=== PATIENT | female | born 1990 | race Caucasian/White ===

== ENCOUNTER 2018-04-21 20:44 | Emergency (ER) | payer MEDICAID, SELFPAY ==
[2018-04-21 20:48] VITALS: BP 130/64; PULSE 100; RESP 18; TEMP 36.4; O2SAT 100
--- NOTE | 2018-04-21 21:01 | W.ED.GENAD ---
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 Clinical Impression: , threatened Primary Care Provider: Rula Perez ED Provider: Frankie Vickers Meds and New Rx's Prescriptions: Continued PNV cmb#95-ferrous fumarate-FA [] 28 mg iron- 800 mcg tablet 1 tab PO DAILY MDD 1 Qty: 90 RF: 5 Flovent HFA 12 GM HFA aerosol inhaler 110 mcg Inhalation BID RF: 0 HFA spacer 1 unit Qty: 1 RF: 0 amitriptyline 150 MG tablet 150 mg PO HS Qty: 30 RF: 5 methylphenidate HCl [Concerta] 54 MG tablet extended release 24hr 54 mg PO DAILY Qty: 30 RF: 0 gabapentin 800 MG tablet 1,600 mg PO TID Qty: 180 RF: 0 ibuprofen 600 MG tablet 600 mg PO Q6H PRN Qty: 60 RF: 1 methadone 10 mg/mL concentrate 85 mg PO DAILY Qty: 3 RF: 0 Discharge Instructions Instructions: Threatened Miscarriage (ED) Additional Instructions: Pelvic rest for the weekend. Follow-up with OB this week. Return to emergency department if increasing pelvic pain, heavy bleeding, other problems. Referrals: Tari Drake MD [ [facility] STAFF PHYSICIAN] - Medical Decision Making Patient presents with vaginal bleeding in her eighth week of . She has not having significant pain. IV established started CBC, beta quant, type and screen can be obtained. Per records she is a negative and she will therefore need RhoGam. Bedside ultrasound performed by me. Unable to print images. heart rate noted at approximately 180. Pelvic exam performed with female nurse present. Cervical os is closed with minimal to no bleeding at this time. Case discussed with OB, Dr. Drake. Will give full dose RhoGam. Will have patient follow-up with BUSINESS TRANSFORMATION CONSULTANT next week. Return if increasing pain or bleeding. Medical Records Medical records reviewed: Yes I reviewed the patient's medical records. Lab Data Lab results reviewed: Yes I reviewed the patient's lab results. HPI General Mode of arrival: ambulatory. Date/Time Provider Initiated Documentation: 04/21/18 20:47. Limitations to Documentation: no limitations. HPI Narrative: Patient presents to ED with vaginal bleeding. She is 8 weeks 5 days . She had an ultrasound done on the which confirmed IUP. She has had multiple miscarriages in the past. She had spotting today and spoke to OB on-call. Was told to come to the ED if she had any heavy bleeding. Tonight after waking up from a nap she reports being covered in blood. She has some pelvic pressure but no pain. She has no back pain. She thinks she is still bleeding. She has presenting for evaluation as instructed previously. Related Data Home Medications Medication Instructions Recorded Confirmed Flovent HFA 110 mcg INHALATION BID inhaler 11/01/14 04/21/18 amitriptyline 150 mg PO HS #30 tab 04/25/17 04/21/18 methylphenidate HCl [Concerta] 54 mg PO DAILY #30 tab 05/22/17 04/21/18 gabapentin 1,600 mg PO TID #180 tab 06/23/17 04/21/18 ibuprofen 600 mg PO Q6H PRN #60 tab-cap 07/16/17 04/21/18 methadone 10 mg/mL oral concentrate 85 mg PO DAILY #3 ml 04/10/18 04/21/18 vit no.95-ferrous 1 tab PO DAILY #90 tab MDD 1 04/10/18 04/21/18 fumarate 28 mg-folic acid 800 mcg tablet Previous Rx's Medication Instructions Recorded amitriptyline 150 mg PO HS #30 tab 04/25/17 gabapentin 1,600 mg PO TID #180 tab 06/23/17 ibuprofen 600 mg PO Q6H PRN #60 tab-cap 07/16/17 vit no.95-ferrous 1 tab PO DAILY #90 tab MDD 1 04/10/18 fumarate 28 mg-folic acid 800 mcg tablet Allergies Allergy/AdvReac Type Severity Reaction Status Date / Time Penicillins Allergy Severe Anaphylaxsi Unverified 04/21/18 20:52 s venom-honey bee Allergy Severe Anaphylaxsi Unverified 04/21/18 20:52 [bee venom (honey bee)] s naproxen [From Naprosyn] Allergy Intermediate Hives Unverified 04/21/18 20:52 latex Allergy Unknown HIVES, RED Unverified 04/21/18 20:52 BUMPS General Stated Complaint: BUSINESS TRANSFORMATION CONSULTANT TON: 3 Review of Systems Constitutional Denies chills, Denies fever(s), Denies headache(s) and Denies weakness Eyes Denies change in vision and Denies eye pain ENT Denies otalgia, Denies facial pain, Denies headache(s), Denies nasal congestion, Denies nasal discharge, Denies neck pain, Denies sinus pain and Denies sore throat Cardiovascular Denies chest pain, Denies diaphoresis, Denies syncope, Denies rapid heart rate, Denies edema, Denies dyspnea and Denies dyspnea on exertion Respiratory Denies cough, Denies dyspnea and Denies dyspnea on exertion Gastrointestinal Denies abdominal pain, Denies diarrhea, Denies nausea and Denies vomiting Genitourinary Reports abnormal vaginal bleeding, Denies dysuria, Reports pelvic pain and Denies flank pain Musculoskeletal Denies back pain, Denies neck pain and Denies numbness Integumentary/Breasts Denies rash Neurologic Denies syncope, Denies headache(s), Denies numbness and Denies weakness [facility] Medical History Genital warts complicating (Resolved) Hypoglycemia (Resolved) Asthma Cigarette smoker one half pack a day or less Dental caries Hepatitis C antibody positive in blood Marijuana smoker Methadone maintenance treatment affecting Personal history of allergy to penicillin Visual changes Surgical History Amputation (Resolved) Dilation and curettage (07/23/17) Family History Mother History of spontaneous Mental disorder Grandfather Diabetes Grandmother Diabetes Grandmother Diabetes Father Alcohol abuse Sister No problems noted. Brother Alcohol abuse Mental disorder Brother No problems noted. Other Myocardial infarction Social History adopted: No foster care: No household members: family and other details: Earnest Rodriguez and Son Cara number of children: 3 current occupational status: employed Smoking/Tobacco Use Status: Former Tobacco Use alcohol intake: never substance use type: marijuana seatbelt use: always History History 9 Para 3 Hx # Term Pregnancies 3 Multiple births Hx # Pregnancies Ectopic pregnancies AB induced Hx Number of Living Children AB spontaneous 5 Exam Const General: cooperative, comfortable and no acute distress Orientation: alert and oriented x3 HENMT Head: normocephalic and atraumatic Mouth: moist mucous membranes Neck Neck: normal visual inspection and supple Resp Effort & Inspection: normal respiratory effort GI Inspection: non-distended Palpation: soft, not firm, no guarding and nontender External Female Exam: external appearance normal Speculum Exam - Vagina: normal appearance of the vagina and vaginal bleeding (minimal) Speculum Exam - Cervix: normal appearance of the cervix and closed cervix OB/External & Speculum: vaginal bleeding (minimal) Skin General skin exam: no rashes or lesions noted Neuro General: alert, oriented x3, no focal motor deficits and CN's II-XI intact bilaterally Course Vital Signs Temperature 97.5 F L 04/21/18 20:48 Pulse 100 H 04/21/18 20:48 Respiratory Rate 18 04/21/18 20:48 Blood Pressure 130/64 04/21/18 20:48 Pulse Oximetry 100 04/21/18 20:48 Temperature 97.5 F L 04/21/18 20:48 Pulse 100 H 04/21/18 20:48 Respiratory Rate 18 04/21/18 20:48 Respiratory Effort Non-Labored 04/21/18 20:48 Blood Pressure 130/64 04/21/18 20:48 Pulse Oximetry 100 04/21/18 20:48 Oxygen Delivery Method Room Air 04/21/18 20:48 Oxygen Flow Rate 0 04/21/18 20:48 Pain Level 0 04/21/18 20:54
--- NOTE | 2018-04-21 21:04 | ED.GENADUL_ITS ---
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 Clinical Impression: , threatened Primary Care Provider: Rula Perez ED Provider: Frankie Vickers Meds and New Rx's Prescriptions: Continued PNV cmb#95-ferrous fumarate-FA [] 28 mg iron- 800 mcg tablet 1 tab PO DAILY MDD 1 Qty: 90 RF: 5 Flovent HFA 12 GM HFA aerosol inhaler 110 mcg Inhalation BID RF: 0 HFA spacer 1 unit Qty: 1 RF: 0 amitriptyline 150 MG tablet 150 mg PO HS Qty: 30 RF: 5 methylphenidate HCl [Concerta] 54 MG tablet extended release 24hr 54 mg PO DAILY Qty: 30 RF: 0 gabapentin 800 MG tablet 1,600 mg PO TID Qty: 180 RF: 0 ibuprofen 600 MG tablet 600 mg PO Q6H PRN Qty: 60 RF: 1 methadone 10 mg/mL concentrate 85 mg PO DAILY Qty: 3 RF: 0 Discharge Instructions Instructions: Threatened Miscarriage (ED) Additional Instructions: Pelvic rest for the weekend. Follow-up with OB this week. Return to emergency department if increasing pelvic pain, heavy bleeding, other problems. Referrals: Tari Drake MD [ [facility] STAFF PHYSICIAN] - Medical Decision Making Patient presents with vaginal bleeding in her eighth week of . She has not having significant pain. IV established started CBC, beta quant, type and screen can be obtained. Per records she is a negative and she will therefore need RhoGam. Bedside ultrasound performed by me. Unable to print images. heart rate noted at approximately 180. Pelvic exam performed with female nurse present. Cervical os is closed with minimal to no bleeding at this time. Case discussed with OB, Dr. Drake. Will give full dose RhoGam. Will have patient follow-up with SHOP MECHANIC HELPER next week. Return if increasing pain or bleeding. Medical Records Medical records reviewed: Yes I reviewed the patient's medical records. Lab Data Lab results reviewed: Yes I reviewed the patient's lab results. HPI General Mode of arrival: ambulatory . Date/Time Provider Initiated Documentation: 04/21/18 20:47 . Limitations to Documentation: no limitations . HPI Narrative: Patient presents to ED with vaginal bleeding. She is 8 weeks 5 days . She had an ultrasound done on the which confirmed IUP. She has had multiple miscarriages in the past. She had spotting today and spoke to OB on-call. Was told to come to the ED if she had any heavy bleeding. Tonight after waking up from a nap she reports being covered in blood. She has some pelvic pressure but no pain. She has no back pain. She thinks she is still bleeding. She has presenting for evaluation as instructed previously. Related Data Home Medications Medication Instructions Recorded Confirmed Flovent HFA 110 mcg INHALATION BID inhaler 11/01/14 04/21/18 amitriptyline 150 mg PO HS #30 tab 04/25/17 04/21/18 methylphenidate HCl [Concerta] 54 mg PO DAILY #30 tab 05/22/17 04/21/18 gabapentin 1,600 mg PO TID #180 tab 06/23/17 04/21/18 ibuprofen 600 mg PO Q6H PRN #60 tab-cap 07/16/17 04/21/18 methadone 10 mg/mL oral concentrate 85 mg PO DAILY #3 ml 04/10/18 04/21/18 vit no.95-ferrous 1 tab PO DAILY #90 tab MDD 1 04/10/18 04/21/18 fumarate 28 mg-folic acid 800 mcg tablet Previous Rx's Medication Instructions Recorded amitriptyline 150 mg PO HS #30 tab 04/25/17 gabapentin 1,600 mg PO TID #180 tab 06/23/17 ibuprofen 600 mg PO Q6H PRN #60 tab-cap 07/16/17 vit no.95-ferrous 1 tab PO DAILY #90 tab MDD 1 04/10/18 fumarate 28 mg-folic acid 800 mcg tablet Allergies Allergy/AdvReac Type Severity Reaction Status Date / Time Penicillins Allergy Severe Anaphylaxsi Unverified 04/21/18 20:52 s venom-honey bee Allergy Severe Anaphylaxsi Unverified 04/21/18 20:52 [bee venom (honey bee)] s naproxen [From Naprosyn] Allergy Intermediate Hives Unverified 04/21/18 20:52 latex Allergy Unknown HIVES, RED Unverified 04/21/18 20:52 BUMPS General 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 TON: 3 Review of Systems Constitutional Denies chills, Denies fever(s), Denies headache(s) and Denies weakness Eyes Denies change in vision and Denies eye pain ENT Denies otalgia, Denies facial pain, Denies headache(s), Denies nasal congestion, Denies nasal discharge, Denies neck pain, Denies sinus pain and Denies sore throat Cardiovascular Denies chest pain, Denies diaphoresis, Denies syncope, Denies rapid heart rate, Denies edema, Denies dyspnea and Denies dyspnea on exertion Respiratory Denies cough, Denies dyspnea and Denies dyspnea on exertion Gastrointestinal Denies abdominal pain, Denies diarrhea, Denies nausea and Denies vomiting Genitourinary Reports abnormal vaginal bleeding, Denies dysuria, Reports pelvic pain and Denies flank pain Musculoskeletal Denies back pain, Denies neck pain and Denies numbness Integumentary/Breasts Denies rash Neurologic Denies syncope, Denies headache(s), Denies numbness and Denies weakness [facility] Medical History Genital warts complicating (Resolved) Hypoglycemia (Resolved) Asthma Cigarette smoker one half pack a day or less Dental caries Hepatitis C antibody positive in blood Marijuana smoker Methadone maintenance treatment affecting Personal history of allergy to penicillin Visual changes Surgical History Amputation (Resolved) Dilation and curettage (07/23/17) Family History Mother History of spontaneous Mental disorder Grandfather Diabetes Grandmother Diabetes Grandmother Diabetes Father Alcohol abuse Sister No problems noted. Brother Alcohol abuse Mental disorder Brother No problems noted. Other Myocardial infarction Social History adopted: No foster care: No household members: family and other details: Earnest Rodriguez and Son Cara number of children: 3 current occupational status: employed Smoking/Tobacco Use Status: Former Tobacco Use alcohol intake: never substance use type: marijuana seatbelt use: always History History 9 Para 3 Hx # Term Pregnancies 3 Multiple births Hx # Pregnancies Ectopic pregnancies AB induced Hx Number of Living Children AB spontaneous 5 Exam Const General: cooperative, comfortable and no acute distress Orientation: alert and oriented x3 HENMT Head: normocephalic and atraumatic Mouth: moist mucous membranes Neck Neck: normal visual inspection and supple Resp Effort & Inspection: normal respiratory effort GI Inspection: non-distended Palpation: soft, not firm, no guarding and nontender External Female Exam: external appearance normal Speculum Exam - Vagina: normal appearance of the vagina and vaginal bleeding (minimal) Speculum Exam - Cervix: normal appearance of the cervix and closed cervix OB/External & Speculum: vaginal bleeding (minimal) Skin General skin exam: no rashes or lesions noted Neuro General: alert, oriented x3, no focal motor deficits and CN's II-XI intact bilaterally Course Vital Signs Temperature 97.5 F L 04/21/18 20:48 Pulse 100 H 04/21/18 20:48 Respiratory Rate 18 04/21/18 20:48 Blood Pressure 130/64 04/21/18 20:48 Pulse Oximetry 100 04/21/18 20:48 Temperature 97.5 F L 04/21/18 20:48 Pulse 100 H 04/21/18 20:48 Respiratory Rate 18 04/21/18 20:48 Respiratory Effort Non-Labored 04/21/18 20:48 Blood Pressure 130/64 04/21/18 20:48 Pulse Oximetry 100 04/21/18 20:48 Oxygen Delivery Method Room Air 04/21/18 20:48 Oxygen Flow Rate 0 04/21/18 20:48 Pain Level 0 04/21/18 20:54
[2018-04-21 21:38] LABS: Abs Immature Grans 0.01 k/cumm (0.0-0.09); Absolute Basophil Count 0.01 k/cumm (0.0-0.2); Absolute Eosinophil Count 0.21 k/cumm (0.0-0.7); Absolute Monocyte Count 0.45 k/cumm (0.11-0.7); Absolute Neutrophil Count 4.66 k/cumm (1.2-6.7); Basophils % 0.1; Eosinophils % 2.9; HCT 39.2 % (36.0-46.0); HGB 13.3 g/dL (12.0-15.5); Immature Grans % 0.1; Lymphocytes % 25.2; Mean Corp. HGB Concentration 33.9 g/dL (32.0-36.0); Mean Corpuscular Hemoglobin 28.4 pg (27.0-33.0); Mean Corpuscular Volume 83.8 fL (80-95); Mean Platelet Volume 9.3 fL (8.0-11.0); Monocytes % 6.3; Neutrophils % 65.4; Platelet Count 324 x1000/uL (130-400); RBC 4.68 m/cumm (4.00-5.20); RBC Distribution Width 13.5 % (11.7-14.6); White Blood Cell Count 7.14 k/cumm (4.4-10.8)
[2018-04-21 22:50] VITALS: BP 130/64; PULSE 100; RESP 18; TEMP 36.4; O2SAT 100
== END 2018-04-21 22:51 | disposition home or self-care (01) ==
PROVIDERS: Emergency Provider Emergency Medicine; PCP Nurse Practitioner
DX: O20.0 Threatened abortion (principal); Z3A.08 8 weeks gestation of pregnancy
CPT/HCPCS: 36415; 86850; 86900; 86901; 90384; 96372; 99284; 84702; 85025; J2790

== ENCOUNTER 2018-05-11 15:58 | Outpatient (REF) | payer MEDICAID, SELFPAY ==
--- NOTE | 2018-05-11 15:20 | PAPFT_PTH ---
PATIENT: Jennifer Cheng LOC: [facility] U#:[id number] AGE/SX: 28/F ROOM: RE05/11/[address]: Fanta Escalera CNM : 1990 BED: DIS: 05/11/2018 SPEC #: [id number] RECD: 05/11/18 18:12 STATUS: AGUILAR DAO #: [id number] JACKIE: 05/11/18 15:[address]: Fanta Escalera DEPT: [facility] Cytology RECD BY: Cass Jones ENTERED: 05/11/18 18:12 SP TYPE: PAPFT OTHR DR: Rula Perez Tissues: 1 - CX/ENDOCX FOR PAP SMEARS Procedures: PAP THIN PREP/UVM Screening HPV DNA PROBE Comments: [id number]
[2018-05-11 16:41] LABS: *AMPHETAMINES SCREEN URINE Negative (Negative); *BARBITURATES SCREEN URINE Negative (Negative); *BENZODIAZEPINES SCREEN URINE Negative (Negative); Cannabinoids THC POSITIVE (Negative); Cocaine Screen,Urine Negative (Negative); METHADONE URINE SCREEN POSITIVE (Negative); OPIATES URINE SCREEN Negative (Negative)
[2018-05-11 16:42] LABS: Tricyclic Antidepressants POSITIVE (Negative)
[2018-05-13 12:46] LABS: Chlamydia Result Negative; GC Result Negative; Specimen Description CERVIX
[2018-05-15 14:54] LABS: Buprenorphine Negative
== END 2018-05-11 16:18 ==
LOC: LBN 15:58
PROVIDERS: PCP Nurse Practitioner; Visit Provider Advanced Practice Midwife
DX: Z34.91 Encounter for supervision of normal pregnancy, unspecified, first trimester (principal); Z12.4 Encounter for screening for malignant neoplasm of cervix; Z11.51 Encounter for screening for human papillomavirus (HPV); Z11.3 Encounter for screening for infections with a predominantly sexual mode of transmission
CPT/HCPCS: 80307; 87491; 87591; 88142; 87086; 87624

== ENCOUNTER 2018-05-27 01:05 | Outpatient (RCR) | payer MEDICAID, SELFPAY ==
[2018-05-27 10:35] LABS: Abs Immature Grans 0.01 k/cumm (0.0-0.09); Absolute Basophil Count 0.02 k/cumm (0.0-0.2); Absolute Eosinophil Count 0.13 k/cumm (0.0-0.7); Absolute Lymphocyte Count 1.26 k/cumm (1.2-3.4); Absolute Monocyte Count 0.29 k/cumm (0.11-0.7); Absolute Neutrophil Count 3.62 k/cumm (1.2-6.7); Basophils % 0.4; Eosinophils % 2.4; HCT 37.1 % (36.0-46.0); HGB 12.7 g/dL (12.0-15.5); Immature Grans % 0.2; Lymphocytes % 23.6; Mean Corp. HGB Concentration 34.2 g/dL (32.0-36.0); Mean Corpuscular Hemoglobin 28.7 pg (27.0-33.0); Mean Corpuscular Volume 83.9 fL (80-95); Mean Platelet Volume 9.9 fL (8.0-11.0); Monocytes % 5.4; Platelet Count 233 x1000/uL (130-400); RBC 4.42 m/cumm (4.00-5.20); RBC Distribution Width 13.7 % (11.7-14.6); White Blood Cell Count 5.33 k/cumm (4.4-10.8)
[2018-05-27 11:03] LABS: TSH (W/Ref FT4) 1.45 uIU/mL (0.358-3.74)
[2018-05-28 09:23] LABS: Hepatitis B Surface Ag Negative (NEGAT)
[2018-05-28 11:22] LABS: HIV-1/2 Ag & Ab Screen Negative (NEGAT)
[2018-05-28 11:51] LABS: Varicella IgG Antibody Positive
[2018-05-28 11:58] LABS: Rubella IgG Ab (UVM) Positive
[2018-05-28 12:08] LABS: Syphilis Serology (RPR) Negative (Negative)
[2018-05-28 15:24] LABS: HCV RNA Detection Quantitative Undetected IU/mL (UNDECT)
[2018-06-02 17:30] LABS: Result Summary NEGATIVE; Specimen WB Whole Blood
== END 2018-06-04 23:59 | disposition home or self-care (01) ==
LOC: INF 01:05
PROVIDERS: PCP Nurse Practitioner; Visit Provider Advanced Practice Midwife
DX: Z34.83 Encounter for supervision of other normal pregnancy, third trimester (principal)
CPT/HCPCS: 36415; 80055; 86787; 86803; 86850; 86900; 86901; 87340; 87389; 81220; 84443; 86592; 86762; 86870; 87522

== ENCOUNTER 2018-06-25 00:42 | Outpatient (CLI) | payer MEDICAID, SELFPAY ==
--- NOTE | 2018-06-25 09:28 | DI.US_ITS ---
SYMPTOMS/DIAGNOSIS: SURVEY, Z34.90 OB ULTRASOUND: Please see the accompanying OB ultrasound worksheet for complete details of this examination. Many abnormalities cannot be diagnosed. A normal exam does not exclude a congenital anomaly. Radiology No. [id number] LMP: Exam Date: 06/25/18 [facility] wks days on EDC ([facility]) 11/26/18 Confirmed: HISTORY: survey PREDICTED GESTATIONAL AGE NUMBER 18+0 weeks with a range of 17+0 weeks to 19+0 weeks. 1 Determined by 1STUS X LMP___HISTORY Info. pertaining to fetus # PLACENTA PRESENTATION Grade I Cephalic___ Anterior___Posterior___ Breech____ Right Left Transverse(head right___ Fundal X Low-lying___Previa___ Transverse(head left___ Varying X BIOMETRY AMNIOTIC FLUID BPD: 39 mm 18+0 weeks Normal HC: 148 mm 17+6weeks AC: 128 mm 18+3 weeks FL: 26 mm 17+6 weeks AMNIOTIC FLUID INDEX >26 WK CRL: mm weeks Cisterna Magna: 3 mm CI: 86 RUQ: LUQ Cerebellum: 1.8 cm EFW: 223 grams Percentile 50% RLQ: LLQ Total: cms Composite AGE= 18+0 wks EDC by US 11/26/18 BIOPHYSICAL PROFILE ANATOMY IDENTIFIED SCORE 0/2 Heart: 4-Chamber X Rate: 150 BPM LVOT: X RVOT: X Amniotic Fluid(>2cms)____ Stomach: X Kidneys: X Respirations (>30 secs) Bladder: X Post. Fossa: X Body Flex/Extension 3 vessel cord: X Ventricles: X cord insertion: X Lips: X Extremity Flex/Extension spinal morphology: X Nose: X Total Score= Palate: X NS=not seen
== END 2018-06-25 01:02 ==
PROVIDERS: PCP Nurse Practitioner; Visit Provider Advanced Practice Midwife
DX: Z34.92 Encounter for supervision of normal pregnancy, unspecified, second trimester (principal)
CPT/HCPCS: 76805

== ENCOUNTER 2018-06-25 02:23 | Outpatient (RCR) | payer MEDICAID, SELFPAY ==
[2018-06-26 15:45] LABS: AFP 41.4 ng/mL; Calculated age at EDD 29 years; GA used in risk estimate Scan estimate; INHIBIN 353 pg/mL; IVF Pregnancy No; Initial or repeat testing Initial testing; Insulin dependent diabetes No; Maternal Weight 161 lbs; Number of Fetuses 1; Physician Phone Number 802-748-7300; Prev Down(T21)/Trisomy Pregnan No; Prev Pregnancy w/NTD No; RECOMMENDED FOLLOW UP None.; Results Summary Normal risk; hCG, TOTAL 38.8 IU/mL; hCG, TOTAL MoM 2.27 MoM; uE3 MoM 0.76 MoM
== END 2018-07-05 23:59 | disposition home or self-care (01) ==
LOC: INF 02:23
PROVIDERS: PCP Nurse Practitioner; Visit Provider Obstetrics & Gynecology Gynecology
DX: Z34.90 Encounter for supervision of normal pregnancy, unspecified, unspecified trimester (principal)
CPT/HCPCS: 36415; 81511

== ENCOUNTER 2018-09-03 02:02 | Outpatient (RCR) | payer MEDICAID, SELFPAY | END 2018-09-04 23:59 | disposition home or self-care (01) | LOC: INF 02:02 | PROVIDERS: PCP Nurse Practitioner; Visit Provider Obstetrics & Gynecology | DX: Z34.90 Encounter for supervision of normal pregnancy, unspecified, unspecified trimester (principal) | CPT/HCPCS: 82950; 85027; 86900; 86901 ==

== ENCOUNTER 2018-09-10 01:24 | Outpatient (RCR) | payer MEDICAID, SELFPAY ==
[2018-09-10 10:51] LABS: HCT 33.7 % (36.0-46.0); HGB 11.3 g/dL (12.0-15.5); Mean Corp. HGB Concentration 33.5 g/dL (32.0-36.0); Mean Corpuscular Hemoglobin 28.9 pg (27.0-33.0); Mean Corpuscular Volume 86.2 fL (80-95); Mean Platelet Volume 9.6 fL (8.0-11.0); Platelet Count 261 x1000/uL (130-400); RBC 3.91 m/cumm (4.00-5.20); RBC Distribution Width 13.9 % (11.7-14.6); White Blood Cell Count 7.77 k/cumm (4.4-10.8)
[2018-09-10 10:59] LABS: Glucose,1 Hr (Glucola) 139 mg/dL (80-140)
== END 2018-10-04 23:59 | disposition home or self-care (01) ==
LOC: INF 01:24
PROVIDERS: Obstetrics & Gynecology Gynecology; Psychiatry & Neurology Psychiatry; PCP Nurse Practitioner; Visit Provider Internal Medicine
DX: Z34.90 Encounter for supervision of normal pregnancy, unspecified, unspecified trimester (principal)
CPT/HCPCS: 36415; 82950; 85027; 86850; 86900; 86901; 90384

== ENCOUNTER 2018-09-11 01:51 | Outpatient (CLI) | payer MEDICAID, SELFPAY ==
--- NOTE | 2018-09-11 09:24 | DI.US_ITS ---
SYMPTOM/DIAGNOSIS: FUNDAL HEIGHT MEASURING , 3 W BEHIND, O36.5104 LIMITED OBSTETRICAL ULTRASOUND: There is a single living intrauterine gestation. Estimated sonographic age is 27 weeks 6 days, The fetus is in the breech position. heart rate is 136 BPM anatomic evaluation was not performed at this time. Estimated weight is 1193 grams which is the 12th percentile. The placenta is posterior without evidence of previa. Amniotic fluid index is 14.2. Visual amniotic fluid appears within normal limits. IMPRESSION: Single living intrauterine gestation, estimated sonographic age is 27 weeks 6 days. Predicted Gestational Age: Indication/History: 29 +1 Wks Range: 28 +1 to 30 +1 Prior US done on: Determined by: First US LMP History EDC by prior US: 11/26/2018 For multiple gestations: Baby PLACENTA: Grade: II Location: Posterior XX PRESENTATION: RT LT LOW LYING PREVIA Cephalic Trans (Head RT LT ) Varied Breech XX BIOMETRY: Anatomy Identified: BPD: 65 mm 26 +3 wks 4 chamber Heart Heart Rate 136 BPM HC: 258 mm 28 wks LVOT Post Fossa AC: 241 mm 28 +3 wks RVOT Ventricles FL: 54 mm 28 +3 wks Stomach Nose Bladder Lips Cisterna Magna: mm CI: 77 Kidneys Palate Cerebellum: mm 3 vessel cord Spine EFW: 1193 grms 12 % Cord Insertion XX NS= not seen Composite Age (US) 27 +8 wks Many abnormalities cannot be diagnosed. A normal exam does not exclude congenital abnormality. EDC by US 12/05/18 Amniotic Fluid Index: Normal COMMENTS: RUQ: 2.4 LUQ: 3.72 RLQ: 3.41 LLQ: 4.92 Total: 17.2 cm Biophysical Profile: Score 0/2 SUSIE (>2cm) Respirations (>30 sec) Body flexion/extension Extremity flexion/extension TOTAL SCORE
== END 2018-09-11 02:11 ==
PROVIDERS: PCP Nurse Practitioner; Visit Provider Obstetrics & Gynecology Gynecology
DX: O36.5920 Maternal care for other known or suspected poor fetal growth, second trimester, not applicable or unspecified (principal)
CPT/HCPCS: 76816

== ENCOUNTER 2018-09-21 10:05 | Outpatient (CLI) | payer MEDICAID, SELFPAY ==
--- NOTE | 2018-09-21 07:00 | DIABASSESS_ITS ---
DESCRIPTION/ASSESSMENT: Brooklynn Cheng presents for medical nutrition therapy to rule out gestational diabetes unable to completed 3 hour GTT after elevated glucose screen. She is willing to test her blood sugars per protocol to prevent complications. Brooklynn admits to drinking koolaid with 1/2 usual sugar; eating at [employer] because it is her place of work eating partaits and triple cheeseburgers and juice. She has given up [place]. She has an overall weight gain 2 pounds with a 15 pound weight loss initially, now at 32 weeks. Brooklynn has 2 children all with birthweight less than 7 pounds. She is physically inactive other than chasing her children and work. INTERVENTION: Explained risk to baby and self with blood sugars above target range. Reviewed diabetes food guide. She is mostly focused on monitoring her blood sugars and she is able to return demonstration with random blood sugar 112 after a few sips of coffee with sugar. Reviewed diabetes guide focused on carbohydrate sources and portions and she is able to voice changes she would make to improve her blood sugars. Reviewed blood sugar testing guidelines and she voices understanding. ACTION PLAN: She will pear picker glucometer and strips and initiate testing today. She will eliminate all beverages with sugar; limit sweets during the day She will call on Friday or before with results and questions. Individual MNT __2__ units billed TIME IN: 0700 OUT: 07 No DM group education series being offered at this time.
== END 2018-09-21 10:25 ==
PROVIDERS: PCP Nurse Practitioner; Visit Provider Dietitian, Registered
DX: O24.419 Gestational diabetes mellitus in pregnancy, unspecified control (principal); Z71.3 Dietary counseling and surveillance
CPT/HCPCS: 97802

== ENCOUNTER 2018-10-12 00:48 | Outpatient (CLI) | payer MEDICAID, SELFPAY ==
--- NOTE | 2018-10-12 10:21 | DI.US_ITS ---
SYMPTOM/DIAGNOSIS: SGA, 026.849, UTERINE SIZE/DATE DISCREPANCY OB ULTRASOUND: 10/12 OB ultrasound was performed utilizing 3rd trimester protocol. Placenta is posterior and fundal and there is no evidence of placenta previa. There is visually a normal quantity of amniotic fluid and the SUSIE is 12. The fetus is in breech presentation. biometry is consistent with gestational age of 31 weeks and EDC of 12/14/18 The estimated weight is 1748 grams which is at the 3rd percentile for predicted gestational age. Predicted Gestational Age: Indication/History: 33 +4 Wks Range: 32 +4 to 34 +4 Prior US done on: Determined by: First US LMP History EDC by prior US: 11/26/18 For multiple gestations: Baby PLACENTA: Grade II Location: Posterior PRESENTATION: RT LT LOW LYING PREVIA Cephalic Trans (Head RT LT ) Varied Breech XX BIOMETRY: Anatomy Identified: BPD: 74 mm 29 +5 wks 4 chamber Heart Heart Rate 153 BPM HC: 285 mm 31 +2 wks LVOT Post Fossa AC: 276 mm 31 +5 wks RVOT Ventricles FL: 60 mm 31 +2 wks Stomach Nose Bladder Lips Cisterna Magna: mm 83 CI: Kidneys Palate Cerebellum: mm 3 vessel cord Spine EFW: 1748 grms 3 % Cord Insertion NS= not seen Composite Age (US) 31 wks Many abnormalities cannot be diagnosed. A normal exam does not exclude congenital abnormality. EDC by US 12/14/18 Amniotic Fluid Index: Normal COMMENTS: RUQ: 2.12 LUQ: 4.13 RLQ: 2.33 LLQ: 3.48 Total: 12.1 cm Biophysical Profile: Score 0/2 SUSIE (>2cm) Respirations (>30 sec) Body flexion/extension Extremity flexion/extension TOTAL SCORE
== END 2018-10-12 01:08 ==
PROVIDERS: PCP Nurse Practitioner; Visit Provider Obstetrics & Gynecology
DX: O26.843 Uterine size-date discrepancy, third trimester (principal); Z34.93 Encounter for supervision of normal pregnancy, unspecified, third trimester
CPT/HCPCS: 76816

== ENCOUNTER 2018-10-16 08:14 | Outpatient (CLI) | payer MEDICAID, SELFPAY ==
[2018-10-16] MEDS: Betamet Acet/Betamet Na Ph Inj. 30 MG/5 ML 12 MG IM (09:50)
== END 2018-10-16 08:34 ==
PROVIDERS: PCP Nurse Practitioner; Visit Provider Advanced Practice Midwife
DX: O36.5930 Maternal care for other known or suspected poor fetal growth, third trimester, not applicable or unspecified (principal); Z3A.34 34 weeks gestation of pregnancy
CPT/HCPCS: 96372; 59025; J0702

== ENCOUNTER 2018-10-19 01:49 | Outpatient (CLI) | payer MEDICAID, SELFPAY ==
--- NOTE | 2018-10-19 08:20 | DI.US_ITS ---
SYMPTOMS/DIAGNOSIS: IUGR OB ULTRASOUND: There is a single intrauterine gestation. The fetus is in the breech position. heart rate is 155 bpm. anatomic evaluation was not performed at this time. Amniotic fluid index is 12.4 cm. Visually amniotic fluid is within normal limits. The placenta is posterior without evidence of previa. The biophysical profile score is 8 out of 8. IMPRESSION: Single intrauterine gestation. Biophysical profile score is 8 out of 8. Predicted Gestational Age: Indication/History: 34+4 Wks Range: to Prior US done on: Determined by: First US LMP History EDC by prior US: 11/26/18 For multiple gestations: Baby PLACENTA: Grade: II Location: Anterior Posterior X PRESENTATION: RT LT LOW LYING PREVIA Cephalic Trans (Head RT LT ) Varied Breech X BIOMETRY: Anatomy Identified: BPD: mm wks 4 chamber Heart Heart Rate 155 BPM HC: mm wks LVOT Post Fossa AC: mm wks RVOT Ventricles FL: mm wks Stomach Nose Bladder Lips Cisterna Magna: mm CI: Kidneys Palate Cerebellum: mm 3 vessel cord Spine EFW: grms % Cord Insertion NS= not seen Composite Age (US) wks Many abnormalities cannot be diagnosed. A normal exam does not exclude congenital abnormality. EDC by US Amniotic Fluid Index: Normal COMMENTS: RUQ: 4.16 LUQ: 1.77 RLQ: 2.07 LLQ: 4.41 Total: 12.4 cm Biophysical Profile: Score 0/2 SUSIE (>2cm) 2/2 Respirations (>30 sec) 2/2 Body flexion/extension 2/2 Extremity flexion/extension 2/2 TOTAL SCORE 8/8
== END 2018-10-19 02:09 ==
PROVIDERS: PCP Nurse Practitioner; Visit Provider Obstetrics & Gynecology
DX: Z36.89 Encounter for other specified antenatal screening; Z3A.34 34 weeks gestation of pregnancy; O26.843 Uterine size-date discrepancy, third trimester
CPT/HCPCS: 76815; 96372; 59025; 76819; J0702

== ENCOUNTER 2018-10-19 09:31 | Outpatient (CLI) | payer MEDICAID, SELFPAY ==
[2018-10-19] MEDS: Betamet Acet/Betamet Na Ph Inj. 30 MG/5 ML 12 MG IM (09:50)
== END 2018-10-19 09:51 ==
PROVIDERS: PCP Nurse Practitioner; Visit Provider Obstetrics & Gynecology
DX: O26.843 Uterine size-date discrepancy, third trimester (principal); Z3A.34 34 weeks gestation of pregnancy
CPT/HCPCS: 96372; 59025; J0702

== ENCOUNTER 2018-10-22 09:36 | Outpatient (CLI) | payer MEDICAID, SELFPAY | END 2018-10-22 09:56 | PROVIDERS: PCP Nurse Practitioner; Visit Provider Obstetrics & Gynecology | DX: O26.843 Uterine size-date discrepancy, third trimester (principal); O99.323 Drug use complicating pregnancy, third trimester; F19.10 Other psychoactive substance abuse, uncomplicated; Z3A.35 35 weeks gestation of pregnancy | CPT/HCPCS: 59025 ==

== ENCOUNTER 2018-10-26 00:54 | Outpatient (CLI) | payer MEDICAID, SELFPAY ==
--- NOTE | 2018-10-26 08:32 | DI.US_ITS ---
SYMPTOM/DIAGNOSIS: IUGR, [id number]. POOR GROWTH BIOPHYSICAL PROFILE: There is a single intrauterine gestation. The fetus is in the breech position. heart rate is 163 BPM. anatomic evaluation and dating was not performed at this examination. The placenta is anterior. The amniotic fluid index is 8.5 cm, visually the amniotic fluid appears within normal limits. The biophysical profile score is 8 out of 8. IMPRESSION: Single intrauterine gestation. Biophysical profile score of 8 out of 8. Predicted Gestational Age: Indication/History: IUGR 35 +4 Wks Range: to Prior US done on: Determined by: First US LMP XX History EDC by prior US: 11/26/18 For multiple gestations: Baby PLACENTA: Grade: I - II Location: XX Anterior Posterior PRESENTATION: RT LT LOW LYING PREVIA Cephalic Trans (Head RT LT ) Varied Breech XX BIOMETRY: Anatomy Identified: BPD: mm wks 4 chamber Heart Heart Rate 163 BPM HC: mm wks LVOT Post Fossa AC: mm wks RVOT Ventricles FL: mm wks Stomach Nose Bladder Lips Cisterna Magna: mm CI: Kidneys Palate Cerebellum: mm 3 vessel cord Spine EFW: grms % Cord Insertion NS= not seen Composite Age (US) wks Many abnormalities cannot be diagnosed. A normal exam does not exclude congenital abnormality. EDC by US Amniotic Fluid Index: Normal COMMENTS: RUQ: 0 LUQ: 2.5 RLQ: 2.4 LLQ: 3.5 Total: 8.5 cm Biophysical Profile: Score 0/2 SUSIE (>2cm) __2/2 Respirations (>30 sec) __2/2 Body flexion/extension __2/2 Extremity flexion/extension ___2/2 TOTAL SCORE __8/8
== END 2018-10-26 01:14 ==
PROVIDERS: PCP Nurse Practitioner; Visit Provider Obstetrics & Gynecology
DX: O36.5993 Maternal care for other known or suspected poor fetal growth, unspecified trimester, fetus 3 (principal); Z36.85 Encounter for antenatal screening for Streptococcus B; O99.320 Drug use complicating pregnancy, unspecified trimester; F11.20 Opioid dependence, uncomplicated
CPT/HCPCS: 76815; 80307; 76819

== ENCOUNTER 2018-10-26 14:56 | Outpatient (REF) | payer MEDICAID, SELFPAY ==
[2018-10-26 17:40] LABS: *AMPHETAMINES SCREEN URINE Negative (Negative); *BARBITURATES SCREEN URINE Negative (Negative); *BENZODIAZEPINES SCREEN URINE Negative (Negative); Cannabinoids THC POSITIVE (Negative); Cocaine Screen,Urine Negative (Negative); METHADONE URINE SCREEN POSITIVE (Negative); OPIATES URINE SCREEN Negative (Negative)
[2018-10-26 17:41] LABS: Tricyclic Antidepressants POSITIVE (Negative)
== END 2018-10-26 15:16 ==
LOC: LBN 14:56
PROVIDERS: PCP Nurse Practitioner; Visit Provider Obstetrics & Gynecology Gynecology
DX: F11.20 Opioid dependence, uncomplicated (principal); O99.323 Drug use complicating pregnancy, third trimester
CPT/HCPCS: 80307

== ENCOUNTER 2018-10-29 07:45 | Outpatient (CLI) | payer MEDICAID, SELFPAY ==
--- NOTE | 2018-10-29 11:28 | DI.US_ITS ---
SYMPTOMS/DIAGNOSIS: NONREACTIVE NONSTRESS TEST, INTRAUTERINE GROWTH RESTRICTION OB ULTRASOUND: Predicted Gestational Age: Indication/History: 36 Wks Range: 35 to 37 Prior US done on: Determined by: First US LMP History EDC by prior US: For multiple gestations: Baby PLACENTA: Grade: II Location: Anterior X Posterior PRESENTATION: RT LT LOW LYING PREVIA Cephalic Trans (Head RT LT ) Varied Breech X BIOMETRY: Anatomy Identified: BPD: mm wks 4 chamber Heart Heart Rate 141 BPM HC: mm wks LVOT Post Fossa AC: mm wks RVOT Ventricles FL: mm wks Stomach Nose Bladder Lips Cisterna Magna: mm CI: Kidneys Palate Cerebellum: mm 3 vessel cord Spine EFW: grms % Cord Insertion NS= not seen Composite Age (US) wks Many abnormalities cannot be diagnosed. A normal exam does not exclude congenital abnormality. EDC by US Amniotic Fluid Index: Normal RUQ: 1.1 LUQ: 2.1 RLQ: 4.2 LLQ: 1.4 Total: 8.8 cm Biophysical Profile: Score 0/2 SUSIE (>2cm) ___2 Respirations (>30 sec) ___2 Body flexion/extension ___2 Extremity flexion/extension ___2 TOTAL SCORE __8 COMMENTS: A biophysical profile was performed. The placenta is fundal and posterior. The fetus is in breech position. cardiac activity is demonstrated at 141 beats per minute. The amniotic fluid index appears normal at 8.8. Biophysical profile is normal with a score of 8. IMPRESSION: Normal biophysical profile.
== END 2018-10-29 08:05 ==
PROVIDERS: PCP Nurse Practitioner; Visit Provider Obstetrics & Gynecology
DX: O36.5930 Maternal care for other known or suspected poor fetal growth, third trimester, not applicable or unspecified (principal); O32.1XX0 Maternal care for breech presentation, not applicable or unspecified
CPT/HCPCS: 76815; 59025; 76819

== ENCOUNTER 2018-11-02 00:33 | Outpatient (CLI) | payer MEDICAID, SELFPAY ==
--- NOTE | 2018-11-02 08:32 | DI.US_ITS ---
SYMPTOM/DIAGNOSIS: IUGR, ORDERED BPP, MODIFIED LIMITED DUE TO PATIENT'S WATER BREAKING OBSTETRICAL ULTRASOUND: A breech rowley is noted with a cardiac rate of 160 BPM. The patient went in to labor during the examination and the study was discontinued. Predicted Gestational Age: Indication/History: 36 +4 Wks Range: 35 +4 to 37 +4 Prior US done on: Determined by: First US LMP History EDC by prior US: For multiple gestations: Baby PLACENTA: Grade: Location: Anterior Posterior PRESENTATION: RT LT LOW LYING PREVIA Cephalic Trans (Head RT LT ) Varied Breech XX BIOMETRY: Anatomy Identified: BPD: mm wks 4 chamber Heart Heart Rate 160 BPM HC: mm wks LVOT Post Fossa AC: mm wks RVOT Ventricles FL: mm wks Stomach Nose Bladder Lips Cisterna Magna: mm CI: Kidneys Palate Cerebellum: mm 3 vessel cord Spine EFW: grms % Cord Insertion NS= not seen Composite Age (US) wks Many abnormalities cannot be diagnosed. A normal exam does not exclude congenital abnormality. EDC by US Amniotic Fluid Index: [place] Normal Polyhydramnios COMMENTS: RUQ: LUQ: RLQ: LLQ: Total: cm Biophysical Profile: Score 0/2 SUSIE (>2cm) Respirations (>30 sec) Body flexion/extension Extremity flexion/extension TOTAL SCORE
== END 2018-11-02 00:53 ==
PROVIDERS: PCP Nurse Practitioner; Visit Provider Obstetrics & Gynecology
DX: O36.5931 Maternal care for other known or suspected poor fetal growth, third trimester, fetus 1 (principal); O32.1XX1 Maternal care for breech presentation, fetus 1
CPT/HCPCS: 76815

== ENCOUNTER 2018-11-02 09:35 | Inpatient (IN) | payer MEDICAID, SELFPAY ==
[2018-11-02] MEDS: Bupivacaine 0.25% Pres-Free 10 ML VIAL (10:20)
[2018-11-02] MEDS: fentaNYL 100 MCG/2 ML VIAL (10:20)
[2018-11-02] MEDS: FentaNYL/ROPIvacaine 2 mcg/ml and 0.1% 200 ML CADD Cassette EP (10:20)
[2018-11-02 10:24] LABS: HCT 37.1 % (36.0-46.0); HGB 12.6 g/dL (12.0-15.5); Mean Corpuscular Hemoglobin 29.2 pg (27.0-33.0); Mean Corpuscular Volume 86.1 fL (80-95); Platelet Count 257 x1000/uL (130-400); RBC 4.31 m/cumm (4.00-5.20); RBC Distribution Width 14.3 % (11.7-14.6); White Blood Cell Count 11.98 k/cumm (4.4-10.8)
[2018-11-02] MEDS: Normal Saline Flush 10 ML SYR (10:27)
[2018-11-02] MEDS: Lactated Ringers 1,000 ML 125 ML IV (10:29)
[2018-11-02] MEDS: VANCOMYCIN 1,000 MG in Normal Saline 250 ML 166.6666 MG IVPB (10:58)
[2018-11-02 11:13] LABS: CREATININE 0.54 mg/dL (0.55-1.02)
[2018-11-02] MEDS: Lactated Ringers 1,000 ML 500 ML IV (11:54)
--- NOTE | 2018-11-02 12:40 | PLAC_PTH ---
PATIENT: Jennifer Cheng LOC: OBS U#:[id number] AGE/SX: 28/F ROOM: OBS.304 RE11/02/[address]: Hernán Almaraz MD : 1990 BED: A DIS: 11/02/2018 SPEC #: [id number] RECD: 11/03/18 12:49 STATUS: AGUILAR REQ #: [id number] JACKIE: 11/02/18 12:[address]: Hernán Almaraz DEPT: Surgical Specimen RECD BY: Cass Jones ENTERED: 11/03/18 12:55 SP TYPE: PLAC OTHR DR: Rula Perez Tissues: 1 - PLACENTA (3RD TRIMESTER) Procedures: GROSS AND MICRO LEVEL 5 Comments: [id number]
[2018-11-02] MEDS: Lidocaine 1% Multi-Dose 20 ML VIAL ×2 (14:34)
--- NOTE | 2018-11-02 17:48 | W.PM.HP.N ---
Assessment and Plan (1) labor in third trimester: Current visit: Yes Status: Acute (2) IUGR (intrauterine growth restriction): Current visit: Yes Status: Acute (3) History of substance abuse: Current visit: Yes Status: Acute (4) Breech presentation: Current visit: Yes Status: Acute Patient is noted to labor and delivery for spontaneous rupture of membranes and early labor at 36.5 weeks gestation. We discussed risks related to breech presentation and delivery. The patient is adamant that she desires to proceed with breech delivery as she has successfully done this in the past. The patient understands risks related to prematurity and growth restriction. All questions were answered. History of Present Illness Chief Complaint: SROM at 36 weeks. Narrative: 28-year-old -0-5-3 at 36.5 weeks gestation presents today with spontaneous rupture membranes. She was undergoing biophysical profile and ultrasound and spontaneously ruptured at that point. She is to have a fetus in breech presentation and has had a successful breech vaginal delivery in the past. The patient does have a significant history of polysubstance abuse and has been managed on methadone but reports no illicit substance abuse this . [facility] Social History Smoking/Tobacco Use Status: Current every day Alcohol Intake: never Drug use: Current Sobriety Substance use type: marijuana Adopted: No Foster care: No Household members: family and other Details: Earnest Rodriguez and Son Cara Number of Children: 3 Sexually active: Yes Seatbelt use: always Do you feel safe in your relationship?: Yes History History 9 Para 3 Hx # Term Pregnancies 3 Multiple births 0 Hx # Pregnancies 0 Ectopic pregnancies 0 AB induced 1 Hx Number of Living Children 3 AB spontaneous 4 Past Pregnancies Del. Date GA/Weeks # Outcome Route Wgt Sex Labor Lgth Anesthesia Location Prov Complic 08/16/07 40 No Successful vaginal 7 lb 3 oz Female YUDITH Khan MD 02/08/14 37 No Successful vaginal 5 lb Female YUDITH Khan MD 11/09/16 37 No Successful vaginal 7 lb 3 oz Male YUDITH Khan MD 07/09/17 6 Unsuccessful Delivery Date: 08/16/07 On 05/11/18 @ 15:09 Adriana Escalera Pt's mother is guardian Delivery Date: 02/08/14 On 05/11/18 @ 15:08 Adriana Escalera Breech. Adopted out Delivery Date: 11/09/16 On 05/11/18 @ 15:07 Adriana Escalera Cara Gibbons. Patient has custody Delivery Date: 07/09/17 On 04/11/18 @ 18:09 Tari Drake SAB at 6 weeks. Blighted ovum. Patient had D&C Meds Home Medications Medication Instructions Recorded Confirmed Type Hfa Spacer 1 unit #1 script 05/07/16 10/19/18 Clinic amitriptyline 150 mg tablet 150 mg PO QHS #30 tab 06/29/18 10/26/18 Rx gabapentin 400 mg capsule 1,600 mg PO BID #300 cap MDD 2400mg 06/29/18 10/26/18 Rx sertraline 50 mg tablet 50 mg PO DAILY #60 tab 06/29/18 10/26/18 Rx fluticasone propionate 110 110 mcg INHALATION BID #12 gm 08/20/18 10/26/18 Rx mcg/actuation HFA aerosol inhaler vit no.95-ferrous 1 tab PO DAILY #90 tab MDD 1 08/20/18 10/26/18 Rx fumarate 28 mg-folic acid 800 mcg tablet blood sugar diagnostic #100 each 09/21/18 10/26/18 Rx blood-glucose meter #1 each 09/21/18 10/26/18 Rx lancets 30 gauge #100 each 09/21/18 10/19/18 Rx methylphenidate HCl 54 mg 54 mg PO QAM #60 tab MDD 1 10/12/18 10/26/18 Rx tablet,extended release 24 hr betamethasone acetate and sodium 12 mg IM ONCE #2 ml 10/16/18 10/19/18 Rx phos 6 mg/mL suspension for injection cephalexin 500 mg capsule 500 mg PO TID #30 cap 10/16/18 10/26/18 Rx methadone 10 mg/mL oral concentrate 120 mg PO DAILY #3 ml 10/26/18 10/26/18 History Allergies Allergy/AdvReac Type Severity Reaction Status Date / Time Penicillins Allergy Severe Anaphylaxsi Unverified 11/02/18 10:36 s venom-honey bee Allergy Severe Anaphylaxsi Unverified 11/02/18 10:36 [bee venom (honey bee)] s naproxen [From Naprosyn] Allergy Intermediate Hives Unverified 11/02/18 10:36 latex Allergy Unknown HIVES, RED Unverified 11/02/18 10:36 BUMPS Exam Other: Cx 80/-2. Avel breech presentation. Results Labs : 11/02/18 10:11 11/02/18 10:11 Laboratory Results - last 24 hr 11/02/18 11/02/18 11/02/18 10:11 10:11 10:11 WBC 11.98 H RBC 4.31 Hgb 12.6 Hct 37.1 MCV 86.1 MCH 29.2 MCHC 34.0 RDW 14.3 Plt Count 257 MPV 10.0 Creatinine 0.54 L Estimated GFR/1.73 m2 >= 60.00 Patient ABO/Rh A Negative Antibody Screen Positive Antibody Identification Anti-D
--- NOTE | 2018-11-02 17:55 | W.PM.PROGNOT ---
Date of Service Date of service: 11/02/18 Time of Service: 17:56 Subjective Interval history since last seen: Late entry note Patient did progress quickly from 4 cm to 9 cm dilatation. During that period of time the patient had recurrent deep variable deceleration in the heart tracing down to 60s. Recovery was typically rapid. But significant periods of minimal variability and tachycardia were noted. We did make the decision at 9 cm to proceed with delivery although it was felt that she may still deliver spontaneously but due to the nonreassuring heart tracing decision was made to proceed to the operating room. Verbal consent was obtained for section. The professor of environmental studies rubber cutting machine tender was notified and called to the bedside. On reassessment in the operating room the patient was noted to be complete the dilated and vaginal delivery was accomplished. Delivered a LBF infant with 1,7,8 over intact perineum in osmany breech presentation. Placental delivered intact with 3VC. Placenta was submitted for culture and pathology. Cord gases were not able to be collected.
--- NOTE | 2018-11-02 18:22 | W.PM.DSUDISC ---
Discharge Plan Disposition Patient Disposition: HOME Condition: Good Discharge Details Reason For Visit: RO LABOR Admit Date/Time: 11/02/18 09:35 Admit Provider: Hernán Almaraz Attending Provider: Hernán Almaraz Primary Care Provider: Rula Perez Hospital Course Hospital Course: Patient presented in labor with SROM at 36 weeks. She was known to have a fetus in breech presentation and the decision was made for a planned breech delivery. She did develop a non reassuring tracing during labor but did successfully deliver vaginally. The was growth restricted and this was known and followed during her care. A decision was made to transfer the due to size and apnea was transferred to NICU at [facility]. Due to this the decision to discharge the patient was made as well. Home Meds and New Rx's Prescriptions: Continued methylphenidate HCl [Concerta] 54 mg tablet extended release 24hr 54 mg PO QAM MDD 1 Qty: 60 RF: 0 Flovent HFA 110 mcg/actuation HFA aerosol inhaler 110 mcg Inhalation BID Qty: 12 RF: 1 PNV cmb#95-ferrous fumarate-FA [] 28 mg iron- 800 mcg tablet 1 tab PO DAILY MDD 1 Qty: 90 RF: 5 HFA spacer 1 unit Qty: 1 RF: 0 amitriptyline 150 mg tablet 150 mg PO QHS Qty: 30 RF: 5 sertraline 50 mg tablet 50 mg PO DAILY Qty: 60 RF: 5 gabapentin 400 mg capsule 1,600 mg PO BID MDD 2400mg Qty: 300 RF: 5 (DME) Blood Glucose Test strip See Dose Instructions .ROUTE .MEDSUPPLY Qty: 100 RF: 5 (DME) lancets [OneTouch Delica Lancets] 30 gauge misc See Dose Instructions .ROUTE .MEDSUPPLY Qty: 100 RF: 5 (DME) blood-glucose meter [OneTouch Verio System] misc See Dose Instructions .ROUTE .MEDSUPPLY Qty: 1 RF: 0 betamethasone acet,sod phos [Celestone Soluspan] 6 mg/mL suspension 12 mg IM ONCE Qty: 2 RF: 0 cephalexin [Keflex] 500 mg capsule 500 mg PO TID Qty: 30 RF: 0 methadone 10 mg/mL concentrate 120 mg PO DAILY Qty: 3 RF: 0 Discharge Instructions Activity:: Activity as Tolerated Equipment/Supplies:: No Equipment Needed Diet:: As Tolerated Discharge Orders Discharge Orders: Discharge Order (Routine); Ordered 11/02/18 Ordered By: Hernán Almaraz DS: Diagnosis Discharge Diagnosis (1) labor in third trimester: Status: Acute (2) IUGR (intrauterine growth restriction): Status: Acute (3) History of substance abuse: Status: Acute (4) Breech presentation: Status: Acute
[2018-11-02] MEDS: Acetaminophen 325 MG TAB 650 MG PO (19:21)
== END 2018-11-02 19:30 | disposition home or self-care (01) | DRG 806 ==
PROVIDERS: Admitting Provider Obstetrics & Gynecology; PCP Nurse Practitioner; Visit Provider Obstetrics & Gynecology
PROC: 10E0XZZ Delivery of Products of Conception, External Approach (ICD-10-PCS; CPT 59409; 2018-11-02 12:45)
DX: O60.14X0 Preterm labor third trimester with preterm delivery third trimester, not applicable or unspecified (principal); O99.324 Drug use complicating childbirth; Z37.0 Single live birth; F11.20 Opioid dependence, uncomplicated; Z3A.36 36 weeks gestation of pregnancy; O32.1XX0 Maternal care for breech presentation, not applicable or unspecified; O77.0 Labor and delivery complicated by meconium in amniotic fluid; O99.334 Smoking (tobacco) complicating childbirth; F17.210 Nicotine dependence, cigarettes, uncomplicated; O62.3 Precipitate labor; O76 Abnormality in fetal heart rate and rhythm complicating labor and delivery; O99.344 Other mental disorders complicating childbirth; F32.9 Major depressive disorder, single episode, unspecified; Z88.0 Allergy status to penicillin
CPT/HCPCS: 85027; 86850; 86900; 86901; 87077; 99223; 99233; 82565; 86870; 87070; 87075; 87205; 88307; J3010; J3490

== ENCOUNTER 2018-12-18 16:26 | Outpatient (REF) | payer MEDICAID, SELFPAY ==
--- NOTE | 2018-12-18 11:20 | PAPFT_PTH ---
PATIENT: Jennifer Cheng LOC: [facility] U#:[id number] AGE/SX: 28/F ROOM: RE12/18/[address]: Hernán Almaraz MD : 1990 BED: DIS: 12/18/2018 SPEC #: [id number] RECD: 12/18/18 17:35 STATUS: AGUILAR REGabino #: [id number] JACKIE: 12/18/18 11:[address]: Hernán Almaraz DEPT: [facility] Cytology RECD BY: Cass Jones ENTERED: 12/18/18 17:35 SP TYPE: PAPFT OTHR DR: Rula Perez Tissues: 1 - CX/ENDOCX FOR PAP SMEARS Procedures: PAP THIN PREP/UVM Screening HPV DNA PROBE Comments: [id number]
== END 2018-12-18 16:46 ==
LOC: LBN 16:26
PROVIDERS: PCP Nurse Practitioner; Visit Provider Obstetrics & Gynecology
DX: Z12.4 Encounter for screening for malignant neoplasm of cervix (principal); Z11.51 Encounter for screening for human papillomavirus (HPV)
CPT/HCPCS: 88142; 87624

== ENCOUNTER 2019-01-21 12:50 | Outpatient (REF) | payer MEDICAID, SELFPAY ==
--- NOTE | 2019-01-21 11:45 | ENDO_PTH ---
PATIENT: Jennifer Cheng LOC: [facility] U#:[id number] AGE/SX: 28/F ROOM: RE01/21/[address]: Hernán Almaraz MD : 1990 BED: DIS: 01/21/2019 SPEC #: [id number] RECD: 01/21/19 12:58 STATUS: AGUILAR REQ #: [id number] JACKIE: 01/21/19 11:[address]: Hernán Almaraz DEPT: Surgical Specimen RECD BY: Cass Jones ENTERED: 01/21/19 12:58 SP TYPE: Endo OTHR DR: Rula Perez Tissues: 1 - ENDOCERVICAL BX/CURRETTE Procedures: GROSS AND MICRO LEVEL 4 P16 IPEX Comments: [id number]
== END 2019-01-21 13:10 ==
LOC: LBN 12:50
PROVIDERS: PCP Nurse Practitioner; Visit Provider Obstetrics & Gynecology
DX: N87.9 Dysplasia of cervix uteri, unspecified (principal); R87.612 Low grade squamous intraepithelial lesion on cytologic smear of cervix (LGSIL)
CPT/HCPCS: 88305; 88342

== ENCOUNTER 2019-06-16 09:33 | Outpatient (REF) | payer MEDICAID, SELFPAY ==
[2019-06-26 10:37] LABS: MDMA (Ecstasy) Negative ng/mL (Cutoff: 25); Methamphetamine Negative ng/mL (Cutoff: 25); Phentermine Negative ng/mL (Cutoff: 25); Pseudoephedrine/Ephedrine Negative ng/mL (Cutoff: 25)
== END 2019-06-16 09:53 ==
LOC: NCHCN 09:33
PROVIDERS: PCP Nurse Practitioner; Visit Provider Nurse Practitioner
DX: F15.20 Other stimulant dependence, uncomplicated (principal)
CPT/HCPCS: 80324

== ENCOUNTER 2019-12-28 22:17 | Emergency (ER) | payer MEDICAID, SELFPAY ==
[2019-12-28 22:21] VITALS: BP 151/104; PULSE 122; RESP 16; TEMP 36.8; O2SAT 97
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
[2019-12-28 23:01] VITALS: BP 128/86; PULSE 114; RESP 16; O2SAT 96
[2019-12-28] MEDS: Clindamycin 150 MG CAP 900 MG PO (23:10)
== END 2019-12-28 23:13 | disposition home or self-care (01) ==
PROVIDERS: Emergency Provider Physician Assistant; PCP Nurse Practitioner
DX: L02.211 Cutaneous abscess of abdominal wall (principal); L03.311 Cellulitis of abdominal wall
CPT/HCPCS: 10160; 81025

== ENCOUNTER 2020-06-15 11:53 | Outpatient (REF) | payer MEDICAID, SELFPAY ==
[2020-06-20 17:17] LABS: Amphetamine Negative ng/mL (Cutoff: 25); Amphetamines Interpretation Negative.; MDA (Ecstasy Metabolite) Negative ng/mL (Cutoff: 25); MDMA (Ecstasy) Negative ng/mL (Cutoff: 25); Methamphetamine Negative ng/mL (Cutoff: 25); Phentermine Negative ng/mL (Cutoff: 25); Pseudoephedrine/Ephedrine Negative ng/mL (Cutoff: 25)
== END 2020-06-15 11:54 | disposition home or self-care (01) ==
LOC: NCHCN 11:53
PROVIDERS: PCP Nurse Practitioner; Visit Provider Nurse Practitioner
DX: Z51.81 Encounter for therapeutic drug level monitoring (principal)
CPT/HCPCS: 80324

== ENCOUNTER 2020-07-18 03:58 | Outpatient (CLI) | payer MEDICAID, SELFPAY ==
--- NOTE | 2020-07-18 09:00 | RT.EKG_ITS ---
APPROVED REPORT Exam: Resting ECG Patient Location: O HR:102 bpm ECG Measurements Heart Rate 102 AXIS SC 173 P 66 QRSd 100 QRS 60 QT 390 T 22 QTc 509 Conclusion Sinus tachycardia...rate> 99 Prolonged QT interval...QTc >495mS
== END 2020-07-18 03:59 | disposition home or self-care (01) ==
LOC: RT 03:58
PROVIDERS: PCP Nurse Practitioner; Visit Provider Family Medicine
DX: Z79.899 Other long term (current) drug therapy (principal); R94.31 Abnormal electrocardiogram [ECG] [EKG]
CPT/HCPCS: 93005; 93010

== ENCOUNTER 2020-10-16 21:56 | Outpatient (REF) | payer MEDICAID, SELFPAY ==
[2020-10-21 13:48] LABS: Benzoylecgonine 45577 ng/mL (Cutoff: 50); Cocaine 403 ng/mL (Cutoff: 50); Cocaine Interpretation Positive.
== END 2020-10-16 21:57 | disposition home or self-care (01) ==
LOC: NCHCN 21:56
PROVIDERS: PCP Nurse Practitioner; Visit Provider Nurse Practitioner
DX: Z51.81 Encounter for therapeutic drug level monitoring (principal); F19.10 Other psychoactive substance abuse, uncomplicated
CPT/HCPCS: 80353

== ENCOUNTER 2021-01-25 09:32 | Outpatient (REF) | payer MEDICAID, SELFPAY ==
[2021-02-01 05:58] LABS: Methylphenidate 4999 ng/mL (Cutoff: 10); Ritalinic Acid >100000 ng/mL (Cutoff: 50)
== END 2021-01-25 09:33 | disposition home or self-care (01) ==
LOC: NCHCN 09:32
PROVIDERS: PCP Nurse Practitioner; Visit Provider Nurse Practitioner
DX: Z87.898 Personal history of other specified conditions (principal); F19.11 Other psychoactive substance abuse, in remission; Z51.81 Encounter for therapeutic drug level monitoring
CPT/HCPCS: 80360

== ENCOUNTER 2022-02-14 15:06 | Outpatient (CLI) | payer MEDICAID, SELFPAY ==
[2022-02-14 14:47] LABS: HCG Quant, Pregnancy 1894 mIU/mL (1-3)
== END 2022-02-14 15:07 | disposition home or self-care (01) ==
LOC: LBO 15:08
PROVIDERS: PCP Nurse Practitioner Family; Visit Provider Obstetrics & Gynecology
DX: O36.80X0 Pregnancy with inconclusive fetal viability, not applicable or unspecified (principal)
CPT/HCPCS: 36415; 84702

== ENCOUNTER 2022-02-16 10:40 | Outpatient (CLI) | payer MEDICAID, SELFPAY ==
[2022-02-16 15:33] LABS: HCG Quant, Pregnancy 3599 mIU/mL (1-3)
== END 2022-02-16 15:48 | disposition home or self-care (01) ==
LOC: BCD 10:43 → OBS 13:57
PROVIDERS: PCP Nurse Practitioner Family; Visit Provider Obstetrics & Gynecology
DX: O36.80X0 Pregnancy with inconclusive fetal viability, not applicable or unspecified (principal)
CPT/HCPCS: 36415; 84702

== ENCOUNTER 2022-03-27 16:12 | Outpatient (REF) | payer MEDICAID, SELFPAY ==
[2022-03-27 17:13] LABS: *AMPHETAMINES SCREEN URINE Negative (Negative); *BARBITURATES SCREEN URINE Negative (Negative); *BENZODIAZEPINES SCREEN URINE Negative (Negative); Cannabinoids THC Positive (Negative); Cocaine Screen,Urine Negative (Negative); METHADONE URINE SCREEN Negative (Negative); OPIATES URINE SCREEN Negative (Negative); Tricyclic Antidepressants Negative (Negative)
[2022-04-03 14:44] LABS: Buprenorphine 228.6 ng/mL (Cutoff: 5.0); Norbuprenorphine 347.7 ng/mL (Cutoff: 2.5)
== END 2022-03-27 16:13 | disposition home or self-care (01) ==
LOC: LBN 16:12
PROVIDERS: PCP Nurse Practitioner Family; Visit Provider Advanced Practice Midwife
DX: Z34.91 Encounter for supervision of normal pregnancy, unspecified, first trimester (principal); Z3A.10 10 weeks gestation of pregnancy
CPT/HCPCS: 80307; 80348; 87086

== ENCOUNTER 2022-04-11 02:24 | Outpatient (CLI) | payer MEDICAID, SELFPAY ==
[2022-04-11 10:28] LABS: Abs Immature Grans 0.02 10^3/uL (0.0-0.06); Absolute Basophil Count 0.02 10^3/uL (0.0-0.2); Absolute Eosinophil Count 0.13 10^3/uL (0.0-0.7); Absolute Lymphocyte Count 1.67 10^3/uL (1.2-3.4); Absolute Monocyte Count 0.25 10^3/uL (0.1-0.8); Basophils % 0.3; Eosinophils % 2.2; HCT 36.5 % (36.0-46.0); HGB 12.3 g/dL (11.2-15.7); Immature Grans % 0.3; Lymphocytes % 28.8; MCH 28.7 pg (27.0-33.0); MCHC 33.7 % (32.0-36.0); MCV 85 fL (80-95); MPV 9.8 fL (8.0-11.0); Monocytes % 4.3; Neutrophils % 64.1; Platelet Count 289 10^3/uL (130-400); RBC 4.28 10^6/uL (3.93-5.22); RDW 13.2 % (11.7-14.6); RDW-SD 40.5 fL; WBC 5.79 10^3/uL (4.4-10.8)
[2022-04-11 11:59] LABS: Panorama Kit Sent via Fed Ex
== END 2022-04-11 02:25 | disposition home or self-care (01) ==
LOC: LBO 02:24
PROVIDERS: PCP Nurse Practitioner Family; Visit Provider Advanced Practice Midwife
DX: Z34.91 Encounter for supervision of normal pregnancy, unspecified, first trimester (principal)
CPT/HCPCS: 36415; 86787; 86803; 86900; 86901; 87389; 87522; 85025; 86762; 86780

== ENCOUNTER 2022-04-11 09:43 | Outpatient (REF) | payer MEDICAID, SELFPAY ==
--- NOTE | 2022-04-11 09:04 | PAPFT_PTH ---
PATIENT: Jennifer Cheng LOC: [facility] U#:[id number] AGE/SX: 31/F ROOM: RE04/11/[address]: Aditi Gaviria CNM : 1990 BED: DIS: 04/11/2022 SPEC #: [id number] RECD: 04/11/22 16:46 STATUS: AGUILAR REQ #: [id number] JACKIE: 04/11/22 09:[address]: Aditi Gaviria DEPT: [facility] Cytology RECD BY: Cass Jones ENTERED: 04/11/22 16:47 SP TYPE: PAPFT OTHR DR: DION VO NP Tissues: 1 - CX/ENDOCX FOR PAP SMEARS Procedures: PAP THIN PREP/UVM Screening HPV DNA PROBE Comments: [id number] (CHLAMYDIA/GC)
[2022-04-12 14:54] LABS: Chlamydia Result Negative (Negative); GC Result Negative (Negative)
== END 2022-04-11 09:44 | disposition home or self-care (01) ==
LOC: LBN 09:43
PROVIDERS: PCP Nurse Practitioner Family; Visit Provider Advanced Practice Midwife
DX: Z12.4 Encounter for screening for malignant neoplasm of cervix (principal); Z11.3 Encounter for screening for infections with a predominantly sexual mode of transmission; R87.612 Low grade squamous intraepithelial lesion on cytologic smear of cervix (LGSIL); Z11.51 Encounter for screening for human papillomavirus (HPV)
CPT/HCPCS: 87491; 87591; 88142; 87624

== ENCOUNTER 2022-07-24 12:05 | Outpatient (REF) | payer MEDICAID, SELFPAY ==
[2022-07-24 12:54] LABS: Glucose,1 Hr (Glucola) 120 mg/dL (80-140)
[2022-07-24 13:38] LABS: *AMPHETAMINES SCREEN URINE Positive (Negative); *BARBITURATES SCREEN URINE Negative (Negative); *BENZODIAZEPINES SCREEN URINE Negative (Negative); Cannabinoids THC Positive (Negative); Cocaine Screen,Urine Negative (Negative); METHADONE URINE SCREEN Negative (Negative); OPIATES URINE SCREEN Negative (Negative)
[2022-07-24 13:42] LABS: Tricyclic Antidepressants Positive (Negative)
[2022-07-24 14:00] LABS: HCT 36.2 % (36.0-46.0); HGB 12.2 g/dL (11.2-15.7); MCH 28.5 pg (27.0-33.0); MCHC 33.7 % (32.0-36.0); MCV 85 fL (80-95); MPV 10.1 fL (8.0-11.0); Platelet Count 299 10^3/uL (130-400); RBC 4.28 10^6/uL (3.93-5.22); RDW 12.7 % (11.7-14.6); RDW-SD 38.9 fL
[2022-07-26 09:24] LABS: HIV-1/2 Ag & Ab Screen Negative (Negative)
[2022-07-26 10:13] LABS: Hepatitis B Surface Ag Negative (Negative)
[2022-07-26 10:40] LABS: Hepatitis C Ab w Rflx HCV PCR Reactive (Negative)
[2022-07-26 11:02] LABS: Varicella IgG Antibody Positive (See Note)
[2022-07-26 11:12] LABS: Rubella IgG Ab (UVM) Positive (See Note)
[2022-07-26 13:18] LABS: HCV RNA Qualitative Undetected (Undetected)
[2022-07-28 14:43] LABS: Syphilis IgG w/Reflex Nonreactive (Nonreactive)
[2022-08-01 18:52] LABS: Buprenorphine 120.4 ng/mL (Cutoff: 5.0); Norbuprenorphine 470.4 ng/mL (Cutoff: 2.5)
== END 2022-07-24 12:06 | disposition home or self-care (01) ==
LOC: LBN 12:05
PROVIDERS: Advanced Practice Midwife; PCP Nurse Practitioner Family; Visit Provider Obstetrics & Gynecology
DX: O99.322 Drug use complicating pregnancy, second trimester (principal); Z67.91 Unspecified blood type, Rh negative; F19.11 Other psychoactive substance abuse, in remission
CPT/HCPCS: 80307; 80348; 82950; 85027; 86787; 86803; 86850; 86900; 86901; 87340; 87389; 87522; 90384; 86762; 86780

== ENCOUNTER 2022-08-19 00:41 | Outpatient (CLI) | payer MEDICAID, SELFPAY ==
--- NOTE | 2022-08-19 06:45 | DI.US_ITS ---
Exam(s) US OB SUSIE WEIGHT EXAM: US OB SUSIE WEIGHT CLINICAL HISTORY: growth and SUSIE,h/o delivery,O09.899. TECHNIQUE: Transabdominal obstetrical ultrasound performed. COMPARISON: US POCUS EXAM from 02/27/2022 US POCUS EXAM from 03/27/2022 FINDINGS:: Number of fetuses: One. position: Vertex. Placental location: Posterior. No evidence of previa. BIOMETRIC DATA: BPD: 76mm = 30+ 4 weeks HC: 289mm = 31+ 6 weeks AC: 282mm = 32+2 weeks FL: 52 mm = 27+ 6 weeks EFW: 1637 Gms = 23% Composite Age: 30+ 5 weeks EDC: October 27 Heart Rate: 125BPM Amniotic fluid index: 16.5 cm. Amount of fluid is visually within normal limits. IMPRESSION: size and weight are within the expected range. Normal SUSIE. DATA REPOSITORY:
== END 2022-08-19 01:01 ==
LOC: DI 00:41
PROVIDERS: PCP Nurse Practitioner Family; Visit Provider Obstetrics & Gynecology
DX: O09.893 Supervision of other high risk pregnancies, third trimester (principal)
CPT/HCPCS: 76816

== ENCOUNTER 2022-09-10 14:50 | Outpatient (REF) | payer MEDICAID, SELFPAY ==
[2022-09-10 20:57] LABS: COMMENT (LAB VIEW ONLY) 89.17 mg/dL; PROTEIN 33.1 mg/dL; Prot/Crea Ur Ratio 0.37
== END 2022-09-10 14:51 | disposition home or self-care (01) ==
LOC: LBN 14:50
PROVIDERS: PCP Nurse Practitioner Family; Visit Provider Obstetrics & Gynecology
DX: Z34.93 Encounter for supervision of normal pregnancy, unspecified, third trimester (principal); Z3A.34 34 weeks gestation of pregnancy
CPT/HCPCS: 82565; 84156

== ENCOUNTER 2022-09-20 13:30 | Outpatient (REF) | payer MEDICAID, SELFPAY ==
[2022-09-20 14:40] LABS: *AMPHETAMINES SCREEN URINE Negative (Negative); *BARBITURATES SCREEN URINE Negative (Negative); *BENZODIAZEPINES SCREEN URINE Negative (Negative); Cannabinoids THC Positive (Negative); Cocaine Screen,Urine Negative (Negative); METHADONE URINE SCREEN Negative (Negative); OPIATES URINE SCREEN Negative (Negative)
[2022-09-20 14:43] LABS: Tricyclic Antidepressants Positive (Negative)
[2022-09-26 00:16] LABS: Buprenorphine 84.3 ng/mL (Cutoff: 5.0)
== END 2022-09-20 13:31 | disposition home or self-care (01) ==
LOC: LBN 13:30
PROVIDERS: PCP Nurse Practitioner Family; Visit Provider Obstetrics & Gynecology
DX: Z34.90 Encounter for supervision of normal pregnancy, unspecified, unspecified trimester (principal)
CPT/HCPCS: 80307; 80348; 87081

== ENCOUNTER 2022-09-26 09:33 | Outpatient (CLI) | payer MEDICAID, SELFPAY ==
[2022-09-26 10:01] VITALS: BP 123/79; PULSE 85; TEMP 36.7
[2022-09-26 10:23] VITALS: BP 123/79; PULSE 85
--- NOTE | 2022-09-26 17:52 | W.OBNST ---
Date of service: 09/26/22 Time of Service: 09:30 NST Evaluation Reason for NST Reasons for Nonstress Test: SUBSTANCE ABUSE IN MAT Reason for NST Other: low baseline in office Gestational Age Gestational Age in Weeks and Days: 36 Weeks and 6Days Test and Monitor Explained Test/Monitor Explained: Test Explained, Monitor Explained and Patient Verbalized Understanding Vital Signs Blood Pressure: 123/79 Pulse: 85 Temperature: 98.1 F NST Information Date on Monitor: 09/26/22 Time on Monitor: 10:00 Date off Monitor: 09/26/22 Time off Monitor: 10:39 Total Time on Monitor: 39 NST Interventions: None NST Evaluation Patient States Movement: Present FHR Baseline: 140 Variability: Moderate 6-25 bpm Accelerations: 15x15 Decelerations: None NST Results: Reactive Note Ultrasound Done: N/A. NST Note NST Reviewed and Verified by: jennifer
[2022-09-26 17:53] VITALS: BP 123/79; PULSE 85; TEMP 36.7
== END 2022-09-26 11:00 | disposition home or self-care (01) ==
LOC: BCD 09:37 → OBS 10:00
PROVIDERS: PCP Nurse Practitioner Family; Visit Provider Obstetrics & Gynecology
DX: O99.323 Drug use complicating pregnancy, third trimester (principal); Z3A.36 36 weeks gestation of pregnancy
CPT/HCPCS: 59025

== ENCOUNTER 2022-09-30 01:52 | Inpatient (IN) | payer MEDICAID, SELFPAY ==
[2022-09-30] VITALS (62 sets, daily range): BP systolic 90–136; BP diastolic 46–89; PULSE 73–107; RESP 16; TEMP 36.7–37; O2SAT 84–100; BMI 27.3
[2022-09-30 02:37] LABS: HCT 32.6 % (36.0-46.0); MCH 28.2 pg (27.0-33.0); MCHC 33.7 % (32.0-36.0); MCV 84 fL (80-95); MPV 10.4 fL (8.0-11.0); Platelet Count 223 10^3/uL (130-400); RDW 14.3 % (11.7-14.6); RDW-SD 42.6 fL; WBC 6.31 10^3/uL (4.4-10.8)
--- NOTE | 2022-09-30 03:24 | HPE_ITS ---
Date of service: 09/30/22 Time of Service: 03:24 Assessment and Plan Assessment and plan (1) Uterine contractions: Status: Acute Assessment and plan: Patient in active labor will offer epidural and dissipate need for ultrasound guidance for IV access (2) History of drug abuse: Status: Acute Assessment and plan: We will continue Suboxone 24 mg dose while hospitalized (3) Rh negative state in antepartum period: Status: Acute Assessment and plan: Then program after delivery RhoGAM (4) Suboxone maintenance treatment complicating , antepartum: Status: Acute Assessment and plan: Will notify peds OB-HPI Labor/Delivery History of Present Illness Reason for Visit: Labor Chief Complaint: Uterine Contractions. ALFREDA Calculator Estimated Delivery Date Method Current WG Current Estimate 10/18/22 Ultrasound #1 37w 3d Other Estimates 09/18/22 LMP (Uncertain) 41w 5d Comments: Patient reports onset of painful regular contractions upon awakening this evening. Contractions every 20 minutes when she called the on-call provider. She was instructed to present to the center. History of Present Expected Delivery Route/Plan - MD FOB/ - Tyrese Jones BB Specific Issues/Plan 1. History of drug use, on suboxone, agrees to SMART team 2a. THC+ @ initial UDS, repeat @ 28 wks, POSC ____ 2. Hep C+, difficult blood draw (gets labs done with US at times) -Hep C RNA undetectable 3. Prior breech deliveries x2, one at 36 weeks and precipitous 4. CF neg, cfDNA results low risk x5, male fetus 5. Rh neg, antepartum Rhogam given 07/24/22 6. Postcoital bleeding 06/20/2022. No cervical dilatation no active bleeding on speculum exam. Nl placenta on 05/28/22 [facility] morphology scan. Repeat spotting 07/24/22. Normal exam. Assessment: History Reviewed & Current Narrative: 13 visits. 24 pound weight gain first trimester blood pressure 121/72 third trimester blood pressure 132/82. Rubella immune varicella immune Rh- antibody negative patient received RhoGAM at 28 weeks Informed Consent Informed Consent: Regional Anesthesia and Risk,Benefits,Alternatives Discussed (Vaginal ) Review of Systems All systems reviewed & are unremarkable except as noted in HPI and below PFSH All Active Problems (Updated 09/30/22 @ 06:05 by Tari Drake MD) Uterine contractions (Acute) Marijuana smoker (Acute) Abnormal Pap smear of cervix (Acute) 05/2008: Pap HGSIL with + HR HPV. 06/08/2018 colpo at 14 weeks findings LGSIL. No biopsies. Plan repeat Pap LSIL pap 04/2022-Needs colposcopy Attention deficit hyperactivity disorder (Acute 07/07/13) Bipolar 1 disorder (Acute) History of delivery, currently (Acute) History of drug abuse (Acute) Suboxone maintenance treatment complicating , antepartum (Acute) (Acute) Rh negative state in antepartum period (Acute) Asthma (Chronic) Difficult intravenous access (Chronic) HCV antibody positive (Acute 08/21/15) Hep C RNA nondetectable Medical History (Updated 09/30/22 @ 06:05 by Tari Drake MD) Asthma Chronic lower back pain Cigarette smoker one half pack a day or less 04/10/2017 patient reports that she has stopped tobacco use with positive test Confirm viability with history of miscarriage, ultrasound Depression with anxiety (04/18/16) Edentulism, complete Encounter to determine viability of Hypoglycemia Insomnia Lichenification 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 Camarena. Patient had necrosed fingertips after injecting Wellbutrin. Dilation and curettage (07/23/17) D&C for blighted ovum at 8w EGA. Family History Mother History of spontaneous 1 Mental disorder depression and anxiety Grandfather Diabetes Grandmother Diabetes Grandmother Diabetes Father Alcohol abuse alcohol and addict-opiates Sister No problems noted. Brother Alcohol abuse alcohol abuse and abuse opiates Mental disorder depression and anxiety Brother No problems noted. Other Myocardial infarction Social History (Updated 09/30/22 @ 06:02 by Tari Drake MD) Smoking/Tobacco Use Status: Current every day Tobacco Type: cigarettes Smoking risk assessment performed?: Yes Alcohol Intake: never Drug use: Current Sobriety Substance use type: former substance user and marijuana Adopted: No Foster care: No Household members: family and other Details: Jennifer TyreseDaniel lisa D-Ivy Number of Children: 4 Communication Needs: None current occupation: unemployed Sexually active: Yes Seatbelt use: always Do you feel safe at home: Yes Do you feel safe in your relationship?: Yes History History 9 Para 4 Hx # Term Pregnancies 3 Multiple births 0 Hx # Pregnancies 1 Ectopic pregnancies 0 AB induced 1 Hx Number of Living Children 4 AB spontaneous 4 Past Pregnancies Del. Date GA/Weeks # Preg Succ Route Wgt Sex Labor Lgth Anesth esia Location Prov Complic 08/16/07 40 No vaginal 7 lb 3 oz Female YUDITH Khan MD 02/08/14 37 No vaginal 5 lb Female YUDITH - Varsha D 11/09/16 37 No vaginal 7 lb 3 oz Male YUDITH Khan MD 07/09/17 6 11/02/18 36 No vaginal 4 lb 2 oz Female 2hrs 51min regional Almaraz low apgars Delivery Date: 08/16/07 Last Updated by: Adriana Escalera Pt's mother is guardian Delivery Date: 02/08/14 Last Updated by: Adriana Escalera Breech. Adopted out Delivery Date: 11/09/16 Last Updated by: Adriana Gibbons. Patient has custody Delivery Date: 07/09/17 Last Updated by: Tari Drake M.D. SAB at 6 weeks. Blighted ovum. Patient had D&C Delivery Date: 11/02/18 Last Updated by: Ivette Collier LPN Breech presentation, Precipitous labor. Meds Allergies and Home Medications Allergies Allergy/AdvReac Type Severity Reaction Status Date / Time Penicillins Allergy Severe Anaphylaxsi Verified 09/26/22 08:47 s venom-honey bee Allergy Severe Anaphylaxsi Verified 09/26/22 08:47 [bee venom (honey bee)] s naproxen [From Naprosyn] Allergy Intermediate Hives Verified 09/26/22 08:47 latex Allergy Unknown HIVES, RED Verified 09/26/22 08:47 BUMPS Home Medications Medication Instructions Recorded Confirmed Type Hfa Spacer 1 unit ##1 05/07/16 10/19/18 Clinic amitriptyline 150 mg tablet 75 mg PO QHS 12/28/19 09/30/22 History betamethasone dipropionate 0.05 % 1 applic topical BID 11/26/21 09/30/22 History topical cream vitamin with calcium 1 tab PO DAILY 11/26/21 09/30/22 History no.72-iron 27 mg-folic acid 1 mg tablet buprenorphine 12 mg-naloxone 3 mg 2 film buccal Q24H 04/11/22 09/30/22 History sublingual film fluticasone propionate 110 110 mcg inhalation BID #12 grams 04/11/22 09/30/22 Rx mcg/actuation HFA aerosol inhaler (Flovent HFA) gabapentin 600 mg tablet 1,200 mg PO TID 04/11/22 09/30/22 History methylphenidate HCl 10 mg tablet 20 mg PO DAILY 04/11/22 09/26/22 History aripiprazole 10 mg tablet (Abilify) 20 mg PO DAILY 09/13/22 09/30/22 History Exam Physical Exam Vital signs: Temp Pulse Resp BP 98.2 F 100 H 16 113/62 09/30/22 01:56 09/30/22 01:56 09/30/22 01:56 09/30/22 01:56 Vital Signs Reviewed: Yes Constitutional Constitutional: no acute distress Detailed Labor and Delivery Exam Dilation: 5 Sanders Score: Cervical Points Exam 0 1 2 3 Dilation Closed 1-2cm 3-4 cm 5-6cm Effacement 0-30% 40-50% 60-70% 80% Consistency Firm Medium Soft Station -3 -2 -1,0 +1,+2 Position Posterior Mid Anterior Amniotic Membrane Status: Intact Contraction Frequency(min): q10 Contraction Intensity: Mild/Moderate Fetus A Heart Rate Baseline: 140 Monitor Accelerations: Present Monitor Decelerations: None Variability: Moderate (6-25 BPM) Presentation: Cephalic Categories: Category I Est. Weight: 7 lb 11.459 oz Neck Exam Neck Exam: Normal Chest/Brest/Axilla Exam Chest Exam: Normal Breast Exam Breast Exam: Not Done Respiratory Exam Respiratory Exam: Normal Cardiovascular Exam Cardiovascular Exam: Normal Abdominal Exam Abdominal Exam: Normal Rectal Exam Rectal Exam: Not Done Exam Exam: Normal Extremities Exam Extremities Exam: Abnormal (No lower extremity edema, discoloration of arms and feet) Back/Spine/Pelvis Exam Back Exam: Normal Pelvis Adequate: Yes Skin Exam Skin Exam: Abnormal (Longstanding mottling of extremities) Neurological Exam Neurological Exam: Normal Psychiatric Exam Psychiatric Exam: Normal Results Results Group Beta Strep: Negative Blood Type: A- Rubella Status: Immune Varicella Immunity: Immune Abnormal Lab Findings: Abnormal Labs 09/30/22 02:25 RBC 3.90 L Hgb 11.0 L Hct 32.6 L Risk Assessment Risk for Shoulder Dystocia Historical/Initial OB: NEGATIVE FOR: Pelvic Abnormality, Pre- BMI>30, Previous Shoulder Dystocia or Previous Macrosomia 40 Weeks: NEGATIVE FOR: EFW> 4500 gms, Maternal Weight Gain >40lb or Post Dates Increased Risk?: No Risk for Pre-Eclampsia Daily Dose ASA Indicated: No Yes, if one or more: NEGATIVE FOR: Hx Pre-E/Gest HTN, Chronic HTN, Multiple Gestation, Pre-gestational DM, Renal Disease, Systemic Lupus or APA Syndrome Yes, if 2 or more: NEGATIVE FOR: Nulliparity, Age>= 35 yrs, >10yr btwn pregnancies, BMI>30, ethinicty, Mother/Sister w/ Pre-E or Previous IUGR Risk for Post- Hemorrhage Initial: NEGATIVE FOR: Multiple Gestation, Previous PPH, Known Clotting Deficiency, Grand Multiparity or Anticoagulation At Risk?: Yes Counseled re: Active Management: Yes Date/Initials: 03/27/22: K[facility] Risks Reviewed Risks Reviewed Upon Admission: Yes (Multipara-we will have IV access.)
[2022-09-30] MEDS: Lactated Ringers 1,000 ML 125 ML IV (03:30)
[2022-09-30] MEDS: FentaNYL/ROPIvacaine 2 mcg/ml and 0.1% 200 ML CADD Cassette EP (03:55)
--- NOTE | 2022-09-30 03:55 | W.ANESPRE ---
General Info Date of Service Date Performed: 09/30/22 Height: 5 ft 5 in Weight: 74.389 kg Body Mass Index (BMI): 27.3 Meds Allergies and Home Medications Allergies Allergy/AdvReac Type Severity Reaction Status Date / Time Penicillins Allergy Severe Anaphylaxsi Verified 09/26/22 08:47 s venom-honey bee Allergy Severe Anaphylaxsi Verified 09/26/22 08:47 [bee venom (honey bee)] s naproxen [From Naprosyn] Allergy Intermediate Hives Verified 09/26/22 08:47 latex Allergy Unknown HIVES, RED Verified 09/26/22 08:47 BUMPS Home Medication Medication Instructions Recorded amitriptyline 150 mg tablet 75 mg PO QHS 12/28/19 betamethasone dipropionate 0.05 % 1 applic topical BID 11/26/21 topical cream vitamin with calcium 1 tab PO DAILY 11/26/21 no.72-iron 27 mg-folic acid 1 mg tablet buprenorphine 12 mg-naloxone 3 mg 2 film buccal Q24H 04/11/22 sublingual film fluticasone propionate 110 110 mcg inhalation BID #12 grams 04/11/22 mcg/actuation HFA aerosol inhaler (Flovent HFA) gabapentin 600 mg tablet 1,200 mg PO TID 04/11/22 methylphenidate HCl 10 mg tablet 20 mg PO DAILY 04/11/22 aripiprazole 10 mg tablet (Abilify) 20 mg PO DAILY 09/13/22 Current Visit Medications: Current Medications Generic Name Dose Route Start Last Admin Trade Name Freq PRN Reason Stop Dose Admin Amitriptyline HCl 75 mg 09/30/22 03:41 Amitriptyline 25 Mg Tab PO HS LEESA Aripiprazole 20 mg 09/30/22 08:30 Aripiprazole 5 Mg Tab PO DAILY LEESA Betamethasone Dipropionate 0 gm 09/30/22 08:30 Betamethasone Dip. 0.05% Cr 15 Gm Tube TP BID LEESA Buprenorphine/Naloxone each 09/30/22 04:00 Buprenorphine/Naloxone 12 Mg/3 Mg Film SL Q24H LEESA Fentanyl/Ropivacaine 200 ml 09/30/22 02:45 09/30/22 03:55 Fentanyl/Ropivacaine 2 Mcg/Ml And 0.1% 200 Ml Cadd Cassette EP 200 ml DIRECTED LEESA Administration Gabapentin 1,200 mg 09/30/22 08:30 Gabapentin 600 Mg Tab PO TID LEESA Sodium Chloride 500 mls @ 0 mls/hr 09/30/22 01:51 Saline 500ml Bag IV PRN PRN As Directed Sodium Chloride 500 mls @ 0 mls/hr 09/30/22 03:05 Saline 500ml Bag IV PRN PRN As Directed Ringer's Solution 1,000 mls @ 125 mls/hr 09/30/22 03:15 09/30/22 03:30 IV 125 mls/hr INFUSION LEESA Administration IV Miscellaneous Supplies 1 each 09/30/22 02:00 Iv Access IV DIRECTED LEESA IV Miscellaneous Supplies 1 each 09/30/22 03:15 Iv Access IV DIRECTED LEESA Methylphenidate HCl 20 mg 09/30/22 08:30 Methylphenidate 10 Mg Tab PO DAILY LEESA Non-Formulary Medication 110 mcg 09/30/22 08:30 Fluticasone Propionate [Flovent Hfa] IH BID LEESA Non-Formulary Medication 1 unit 09/30/22 08:30 Hfa Spacer NOT APPL BID LEESA Multivitamins 1 tab 09/30/22 08:30 Multivitamin W/Ca,Fe Tab PO DAILY LEESA Sodium Chloride 0 ml 09/30/22 01:51 Normal Saline Flush 10 Ml Syr IVP PRN PRN Sodium Chloride 0 ml 09/30/22 03:05 Normal Saline Flush 10 Ml Syr IVP PRN PRN PFSH Active Problems Active Problems: Problem Status Onset Code Marijuana smoker Abnormal Pap smear of cervix R87.619 Attention deficit hyperactivity disorder 07/07/13 F90.9 Bipolar 1 disorder F31.9 History of delivery, currently O09.899 History of drug abuse F19.11 Suboxone maintenance treatment complicating , antepartum O99.320, F11.20 Z34.90 Rh negative state in antepartum period O26.899, Z67.91 Asthma J45.909 Difficult intravenous access Z78.9 HCV antibody positive 08/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 Camarena. Patient had necrosed fingertips after injecting Wellbutrin. Dilation and curettage (07/23/17) D&C for blighted ovum at 8w EGA. Tobacco Smoking/Tobacco Use Status: Current every day Tobacco Type: cigarettes Alcohol Alcohol Intake: never Substance Use Substance use: Current Sobriety Substance use type: former substance user and marijuana Prental History History 9 Para 4 Hx # Term Pregnancies 3 Multiple births 0 Hx # Pregnancies 1 Ectopic pregnancies 0 AB induced 1 Hx Number of Living Children 4 AB spontaneous 4 Past Pregnancies Del. Date GA/Weeks # Preg Succ Route Wgt Sex Labor Lgth Anesthesia Location Prov Complic 08/16/07 40 No vaginal 3260.195 g Female YUDITH Khan MD 02/08/14 37 No vaginal 2267.962 g Female YUDITH Khan MD 11/09/16 37 No vaginal 3260.195 g Male YUDITH Khan MD 07/09/17 6 11/02/18 36 No vaginal 1871.069 g Female 2hrs 51min regional [facility] low apgars Delivery Date: 08/16/07 Last Updated by: Adriana Escalera Pt's mother is guardian Delivery Date: 02/08/14 Last Updated by: Adriana Escalera Breech. Adopted out Delivery Date: 11/09/16 Last Updated by: Adriana Gibbons. Patient has custody Delivery Date: 07/09/17 Last Updated by: Tari Drake M.D. [facility] at 6 weeks. Blighted ovum. Patient had D&C Delivery Date: 11/02/18 Last Updated by: Ivette Collier LPN Breech presentation, Precipitous labor. Vital Signs and Lab Results Vital Signs Most Recent Vital Signs in EMR: Most Recent Vital Signs Temp Pulse Resp BP Pulse Ox 36.8 C 81 16 117/68 96 09/30/22 01:56 09/30/22 03:54 09/30/22 01:56 09/30/22 03:54 09/30/22 03:52 Lab Results 09/30/22 02:25 Blood Type / Crossmatch: No Data to Display Complete Blood Count: White Blood Count 6.31 10^3/uL (4.4-10.8) 09/30/22 02:25 Red Blood Count 3.90 10^6/uL (3.93-5.22) L 09/30/22 02:25 Hemoglobin 11.0 g/dL (11.2-15.7) L 09/30/22 02:25 Hematocrit 32.6 % (36.0-46.0) L 09/30/22 02:25 Platelet Count 223 10^3/uL (130-400) 09/30/22 02:25 Complete Metabolic Panel: No Data to Display Liver Function Panel: No Data to Display Coagulation Panel: No Data to Display Cardiac Panel: No Data to Display Arterial Blood Gas: No Data to Display Venous Blood Gas: No Data to Display Pancreas Panel: No Data to Display Thyroid Panel: No Data to Display Infectious Disease: No Data to Display Blood Cultures: No Data to Display Toxicology Panel: Urine Amphetamines Screen Negative (Negative) 09/20/22 11:20 Urine Benzodiazepines Screen Negative (Negative) 09/20/22 11:20 Urine Barbiturates Screen Negative (Negative) 09/20/22 11:20 Urine Cocaine Screen Negative (Negative) 09/20/22 11:20 Urine Methadone Screen Negative (Negative) 09/20/22 11:20 Urine Opiates Screen Negative (Negative) 09/20/22 11:20 Ur Tricyclic Antidepressants Screen Positive (Negative) A 09/20/22 11:20 Ur Tetrahydrocannabinol (THC) Scrn Positive (Negative) A 09/20/22 11:20 Panel: No Data to Display Anesthesia Assessment and Plan Anesthesia History Personal History: No History of Anesthesia Complications Family History: No Family History of Anesthesia Complications Exercise Tolerance Exercise Tolerance: Metabolic Equivalents>4 Pertinent Negatives Pertinent Negatives: No Symptoms of GERD, No Major Cardiovascular Symptoms or Complaints and No Major Pulmonary Symptoms or Complaints Cardiac & Pulmonary Exam Cardiac Exam: Normal S1/S2 Heart Sounds Pulmonary Exam: Clear Bilateral Breath Sounds Implantable Cardiac Device Does patient have a Pacemaker or an ICD?: No Airway Exam Known Difficult Airway: No Mallampati Class: 2 Mouth Opening: Normal (> 3cm) Thyromental Distance: Greater than 3 cm Neck Range of Motion: Full ROM Neck Circumference: Normal Teeth Condition: Removable Dentures/Plates Upper and Removable Dentures/Plates Lower ASA Classification ASA Score: ASA 2 Emergency Case?: No NPO Status NPO Status: NPO Clears >2 hours, Solids >8 hours Status Status: Confirmed Anesthesia Plan Resuscitation Status: Full Code Anesthesia Technique: Labor Epidural Airway Planned: Natural Airway Monitors Used: Standard Monitors
--- NOTE | 2022-09-30 03:59 | ANES.NEUR_ITS ---
Epidural/Spinal Catheter Date Performed: 09/30/22 Procedure Start: 03:45 Procedure Stop: 04:10 Requesting Provider: Tari Drake Procedure Location: Obstetrics Reason Performed: Labor Epidural Standard Monitors Applied: Blood Pressure, SpO2 and See EMR for corresponding vital signs Patient Position: Sitting Sedation Given (Indicate Dose Given): No Sedation given Patient Mental Status: Awake Sterility: Hand Hygiene, Surgical Cap, Surgical Mask, Sterile Gloves and Chlorhexidine Procedure Location: L2-L3 Interspace Epidural Needle: Tuohy 18 Gauge Needle Length: 3.5 Inch Needle Approach: Midline Epidural Procedure: Skin Prepped, Sterile Drape Placed, 1% Lidocaine to skin and subcutaneous tissue with 25G needle, Tuohy Needle placed, [place] to Saline Used, Epidural Catheter Placed, Negative Heme and Negative CSF Flow Catheter Placed?: Catheter Placed Test Dose (Indicate Dose Given): 3ml 1.5% Lidocaine with 1:200K Epinephrine Given and Negative Test Dose Loss of Resistance Depth (cm): 5 Catheter depth at skin (cm): 12 Dressing: Sorbaview Dressing Placed, Mastisol Used and Dressing reinforced with Tape Epidural Provider Bolus (Indicate Dose Given): Total bolus dose given in 3-5 ml divided doses and Total Ropivacaine 0.1% with Fentanyl 2mcg/ml Given from pump. (ml) Dose:: 10 mo Additives (Indicate Dose Given ): None Infusion Medication: Medication Infusion Began Medication Infusion: Ropivacaine 0.1% with Fentanyl 2mcg/ml Maintenance Infusion Rate (ml/hour): 10 PCEA Bolus Dose (ml): 5 Block Level: N/A Paresthesia: None Ultrasound: Not Used Number of Attempts (See previous attempts in note section): 1 Procedure Tolerated: No Complications and Patient tolerated well Procedure Outcome: Successful Procedure Comment:: pt. given load from pump and educated on PCEA. Questions answered and pt. sleep ing. Performed By: Brandan Ernst
--- NOTE | 2022-09-30 04:09 | W.ANESVAS ---
Midline Placement Date Performed: 09/30/22 Procedure Time: 03:21 Requesting Provider: Tari Drake Procedure Location: Obstetrics Sedation Given (Indicate Dose Given): No Sedation given Patient Mental Status: Awake Sterility: Hand Hygiene, Surgical Cap, Sterile Gloves and Chlorhexidine Laterality: Left Insertion Site: Basilic Midline Device: PowerGlide Pro 20G Catheter Length: 8 cm Midline Procedure Procedure: 1% Lidocaine to skin and subcutaneous tissue with 25g needle, Vessel accessed with catheter over needle, Guidewire placed with ease, Catheter placed without resistance and Guidewire removed Dressing: Tegaderm Applied and Statlock Applied Blood Return: Present Flushes: Easily Ultrasound: Sterile probe cover and gel used Ultrasound Image Saved?: Yes Number of Attempts (See previous attempts in note section): 2 Procedure Tolerated: No Complications Procedure Outcome: Successful Procedure Comment:: First attempt at same site with blood return and appearing to be in vessel but would not advance. 2nd successful attempt required some catheter and guidewire manipulation but with good placement and blood return. Performed By: Brandan Ernst
--- NOTE | 2022-09-30 06:08 | W.PM.OBNL1 ---
Date of service: 09/30/22 Time of Service: 06:08 Informed Consent Informed Consent: Regional Anesthesia and Risk,Benefits,Alternatives Discussed (Vaginal ) Pelvic Exam Dilation: 8 Effacement (%): 100 station: 0 Position: OA Cervix Position: mid Consistency: soft Vaginal Exam Presentation: Cephalic Contractions Monitor Mode: External Contraction Frequency(min): q3 Fetus A Monitor: External (US) Heart Rate Baseline: 140 Presentation: Cephalic Variability: Moderate (6-25 BPM) Categories: Category I FHR Rhythm: Regular Characteristics: Normal Accelerations: 15 X 15 Decelerations: None Amniotic Membrane Status: Ruptured Rupture Method: Artifical Amniotic Fluid: Meconium Amount: moderate Date of Membrane Rupture: 09/30/22 Time of Membrane Rupture: 06:10 Assessment and Plan Assessment and plan (1) Thin meconium stained amniotic fluid: Status: Acute Assessment and plan: Continue to observe. Objective Abnormal lab results 09/30/22 Range/Units 02:25 RBC 3.90 L (3.93-5.22) 10^6/uL Hgb 11.0 L (11.2-15.7) g/dL Hct 32.6 L (36.0-46.0) % Temp Pulse Resp BP Pulse Ox 98.4 F 91 H 16 119/71 89 L 09/30/22 04:25 09/30/22 05:49 09/30/22 01:56 09/30/22 05:41 09/30/22 05:49 Laboratory Results WBC 6.31 10^3/uL (4.4-10.8) 09/30/22 02:25 RBC 3.90 10^6/uL (3.93-5.22) L 09/30/22 02:25 Hgb 11.0 g/dL (11.2-15.7) L 09/30/22 02:25 Hct 32.6 % (36.0-46.0) L 09/30/22 02:25 MCV 84 fL (80-95) 09/30/22 02:25 MCH 28.2 pg (27.0-33.0) 09/30/22 02:25 MCHC 33.7 % (32.0-36.0) 09/30/22 02:25 RDW 14.3 % (11.7-14.6) 09/30/22 02:25 Plt Count 223 10^3/uL (130-400) 09/30/22 02:25 MPV 10.4 fL (8.0-11.0) 09/30/22 02:25 Patient ABO/Rh A Negative 09/30/22 02:25 Antibody Screen POSITIVE 09/30/22 02:25 Antibody Identification Anti-D 09/30/22 02:25 Vital Signs Reviewed: Yes Objective Narrative Objective Narrative: Epidural placed by anesthesia with excellent results. Patient comfortable and drowsy. Results Hemoglobin/Hematocrit: Hgb 11.0 g/dL (11.2-15.7) L 09/30/22 02:25 Hct 32.6 % (36.0-46.0) L 09/30/22 02:25 Abnormal Lab Findings: Abnormal Labs 09/30/22 02:25 RBC 3.90 L Hgb 11.0 L Hct 32.6 L
--- NOTE | 2022-09-30 08:24 | W.OBDELIVERY ---
Date of service: 09/30/22 Time of Service: 12:32 OB Labor/ Delivery Information Baby A Delivery Delivery Method: Spontaneaous Presentation: Cephalic Cephalic Position: Vertex Vertex Position: Left Occipital Transverse Breech Position: N/A Cord Description-Baby A: 3 Vessels Cord Description Comment: Central insertion normal configuration Estimated Blood Loss: 100 Delivery Outcome: Liveborn Transferred: Remains with Mother Note: Parents plan to name Emrouse Junior Providers Doctor: Tari Drake Nurse: Lenora Lindquist Nurse: Cleopatra Dejesus Labor/Delivery Information Number of Babies in Womb: 1 Steroids Given: None Reason Steroids Not Administered: N/A Group Beta Strep: Negative Antibiotics Administered: No Rubella Status: Immune Blood Type: A- Varicella Immunity: Immune Born En Route: No Maternal Complications: None Shoulder Dystocia: No Stages of Labor Onset of Labor Date: 09/29/22 Onset of Labor Time: 23:30 Complete Dilatation Date: 09/30/22 Complete Dilatation Time: 06:30 Labor - Stage 1 Duration: 7 hours and 0 minutes ROM Baby A: 09/30/22 ROM Baby A: 06:10 ROM Total Time- Baby A: [id number] Infant Delivery Date-Baby A: 09/30/22 Infant Delivery Time-Baby A: 06:44 Labor Stage 2 Duration: 14 minutes Placenta Delivery Date-Baby A: 09/30/22 Placenta Delivery Time-Baby A: 06:53 Labor-Stage 3 Duration: 9 minutes Total Length of Labor-Baby A: 7 hours and 14 minutes Placenta Cultured: No Placenta Status: Delivered Baby A Gender: Male Gestational Status: Early Term (37-38.6 wks) Gestational Age in Weeks/Days: 37 Weeks and 3 Days Score-1 Minute Interval(Baby A) Heart Rate-1 minute: 100 BPM or Greater Respiratory Effort- 1 minute: Spontaneous/Strong Cry Muscle Tone-1 minute: Minimal Flexion/Extension Reflex Response-1 minute: Prompt Response Color-1 minute: Bluish Hands or Feet Total Score-1 minute: 8 Score-5 Minute Interval(Baby A) Heart Rate- 5 minute: 100 BPM or Greater Respiratory Effort-5 minute: Spontaneous/Strong Cry Muscle Tone-5 minute: Active Movement Reflex Response-5 minute: Prompt Response Color-5 minute: Bluish Hands or Feet Total Score- 5 minute: 9
[2022-09-30] MEDS: Prenatal Multivitamin w/CA,FE TAB 1 TAB PO (08:32)
[2022-09-30] MEDS: Methylphenidate 10 MG TAB 20 MG PO ×2 (08:32→18:51)
[2022-09-30] MEDS: Buprenorphine/Naloxone 12 mg/3 mg FILM 2 EACH SL (08:32)
[2022-09-30] MEDS: Betamethasone Dip. 0.05% CR 15 GM TUBE TP ×2 (08:33→21:47)
[2022-09-30] MEDS: ARIPiprazole 5 MG TAB 20 MG PO (08:33)
[2022-09-30] MEDS: Gabapentin 600 MG TAB 1200 MG PO ×3 (08:34→21:44)
[2022-09-30] MEDS: Mometasone 220 MCG 14 DOSE INHALER 1 PUFF IH (08:35)
[2022-09-30] MEDS: Dibucaine 1% 28 GM TUBE TP (08:41)
[2022-09-30] MEDS: Hamamelis Leaf/Glycerin 100 EACH BOX PR (08:41)
[2022-09-30] MEDS: hydrOXYzine HCL 50 MG TAB PO (10:54)
--- NOTE | 2022-09-30 14:07 | W.ANESPOSTOP ---
Postoperative Evaluation Date, Time and Location Date Performed: 09/30/22 Time Performed: 14:07 Patient Location: Obstetrics Vital Signs Most Recent Imported Vital Signs: Most Recent Vital Signs Temp Pulse Resp BP Pulse Ox 37.0 C 82 16 136/89 97 09/30/22 11:00 09/30/22 11:00 09/30/22 11:00 09/30/22 11:00 09/30/22 11:00 Assessment Mental Status: Awake (Alert & Oriented to Patient Baseline) Airway and Respiratory Function: Patent airway with normal (patient baseline) respiratory exam Cardiovascular Function: Hemodynamically Stable Hydration Status: Adequately Hydrated Nausea & Vomiting: No Nausea or Vomiting Pain: Pain is tolerable per patient Peripheral Nerve Block: Patient did not receive a nerve block
[2022-09-30] MEDS: Docusate Sodium 100 MG CAP PO (15:49)
[2022-09-30] MEDS: Ibuprofen 600 MG TAB PO (17:32)
[2022-09-30] MEDS: Normal Saline Flush 10 ML SYR IVP (17:33)
[2022-09-30] MEDS: Amitriptyline 25 MG TAB 75 MG PO (21:45)
[2022-10-01 07:45] VITALS: BP 139/97; PULSE 81; RESP 16; TEMP 36.5
[2022-10-01] MEDS: Gabapentin 600 MG TAB 1200 MG PO (07:48)
[2022-10-01] MEDS: Methylphenidate 10 MG TAB PO (07:49)
[2022-10-01] MEDS: ARIPiprazole 5 MG TAB 20 MG PO (07:54)
[2022-10-01] MEDS: Prenatal Multivitamin w/CA,FE TAB 1 TAB PO (07:54)
[2022-10-01] MEDS: Buprenorphine/Naloxone 12 mg/3 mg FILM 2 EACH SL (07:54)
[2022-10-01] MEDS: Betamethasone Dip. 0.05% CR 15 GM TUBE TP (07:55)
--- NOTE | 2022-10-01 09:26 | DSE_ITS ---
Date of service: 10/01/22 Time of Service: 09:26 DS: Diagnosis Discharge Diagnosis (1) Thin meconium stained amniotic fluid: Status: Acute (2) Vaginal delivery: Status: Acute Asessment and Plan: Spontaneous vaginal delivery without complications. Patient requested discharge on day 1 so that she could smoke tobacco. She will remain with her for 5 days during [facility]. control has been asked unclear if she will accept permanent sterilization or LARC (3) Tobacco use: Status: Acute Asessment and Plan: Patient declined tobacco cessation counseling. Discharge Plan Disposition Patient Disposition: Home Condition: Fair Discharge Details Reason For Visit: Labor Admit Date/Time: 09/30/22 01:52 Admit Provider: Tari Drake Attending Provider: Tari Drake Primary Care Provider: DION VO Home Meds and New Rx's Prescriptions: No Action buprenorphine-naloxone 12-3 mg film 2 film buccal Q24H Patient Comments: 04/11/22- pt reports taking one 12 mg film in am and one 12 mg film in afternoon/ evening Rx Instructions: place 1 strip/tab under (each) side of tongue gabapentin 600 mg tablet 1,200 mg PO TID fluticasone propionate [Flovent HFA] 110 mcg/actuation HFA aerosol inhaler 110 mcg Inhalation BID Qty: 12 1RF methylphenidate HCl 10 mg tablet 20 mg PO DAILY Hold Instructions: Changed by Provider Patient Comments: 04/11/22- pt reports taking 20 mg in the am and two 10 mg tabs in the afternoon for a total daily dose of 40 mg. aripiprazole [Abilify] 10 mg tablet 20 mg PO DAILY HFA spacer 1 unit Qty: 1 0RF Rx Instructions: Use spacer with inhaler for better pulmonary absorption betamethasone dipropionate 0.05 % cream 1 applic topical BID PNV,calcium 09-[id number] acid 27 mg iron- 1 mg tablet 1 tab PO DAILY amitriptyline 150 mg tablet 75 mg PO QHS Discharge Instructions Additional Instructions: Bring medications from home and take them as you normally would. We will discuss control at the time of your 2-week visit Stand Alone Forms: BC Instructions, BC Post Vaginal Deliver Activity:: Activity as Tolerated Equipment/Supplies:: No Equipment Needed Diet:: As Tolerated Discharge Orders Discharge Orders: Discharge Order (Routine); Ordered 10/01/22 Ordered By: Tari Drake OB:DS Summary Summary Vaginal Delivery Method: Spontaneaous Episiotomy Description: None Laceration Description: None Laceration Extension: N/A Contraception Discussed Contraception Discussed: Yes (Pt interested in Nexplanon), Infant Gender-Baby A: Male ([place]) weight: 6 lb 2.062 oz Disposition of Baby A: Other ([facility] border) Status at Discharge Functional status at discharge: independent ambulation Overall status at discharge: patient is progressing back to baseline Mental Status: mental status grossly normal Speech and Movement: speech and movement normal Mood: congruent mood Affect: normal affect Time Spent with Patient providing and/or coordinating discharge services: Less than 30 minutes Exam Physical Exam Vital signs: Temp Pulse Resp BP Pulse Ox 98.2 F 91 H 16 132/82 98 09/30/22 20:27 09/30/22 20:27 09/30/22 17:20 09/30/22 20:27 09/30/22 17:20 Respiratory Exam Respiratory Exam: Normal Cardiovascular Exam Cardiovascular Exam: Normal Abdominal Exam Abdomen: Diastasis Fundal Exam Fundus: Below Umbilicus Rectal Exam Rectal Exam: Not Done Extremities Exam Extremity Exam: Not Done Back/Spine/Pelvis Exam Back Exam: Normal Skin Exam Skin Exam: Abnormal (As previously noted scarring from previous IV drug use) Neurological Exam Neurological Exam: Normal Psychiatric Exam Psychiatric Exam: Normal (Patient is at baseline) PFSH All Active Problems (Updated 10/01/22 @ 09:27 by Tari Drake MD) Tobacco use (Acute) Vaginal delivery (Acute) Thin meconium stained amniotic fluid (Acute) Uterine contractions (Acute) Marijuana smoker (Acute) Abnormal Pap smear of cervix (Acute) 05/2008: Pap HGSIL with + HR HPV. 06/08/2018 colpo at 14 weeks findings LGSIL. No biopsies. Plan repeat Pap LSIL pap 04/2022-Needs colposcopy Attention deficit hyperactivity disorder (Acute 07/07/13) Bipolar 1 disorder (Acute) History of delivery, currently (Acute) History of drug abuse (Acute) Suboxone maintenance treatment complicating , antepartum (Acute) (Acute) Rh negative state in antepartum period (Acute) Asthma (Chronic) Difficult intravenous access (Chronic) HCV antibody positive (Acute 05/16/16) Hep C RNA nondetectable Medical History (Updated 10/01/22 @ 09:27 by Tari Drake MD) Asthma Chronic lower back pain Cigarette smoker one half pack a day or less 04/10/2017 patient reports that she has stopped tobacco use with positive test Confirm viability with history of miscarriage, ultrasound Depression with anxiety (04/18/16) Edentulism, complete Encounter to determine viability of Hypoglycemia Insomnia Lichenification 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 Camarena. Patient had necrosed fingertips after injecting Wellbutrin. Dilation and curettage (07/23/17) D&C for blighted ovum at 8w EGA. Family History Mother History of spontaneous 1 Mental disorder depression and anxiety Grandfather Diabetes Grandmother Diabetes Grandmother Diabetes Father Alcohol abuse alcohol and addict-opiates Sister No problems noted. Brother Alcohol abuse alcohol abuse and abuse opiates Mental disorder depression and anxiety Brother No problems noted. Other Myocardial infarction Social History (Updated 09/30/22 @ 06:02 by Tari Drake MD) Smoking/Tobacco Use Status: Current every day Tobacco Type: cigarettes Smoking risk assessment performed?: Yes Alcohol Intake: never Drug use: Current Sobriety Substance use type: former substance user and marijuana Adopted: No Foster care: No Household members: family and other Details: Tyrese Rodriguez [employer], D-Ivy Number of Children: 4 Communication Needs: None current occupation: unemployed Sexually active: Yes Seatbelt use: always Do you feel safe at home: Yes Do you feel safe in your relationship?: Yes History History 9 Para 4 Hx # Term Pregnancies 3 Multiple births 0 Hx # Pregnancies 1 Ectopic pregnancies 0 AB induced 1 Hx Number of Living Children 4 AB spontaneous 4 Past Pregnancies Del. Date GA/Weeks # Preg Succ Route Wgt Sex Labor Lgth Anesth esia Location Prov Complic 08/16/07 40 No vaginal 7 lb 3 oz Female YUDITH Khan MD 02/08/14 37 No vaginal 5 lb Female YUDITH Nguyen 11/09/16 37 No vaginal 7 lb 3 oz Male YUDITH Khan MD 07/09/17 6 11/02/18 36 No vaginal 4 lb 2 oz Female 2hrs 51min regional Almaraz low apgars 09/30/22 No vaginal 6 lb 2.062 oz Male a oc Delivery Date: 08/16/07 Last Updated by: Adriana Escalera Pt's mother is guardian Delivery Date: 02/08/14 Last Updated by: Adriana Escalera Breech. Adopted out Delivery Date: 11/09/16 Last Updated by: Adriana Marroquin Edwige. Patient has custody Delivery Date: 07/09/17 Last Updated by: Tari Drake M.D. SAB at 6 weeks. Blighted ovum. Patient had D&C Delivery Date: 11/02/18 Last Updated by: Ivette Collier LPN Breech presentation, Precipitous labor. Delivery Date: 09/30/22 Last Updated by: Tari Drake MD [place] [facility] DS: Data Vitals/I&O Vitals and I&O: Vital Signs Temperature 98.2 F 09/30/22 20:27 Temperature Source Oral 09/30/22 20:27 Pulse 91 H 09/30/22 20:27 Pulse Rhythm Regular 09/30/22 20:27 Respiratory Rate 16 09/30/22 17:20 Respiratory Depth Normal 09/30/22 15:50 Blood Pressure 132/82 09/30/22 20:27 Blood Pressure Mean 98 09/30/22 20:27 Pulse Oximetry 98 09/30/22 17:20 Oxygen Delivery Method Room Air 09/30/22 01:56 Oxygen Flow Rate 0 09/30/22 01:56 Pain Level 2 09/30/22 20:27 Intake & Output 09/30/22 09/30/22 10/01/22 11:59 23:59 11:59 Intake Total 360 / 360 Output Total 500 / 1300 800 / 1300 Balance -140 / -940 -800 / -940 Weight 164 lb Intake: Oral 360 / 360 Output: Urine 500 / 1300 800 / 1300 Other: Urine Color Yellow Bright Red Urine Appearance Hematuria Voiding Methods Toilet
== END 2022-10-01 10:40 | disposition home or self-care (01) | DRG 806 ==
PROVIDERS: Admitting Provider Obstetrics & Gynecology Gynecology; PCP Nurse Practitioner Family; Visit Provider Obstetrics & Gynecology Gynecology
DX: O99.324 Drug use complicating childbirth (principal); F11.20 Opioid dependence, uncomplicated; Z37.0 Single live birth; O36.0930 Maternal care for other rhesus isoimmunization, third trimester, not applicable or unspecified; O98.42 Viral hepatitis complicating childbirth; B19.20 Unspecified viral hepatitis C without hepatic coma; O77.0 Labor and delivery complicated by meconium in amniotic fluid; O99.334 Smoking (tobacco) complicating childbirth; F17.200 Nicotine dependence, unspecified, uncomplicated; Z3A.37 37 weeks gestation of pregnancy
CPT/HCPCS: 36415; 76942; 85027; 86850; 86900; 86901; 86870; J3490

== ENCOUNTER 2022-10-28 13:39 | Outpatient (REF) | payer MEDICAID, SELFPAY ==
[2022-10-29 14:26] LABS: Chlamydia Result Negative (Negative); GC Result Negative (Negative)
== END 2022-10-28 13:40 | disposition home or self-care (01) ==
LOC: LBN 13:39
PROVIDERS: Nurse Practitioner Women's Health; PCP Nurse Practitioner Family; Visit Provider Obstetrics & Gynecology
DX: Z11.3 Encounter for screening for infections with a predominantly sexual mode of transmission (principal)
CPT/HCPCS: 87491; 87591

== ENCOUNTER 2022-11-01 19:31 | Outpatient (REF) | payer MEDICAID, SELFPAY ==
[2022-11-01 16:08] LABS: ALT 18 U/L (14-59); AST 19 U/L (15-37); Albumin 4.1 g/dL (3.4-5.0); Alkaline Phosphatase 53 U/L (46-116); BUN 12 mg/dL (7-18); Bilirubin, Total 0.4 mg/dL (0.2-1.0); CREATININE 0.6 mg/dL (0.55-1.02); Calcium 8.8 mg/dL (8.5-10.1); Chloride 104 mmol/L (98-107); Estimated GFR 121.47 (mL/min/1.73m2); Glucose 91 mg/dL (74-106); Potassium 4.4 mmol/L (3.5-5.1); Sodium 139 mmol/L (136-145); Total Protein 7.1 g/dL (6.4-8.2)
[2022-11-04 15:42] LABS: HBs Antibody, Quant <3.1 mIU/mL (See Note); Hepatitis B Surface Ab Negative (See Note)
[2022-11-04 16:30] LABS: Hep B Core Antibody Negative (Negative)
[2022-11-05 04:13] LABS: Methylphenidate Negative ng/mL (Cutoff: 10); Ritalinic Acid 2937 ng/mL (Cutoff: 50)
== END 2022-11-01 19:32 | disposition home or self-care (01) ==
LOC: NCHCN 19:31
PROVIDERS: PCP Nurse Practitioner Family; Visit Provider Registered Nurse
DX: B19.20 Unspecified viral hepatitis C without hepatic coma (principal); Z51.81 Encounter for therapeutic drug level monitoring; Z79.899 Other long term (current) drug therapy; F90.8 Attention-deficit hyperactivity disorder, other type; Z91.89 Other specified personal risk factors, not elsewhere classified
CPT/HCPCS: 80053; 80360; 86704; 86706

== ENCOUNTER 2024-05-07 10:52 | Observation (INO) | payer MEDICAID, SELFPAY ==
[2024-05-07] VITALS (27 sets, daily range): BP systolic 106–131; BP diastolic 73–91; PULSE 115–139; RESP 16–31; TEMP 36.9–37.8; O2SAT 91–99
--- NOTE | 2024-05-07 11:30 | RT.EKG_ITS ---
APPROVED REPORT Exam: Resting ECG Reason for Exam: tachycardia Patient Location: E HR:129 bpm ECG Measurements Heart Rate 129 AXIS DE 109 P 88 QRSd 99 QRS 89 QT 348 T 57 QTc 511 Conclusion Sinus tachycardia. 129 trigeminy QTC long
--- NOTE | 2024-05-07 11:45 | RT.EKG_ITS ---
APPROVED REPORT Exam: Resting ECG Reason for Exam: tachycardia Patient Location: E HR:116 bpm ECG Measurements Heart Rate 116 AXIS NM 110 P 87 QRSd 94 QRS 89 QT 349 T 75 QTc 484 Conclusion Sinus tachycardia...rate> 99 No STEMI
--- NOTE | 2024-05-07 11:46 | ED.GENADUL_ITS ---
Discharge Plan Disposition Patient Disposition: Admit to [facility] Discharge Details Clinical Impression: Pneumonia, Hypokalemia, Severe sepsis without septic shock Primary Care Provider: DION VO ED Provider: Michelle Bertrand Home Meds and New Rx's Prescriptions: No Action buprenorphine-naloxone 12-3 mg film 2 film buccal Q24H Patient Comments: 04/11/22- pt reports taking one 12 mg film in am and one 12 mg film in afternoon/ evening Rx Instructions: place 1 strip/tab under (each) side of tongue gabapentin 600 mg tablet 1,200 mg PO TID fluticasone propionate [Flovent HFA] 110 mcg/actuation HFA aerosol inhaler 110 mcg Inhalation BID Qty: 12 1RF Nexplanon 68 mg implant 1 implant subdermal ONCE Rx Instructions: as a single dose methylphenidate HCl 10 mg tablet 20 mg PO DAILY Patient Comments: 04/11/22- pt reports taking 20 mg in the am and two 10 mg tabs in the afternoon for a total daily dose of 40 mg. aripiprazole [Abilify] 10 mg tablet 30 mg PO DAILY lamotrigine 100 mg tablet 100 mg PO DAILY betamethasone dipropionate 0.05 % cream 1 applic topical BID amitriptyline 150 mg tablet 75 mg PO QHS HPI General Date/Time Provider Initiated Documentation: 05/07/24 11:04 . HPI Narrative: Jennifer is a 34 year old female who presents to the emergency department today for evaluation of fever with cough and R sided rib pain. She reports she started getting sick 1 week ago with fevers up to 102, headache, occasional dizziness, congestion, right-sided anterior lower rib pain and posterior right rib pain that is aggravated by coughing, vomiting multiple times, and diarrhea (x 1 daily). She also reports some mild left lower quadrant discomfort. She is worried that her feet look more red than they usually do. She has been incontinent of urine due to her vomiting, says urine has been dark in color. She has been trying to stay well-hydrated, but says she has been vomiting frequently and unable to hold down much food. Past medical history is significant for IVDU (reports she is not currently using), Hep C, bipolar 1 disorder, and tobacco use. Denies history of abdominal surgeries or endocarditis. Denies history of heart disease, lung disease, or abdominal diagnoses. Family history significant for son with WPW. Physical exam remarkable for tachycardic patient with heart rate in the 130s and dry mucous membranes. Normal heart sounds, no obvious murmur. Easy work of breathing, coarse scattered lung sounds. 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 Abdomen is soft, nondistended, mild tenderness to palpation left lower quadrant. Normoactive bowel sounds. Distal pulses intact and equal bilaterally to upper and lower extremities. D/dx includes but is not limited to: sepsis (pt meets sepsis criteria), PE, infective endocarditis, viral illness such as influenza or COVID, pneumonia, colitis, partial bowel obstruction, pancreatitis I independently interpreted the following tests: EKG notable for sinus tachycardia with rate 129 and ventricular trigeminy/PVCs. Prolonged QTc of 511 noted. /Repeat EKG after fluid resuscitation showed sinus tachycardia rate 116, PVCs and QTc prolongation resolved. CBC notable for slightly elevated white cell count of 11.64. D-dimer very elevated at 4061. VBG overall reassuring, mild alkalosis noted with pH 7.46. Initial lactate 2.8. Severe hypokalemia noted, potassium 2.7. Lipase reassuring. hCG negative. While in the emergency department, Jennifer received 2 g Mag sulfate for prolonged QTc. DuoNeb given for wheezing/shortness of breath. 30 cc/kg lactated Ringer's given for rehydration according to sepsis protocol. Empiric cefepime and vancomycin initiated, review of previous medical records shows that patient has a history of penicillin allergy but has tolerated cephalosporins in the past. Toradol and Tylenol given for fever/body aches CT remarkable for dense consolidation in left lower lobe and large opacity in the right upper lobe suspicious for pneumonia, accompanied by enlarged lymph nodes. As patient has remained tachypneic and tachycardic despite fluid resuscitation, plan to admit for IV antibiotics and hemodynamic monitoring of pneumonia with sepsis. Dr. Nolasco consulted, will admit patient to [facility] unit. Related Data Home Medications ?Medication ?Instructions ?Recorded ?Confirmed amitriptyline 150 mg tablet 75 mg PO QHS 12/28/19 05/07/24 betamethasone dipropionate 0.05 % 1 applic topical BID 11/26/21 05/07/24 topical cream buprenorphine 12 mg-naloxone 3 mg 2 film buccal Q24H 04/11/22 05/07/24 sublingual film fluticasone propionate 110 110 mcg inhalation BID #12 grams 04/11/22 05/07/24 mcg/actuation HFA aerosol inhaler (Flovent HFA) gabapentin 600 mg tablet 1,200 mg PO TID 04/11/22 05/07/24 methylphenidate HCl 10 mg tablet 20 mg PO DAILY 04/11/22 05/07/24 etonogestrel 68 mg subdermal 1 implant subdermal ONCE 10/28/22 05/07/24 implant (Nexplanon) aripiprazole 10 mg tablet (Abilify) 30 mg PO DAILY 01/21/23 05/07/24 lamotrigine 100 mg tablet 100 mg PO DAILY 01/21/23 05/07/24 Previous Rx's ?Medication ?Instructions ?Recorded fluticasone propionate 110 110 mcg inhalation BID #12 grams 04/11/22 mcg/actuation HFA aerosol inhaler (Flovent HFA) Allergies Allergy/AdvReac Type Severity Reaction Status Date / Time Penicillins Allergy Severe Anaphylaxsi Verified 05/07/24 11:01 s venom-honey bee (bee venom Allergy Severe Anaphylaxsi Verified 05/07/24 11:01 (honey bee)) s naproxen (From Naprosyn) Allergy Intermediate Hives Verified 05/07/24 11:01 latex Allergy Unknown HIVES, RED Verified 05/07/24 11:01 BUMPS General Stated Complaint: Nk/Back Pain TON: 3 Review of Systems Narrative: See HPI Exam Const General: cooperative, comfortable and No well hydrated Nutritional Appearance: average body habitus Orientation: alert and oriented x3 HENKS General nose exam: external nose normal Face and sinus: dry mucous membranes Mouth: oropharynx normal Neck Neck: normal visual inspection, no lymphadenopathy and trachea midline Chest Chest: no crepitus, tenderness (R anterior lower and mid posterior chest wall) and No rash Resp Effort & Inspection: normal respiratory effort, able to speak in complete sentences and cough (occasional) Auscultation: clear to auscultation bilaterally Cardio Rate: tachycardic Rhythm: regular rhythm Pulses: radial pulses present and dorsalis pedis present GI Inspection: normal to inspection, no abdominal wall ecchymosis and non-distended Palpation: soft, not firm, no guarding, not rigid and tender in the LLQ Auscultation: normal bowel sounds Back/Spine/Pelvis Cervical Spine: normal cervical lordosis and cervical ROM normal Thoracic/Lumbar Spine: thoracic and lumbar spine normal to inspection Course Vital Signs Vital signs: Vital Signs Temperature 37.8 C H 05/07/24 10:54 Pulse 138 H 05/07/24 10:54 Respiratory Rate 16 05/07/24 10:54 Blood Pressure 121/91 H 05/07/24 10:54 Pulse Oximetry 91 L 05/07/24 10:54 Temperature 37.8 C H 05/07/24 10:54 Temperature Source Oral 05/07/24 10:54 Pulse 138 H 05/07/24 10:54 Respiratory Rate 16 05/07/24 10:54 Blood Pressure 121/91 H 05/07/24 10:54 Blood Pressure Position Sitting 05/07/24 10:54 Pulse Oximetry 91 L 05/07/24 10:54 Oxygen Delivery Method Room Air 05/07/24 10:54 Oxygen Flow Rate 0 05/07/24 10:54 Pain Level 10 05/07/24 10:54 Comment poor pleth 05/07/24 10:54 Medical Decision Making Imaging Data Radiologic Study: Radiologist's impression: Exam(s) CT CHEST PE ABD PELVIS W EXAM: CT CHEST PE ABD PELVIS W CLINICAL HISTORY: R sided chest pain, viral sx. TECHNIQUE: Imaging Protocol: Axial CT angiography was performed with multi- slice acquisition and multi-planar and/or 3D reconstructions. Computer aided detection (CAD) was utilized. CONTRAST MATERIAL: Intravenous: Omnipaque 350contrast volume:70 mL COMPARISON: No exams were available for comparison FINDINGS: CHEST: Tracheobronchial tree: Patent where visualized. No evidence of bronchiectasis. Pulmonary parenchyma: There is a dense consolidation in the left lower lobe. There is also a large opacity in the posterior aspect of the right upper lobe. The findings are most suspicious for pneumonia. No architectural distortion. Pulmonary Arteries: No evidence of filling defect to suggest pulmonary emboli. Mediastinum and Joan: There are enlarged lymph nodes seen in the mediastinum and right hilum. These are likely reactive. The esophagus is unremarkable. Visualized thyroid gland: Unremarkable. Pleura: No effusion or pneumothorax. Heart: The heart is not dilated. No coronary artery calcifications are seen. No pericardial effusion. Aorta: Thoracic aorta non-dilated. No evidence of dissection. Bones: Within normal limits for the patient's age. Soft tissues: Unremarkable. ABDOMEN: Liver: There is diffuse decreased attenuation of the liver consistent with fatty infiltration. The liver is enlarged. No measurable mass. Portal, Superior Mesenteric, and Splenic Veins: Unremarkable. Gallbladder and Biliary Tract: No radiodense calculus or dilation. Pancreas: Normal density, no abnormal calcifications or inflammatory process. Spleen: Normal. Adrenals: No masses seen. Kidneys: Normal size, contour and axis. No radiodense stones or obstructive uropathy. There is a round hypodensity in the inferior pole of the left kidney likely reflecting a small cyst. No follow-up is recommended. Abdominal Aorta: Abdominal portion non-dilated. Bowel: No obstruction or bowel wall thickening. Appendix is unremarkable. Peritoneal Cavity: No ascites, collection or mesenteric inflammatory response. No free air. Lymph Nodes: Within normal limits. Bones: Within normal limits for the patient's age. There is L4 spondylolysis without evidence of spondylolisthesis. Soft Tissues: Small fat containing umbilical hernia. PELVIS: Bladder: Symmetric distention, no gross wall thickening. Reproductive Organs: Unremarkable as visualized. Lymph Nodes: Within normal limits. Bones: Within normal limits. IMPRESSION: 1. No evidence pulmonary embolism, thoracic aortic dissection or aneurysm. 2. Right upper lobe and right lower lobe consolidation suspicious for pneumonia. 3. Enlarged lymph nodes in the mediastinum and right hilum which are likely reactive. 4. Follow-up CT scan of the chest is recommended to document complete resolution of the infiltrates and to exclude other underlying pathology. 5. No acute abdominal or pelvic process. 6. Diffuse fatty infiltration of the liver and hepatomegaly. Quality:SDOH Health Related Social Needs: No Data to Display PFSH All Active Problems (Updated 05/07/24 @ 15:07 by Michelle Burnham) Hypokalemia (Acute) Pneumonia (Acute) Severe sepsis without septic shock (Acute) Implantable subdermal contraceptive surveillance (Acute) Tobacco use (Acute) History of drug abuse (Acute) On suboxone Bipolar 1 disorder (Acute) Abnormal Pap smear of cervix (Acute) 05/2008: Pap HGSIL with + HR HPV. 06/08/2018 colpo at 14 weeks findings LGSIL. No biopsies. Plan repeat Pap LSIL pap 04/2022-Needs colposcopy HCV antibody positive (Acute 08/21/15) Hep C RNA nondetectable Attention deficit hyperactivity disorder (Acute 07/07/13) Marijuana smoker (Acute) Difficult intravenous access (Chronic) Asthma (Chronic) Medical History (Updated 05/07/24 @ 15:07 by Michelle Burnham) Neuropathy Insomnia Lichenification Chronic lower back pain Migraine Depression with anxiety (04/18/16) Asthma Hypoglycemia Cigarette smoker one half pack a day or less 04/10/2017 patient reports that she has stopped tobacco use with positive test Personal history of allergy to penicillin Edentulism, complete Surgical History Dilation and curettage (07/23/17) D&C for blighted ovum at 8w EGA. 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 Camarena. Patient had necrosed fingertips after injecting Wellbutrin. Family History Mother History of spontaneous 1 Mental disorder depression and anxiety Grandfather Diabetes Grandmother Diabetes Grandmother Diabetes Father Alcohol abuse alcohol and addict-opiates Sister No problems noted. Brother Alcohol abuse alcohol abuse and abuse opiates Mental disorder depression and anxiety Brother No problems noted. Other Myocardial infarction Social History (Updated 02/04/23 @ 20:38 by Tari Drake MD) Smoking/Tobacco Use Status: Current every day Tobacco Type: cigarettes Smoking risk assessment performed?: Yes Alcohol Intake: never Drug use: Current Sobriety Substance use type: former substance user and marijuana Adopted: No Foster care: No Household members: family and other Details: Daniel Rodriguez D-Ivy, S [place] Housing: other Details: Lives with children. CASPER sleeps in his car. Number of Children: 5 Communication Needs: None current occupation: Employed thru [employer]. Sexually active: Yes Other: 2021. 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 Date GA/Weeks # Preg Succ Route Wgt Sex Labor Lgth Anesth esia Location Prov Complic 08/16/07 40 No vaginal 3260.195 g Female NVR H Erin JACOBSON 02/08/14 37 No vaginal 2267.962 g Female NVR H Erin JACOBSON 11/09/16 37 No vaginal 3260.195 g Male YUDITH Khan MD 07/09/17 6 11/02/18 36 No vaginal 1871.069 g Female 2hrs 51min regional Almaraz low apgars 09/30/22 37 No Yes vaginal 2778.253 g Male 7hrs 14min regional MD [place] Delivery Date: 08/16/07 Last Updated by: Adriana Escalera Pt's mother is guardian Delivery Date: 02/08/14 Last Updated by: Adriana Escalera Breech. Adopted out Delivery Date: 11/09/16 Last Updated by: Taisha Mcduffie MD [place]. 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 SAB at 6 weeks. Blighted ovum. Patient had D&C Delivery Date: 11/02/18 Last Updated by: Taisha Mcduffie MD Breech presentation, Precipitous labor. 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
[2024-05-07 12:01] LABS: Abs Immature Grans 0.15 10^3/uL (0.0-0.06); BE (Venous) 5 mmol/L (-2-3); HCO3 (Venous) 29 mmol/L (23-28); HCT 39.6 % (36.0-46.0); HGB 14.2 g/dL (11.2-15.7); MCH 31.5 pg (27.0-33.0); MCHC 35.9 % (32.0-36.0); MCV 88 fL (80-95); MPV 10.8 fL (8.0-11.0); O2 Sat (Venous) 71 %; Platelet Count 244 10^3/uL (130-400); RBC 4.51 10^6/uL (3.93-5.22); RDW 11.9 % (11.7-14.6); RDW-SD 38.5 fL; TCO2 (Venous) 25 mmol/L (24-29); WBC 11.64 10^3/uL (4.4-10.8); pCO2 (Venous) 40 mmHg (41-51); pH (Venous) 7.46 (7.31-7.41); pO2 (Venous) 36 mmHg
[2024-05-07] MEDS: Ketorolac 15 MG/ML VIAL IVP (12:01)
[2024-05-07] MEDS: Ondansetron 4 MG/2 ML VIAL IVP (12:01)
[2024-05-07] MEDS: Lactated Ringers 1,000 ML 1000 ML IV ×2 (12:02→14:13)
[2024-05-07 12:04] LABS: Lactate 2.8 mmol/L (<or=2.0)
[2024-05-07] MEDS: MAGNESIUM SULFATE 2 GM/50 ML BAG IV_INF (12:17)
[2024-05-07 12:19] LABS: ALT 38 U/L (14-59); AST 66 U/L (15-37); Albumin 2.3 g/dL (3.4-5.0); Alkaline Phosphatase 53 U/L (46-116); Anion Gap 9.8 mmol/L (3-11); BUN 12 mg/dL (7-18); Bilirubin, Total 1.21 mg/dL (0.2-1.0); CO2 31.2 mmol/L (21.0-32.0); Calcium 8.8 mg/dL (8.5-10.1); Chloride 90 mmol/L (98-107); Estimated GFR 75.34 (mL/min/1.73m2); Glucose 121 mg/dL (74-106); Lipase 11 U/L (<78); Sodium 131 mmol/L (136-145); Total Protein 7.2 g/dL (6.4-8.2)
--- OUTSIDE RECORDS SUMMARY | 2024-05-07 12:23 | XMS_ITS | Encounter Summary ---
Author Organization [facility] [address] Care Team Providers Care Tab Builder Name Role Phone Yary Prater APRN Primary Care Provider [phone] Encounter Details Date Type Department Care Team (Latest Contact Info) Description 11/27/2022 10:15 AM EDT Home Care Visit [address] [address] Chanel Dawson RN [facility] HOME VISIT Social History Tobacco Use Types Packs/Day Years Used Date Smoking Tobacco: Every Day Alcohol Use Standard Drinks/Week Comments No 0 (1 standard drink = 0.6 oz pur e alcohol) Comments Yes Sex and Gender Information Value Date Recorded Sex Assigned at Not on file Gender Identity Not on file Sexual Orientation Not on file documented as of this encounter Miscellaneous Notes * Home Health - Chanel Dawson RN - 11/27/2022 10:22 AM EDT Client visit at client's home for [facility] Home Visiting [facility]. Covid screening negative documented in this encounter Plan of Treatment Not on file documented as of this encounter Visit Diagnoses Not on filedocumented in this encounter Care Teams Tab Builder Relationship Specialty Start Date End Date Yary Prater APRN [facility] [place] [address] PCP - General Family Medicine 03/28/22 documented as of this encounter
--- OUTSIDE RECORDS SUMMARY | 2024-05-07 12:23 | XMS_ITS | Encounter Summary ---
Author Organization [facility], [facility]–1983 Address [facility] [place] [address] Care Team Providers Care Hospital Administrative Assistant Name Role Phone Yary Prater APRN Primary Care Provider [phone] Reason for Referral * [facility] Maternal Child Health (Routine) - Closed Specialty Diagnoses / Procedures Referred By Contgavin t Referred To Contact Home Health Services Diagnoses Encounter for routine follow-up [address] [place] [address] [facility] [address] [place] [id number] Referral ID Status Reason Start Date Expiration Date V isits Requested Visits Authorized [id number] Closed Consult, Test & Treat 10/24/2022 10/24/[phone] Encounter Details Date Type Department Care Team (Late st Contact Info) Description 10/24/2022 Transcribe Orders eDH Incoming Referrals [phone] [place] [address] Encounter for routine follow-up Social History Tobacco Use Types Packs/Day Years Used Date Smoking Tobacco: Every Day Alcohol Use Standard Drinks/Week Comments No 0 (1 standard drink = 0.6 oz pur e alcohol) Comments Yes Sex and Gender Information Value Date Recorded Sex Assigned at Not on file Gender Identity Not on file Sexual Orientation Not on file documented as of this encounter Plan of Treatment Scheduled Referrals Name Type Priority Associated Diagnoses Orde r Schedule Amb Referral to [facility] Maternal Child Health Outpatient Referral Routine Encounter for routine follow-up Ordered: 10/24/2022 documented as of this encounter Visit Diagnoses Diagnosis Encounter for routine follow-up Routine follow-up documented in this encounter Care Teams Hospital Administrative Assistant Relationship Specialty Start Date End Date Yary Prater, PIPE CHIPPER [place] [place] [address] PCP - General Family Medicine 03/28/22 documented as of this encounter
--- OUTSIDE RECORDS SUMMARY | 2024-05-07 12:23 | XMS_ITS | Encounter Summary ---
Author Organization [facility] Address [facility] [place] [address] Care Team Providers Care Vmware Engineer Name Role Phone Yary Prater APRN Primary Care Provider [phone] Encounter Details Date Type Department Care Team (Latest Contact Info) Description 01/08/2023 1:00 PM EDT Home Care Visit [address] [address] Chanel Dawson RN [facility] DISCHARGE Social History Tobacco Use Types Packs/Day Years [...] Home Health - Chanel Dawson RN - 01/08/2023 12:00 AM EDT Please discharge from [facility] services. [facility] Discharge visit has been completed. documented in this encounter Plan of Treatment Not on file documented as of this encounter Visit Diagnoses Not on filedocumented in this encounter Care Teams Vmware Engineer Relationship Specialty Start Date End Date Yary Prater [place] [address] PCP - General Family Medicine 03/28/22 documented as of this encounter
--- OUTSIDE RECORDS SUMMARY | 2024-05-07 12:23 | XMS_ITS | Encounter Summary ---
Author Organization [facility] [place] [address] Care Team Providers Care Healthcare Corporate Account Director Name Role Phone Yary Prater APRN Primary Care Provider [phone] Encounter Details Date Type Department Care Team (Latest Contact Info) Description 12/04/2022 10:15 AM EDT Home Care Visit [address] [address] Chanel Dawson RN [facility] HOME VISIT Social History Tobacco Use Types [...] Home Health - Chanel Dawson RN - 12/04/2022 10:30 AM EDT Client visit at client's home for [facility] Nurse Home Visiting [facility]. Covid screening negative documented in this encounter Plan of Treatment Not on file documented as of this encounter Visit Diagnoses Not on filedocumented in this encounter Care Teams Healthcare Corporate Account Director Relationship Specialty Start Date End Date Yary Prater APRN [facility] [place] [address] PCP - General Family Medicine 03/28/22 documented as of this encounter
--- OUTSIDE RECORDS SUMMARY | 2024-05-07 12:23 | XMS_ITS | Encounter Summary ---
Author Organization [facility] [place] [address] Care Team Providers Care Neuropsychologist Name Role Phone Yary Prater APRN Primary Care Provider Encounter Details Date Type Department Care Team (Latest Contact Info) Description 11/20/2022 10:15 AM EDT Home Care Visit [address] [address] Chanel Dawson, RN [facility] HOME VISIT Social History Tobacco Use Types [...] as of this encounter Miscellaneous Notes * Hospice - Chanel Dawson RN - 11/20/2022 10:25 AM EDT Client visit at client's home for [facility] Nurse Home Visiting [facility]. Covid screening negative documented in this encounter Plan of Treatment Not on file documented as of this encounter Visit Diagnoses Not on filedocumented in this encounter Care Teams Neuropsychologist Relationship Specialty Start Date End Date Yary [place] [address] PCP - General Family Medicine 03/28/22 documented as of this encounter
--- OUTSIDE RECORDS SUMMARY | 2024-05-07 12:23 | XMS_ITS | Encounter Summary ---
Author Organization [facility] Address [facility] [place] [address] Care Team Providers Care Weight Checker Name Role Phone Moi, Yary Valencia APRN Primary Care Provider [phone] Reason for Visit * [facility] Maternal Child Health (Routine) - Closed Specialty Diagnoses / Procedures Referred By Deyvi rocha Referred To Contact Home Health Services Diagnoses Encounter for routine follow-up [address] [place] [address] [address] Referral ID Status Reason Start Date Expiration Date V isits Requested Visits Authorized [id number] Closed Consult, Test & Treat 10/24/2022 10/24/[phone] Encounter Details Date Type Department Care Team (Latest Contact Info) Description 10/28/2022 10:00 AM EDT Home Care Visit [address] [phone] Chanel Dawson RN NOT HOME NOT FOUND VISIT Social History Tobacco Use Types Packs/Day [...] Home Health - Chanel Dawson RN - 10/28/2022 12:00 AM EDT Client not home for visit. documented in this encounter Plan of Treatment Scheduled Referrals Name Type Priority Associated Diagnoses Orde r Schedule Amb Referral to [facility] Maternal Child Health Outpatient Referral Routine Encounter for routine follow-up Ordered: 10/24/2022 documented as of this encounter Visit Diagnoses Not on filedocumented in this encounter Care Teams Weight Checker Relationship Specialty Start Date End Date Yary Prater, CLEANER [place] [address] PCP - General Family Medicine 03/28/22 documented as of this encounter
--- OUTSIDE RECORDS SUMMARY | 2024-05-07 12:23 | XMS_ITS | Encounter Summary ---
Author Organization [facility] [place] [address] Care Team Providers Care Disabilities Caregiver Name Role Phone Yary Prater APRN Primary Care Provider [phone] Encounter Details Date Type Department Care Team (Late st Contact Info) Description 10/29/2022 Home Care Visit [facility] [address] [address] Chanel Dawson RN TELEPHONE ENCOUNTER Social History Tobacco Use Types Packs/Day Years Used Date Smoking Tobacco: Every Day Alcohol Use Standard Drinks/Week Comments No 0 (1 standard drink = 0.6 oz pur e alcohol) Comments Yes Sex and Gender Information Value Date Recorded Sex Assigned at Not on file Gender Identity Not on file Sexual Orientation Not on file documented as of this encounter Plan of Treatment Not on file documented as of this encounter Visit Diagnoses Not on filedocumented in this encounter Care Teams Disabilities Caregiver Relationship Specialty Start Date End Date Yary [place] [address] PCP - General Family Medicine 03/28/22 documented as of this encounter
--- OUTSIDE RECORDS SUMMARY | 2024-05-07 12:23 | XMS_ITS | Encounter Summary ---
Author Organization [facility] Address [facility] [place] [address] Care Team Providers Care Press Department Manager Name Role Phone Kristopher Bearden MD Primary Care Provider [phone] Encounter Details Date Type Department Care Team (Late st Contact Info) Description 08/30/2014 Notes [place] [address] Frankie Lisa MD [facility] [place] [address] Social History Tobacco Use Types Packs/Day Years Used Date Smoking Tobacco: Every Day Alcohol Use Standard Drinks/Week Comments No 0 (1 standard drink = 0.6 oz pur e alcohol) Sex and Gender Information Value Date Recorded Sex Assigned at Not on file Gender Identity Not on file Sexual Orientation Not on file documented as of this encounter Progress Notes * Frankie Lisa MD - 08/30/2014 11:23 AM EDT Vascular Attending Phone Note Dr. 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 Vascular had seen her on 08/14/14 for a similar problem in her upper extremities, but at that time there was no indication of lower extremity involvement. She has been in Rehab lately, and Dr. Terrell wants to be sure the patient gets the best possible care. I told Dr. Terrell we would scheduled this patient either today or tomorrow. She needs ABIs, toe pressures and ankle-Doppler waveforms in the vascular lab, plus a clinic visit. The patient is currently in Rehab, and the best contact for transportation is [phone]. Depending on her arterial status, vascular may or may not be the best service to treat her foot ulcers. We will determine that when we see her. Frankie Lisa M.D. Section of Vascular Surgery documented in this encounter Plan of Treatment Not on file documented as of this encounter Visit Diagnoses Not on filedocumented in this encounter Care Teams Press Department Manager Relationship Specialty Start Date End Date Kristopher Bearden MD [address] [place] [address] PCP - General 02/27/10 01/16/15 documented as of this encounter
--- OUTSIDE RECORDS SUMMARY | 2024-05-07 12:23 | XMS_ITS | Encounter Summary ---
[facility] [place] [address] Care Team Providers Care Technical Communication Teacher Name Role Phone Kristopher Bearden MD Primary Care Provider [phone] Reason for Visit * Reason Comments Hand Pain Encounter Details Date Type Department Care Team (Late st Contact Info) Description 08/26/2014 10:56 AM EDT - 08/26/2014 5:12 PM EDT [place] [address] Flavia Patel MD Intravenous drug abuse; Ischemia of digits of hand Discharge Disposition: Home Social History Tobacco Use Types Packs/Day Years Used Date Smoking Tobacco: Every Day Alcohol Use Standard Drinks/Week Comments No 0 (1 standard drink = 0.6 oz pur e alcohol) Sex and Gender Information Value Date Recorded Sex Assigned at Not on file Gender Identity Not on file Sexual Orientation Not on file documented as of this encounter Last Filed Vital Signs Vital Sign Reading Time Taken Comments Blood Pressure 141/75 08/26/2014 5:07 PM EDT Pulse 79 08/26/2014 5:07 PM EDT Temperature 37 ??C (98.6 ??F) 08/26/2014 5:07 PM EDT Respiratory Rate 14 08/26/2014 5:07 PM EDT Oxygen Saturation 100% 08/26/2014 5:07 PM EDT Inhaled Oxygen Concentration - - Weight - - Height - - Body Mass Index - - documented in this encounter Discharge Instructions * Discharge Instructions* Floyd De Leon - 08/26/2014 5:09 PM EDT Take Tylenol, Tramadol, and gabapentin as needed for pain. Please return to the emergency department for fevers, breaking out into sweats, pain that is out of control, worsening blue discoloration inyour fingers, or for any new concerning symptoms. Please follow-up with your primary care physician. documented in this encounter Medications at Time of Discharge Medication Sig Dispensed Refills Start Date End Date aspirin 81 mg Tablet, Delayed Release (E.C.) Take 81 mg by mouth daily. acetaminophen (TYLENOL) 325 mg Tablet Take 650 mg by mouth every 4 hours as needed for Pain. gabapentin (NEURONTIN) 300 mg Capsule Take 1 capsule twice a day as needed for pain 60 capsule 0 08/26/2014 Pediatric Bvhtiqrhw-Zrxn-mfq (FLINTSTONES COMPLETE) Chew 07/25/2006 traZODone (DESYREL) 100 mg Tablet Take 100 mg by mouth nightly. 05/27/2022 melatonin 3 mg Tablet Take 6 mg by mouth. 05/27/2022 traMADol (ULTRAM) 50 mg Tablet Take 50 mg by mouth every 6 hours as needed for Pain. 08/31/2014 clindamycin (CLEOCIN) 300 mg Capsule Take 300 mg by mouth 3 times daily. 08/31/2014 sulfamethoxazole-trim ethoprim (BACTRIM DS) 800-160 mg Tablet Take 1 tablet by mouth 2 times daily. 08/31/2014 lactobacillus rhamnosus, GG, (CULTURELLE) 10 billion cell Capsule Take 1 capsule by mouth daily. 05/27/2022 ibuprofen (ADVIL;MOTRIN) 400 mg Tablet Take 400 mg by mouth every 6 hours as needed for Pain. 05/27/2022 traMADol (ULTRAM) 50 mg Tablet Take 1 tablet by mouth every 6 hours as needed for Pain. 30 tablet 0 08/26/2014 05/27/2022 methadone (DOLOPHINE) 10 mg TabletIndications:opi oid dependence Take 100 mg by mouth daily. Indications: Opioid Dependence 05/27/2022 FERROUS FUMARATE (IRON ORAL) 07/25/2006 08/31/2014 documented as of this encounter ED Notes * Pia Green RN - 08/26/2014 5:11 PM EDT Pt and aged or disabled care worker verbalized understanding of d/c instructions and feel comfortable going back to [facility]. * Pia Green RN - 08/26/2014 4:22 PM EDT Pt resting comfortably at this time. Pending plan of care * Floyd De Leon - 08/26/2014 2:42 PM EDT Yolanda Fraser is an 24 y.o. female who presents to the ED with: Chief Complaint Patient presents with ??? Hand Pain I saw this patient 08/26/2014 at 2:42 PM HPI Yolanda Fraser is a 24 y.o. female with PMH sig for intravenous and intra- arterial drug injection who presents to the Emergency Department with hand pain and cyanosis. Patient was seen on August 14 herein the emergency department and was evaluated by vascular surgery for the same issues. Patient had a CTA of her right upper extremity that demonstrated no arterial abnormalities. Patient had a laboratory evaluation which did not show any signs of inflammation or infection. Blood cultures have been negative to date. Given her history of crushing Wellbutrin and Ritalin and injecting it into her arteries and veins, vascular surgery felt that this was likely related to pill fragments stuck in arterioles causing ischemia of the tissues. She was scheduled for an outpatient echo, was not done. Patient was discharged and has been staying at [facility], but the pain and cyanosis continue. Pain is a 10 out of 10 at worst, currently an 8 out of 10. Patient has been taking Tramadol for pain withoutrelief. Patient states that the erythema surrounding her lower extremity ulcers (prior wellbutrin in jection sites) have been improving on the antibiotics, but the pain in her right hand has been unbearable. Denies fevers, chills, diaphoresis. Denies chest pain, shortness of breath, difficulty breathing. Patient was placed on antibiotics by that visit to [facility], for concern for possible infection in her lower extremity ulcers. Review of Systems: Review of Systems Constitutional: Negative for fever, chills and diaphoresis. HENT: Negative for congestion, rhinorrhea and sore throat. Eyes: Negative for pain and visual disturbance. Respiratory: Negative for cough and shortness of breath. Cardiovascular: Negative for chest pain, palpitations and leg swelling. Gastrointestinal: Negative for nausea, vomiting, abdominal pain, diarrhea and constipation. Genitourinary: Negative for dysuria, urgency and frequency. Musculoskeletal: Positive for arthralgias. Negative for back pain, neck pain and neck stiffness. Skin: Positive for color change and wound. Neurological: Negative for dizziness, light-headedness and headaches. Hematological: Does not bruise/bleed easily. Psychiatric/Behavioral: Negative for confusion and agitation. Physical Exam: Patient Vitals for the past 24 hrs: BP Temp Temp src Pulse Resp SpO2 08/26/14 1330 - - - - - 95 % 08/26/14 1102 119/66 mmHg 36.6 ??C (97.9 ??F) Oral 77 18 100 % Physical Exam Constitutional: She is oriented to person, place, and time. She appears well- developed and well-nourished. No distress. HENT: Head: Normocephalic and atraumatic. Mouth/Throat: Oropharynx is clear and moist. Eyes: Conjunctivae are normal. Pupils are equal, round, and reactive to light. Neck: Normal range of motion. No tracheal deviation present. Cardiovascular: Normal rate, regular rhythm, normal heart sounds and intact distal pulses. No murmur heard. Pulmonary/Chest: Effort normal and breath sounds normal. No stridor. No respiratory distress. She has no wheezes. Abdominal: Soft. Bowel sounds are normal. She exhibits no distension. There is no tenderness. Musculoskeletal: She exhibits tenderness. She exhibits no edema. Right hand digits 2 through 4 with distal cyanosis, sensation intact, range of motion intact, cap refill less than 2 seconds, tender to palpation. Neurological: She is alert and oriented to person, place, and time. Skin: Skin is warm and dry. She is not diaphoretic. Multiple scattered ulcerations on the lower extremities without surrounding erythema edema or pus drainage Psychiatric: She has a normal mood and affect. Her behavior is normal. Laboratory Results: CBC without leukocytosis but with elevated platelets. Sedimentation rate and CRP not suggestive of a large inflammatory process, BMP unremarkable, blood culture pending Imaging Results: Trans-thoracic echocardiogram shows no sign of valvular vegetations ED Course: - Patient was evaluated and discussed with Dr. 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 Patient is hemodynamically stable in the emergency department and afebrile. It was the thought of vascular surgery, and my own that the ischemic fingers are likely r elated to particulate matter intra-arterially introduced during drug injection. It is very possiblethat patient will have loss of these digits eventually, but currently digits appear neurovascularlyintact and may metal turner to be viable long-term. There is no sign of a valvular vegetation to suggest bacterial thromboembolic events related to endocarditis as the cause of this patient's symptoms, and inflammatory markers are reassuring in this regard as well. Blood culture has been negative to date, and I repeated 1 today as well. Lower extremity ulcerations do not appear infected, and patient is currently on antibiotics. Patient was counseled to continue these antibiotics, continue tramadol,and begin taking gabapentin as needed for pain. Patient will follow-up with her primary care physician and vascular surgery as needed. Return precautions were verbally discussed with the patient. The patient expressed understanding that they could come back to the ED at any time and agreed to the follow-up plan. Plan: - d/c to [facility] - Follow up with primary care physician - Tramadol and gabapentin for pain - Return precautions Floyd De Leon MD Resident 08/26/14 0136 Associated attestation - Flavia Patel MD - 08/27/2014 8:45 PM EDT Emergency Medicine Attending Note: The patient was seen and evaluated with the resident physician. I interviewed the patient myself toverify salvador portions of the history. I performed the salvador elements of the physical exam myself. I have reviewed all diagnostic studies personally including labs, imaging studies and EKGs. I have discussed the details of the case with the resident and agree with the assessment and plan as described inthe resident note above unless noted otherwise below. documented in this encounter Miscellaneous Notes * ED Triage - Ricardo Galindo, RN - 08/26/2014 11:07 AM EDT Right hand pain and discoloration of distal digits 2,3 and 4 x 1 week. Reduced ROM in same digits, denies any injury, states history of IV drug use in right arm. Pt here with staff member from [facility]. documented in this encounter Plan of Treatment Not on file documented as of this encounter Procedures Procedure Name Priority Date/Time Associated Diagnosis Comments ECHOCARDIOGRAM TRANSTHORACIC Routine 08/26/2014 3:56 PM EDT Intravenous drug abuse HEMOGRAM STAT 08/26/2014 1:00 PM EDT DIFFERENTIAL, AUTOMATED STAT 08/27/19 15 1:00 PM EDT BLUE TUBE HOLD STAT 08/26/2014 1:00 PM EDT CREATININE STAT 08/26/2014 1:00 PM EDT BLOOD CULTURE STAT 08/26/2014 1:00 PM EDT SEDIMENTATION RATE STAT 08/26/2014 1: 00 PM EDT CBC (WITH DIFF) STAT 08/26/2014 1:00 PM EDT CRP, CARDIAC RISK (HS CRP) STAT 08/26/2014 1:00 PM EDT BUN STAT 08/26/2014 1:00 PM EDT GLUCOSE STAT 08/26/2014 1:00 PM EDT ELECTROLYTES PANEL STAT 08/26/2014 1: 00 PM EDT documented in this encounter Results * Echocardiogram Transthoracic(Leb) (08/26/2014 3:56 PM EDT) EF 65 HEARTLAB SYSTEM Anatomical Region Laterality Modality Other 08/26/2014 Narrative 08/26/2014 4:28 PM EDT Procedure: ? Transthoracic Echocardiogram Patient: ? BRIA Maddox ? (Age): 1990(24) Med Rec#: ?[id number] ? Sex: ?F ? Site Loc: ?[facility] ? Ht / Wt: ??165(cm)/64(kg) Pt. Loc: ? ED ? BSA: ?1.71 Study Date: ?08/26/2014 ? Pt. Type: Inpatient Tape: ? Referring: Flavia Patel Court Recording Monitor: Rodri Bhakta Diagnosis:CPT Code(s): ??Echo Full (13280), ??Spectral Doppler (20810), Color Doppler (34527), Indication(s): ??Vegetations, R/O Rhythm: Sinus HR ?BP ?119/66 ?? SUMMARY: 1. Left ventricular chamber size, wall thickness, global and segmental systolic function are within normal limits. Ejection fraction is estimated to be 65%. 2. Right ventricular chamber size, wall thickness, and systolic function are within normal limits. 3. There is no hemodynamically significant valve disease. 4. No valvular vegetations noted. ??Suggest a MARCE if clinically indicated. 5. See remainder of report for additional findings. FINDINGS: Study Quality ?Adequate Left Ventricle ?Left ventricular chamber size, wall thickness, global and segmental systolic function are within normal limits. Ejection fraction is estimated to be 65%. ?There are no left ventricular segmental wall motion abnormalities. ?Doppler assessment is consistent with normal left sided filling pressure. Left Atrium ?The left atrium is normal in size.21 ml/m2 Right Ventricle ?Right ventricular chamber size, wall thickness, and systolic function are within normal limits. Right Atrium ?The right atrium is normal in size. Aortic Valve ?The aortic valve is trileaflet. The leaflets are thin with normal excursion. There is no aortic stenosis or regurgitation present. ?No vegetation is observed on the aortic valve. Mitral Valve ?The mitral valve appears normal in structure and function. ?There is trace mitral regurgitation present. ?No vegetation is observed on the mitral valve. Tricuspid Valve ?The tricuspid valve appears normal in structure and function. ?There is trace tricuspid regurgitation present. ?No vegetation is observed on the tricuspid valve. Pulmonic Valve ?The pulmonic valve appears normal in structure and function. ?No vegetation is observed on the pulmonic valve. Pericardium ?The pericardium appears normal and there is no evidence of a pericardial effusion. Aorta ?The aortic root is normal in size. ?The ascending aorta is normal in size. Pulmonary Artery ?The main pulmonary artery appears normal. Venous ?The inferior vena cava appears normal in size. ?There is a greater than 50% respiratory change in the inferior vena cava dimension. Misc ?There is no hemodynamically significant valve disease. ?See remainder of report for additional findings. ?Two-dimensional echo, spectral Doppler and color Doppler performed. Wall Motion: Segment Name ?Rest ? Base-Anteroseptal ?? Normal ? Base-Anterior ? Normal ? Base-Anterolateral ??Normal ? Base-Posterolateral Normal ? Base-Inferior ? Normal ? Base-Inferoseptal ?? Normal ? Mid-Anteroseptal ?Normal ? Mid-Anterior ?Normal ? Mid-Anterolateral ?? Normal ? Mid-Posterolateral ??Normal ? Mid-Inferior ?Normal ? Mid-Inferoseptal ?Normal ? [place]-Septal ? Normal ? [place]-Anterior ? Normal ? [place]-Lateral ?Normal ? [place]-Inferior ? Normal ? [place]-Tip ?Normal ? Chambers ?Value ?Units (Range) ? LV EF Est ? 65 ? % (55 to 80) ? IVSd 2D ? 0.6 ?cm ? LVIDd 2D ?4.3 ?cm ? PWd 2D ?0.8 ?cm ? LVIDs 2D ?2.4 ?cm ? LVFS 2D ? 44 ? % ? LA area ? 14 ? cm2 (<21) ? RA area ? 13 ? cm2 (<18) ? Ao root ? 2.6 ?cm (2.1 to 3.6) ? Asc Ao ?2.5 ?cm (2 to 3.5) ? Mitral Valve ?Value ?Units (Range) ? E peak ?0.99 ? m/sec ? E/A ratio ? 1.5 ?ratio ? MVDT ?269 ?msec ? E1 ?0.12 ? m/sec ? E/E1 ?8 ?ratio ? This report has been electronically signed by: Rolo Cody M.D. ? 08/26/2014 16:27:52 Images reviewed and interpretation verified [facility]iac [facility]trasound [facility] Procedure Note Rolo Cody MD - 08/26/2014 Procedure: Transthoracic Echocardiogram Patient: BRIA Maddox DOB(Age): 1990(24) Med Rec#: [id number] Sex: F Site Loc: [facility] Ht / Wt: 165(cm)/64(kg) Pt. Loc: ED BSA: 1.71 Study Date: 08/26/2014 Pt. Type: Inpatient Tape: Referring: Flavia Patel Court Recording Monitor: Rodri Bhakta Diagnosis:CPT Code(s): Echo Full (05078), Spectral Doppler (38853), Color Doppler (22616), Indication(s): Vegetations, R/O Rhythm: Sinus HR BP 119/66 SUMMARY: 1. Left ventricular chamber size, wall thickness, global and segmental systolic function are within normal limits. Ejection fraction is estimated to be 65%. 2. Right ventricular chamber size, wall thickness, and systolic function are within normal limits. 3. There is no hemodynamically significant valve disease. 4. No valvular vegetations noted. Suggest a MARCE if clinically indicated. 5. See remainder of report for additional findings. FINDINGS: Study Quality Adequate Left Ventricle Left ventricular chamber size, wall thickness, global and segmental systolic function are within normal limits. Ejection fraction is estimated to be 65%. There are no left ventricular segmental wall motion abnormalities. Doppler assessment is consistent with normal left sided filling pressure. Left Atrium The left atrium is normal in size.21 ml/m2 Right Ventricle Right ventricular chamber size, wall thickness, and systolic function are within normal limits. Right Atrium The right atrium is normal in size. Aortic Valve The aortic valve is trileaflet. The leaflets are thin with normal excursion. There is no aortic stenosis or regurgitation present. No vegetation is observed on the aortic valve. Mitral Valve The mitral valve appears normal in structure and function. There is trace mitral regurgitation present. No vegetation is observed on the mitral valve. Tricuspid Valve The tricuspid valve appears normal in structure and function. There is trace tricuspid regurgitation present. No vegetation is observed on the tricuspid valve. Pulmonic Valve The pulmonic valve appears normal in structure and function. No vegetation is observed on the pulmonic valve. Pericardium The pericardium appears normal and there is no evidence of a pericardial effusion. Aorta The aortic root is normal in size. The ascending aorta is normal in size. Pulmonary Artery The main pulmonary artery appears normal. Venous The inferior vena cava appears normal in size. There is a greater than 50% respiratory change in the inferior vena cava dimension. Misc There is no hemodynamically significant valve disease. See remainder of report for additional findings. Two-dimensional echo, spectral Doppler and color Doppler performed. Wall Motion: Segment Name Rest Base-Anteroseptal Normal Base-Anterior Normal Base-Anterolateral Normal Base-Posterolateral Normal Base-Inferior Normal Base-Inferoseptal Normal Mid-Anteroseptal Normal Mid-Anterior Normal Mid-Anterolateral Normal Mid-Posterolateral Normal Mid-Inferior Normal Mid-Inferoseptal Normal [place]-Septal Normal [place]-Anterior Normal [place]-Lateral Normal [place]-Inferior Normal [place]-Tip Normal Chambers Value Units (Range) LV EF Est 65 % (55 to 80) IVSd 2D 0.6 cm LVIDd 2D 4.3 cm PWd 2D 0.8 cm LVIDs 2D 2.4 cm LVFS 2D 44 % LA area 14 cm2 (<21) RA area 13 cm2 (<18) Ao root 2.6 cm (2.1 to 3.6) Asc Ao 2.5 cm (2 to 3.5) Mitral Valve Value Units (Range) E peak 0.99 m/sec E/A ratio 1.5 ratio MVDT 269 msec E1 0.12 m/sec E/E1 8 ratio This report has been electronically signed by: Rolo Cody M.D. 08/26/2014 16:27:52 Images reviewed and interpretation verified [facility] Flavia Patel MD ECHO ORDERABLES * Blue Tube HOLD (08/26/2014 1:00 PM EDT) [facility] Blue Hold Sample in lab. CERNER DEANENNIUM Blood specimen (specimen) Venous Draw / Unknown 08/26/2014 1:00 PM EDT 08/26/2014 1:16 PM EDT Flavia Patel MD HEMATOLOGY ORDERABLE S MARYSOL YIIUM * Differential, Automated (08/26/2014 1:00 PM EDT) Pathologist [facility] Neutrophil % 51.9 % CERNER MILLENNIUM Neutrophil Absolute 3.13 1.50 - 6.30 x10(3)/mcL CERNER MILLENNIUM Lymph % 36.7 % CERNER MILLENNIUM Lymphocytes Abs 2.2 1.0 - 3.6 x10(3)/mcL CERNER MILLENNIUM Monocyte % 5.6 % CERNER MILLENNIUM Monocyte Abs 0.3 0.2 - 1.0 x10(3)/mcL CERNER MILLENNIUM Eos % 5.3 % CERNER MILLENNIUM Eosinophils Abs 0.3 0.0 - 0.5 x10(3)/mcL CERNER MILLENNIUM Basophil % 0.3 % CERNER MILLENNIUM Baso Absolute 0.0 0.0 - 0.2 x10(3)/mcL CERNER MILLENNIUM Immature Gran % 0.20 % CERN ER MILLENNIUM Comment: Immature granulocytes(IG's)percentage and absolute count will include metamyelocytes, myelocytes, and promyelocytes. Blood smears from CBCs yielding IG's will be scanned manually for concordance. If this scan disagrees with the automated IG or if promyelocytes are noted, a manual differential will be performed. Immature Gran Absolute 0.01 0.00 - 0.05 x10(3)/mcL CERNER MILLENNIUM Blood specimen (specimen) 08/26/2014 1:00 PM EDT 08/26/2014 1:16 PM EDT Narrative Resulting Agency Comment Spec In Lab Flavia Patel MD HEMATOLOGY ORDERABLE S CERNER DEANENNIUM * (ABNORMAL) Hemogram (08/26/2014 1:00 PM EDT) White Blood Cell 6.0 4.0 - 10.0 x10(3)/mc L CERNER MILLENNIUM Red Blood Cell 5.09 3.93 - 5.22 x10(6)/mc L CERNER MILLENNIUM Hemoglobin 12.5 11.2 - 15.7 gm/dL CERNER MILLENNIUM Hematocrit 39.1 34.0 - 45.0 % CERNER MILLENNIUM Mean Cell Volume 76.8(L) 79.0 - 94.0 fL CERNER MILLENNIUM Mean Cell Hemoglobin 24.6(L) 26.6 - 32.2 pg CERNER MILLENNIUM Mean Cell Hemoglobin Concentration 32.0 32.0 - 36.5 gm/dL CERNER MILLENNIUM Platelet 445(H) 145 - 370 x10(3)/mc L CERNER MILLENNIUM RDW Standard Deviation 50.5(H) 35.0 - 46.0 fL CERNER MILLENNIUM RDW coefficient of variation 17.9(H) 10.9 - 14.4 % CERNER MILLENNIUM Mean Platelet Volume 9.1 9.0 - 12.0 fL CERNER MILLENNIUM Blood specimen (specimen) 08/26/2014 1:00 PM EDT 08/26/2014 1:16 PM EDT Narrative Resulting Agency Comment Spec In Lab Flavia Patel MD HEMATOLOGY ORDERABLE S MARYSOL GLORIA * Blood culture (08/26/2014 1:00 PM EDT) Blood Culture ? Patient Name: YOLANDA FRASER ?Ordered By: FLAVIA PATEL ? MR#: [id number] ?LOC: ??ED ? /Sex: ??1990 (24 years), ? Female ? PROCEDURE: Blood Culture ?SOURCE: Blood ? COLLECTED: 08/26/2014 13:00 ? BODY SITE: Right Antecubital ? STARTED: 08/26/2014 13:39 ?FREE TEXT SOURCE: #1 ? FINAL REPORT ? Final Report ? Verified:2014 15:01 ? No growth at 5 days. ? PRELIMINARY REPORT ? Preliminary Report ? Verified:2014 15:01 ? No growth at 4 days. ? MARYSOL GLORIA Blood specimen (specimen) ANTECUBITAL REGION STRUCTURE / Unknown 08/26/2014 1:00 PM EDT 08/26/2014 1:39 PM EDT Comment:#1 Narrative Resulting Agency Comment Spec In Lab Flavia Patel MD MICROBIOLOGY - BLOOD ORDERABLES Performing Organization Address [facility] Co de Phone Number MARYSOL GLORIA * Sedimentation rate (08/26/2014 1:00 PM EDT) Sedimentation Rate Automated 10 0 - 20 mm/hr MARYSOL GLORIA Blood specimen (specimen) 08/26/2014 1:00 PM EDT 08/26/2014 1:16 PM EDT Narrative Resulting Agency Comment Spec In Lab Flavia Patel MD HEMATOLOGY ORDERABLE S Performing Organization Address [facility] de Phone Number MARYSOL GLORIA * High Sensitivity CRP (08/26/2014 1:00 PM EDT) C-Reactive Protein High Sensitivity 3.1 mg/L [facility] Comment: Interpretations: 1) For accurate cardiac risk assessment, the average of 2 values >2 weeks apart should be obtained (ref 1&2). A value >10 mg/L indicates an inflammatory condition, concentrations >10 mg/L should not be used for cardiac risk assessment. ?<1.0 mg/L: low risk ?1.0 - 3.0 mg/L: moderate risk ?>3.0 mg/L: high risk groups for future cardiovascular events 2) The general reference range of apparently healthy individuals using this test is <5.0 mg/L (derived from the test package insert) References: 1. Nilesh STEWART et. al. ??AHA/CDC Scientific Statement: Markers of Inflammation and Cardiovascular Disease. ??Circulation 2003; 107:499-511 2. Ridker PM. ??Clinical applications of C-reactive protein for cardiovascular disease detection and prevention. ??Circulation 2003; 107:363-369 Blood specimen (specimen) 08/26/2014 1:00 PM EDT 08/26/2014 1:16 PM EDT Narrative Resulting Agency Comment Spec In Lab Flavia Patel MD CHEMISTRY ORDERABLES Performing Organization Address [facility] Co de Phone Number MARYSOL GLORIA * BUN (08/26/2014 1:00 PM EDT) Blood Urea Nitrogen 10 8 - 18 mg/dL CERNER MILLENNIUM Blood specimen (specimen) 08/26/2014 1:00 PM EDT 08/26/2014 1:16 PM EDT Narrative Resulting Agency Comment Spec In Lab Flavia Patel MD CHEMISTRY ORDERABLES Performing Organization Address City/[facility]/ZIP Co de Phone Number CERNER MILLENNIUM * (ABNORMAL) Electrolytes panel (08/26/2014 1:00 PM EDT) Sodium 139 135 - 145 mmol/L CERNER MILLENNIUM Potassium 4.4 3.5 - 5.0 mmol/L CERNER MILLENNIUM Comment: Please note: ??Patients with WBC >100,000 may have falsely elevated Potassium levels. ??For accurate Potassium quantification in these patients send serum separator tube (gold top) for subsequent determinations. ??Contact the Clinical Chemistry Laboratory if there are any questions. Chloride 97(L) 98 - 107 mmol/L CERNER MILLENNIUM Carbon Dioxide 27 22 - 31 mmol/L CERNER MILLENNIUM Anion Gap 15 5 - 15 mmol/L CERNER MILLENNIUM Blood specimen (specimen) 08/26/2014 1:00 PM EDT 08/26/2014 1:16 PM EDT Narrative Resulting Agency Comment Spec In Lab Flavia Patel MD CHEMISTRY ORDERABLES Performing Organization Address City/[facility] Co de Phone Number CERNER MILLENNIUM * Glucose, random (08/26/2014 1:00 PM EDT) Glucose 86 65 - 199 mg/dL CERNER MILLENNIUM Comment:Diabetes: >=200 mg/d L plus symptoms Blood specimen (specimen) 08/26/2014 1:00 PM EDT 08/26/2014 1:16 PM EDT Narrative Resulting Agency Comment Spec In Lab Flavia Patel MD CHEMISTRY ORDERABLES [facility] M[facility] * Creatinine (08/26/2014 1:00 PM EDT) Creatinine 0.83 0.70 - 1.20 mg/dL MARYSOL DEANFRANNIE Comment: Please note that the pediatric reference intervals supplied above were not validated at [facility]. Results from pediatric patients should be interpreted in conjunction to the patient's age, height and muscle mass. Est Glomerular Filtration Rate >60 >=60 [facility] Comment: This estimated GFR (eGFR) value was calculated using the MDRD equation which has been validated on patients between the ages of 18 and 70. The MDRD should not be used to assess kidney function in patients < 18 years of age or in patients with extremes of body mass, or in patients with acute kidney failure. This value should be multiplied by 1.2 for patients. For further information please copy and paste the following links into your internet browser. [email or web address] Blood specimen (specimen) 08/26/2014 1:00 PM EDT 08/26/2014 1:16 PM EDT Narrative Resulting Agency Comment Spec In Lab Flavia Patel MD [facility]STRY ORDERABLES [facility] documented in this encounter Visit Diagnoses Diagnosis Intravenous drug abuse Other, mixed, or unspecified nondependent drug abuse, unspecified Ischemia of digits of hand Unspecified circulatory system disorder documented in this encounter Administered Medications Inactive Administered Medications - up to 3 most recent administrations Medication Order MAR Action Action Date Dose Rate Site gabapentin (NEURONTIN) capsule 300 mg 300 mg, Oral, ONCE, 1 dose, On Fri08/26/14 at 1446, Routine Given 08/26/2014 2:50 PM EDT 300 mg ketorolac (TORADOL) injection 30 mg 30 mg, Intravenous, ONCE, 1 dose, On Fri08/26/14 at 1323, STAT Given 08/26/2014 1:28 PM EDT 30 mg documented in this encounter Active and Recently Administered Medications Times are shown in EDT. Scheduled Medication Order 08/24/2014 08/25/2014 08/26/2014 gabapentin (NEURONTIN) capsule 300 mg (COMPLETED) 300 mg, Oral, ONCE, 1 dose, On Fri08/26/14 at 1446, Routine 1450 (Given - Provid er: Pia Green RN) ketorolac (TORADOL) injection 30 mg (COMPLETED) 30 mg, Intravenous, ONCE, 1 dose, On Fri08/26/14 at 1323, STAT 1328 (Given - Provid er: Pia Green RN) documented in this encounter Care Teams Technical Communication Teacher Relationship Specialty Start Date End Date Kristopher Bearden MD [address] [place] [address] PCP - General 02/27/10 01/16/15 documented as of this encounter
--- OUTSIDE RECORDS SUMMARY | 2024-05-07 12:23 | XMS_ITS | Encounter Summary ---
Author Organization [facility] Address [facility] [place] [address] Care Team Providers Care Chief Business Development Officer Name Role Phone Kristopher Bearden MD Primary Care Provider [phone] Encounter Details Date Type Department Care Team (Late st Contact Info) Description 09/02/2014 Telephone Vascular Surgery at [facility] [place] [phone] Sweta Bell RN Social History Tobacco Use Types Packs/Day Years Used Date Smoking Tobacco: Every Day Alcohol Use Standard Drinks/Week Comments No 0 (1 standard drink = 0.6 oz pur e alcohol) Sex and Gender Information Value Date Recorded Sex Assigned at Not on file Gender Identity Not on file Sexual Orientation Not on file documented as of this encounter Miscellaneous Notes * Telephone Encounter - Sweta Bell RN - 09/02/2014 11:39 AM EDT Nurse Taisha called from [facility](pt's residence) to report that she has developed hives on her torso last night And is concerned that she may be allergic to the Medi-honey(is allergic to be venom); is also taking Pletal. Per pt. Is more likley to be allergic to the Pletal and they should stop it and give her Benedryl for The hives and continue to monitor. documented in this encounter Plan of Treatment Not on file documented as of this encounter Visit Diagnoses Not on filedocumented in this encounter Care Teams Chief Business Development Officer Relationship Specialty Start Date End Date Kristopher Bearden MD [address] [place] [address] PCP - General 02/27/10 01/16/15 documented as of this encounter
--- OUTSIDE RECORDS SUMMARY | 2024-05-07 12:23 | XMS_ITS | Encounter Summary ---
Author Organization [facility] [place] [address] Care Team Providers Care Automation Machine Operator Name Role Phone Yary Prater APRN Primary Care Provider [phone] Encounter Details Date Type Department Care Team (Late st Contact Info) Description 10/28/2022 Home Care Visit [facility] [address] [phone] Chanel Dawson RN TELEPHONE ENCOUNTER [...] on filedocumented in this encounter Care Teams Automation Machine Operator Relationship Specialty Start Date End Date Yary [place] [address] PCP - General Family Medicine 03/28/22 documented as of this encounter
--- OUTSIDE RECORDS SUMMARY | 2024-05-07 12:23 | XMS_ITS | Encounter Summary ---
Author Organization [facility] [place] [address] Care Team Providers Care Wide Load Escort Name Role Phone Yary Prater APRN Primary Care Provider [phone] Encounter Details Date Type Department Care Team (Late st Contact Info) Description 10/23/2022 Home Care Visit [facility] [address] [phone] Chanel Dawson RN TELEPHONE ENCOUNTER [...] on filedocumented in this encounter Care Teams Wide Load Escort Relationship Specialty Start Date End Date Yary [place] [address] PCP - General Family Medicine 03/28/22 documented as of this encounter
--- OUTSIDE RECORDS SUMMARY | 2024-05-07 12:23 | XMS_ITS | Encounter Summary ---
Author Organization [facility] [place] [address] Care Team Providers Care French Binding Folder Name Role Phone Kristopher Bearden MD Primary Care Provider [phone] Encounter Details Date Type Department Care Team (Latest Contact Info) Description 08/31/2014 2:00 PM EDT Ancillary Appointment [place] [phone] Marco Urbina, RVT Microembolization Social History Tobacco Use Types Packs/Day Years [...] Procedure Name Priority Date/Time Associated Diagnosis Comments ESTEBAN, LEGS, MULTIPLE LEVELS Routine 08/31/2014 2:55 PM EDT Microembolization documented in this encounter Results * ESTEBAN, legs, multiple levels (08/31/2014 2:55 PM EDT) VB Text Report Department: Vascular Surgery Lab Patient: [id number] (YOLANDA FRASER) CPT Code: 23509 ICD-9: 444.22 Referring Physician: FLAVIA CARY Indication: ??ischemic changes in feet, ? LE perfusion ICD9 Diagnosis Code: 444.22 Diabetes Mellitus: ??No Definitions: ?? ESTEBAN = Ankle / Brachial Systolic Pressure Index, TBI = Toe / Brachial Systolic Pressure Index Findings: Right ?Pressure (mm Hg) ?? ESTEBAN ??Waveform ?TBI ?? Brachial Artery ?127 ? Common Femoral Artery ?Triphasic ? Pop Fossa ?Triphasic ? Dorsalis Pedis (Ankle) Artery ?136 ? 1.07 ??Triphasic ? Posterior Tibial (Ankle) Artery ??140 ? 1.10 ??Triphasic ? Great Toe ?101 ?0.80 ?? Second Toe ? 95 ? 0.75 ?? Third Toe ?88 ? 0.69 ?? Fourth Toe ? 90 ? 0.71 ?? Left ? Pressure (mm Hg) ?? ESTEBAN ??Waveform ?TBI ?? Brachial Artery ?125 ? Common Femoral Artery ?Triphasic ? Pop Fossa ?Triphasic ? Dorsalis Pedis (Ankle) Artery ?157 ? 1.24 ??Triphasic ? Posterior Tibial (Ankle) Artery ??141 ? 1.11 ??Triphasic ? Great Toe ?50 ? 0.39 ?? Second Toe ? 35 ? 0.28 ?? Third Toe ?65 ? 0.51 ?? Fourth Toe ? 95 ? 0.75 ?? Interpretation: RIGHT: No significant lower extremity arterial occlusive disease identifiable at rest at the calf level. Normal ankle/brachial pressure ratios and ankle Doppler waveforms. Mildly abnormal 3rd toe pressure. 5th toe pressure not obtained due to small toe size. LEFT: No significant lower extremity arterial occlusive disease identifiable at rest at the calf level. Normal ankle/brachial pressure ratios and ankle Doppler waveforms. Abnormal (moderate to moderately severe) 1st, 2nd, and 3rd toe pressures. 5th toe pressure not obtained due to small toe size. Comparison: ??No previous study in our vascular lab database for comparison. Electronically Signed by: MAVERICK FAY on 2014-09-01 08:10:56 AM VAS[facility] VB Text Report End of Report [facility] 08/31/2014 2:55 PM EDT Flavia Cary MD VASCULAR ORDERABLES Performing Organization Address City/State/[facility] Co de Phone Number VASCU[facility] documented in this encounter Visit Diagnoses Diagnosis Microembolization Embolism and thrombosis of unspecified artery documented in this encounter Care Teams French Binding Folder Relationship Specialty Start Date End Date Kristopher Bearden MD [address] [place] [address] PCP - General 02/27/10 01/16/15 documented as of this encounter
--- OUTSIDE RECORDS SUMMARY | 2024-05-07 12:23 | XMS_ITS | Encounter Summary ---
[facility] Organization [facility] [place] [address] Care Team Providers Care Accounting Reconciliation Clerk Name Role Phone Kristopher Bearden MD Primary Care Provider [phone] Reason for Visit * Reason Comments Hand Pain ischemic fingers rig ht hand Encounter Details Date Type Department Care Team (Late st Contact Info) Description 08/14/2014 7:57 PM EDT - 08/15/2014 12:44 AM EDT [place] [address] Ady Mosley Jr., MD Yanofsky, Norman N, MD Right hand pain Discharge Disposition: Home Social History Tobacco Use [...] Sign Reading Time Taken Comments Blood Pressure 132/68 08/15/2014 12:34 AM EDT Pulse 68 08/15/2014 12:34 AM EDT Temperature 36.8 ??C (98.2 ??F) 08/15/2014 12:34 AM E DT Respiratory Rate 20 08/15/2014 12:34 AM EDT Oxygen Saturation 99% 08/15/2014 12:34 AM EDT Inhaled Oxygen Concentration - - Weight - - Height - - Body Mass Index - - documented in this encounter Discharge Instructions * Discharge Instructions* Albert Rand - 08/15/2014 12:04 AM EDT Images from the original note were not included. Please return to the Emergency Department if you experience an increase in your pain, high fevers, nausea and vomiting such that you cannot tolerate food or drink or if you develop chest pain, shortness of breath or pass out. You should follow-up with the Vascular Surgery Department as needed and they will call you. Please also contact your primary care physician and plan to see him/her next week in follow-up. You have also been given an order for an outpatient echo to evaluate your heart. You should take ibuprofen and/or Tylenol for your pain. You should also take a baby aspirin (81 mg)daily. [facility] Arm Pain: After Your Visit Your Care Instructions You can hurt your arm by using it too much or by injuring it. Biking, wrestling, and home repair projects are examples of activities that can lead to arm pain. Everyday wear and tear, especially as you get older, can cause arm pain. Your forearms, wrists, hands, and fingers are the parts of your arm that are most likely to become painful. A minor arm injury usually will heal on its own with home treatment to relieve swelling and pain. If you have a more serious injury, you may need tests and treatment. Follow-up care is a salvador part of your treatment and safety. Be sure to make and go to all appointments, and call your doctor if you are having problems. It???s also a good idea to know your test results and keep a list of the medicines you take. How can you care for yourself at home? ?? Take pain medicines exactly as directed. ?? If the doctor gave you a prescription medicine for pain, take it as prescribed. ?? If you are not taking a prescription pain medicine, ask your doctor if you can take an [id number] medicine. ?? Rest and protect your arm. Take a break from any activity that may cause pain. ?? Put ice or a cold pack on your arm for 10 to 20 minutes at a time. Put a thin cloth between the ice and your skin. ?? Prop up the sore arm on a pillow when you ice it or anytime you sit or lie down during the next 3 days. Try to keep it above the level of your heart. This will help reduce swelling. ?? If your doctor recommends a sling to support your arm, wear it as directed. When should you call for help? Call 911 anytime you think you may need emergency care. For example, call if: ?? Your arm or hand is cool or pale or changes color. Call your doctor now or seek immediate medical care if: ?? You cannot use your arm. ?? You have signs of infection, such as: ?? Increased pain, swelling, warmth, or redness. ?? Red streaks running up or down your arm. ?? Pus draining from an area of your arm. ?? A fever. ?? You have tingling, weakness, or numbness in your arm. Watch closely for changes in your health, and be sure to contact your doctor if: ?? You do not get better as expected. Where can you learn more? Visit our health information library at [email or web address] You can also view health information on [employer], your personal patient account. Log in or sign up today. Enter B641 in the search box to learn more about Arm Pain: After Your Visit. ?? [id number] [employer]. Care instructions adapted under license by [facility]. This care instruction is for use with your licensed healthcare professional. If you have questions about a medical condition or this instruction, always ask your healthcare professional. [employer] disclaims any warranty or liability for your use of this information. Content Version: 10.4.596945; Current as of: February 18, 2014 documented in this encounter Medications at Time of Discharge Medication Sig Dispensed Refills Start Date End Date Pediatric Cpzkizjhm-Bzwz-eda (FLINTSTONES COMPLETE) Chew 07/25/2006 methadone (DOLOPHINE) 10 mg TabletIndications:opioi d dependence Take 100 mg by mouth daily. Indications: Opioid Dependence 05/27/2022 FERROUS FUMARATE (IRON ORAL) 07/25/2006 08/31/2014 documented as of this encounter ED Notes * Hiren Owusu RN - 08/15/2014 12:00 AM EDT Given apple juice * Hiren Owusu RN - 08/14/2014 11:36 PM EDT VAT unable to collect 2nd blood culture. * Hiren Owusu RN - 08/14/2014 10:[address] * Hiren Owusu RN - 08/14/2014 10:34 PM EDT Assumed care. VAT attempting to get 2nd blood culture. Urine provided for UPT. * Kimmy Murphy RN - 08/14/2014 10:18 PM EDT IV established, blood drawn and CT notified. * Kimmy Murphy RN - 08/14/2014 10:00 PM EDT IV team to bedside with Dr. Rand. * Kimmy Murphy RN - 08/14/2014 9:[address] Rand to bedside to maybe establish IV. * Kimmy Murphy RN - 08/14/2014 9:36 PM EDT Patient/Family updated on plan of care. Waiting for IV team to establish large gauge IV for CT angio and draw blood. Pt denies any needs. Father at bedside. Call light with in reach. Dr. Rand notified of wait and IV statis. * Albert Rand - 08/14/2014 9:01 PM EDT Images from the original note were not included. Chief Complaint Patient presents with ??? Hand Pain ischemic fingers right hand HPI The patient is a 24-year-old female with a history of IV drug use who presents to the emergency department with right hand pain and concern over ischemic fingers. The patient states that she last used IV drugs 2 weeks ago, using Wellbutrin in the dorsal veins of her bilateral feet. She also has a history of IV Ritalin use and has used Suboxone in the past. She states that she has had discomfort in her right hand for the past approximately 3 days. Initially, her fingertips turned white and then the following day they turn blue. She was seen at [facility] and is sent here for the vascular surgery service. The patient denies fevers/chills, chest pain, shortness of breath, abdominal pain. She arriveswith a 22-gauge peripheral IV in her left upper arm. Please see the rest of the EMR for PMHx, surgeries and medications. Allergies Allergen Reactions ??? Latex Rash ??? Penicillins Hives Review of Systems Constitutional: Negative for fever, chills and activity change. HENT: Negative for congestion. Respiratory: Negative for cough and shortness of breath. Cardiovascular: Negative for chest pain and leg swelling. Gastrointestinal: Negative for vomiting, abdominal pain, diarrhea and constipation. Genitourinary: Negative for dysuria, hematuria and difficulty urinating. Musculoskeletal: Negative for arthralgias. Skin: Positive for wound. Neurological: Negative for syncope and headaches. Hematological: Negative for adenopathy. Filed Vitals: 08/14/14 2100 BP: 128/62 Pulse: 88 Temp: Resp: 18 Physical Exam Constitutional: Appearing older than her stated age lying on the exam bed in no acute distress; nontoxic. HENT: Head: Atraumatic. Eyes: Conjunctivae and EOM are normal. Neck: Normal range of motion. Neck supple. Cardiovascular: Normal rate and regular rhythm. 2+ right radial pulse. Pulmonary/Chest: Effort normal and breath sounds normal. Abdominal: Soft. There is no tenderness. Musculoskeletal: Arms: Multiple track kilpatrick noted in the right antecubital region. Bilateral dorsal aspects of the feet have eschar lesions that are nontender. Neurological: She is alert. Skin: Skin is warm and dry. She is not diaphoretic. Psychiatric: She has a normal mood and affect. Nursing note and vitals reviewed. Labs: Recent Results (from the past 24 hour(s)) HEMOGRAM Result Value Ref Range WBC 5.4 4.0 - 10.0 x10(3)/mcL RBC 4.32 3.93 - 5.22 x10(6)/mcL Hemoglobin 10.5 (*) 11.2 - 15.7 gm/dL Hematocrit 33.0 (*) 34.0 - 45.0 % MCV 76.4 (*) 79.0 - 94.0 fL MCH 24.3 (*) 26.6 - 32.2 pg MCHC 31.8 (*) 32.0 - 36.5 gm/dL Platelets 337 145 - 370 x10(3)/mcL RDWSD 50.3 (*) 35.0 - 46.0 fL RDWCV 18.0 (*) 10.9 - 14.4 % MPV 9.6 9.0 - 12.0 fL DIFFERENTIAL, AUTOMATED Result Value Ref Range Neutrophils % 41.2 Neutr Abs (ANC) 2.22 1.50 - 6.30 x10(3)/mcL Lymphocytes % 41.8 Lymphocytes Abs 2.2 1.0 - 3.6 x10(3)/mcL Monocytes % 8.2 Monocyte Abs 0.4 0.2 - 1.0 x10(3)/mcL Eosinophils % 8.0 Eosinophils Abs 0.4 0.0 - 0.5 x10(3)/mcL Basophils % 0.4 Basophils Abs 0.0 0.0 - 0.2 x10(3)/mcL Immature Gran % 0.40 Yael Gran Abs 0.02 0.00 - 0.05 x10(3)/mcL POCT URINE Result Value Ref Range POC Urine HCG Negative Negative - Negative POC Control Internal Controls Acceptable Diagnostics: CTA RUE: Pending (prelim read negative). Procedures MDM The patient is a 24-year-old female with a history of IV drug use who presents to the emergency department with right hand pain and concern over ischemic fingers. Reassuringly, she is afebrile and hemodynamically stable in the emergency department, not meeting SIRS criteria. The patient's right hand digits are dusky, painful and tender, however, capillary refill is largely within normal limits. Vascular surgery evaluated the patient and recommended a CTA of the upper extremity. This was performed and showed no obvious abnormality or vascular surgical issue. Likely reversible process from injecting Wellbutrin. They recommended an outpatient echo and follow up only as needed in their clinic. No signs of endocarditis by history or work-up, however, TTE will be performed. I also do not suspect necrotizing fasciitis. Plan will be to discharge the patient home with PCP follow-up, vascular surgery follow-up as needed and outpatient echo. Assessment: Right hand pain ED Course: -The patient was interviewed and examined and her case was discussed with Dr. Rice. -Immediately upon her arrival to the emergency department, the patient was evaluated by the vascular surgery service. -Left external jugular vein line established with an 18-gauge. This was found to flush and draw blood successfully and was required for larger bore access for her CT. -CTA right upper extremity obtained with results pending. -Vascular Surgery contacted with recommendations above. -The patient is discharged home in good, stable condition after return precautions were reviewed. Outpatient TTE study ordered placed. She is to follow-up with vascular surgery only as needed. All questions were answered. The patient was placed in a sling and instructed to take Tylenol and/or ibuprofen for discomfort along with a baby aspirin daily. Albert Rand MD Resident 08/15/14 0036 Associated attestation - Fabian Rice MD - 08/15/2014 9:57 AM EDT I have personally seen and examined the patient. I reviewed the patient with Dr. Rand and agree with the salvador findings and plan. On my exam the distal digits on the right hand were dusky. She had a strong radial pulse. There was no significant swelling of the digits. The fingers were soft. I suspect the patient accidentally injected an artery resulting in vascular injury involving the distal digital arteries. Vascular surgery felt there was no surgical appropriate surgical interventionand recommended aspirin. I discussed the patient with the [facility]. They had no specific recommended interventions. documented in this encounter Miscellaneous Notes * Ancillary Services Notes - Yoav Lira RN - 08/14/2014 9:13 PM EDT Called IV team for help with IV insertion. * Consult Note - Faizan Pemberton MD - 08/14/2014 8:28 PM EDT [facility] Department of Vascular Surgery Inpatient Admission Note HPI: Mrs. Fraser is a 24 y.o. female with history of IV drug use presenting with ischemia of her righ digits 2-5. She states her finger turned white and became very painful and cool to touch approcimately 3 days ago. Theu have slowly turned bluish in color since that tinme and her pain has continued. She states that she has not injected into her RUE for over 1 month. Most recently injected into R f oot which now has a 2cm ulcer with surrounding erythema on the dorsal aspect. She also has 2 ulcerson the dorsum of her left foot at previous injection sites. She denies fevers, chills, nausea, vomiting, chest pain, SOB, or any other signs of systemic infection. She denies history of endocarditis.She has intact strength and sensation in the extremity and strong palpable radial pulse. She has doppler signal in the meza arch. Patient non toxic appearing with stable vital signs. PM/SH: Past Medical History Diagnosis Date ??? Rh negative state in antepartum period ??? Asthma ??? Anxiety ??? Depression ??? Opiate dependence on methadone ??? ASCUS (atypical squamous cells of undetermined significance) on Pap smear + HPV No past surgical history on file. ALL: Allergies Allergen Reactions ??? Latex Rash ??? Penicillins Hives MED: No current facility-administered medications on file prior to encounter. Current Outpatient Prescriptions on File Prior to Encounter Medication Sig Dispense Refill ??? methadone (DOLOPHINE) 10 mg Tablet Take 88 mg by mouth daily. Indications: Opioid Dependence ??? Pediatric Jovczwurd-Lcsb-qja (FLINTSTONES COMPLETE) Chew ??? FERROUS FUMARATE (IRON ORAL) Social history: History Social History ??? Marital Status: Spouse Name: N/A Number of Children: N/A ??? Years of Education: N/A Occupational History ??? Not on file. Social History Main Topics ??? Smoking status: Current Every Day Smoker ??? Smokeless tobacco: Not on file ??? Alcohol Use: No ??? Drug Use: Yes Special: Opioids (heroin, pills) Comment: in treatment program; taking methadone ??? Sexual Activity: Partners: Male Other Topics Concern ??? Not on file Social History Narrative Family history: Non contributory ROS: As stated above, otherwise remainder of 10-point system review is negative Physical Exam: Temp: [37.1 ??C (98.8 ??F)] Heart Rate: [86] Resp: [16] BP: (132)/(79) SpO2: [100 %] Gen: NAD Pulm: CTAB CV: RRR, no murmur GI: soft, non tender, non distended MSK:RLE: palpable PT/DP pulses, 2 cm ulcer with eschar on dorsum of foot with mild surrounding erythema. LLE 2 ~1cm ulcers on dorsum of foot/ankle, palpable DP/PT RUE: palpable radial and ulnar pulse, doppler signals in arch, D2-5 slightly cool, dusky, 3sec cap refill, intact strength and sensation. NEURO: A&Ox3, sensation and motor function grossly intact. Labs: No results for input(s): WBC, HGB, HCT, PLATELET, PT, INR, PTT in the last 72 hours. No results for input(s): NA, K, CL, CO2, BUN, CREATININE, GLUCOSE, CALCIUM, MAGNESIUM, PHOS, LACTATE in the last 72 hours. No results for input(s): AST, ALT, ALKPHOS, BILITOT, BILIDIR in the last 168 hours. ABG (Arterial Blood Gas) No results found for this basename: phart, po2art, msl4nnu CTA RUE: FINDINGS: There is a normal caliber left-sided 3 vessel aortic arch. There is normal caliber and opacification of the right subclavian and axillary artery. There is normal caliber and opacification of both the brachial, radial and ulnar arteries to the level of the wrist. Contrast opacification extends distally into the smaller branches of the hand with flow visualized within the deep palmar arch. The superficial palmar arch is not well visualized. Inadequate opacification limits evaluation of the digital arteries. There is normal appearance of the deep muscles of the right extremity. Nonspecific stranding of the subcutaneous fat is noted along the inner aspect of the upper, series 4 image 121. IMPRESSION: Normal opacification of the major arteries of the right upper extremity and forearm. Distal arterial branches of the right hand are not evaluated on current study. If further imaging is desired, consider contrast angiography for further evaluation. Assessment: 24 y.o. female with acute ischemia of RUE D2-5 in the setting of recent IV drug use. Motor sensory intact. CTA unremarkable. Likely distal embolic etiology, and source appears to be intra-arterial drug injection, which she admits to in all of the affected extremities. She is injecting crushed substances, so there is a high likliehood of particulate matter embolizing. She has a good chance of healing if she stops injecting. Recs: Aspirin 81 daily Recommend echo as outpatient for endocarditis workup for completeness, but less likely source than drug injection Rehab to stop drug injection F/u in Vascular clinic prn Kristopher Sheldon MD --- Vascular Surgery Staff I agree with the above note as edited. There is no vascular intervention for her problem, so no need to see in Vascular clinic. She needs to stop injecting drugs, and is going into rehab for this. Faizan Pemberton MD * ED Triage - Jennifer Rodriguez RN - 08/14/2014 8:12 PM EDT Pt states four fingers on her right hand turned white 2 days ago, they turned purple the next day and pt states the pain kept her awake at night. Pt seen at [facility] 2x for same, today sent here. Pt has blue purple fingers to right hand. Here for vascular surgery. Pt has cap refill of 3 sec but increased pain. Pt scheduled to go to rehab on Friday. Here with sponsor. Pt is IV drug user, last use 2 weeks ago. documented in this encounter Plan of Treatment Not on file documented as of this encounter Procedures Procedure Name Priority Date/Time Associated Diagnosis Comments CT UPPER EXTREMITY ANGIOGRAM WITH CONTRAST STAT 08/14/2014 11:27 PM EDT POCT URINE STAT 08/14/2014 10:38 PM EDT HEMOGRAM STAT 08/14/2014 10:20 PM EDT DIFFERENTIAL, AUTOMATED STAT 08/14/2014 10:20 PM EDT CREATININE STAT 08/14/2014 10:20 PM EDT SEDIMENTATION RATE Routine 08/14/2014 10 :20 PM EDT CBC (WITH DIFF) STAT 08/14/2014 10:20 PM EDT CRP, CARDIAC RISK (HS CRP) Routine 08/14/2014 10:20 PM EDT BUN STAT 08/14/2014 10:20 PM EDT HEPATIC FUNCTION PANEL STAT 5 10:20 PM EDT ELECTROLYTES PANEL STAT 08/14/2014 10 :20 PM EDT BLOOD CULTURE STAT 08/14/2014 10:00 PM EDT documented in this encounter Results * CT upper extremity angiogram with contrast (08/14/2014 11:27 PM EDT) Anatomical Region Laterality Modality Shoulder, Arm, Elbow, Forearm, Wrist, Hand Computed Tomography 08/14/2014 11:2 7 PM EDT Impressions 08/15/2014 1:25 AM EDT IMPRESSION: Normal opacification of the major arteries of the right upper extremity and forearm. Distal arterial branches of the right hand are not evaluated on current study. If further imaging is desired, consider contrast angiography for further evaluation. Narrative 08/15/2014 1:25 AM EDT EXAMINATION: CT Upper Extremity Arteriogram With Contrast CLINICAL HISTORY: Right hand pain and duskiness. History of IV drug abuse.; TN TECHNIQUE: CTA of the upper extremity, with IV contrast. 180 cc of Omnipaque 350 was used.Coronal and sagittal MIPS images reviewed. COMPARISON: None FINDINGS: There is a normal caliber left-sided 3 vessel aortic arch. There is normal caliber and opacification of the right subclavian and axillary artery. There is normal caliber and opacification of both the brachial, radial and ulnar arteries to the level of the wrist. Contrast opacification extends distally into the smaller branches of the hand with flow visualized within the deep palmar arch. The superficial palmar arch is not well visualized. Inadequate opacification limits evaluation of the digital arteries. There is normal appearance of the deep muscles of the right extremity. Nonspecific stranding of the subcutaneous fat is noted along the inner aspect of the upper, series 4 image 121. Procedure Note Justine Lopez MD - 08/15/2014 EXAMINATION: CT Upper Extremity Arteriogram With Contrast CLINICAL HISTORY: Right hand pain and duskiness. History of IV drugabuse.; TN TECHNIQUE: CTA of the upper extremity, with IV contrast. 180 cc ofOmnipaque 350 was used.Coronal and sagittal MIPS images reviewed. COMPARISON: None FINDINGS: There is a normal caliber left-sided 3 vessel aortic arch. There isnormal caliber and opacification of the right subclavian and axillary artery.There is normal caliber and opacification of both the brachial, radial and ulnararteries to the level of the wrist. Contrast opacification extends distally intothe smaller branches of the hand with flow visualized within the deep palmararch. The superficial palmar arch is not well visualized. Inadequateopacification limits evaluation of the digital arteries. There is normal appearance of the deep muscles of the right extremity. Nonspecific stranding of the subcutaneous fat is noted along the inneraspect of the upper, series 4 image 121. IMPRESSION IMPRESSION: Normal opacification of the major arteries of the right upper extremityand forearm. Distal arterial branches of the right hand are not evaluated on currentstudy. If further imaging is desired, consider contrast angiography for further evaluation. Fabian Rice MD IM CT ORDERABLES * POCT urine (08/14/2014 10:38 PM EDT) POC Urine HCG Negative Negative - Negative POC Control Internal Controls Acceptable 08/14/2014 10:3 8 PM EDT Fabian Rice MD POINT OF CARE TEST ORDERABLES * (ABNORMAL) Hepatic Function Panel (08/14/2014 10:20 PM EDT) Protein, Total 7.4 6.1 - 8.0 gm/dL CERNER MILLENNIUM Albumin 3.8 3.2 - 5.2 gm/dL CERNER MILLENNIUM Aspartate Aminotransferase 25 0 - 30 unit/L CERNER MILLENNIUM Alanine Aminotransferase 18 0 - 30 unit/L CERNER MILLENNIUM Alkaline Phosphatase 68 40 - 104 unit/L CERNER MILLENNIUM Bilirubin, Total <0.2(A) 0.2 - 1.3 mg/dL CERNER MILLENNIUM Bilirubin, Direct <0.1 0.0 - 0.3 mg/dL CERNER MILLENNIUM Blood specimen (specimen) Venous Draw / Unknown 08/14/2014 10:20 PM EDT 08/14/2014 10:32 PM EDT Narrative Resulting Agency Comment Spec In Lab Fabian Rice MD CHEMISTRY ORDERABLE S CERNER MILLENNIUM * Differential, Automated (08/14/2014 10:20 PM EDT) Neutrophil % 41.2 % CERNER MILLENNIUM Neutrophil Absolute 2.22 1.50 - 6.30 x10(3)/mcL CERNER MILLENNIUM Lymph % 41.8 % CERNER MILLENNIUM Lymphocytes Abs 2.2 1.0 - 3.6 x10(3)/mcL CERNER MILLENNIUM Monocyte % 8.2 % CERNER MILLENNIUM Monocyte Abs 0.4 0.2 - 1.0 x10(3)/mcL CERNER MILLENNIUM Eos % 8.0 % CERNER MILLENNIUM Eosinophils Abs 0.4 0.0 - 0.5 x10(3)/mcL CERNER MILLENNIUM Basophil % 0.4 % CERNER MILLENNIUM Baso Absolute 0.0 0.0 - 0.2 x10(3)/mcL CERNER MILLENNIUM Immature Gran % 0.40 % CERN ER MILLENNIUM Comment: Immature granulocytes(IG's)percentage and absolute count will include metamyelocytes, myelocytes, and promyelocytes. Blood smears from CBCs yielding IG's will be scanned manually for concordance. If this scan disagrees with the automated IG or if promyelocytes are noted, a manual differential will be performed. Immature Gran Absolute 0.02 0.00 - 0.05 x10(3)/mcL CERNER MILLENNIUM Blood specimen (specimen) 08/14/2014 10:20 PM EDT 08/14/2014 10:32 PM EDT Narrative Resulting Agency Comment Spec In Lab Fabian Rice MD HEMATOLOGY ORDERABL ES CERNER MILLENNIUM * (ABNORMAL) Hemogram (08/14/2014 10:20 PM EDT) White Blood Cell 5.4 4.0 - 10.0 x10(3)/mc L CERNER MILLENNIUM Red Blood Cell 4.32 3.93 - 5.22 x10(6)/mc L CERNER MILLENNIUM Hemoglobin 10.5(L) 11.2 - 15.7 gm/dL CERNER MILLENNIUM Hematocrit 33.0(L) 34.0 - 45.0 % CERNER MILLENNIUM Mean Cell Volume 76.4(L) 79.0 - 94.0 fL CERNER MILLENNIUM Mean Cell Hemoglobin 24.3(L) 26.6 - 32.2 pg CERNER MILLENNIUM Mean Cell Hemoglobin Concentration 31.8(L) 32.0 - 36.5 gm/dL CERNER MILLENNIUM Platelet 337 145 - 370 x10(3)/mc L CERNER MILLENNIUM RDW Standard Deviation 50.3(H) 35.0 - 46.0 fL CERNER MILLENNIUM RDW coefficient of variation 18.0(H) 10.9 - 14.4 % CERNER MILLENNIUM Mean Platelet Volume 9.6 9.0 - 12.0 fL CERNER MILLENNIUM Blood specimen (specimen) 08/14/2014 10:20 PM EDT 08/14/2014 10:32 PM EDT Narrative Resulting Agency Comment Spec In Lab Fabian Rice MD HEMATOLOGY ORDERABL ES Performing Organization Address [facility] Phone Number [facility] * High Sensitivity CRP (08/14/2014 10:20 PM EDT) C-Reactive Protein High Sensitivity 11.0 mg/L [facility] Comment: Interpretations: 1) For accurate cardiac risk [...] prevention. ??Circulation 2003; [phone] Blood specimen (specimen) 08/14/2014 10:20 PM EDT 08/14/2014 10:32 PM EDT Narrative Resulting Agency Comment Spec In Lab Fabian Rice MD CHEMISTRY ORDERABLE S Performing Organization Address [facility] de Phone Number [facility] * Sedimentation rate (08/14/2014 10:20 PM EDT) Sedimentation Rate Automated 14 0 - 20 mm/hr [facility] Blood specimen (specimen) 08/14/2014 10:20 PM EDT 08/14/2014 10:32 PM EDT Narrative Resulting Agency Comment Spec In Lab Fabian Rice MD HEMATOLOGY ORDERABL ES Performing Organization Address [facility] de Phone Number [facility] * (ABNORMAL) Creatinine (08/14/2014 10:20 PM EDT) Creatinine 0.62(L) 0.70 - 1.20 mg/dL [facility] Comment: Please note that the pediatric reference intervals supplied above were not validated at [facility]. Results from pediatric patients should be interpreted in conjunction to the patient's age, height and muscle mass. Est Glomerular Filtration Rate >60 >=60 [facility] Comment: This estimated GFR (eGFR) value was [...] the following links into your internet browser. [email or web address] Blood specimen (specimen) 08/14/2014 10:20 PM EDT 08/14/2014 10:32 PM EDT Narrative Resulting Agency Comment Spec In Lab Fabian Rice MD CHEMISTRY ORDERABLE S Performing Organization Address [facility] de Phone Number [facility] * (ABNORMAL) BUN (08/14/2014 10:20 PM EDT) Blood Urea Nitrogen 6(L) 8 - 18 mg/dL [facility] Blood specimen (specimen) 08/14/2014 10:20 PM EDT 08/14/2014 10:32 PM EDT Narrative Resulting Agency Comment Spec In Lab Fabian Rice MD CHEMISTRY ORDERABLE S Performing Organization Address [facility] de Phone Number [facility] * Electrolytes panel (08/14/2014 10:20 PM EDT) Sodium 142 135 - 145 mmol/L [facility] Potassium 4.1 3.5 - 5.0 mmol/L [facility] Comment: Please note: ??Patients with WBC >100,000 may have falsely elevated Potassium levels. ??For accurate Potassium quantification in these patients send serum separator tube (gold top) for subsequent determinations. ??Contact the Clinical Chemistry Laboratory if there are any questions. Chloride 104 98 - 107 mmol/L [facility]ILLENNI[facility] Carbon Dioxide 28 22 - 31 mmol/L [facility] MILLENNI[facility] Anion Gap 10 5 - 15 mmol/L [facility]ILLEN[facility] Blood specimen (specimen) 08/14/2014 10:20 PM EDT 08/14/2014 10:32 PM EDT Narrative Resulting Agency Comment Spec In Lab Fabian Rice MD CHEMISTRY ORDERABLE S [facility] * Blood culture (08/14/2014 10:00 PM EDT) Blood Culture ? Patient Name: YOLANDA FRASER ?Ordered By: FABIAN RICE ? MR#: [id number] ?LOC: ??ED ? /Sex: ??1990 (24 years), ? Female ? PROCEDURE: Blood Culture ?SOURCE: Blood ? COLLECTED: 08/14/2014 22:00 ? BODY SITE: Peripheral ? STARTED: 08/14/2014 23:41 ? FINAL REPORT ? Final Report ? Verified:2014 07:01 ? No growth at 5 days. ? PRELIMINARY REPORT ? Preliminary Report ? Verified:2014 07:01 ? No growth at 4 days. ? MARYSOL GLORIA Blood specimen (specimen) PERIPHERAL BLOOD / Unknown 08/14/2014 10:00 PM EDT 08/14/2014 11:41 PM EDT Narrative Resulting Agency Comment Spec In Lab Fabian Rice MD MICROBIOLOGY - BLOO D ORDERABLES [facility] documented in this encounter Visit Diagnoses Diagnosis Right hand pain Pain in limb documented in this encounter Administered Medications Inactive Administered Medications - up to 3 most recent administrations Medication Order MAR Action Action Date Dose Rate Site aspirin chewable tablet 324 mg 324 mg, Oral, ONCE, 1 dose, On 08/14/14 at 2306, STAT Given 08/14/2014 11:06 PM EDT 324 mg ibuprofen (ADVIL;MOTRIN) tablet 600 mg 600 mg, Oral, ONCE, 1 dose, On 08/14/14 at 2359, Administer orally with milk or food to minimize GI irritation, STAT Given 08/14/2014 11:59 PM EDT 600 mg iohexol (OMNIPAQUE) 350 mg/mL solution 63,000 mg 63,000 mg (180 mL), Intravenous, ONCE PRN, 1 dose, Starting on 08/14/14 at 2257, Until 08/14/14 at 2336, Per Protocol, Routine Given 08/14/2014 11:36 PM EDT 63,000 mg documented in this encounter Active and Recently Administered Medications Times are shown in EDT. Scheduled Medication Order 08/13/2014 08/14/2014 08/15/2014 aspirin chewable tablet 324 mg (COMPLETED) 324 mg, Oral, ONCE, 1 dose, On 08/14/14 at 2306, STAT 2306 (Given - Provider: Jude Owusu RN) ibuprofen (ADVIL;MOTRIN) tablet 600 mg (COMPLETED) 600 mg, Oral, ONCE, 1 dose, On 08/14/14 at 2359, Administer orally with milk or food to minimize GI irritation, STAT 2359 (Given - Provider: Jude Owusu, RN) PRN Medication Order 08/13/2014 08/14/2014 08/15/2014 iohexol (OMNIPAQUE) 350 mg/mL solution 63,000 mg (COMPLETED) 63,000 mg (180 mL), Intravenous, ONCE PRN, 1 dose, Starting on 08/14/14 at 2257, Until 08/14/14 at 2336, Per Protocol, Routine 2336 (Given - Provider: Jude Owusu RN) documented in this encounter Care Teams Accounting Reconciliation Clerk Relationship Specialty Start Date End Date Kristopher Bearden MD [address] [place] [address] PCP - General 02/27/10 01/16/15 documented as of this encounter
--- OUTSIDE RECORDS SUMMARY | 2024-05-07 12:23 | XMS_ITS | Encounter Summary ---
Author Organization [facility] Address [facility] [place] [address] Care Team Providers Care Clerical Warehouseman Name Role Phone Kristopher Bearden MD Primary Care Provider [phone] Encounter Details Date Type Department Care Team (Late st Contact Info) Description 09/10/2014 12:18 PM EDT - 09/10/2014 1:51 PM EDT Emergency Emergency Department [facility] [place] [address] EMERGENCY DEPT, [place] [address] Discharge Disposition: Left Without Being Seen Before Triage Social History Tobacco Use Types Packs/Day Years Used Date Smoking Tobacco: Every Day Alcohol Use Standard Drinks/Week Comments No 0 (1 standard drink = 0.6 oz pur e alcohol) Sex and Gender Information Value Date Recorded Sex Assigned at Not on file Gender Identity Not on file Sexual Orientation Not on file documented as of this encounter Medications at Time of Discharge Medication Sig Dispensed Refills Start Date End Date amitriptyline (ELAVIL) 50 mg Tablet Take 50 mg by mouth nightly. aspirin 81 mg Tablet, Delayed Release (E.C.) Take 81 mg by mouth daily. acetaminophen (TYLENOL) 325 mg Tablet Take 650 mg by mouth every 4 hours as needed for Pain. gabapentin (NEURONTIN) 300 mg Capsule Take 1 capsule twice a day as needed for pain 60 capsule 0 08/26/2014 Pediatric Lmvgnybbw-Qgpu-lud (FLINTSTONES COMPLETE) Chew 07/25/2006 cilostazol (PLETAL) 100 mg Tablet Take 0.5 tablets by mouth 2 times daily. 60 tablet 0 08/31/2014 05/27/2022 traZODone (DESYREL) 100 mg Tablet Take 100 mg by mouth nightly. 05/27/2022 melatonin 3 mg Tablet Take 6 mg by mouth. 05/27/2022 lactobacillus rhamnosus, GG, (CULTURELLE) 10 billion cell [...] by mouth daily. Indications: Opioid Dependence 05/27/2022 documented as of this encounter Plan of Treatment Not on file documented as of this encounter Visit Diagnoses Not on filedocumented in this encounter Care Teams Clerical Warehouseman Relationship Specialty Start Date End Date Kristopher Bearden MD [address] [place] [address] PCP - General 02/27/10 01/16/15 documented as of this encounter
--- OUTSIDE RECORDS SUMMARY | 2024-05-07 12:23 | XMS_ITS | Encounter Summary ---
Author Organization [facility] Address [facility] [place] [address] Care Team Providers Care Consumer Electronics Merchandiser Name Role Phone Moi, Yary Valencia APRN Primary Care Provider [phone] Reason for Visit * [facility] Maternal Child Health (Routine) - Closed Specialty Diagnoses / Procedures Referred By Deyvi rocha Referred To Contact Home Health Services Diagnoses Encounter for routine follow-up [address] [place] [address] [address] Referral ID Status Reason Start Date Expiration Date V isits Requested Visits Authorized [id number] Closed Consult, Test & Treat 10/24/2022 10/24/2023 999 999 Encounter Details Date Type Department Care Team (Latest Contact Info) Description 11/06/2022 10:15 AM EDT Home Care Visit [facility] [place] [address] [address] Chanel Dawson RN [facility] START OF CARE Social History Tobacco Use Types Packs/Day Years [...] Home Health - Chanel Dawson RN - 11/06/2022 10:28 AM EDT Client visit at client's home for [facility]. Covid screening negative documented in this encounter Plan of Treatment Not on file documented as of this encounter Visit Diagnoses Not on filedocumented in this encounter Care Teams Consumer Electronics Merchandiser Relationship Specialty Start Date End Date Yary Prater, ART SUPERVISOR [place] [place] [address] PCP - General Family Medicine 03/28/22 documented as of this encounter
--- OUTSIDE RECORDS SUMMARY | 2024-05-07 12:23 | XMS_ITS | Encounter Summary ---
Author Organization [place] [address] Care Team Providers Care Power Bender Operator Name Role Phone Yary Prater APRN Primary Care Provider [phone] Encounter Details Date Type Department Care Team (Latest Contact Info) Description 05/27/2022 Travel Social History Tobacco Use Types Packs/Day Years [...] on filedocumented in this encounter Care Teams Power Bender Operator Relationship Specialty Start Date End Date Yary Prater [place] [address] PCP - General Family Medicine 03/28/22 documented as of this encounter
--- OUTSIDE RECORDS SUMMARY | 2024-05-07 12:23 | XMS_ITS | Encounter Summary ---
Author Organization [facility] [place] [address] Care Team Providers Care Operational Intelligence Analyst Name Role Phone Yary Prater APRN Primary Care Provider [phone] Encounter Details Date Type Department Care Team (Latest Contact Info) Description 12/25/2022 10:15 AM EDT Home Care Visit [address] [address] Chanel Dawson RN [facility] VISIT Social History Tobacco Use Types [...] Home Health - Chanel Dawson RN - 12/25/2022 10:30 AM EDT Client visit at client's home for [facility] Nurse Home Visiting [facility]. Covid screening negative documented in this encounter Plan of Treatment Not on file documented as of this encounter Visit Diagnoses Not on filedocumented in this encounter Care Teams Operational Intelligence Analyst Relationship Specialty Start Date End Date Yary Prater APRN [facility] [address] PCP - General Family Medicine 03/28/22 documented as of this encounter
--- OUTSIDE RECORDS SUMMARY | 2024-05-07 12:23 | XMS_ITS | Encounter Summary ---
[place] [address] Care Team Providers Care Piper Helper Name Role Phone Yary Prater APRN Primary Care Provider [phone] Reason for Referral * Consultation (Routine) - Closed Specialty Diagnoses / Procedures Referred By Contgavin t Referred To Contact Obstetrics and Gynecology Diagnoses Encounter for supervision of normal , antepartum, unspecified HCV antibody positive Suboxone maintenance treatment complicating , antepartum Cigarette smoker one half pack a day or less Depression with anxiety Insomnia, unspecified type Marijuana smoker History of drug abuse Aditi Gaviria CNM [address] [place] [address] [address] [place] [address] [facility] Head End Desizing Machine Operator [address] [place] [address] Referral ID Status Reason Start Date Expiration Date V isits Requested Visits Authorized [id number] Closed Consult, Test & Treat PCP Updated and/or Approved 03/28/2022 03/28/2023 6 6 Encounter Details Date Type Department Care Team (Late st Contact Info) Description 03/28/2022 Transcribe Orders eDH Incoming Referrals [phone] Aditi Gaviria CNM [address] [place] [address] [address] [place], [place] [id number] Antepartum drug dependence; Encounter for supervision of normal , antepartum, unspecified ; HCV antibody positive; Suboxone maintenance treatment complicating , antepartum; Cigarette smoker one half pack a day or less; Depression with anxiety; Insomnia, unspecified type; Marijuana smoker; History of drug abuse Social History Tobacco Use Types Packs/Day Years [...] Type Priority Associated Diagnoses Orde r Schedule Referral to Maternal Medicine Outpatient Referral Routine Encounter For Supervision Of Normal , Antepartum, Unspecified HCV antibody positive Suboxone maintenance treatment complicating , antepartum Cigarette smoker one half pack a day or less Depression with anxiety Insomnia, Unspecified Type Marijuana smoker History of drug abuse Ordered: 03/28/2022 documented as of this encounter Visit Diagnoses Diagnosis Antepartum drug dependence Drug dependence, antepartum Encounter for supervision of normal , antepartum, unspecified HCV antibody positive Other and unspecified nonspecific immunological findings Suboxone maintenance treatment complicating , antepartum Drug dependence, antepartum Cigarette smoker one half pack a day or less Tobacco use disorder Depression with anxiety Dysthymic disorder Insomnia, unspecified type Marijuana smoker Cannabis abuse, unspecified History of drug abuse Other, mixed, or unspecified nondependent drug abuse, in remission documented in this encounter Care Teams Piper Helper Relationship Specialty Start Date End Date Yary Prater [place] [place] [address] PCP - General Family Medicine 03/28/22 documented as of this encounter
--- OUTSIDE RECORDS SUMMARY | 2024-05-07 12:23 | XMS_ITS | Encounter Summary ---
Author Organization [facility] Address [facility] [place] [address] Care Team Providers Care Fishing Gear Mechanic Name Role Phone Kristopher Orozco MD Primary Care Provider [phone] Reason for Referral * Consultation (Routine) - Closed Specialty Diagnoses / Procedures Referred By Contac t Referred To Contact Wound Care Diagnoses Nonhealing skin ulcer, with fat layer exposed José Moulton MD [facility] [place] [address] [facility] [place] [address] Referral ID Status Reason Start Date Expiration Date V isits Requested Visits Authorized [id number] Closed Consult, Test & Treat 08/02/2015 08/01/2016 1 1 Reason for Visit * Reason Onset Date Comments Medication Refill 08/02/2015 Encounter Details Date Type Department Care Team (Late st Contact Info) Description 08/02/2015 [place] [id number] José Moulton MD [facility] [place] [address] Nonhealing skin ulcer, with fat layer exposed Social History Tobacco Use Types Packs/Day Years [...] Associated Diagnoses Orde r Schedule Referral to Wound Clinic Outpatient Referral Routine Nonhealing skin ulcer, with fat layer exposed Ordered: 08/02/2015 documented as of this encounter Visit Diagnoses Diagnosis Nonhealing skin ulcer, with fat layer exposed documented in this encounter Care Teams Fishing Gear Mechanic Relationship Specialty Start Date End Date Kristopher Orozco MD PCP - General General Internal Medicine 01/17/15 documented as of this encounter
--- OUTSIDE RECORDS SUMMARY | 2024-05-07 12:23 | XMS_ITS | Encounter Summary ---
Author Organization [facility] [place] [address] Care Team Providers Care Spinning Supervisor Name Role Phone Kristopher Orozco MD Primary Care Provider [phone] Reason for Visit * Reason Comments Hand Pain Encounter Details Date Type Department Care Team (Late st Contact Info) Description 01/17/2015 1:10 PM EDT - 01/17/2015 4:26 PM EDT Emergency [place] [phone] Patient left without being seen Discharge Disposition: Left Without Being Seen after Triage Social History Tobacco Use Types Packs/Day [...] Sign Reading Time Taken Comments Blood Pressure 123/80 01/17/2015 1:30 PM EDT Pulse 108 01/17/2015 1:30 PM EDT Temperature 36.9 ??C (98.4 ??F) 01/17/2015 1:30 PM ED T Respiratory Rate 16 01/17/2015 1:30 PM EDT Oxygen Saturation 99% 01/17/2015 1:30 PM EDT Inhaled Oxygen Concentration - - Weight - - Height - - Body Mass Index - - documented in this encounter Medications at Time [...] for pain 60 capsule 0 08/26/2014 Pediatric Pstnkssav-Nhip-yxp (FLINTSTONES COMPLETE) Chew 07/25/2006 cilostazol (PLETAL) 100 [...] Dependence 05/27/2022 documented as of this encounter Miscellaneous Notes * ED Triage - Christo Michelle RN - 01/17/2015 1:32 PM EDT Gangrene to distal fingers 2-4 on left x 6 months. Here today because pain is worse. States she also has a wound on to of left foot an dinner left calf. 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 Fingertips blackened with nails starting to detach. Ulcer approx 2 x 3 cm on top of left foot with surrounding erythema and aprox 1x 1 cm on calf. documented in this encounter Plan of Treatment Not on file documented as of this encounter Visit Diagnoses Diagnosis Patient left without being seen Surgical or other procedure not carried out because of patient's decision documented in this encounter Care Teams Spinning Supervisor Relationship Specialty Start Date End Date Kristopher Orozco MD PCP - General General Internal Medicine 01/17/15 documented as of this encounter
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
--- OUTSIDE RECORDS SUMMARY | 2024-05-07 12:23 | XMS_ITS | Encounter Summary ---
Author Organization [facility] Address [facility] [place] [address] Care Team Providers Care Patient Safety Attendant Name Role Phone Kristopher Orozco MD Primary Care Provider [phone] Encounter Details Date Type Department Care Team (Latest Contact Info) Description 11/09/2016 8:52 AM EDT - 11/09/2016 11:59 PM EDT Hospital [place] [id number] Discharge Disposition: Home Social History Tobacco Use [...] for pain 60 capsule 0 08/26/2014 Pediatric Ypnizjfnu-Ivxm-nts (FLINTSTONES COMPLETE) Chew 07/25/2006 cilostazol (PLETAL) 100 [...] Procedure Name Priority Date/Time Associated Diagnosis Comments SURGICAL PATHOLOGY REPORT Routine 11/09/2016 12:00 PM EDT documented in this encounter Results * Surgical Pathology Report (11/09/2016 12:00 PM EDT) Final Diagnosis [id number] ? Location: OPW The signing pathologist has (i) examined the relevant preparation(s) for the specimen(s) and (ii) rendered or confirmed the diagnosis(es). . ?Surgical Pathology DIAGNOSIS A - Placenta, gestational age unspecified, 440 grams, approximately 50th percentile for 38 weeks gestation: ? 1. ??Unremarkable amnion and chorion ? 2. ??Villous maturation appropriate for term ? 3. 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 4. 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 5. ??Mild acute deciduitis ? 6. ??Unremarkable three vessel umbilical cord Electronically signed by: ??Coco JACOBSON, Rafael Cali Verified: ??11/18/2016 ?Pathologist CLINICAL INFORMATION Specimen Submitted: A - Placenta Clinical History: Hypoglycemia Clinical Diagnosis: Same Referring Identifier: ?(not provided) SPECIMEN PROCESSING A - Labeled/Fixative: Placenta, fresh. Qty/Size/Weight: Single, 19.8 x 17.3 x 1.8 cm, 440 grams. Tissue Description: Intact rowley placenta with attached membranes and segment of umbilical cord. Membranes: Thin, semitranslucent, marginal insertion. Cord: 13.7 x 1.1 cm; three vessels; eccentric insertion. Surface: [place]-red with prominent vasculature. Maternal Surface: Grossly intact with focal loosely attached blood clots. Parenchyma: Spongy, pink-red with an area with multiple pink-brown lesions resembling infarcts, with a peripheral distribution involving 10-15 percent of the overall parenchyma. Sections/Processi ng: (1) membrane roll; (2) proximal and distal cord; (3-5) full thickness parenchyma; (6-7) possible infarcts. (R7) ??pps 11/18/2016 2:54 PM EDT [facility] TISSUE SPECIMEN FROM PLACENTA / Unknown 11/09/2016 12:00 PM EDT 11/09/2016 12:00 PM EDT Albert Monge MD PATHOLOGY/CYTOLOGY O RDERABLES Performing Organization Address City/State/[facility] Co de Phone Number [facility] [place] [address] documented in this encounter Visit Diagnoses Not on filedocumented in this encounter Care Teams Patient Safety Attendant Relationship Specialty Start Date End Date Kristopher Orozco MD PCP - General General Internal Medicine 01/17/15 documented as of this encounter
--- OUTSIDE RECORDS SUMMARY | 2024-05-07 12:23 | XMS_ITS | Encounter Summary ---
Author Organization Formerly [facility] [place] [address] Care Team Providers Care Integrated Pest Management Technician Name Role Phone Yary Prater APRN Primary Care Provider [phone] Encounter Details Date Type Department Care Team (Latest Contact Info) Description 12/20/2022 11:00 AM EDT Home Care Visit [address] [address] Chanel Dawson RN [facility] HOME VISIT Social History Tobacco [...] Home Health - Chanel Dawson RN - 12/20/2022 10:59 AM EDT Client visit at client's home for [facility] Nurse Home Visiting Program. Covid screening negative documented in this encounter Plan of Treatment Not on file documented as of this encounter Visit Diagnoses Not on filedocumented in this encounter Care Teams Integrated Pest Management Technician Relationship Specialty Start Date End Date Yary Prater APRN [facility] [address] PCP - General Family Medicine 03/28/22 documented as of this encounter
--- OUTSIDE RECORDS SUMMARY | 2024-05-07 12:23 | XMS_ITS | Encounter Summary ---
[place] [address] Care Team Providers Care Gel Coat Sprayer Name Role Phone Yary Prater APRN Primary Care Provider [phone] Reason for Referral * Diagnostic Test (Routine) - Closed Specialty Diagnoses / Procedures Referred By Contac t Referred To Contact Radiology Diagnoses Drug dependence during in first trimester Procedures US OB Detailed Morphology Quentin Crawford CNM [address] [place] [address] [address] [place] [address] [facility] [place] [address] Referral ID Status Reason Start Date Expiration Date V isits Requested Visits Authorized [id number] Closed Specialty Service Requested 03/29/2022 09/28/2023 1 1 Reason for Visit * Diagnostic Test (Routine) - Closed Specialty Diagnoses / Procedures Referred By Contac t Referred To Contact Radiology Diagnoses Drug dependence during in first trimester Procedures US OB Detailed Morphology Quentin Crawford CNM [address] [place] [address] [address] [place] [address] [facility] [place] [address] Referral ID Status Reason Start Date Expiration Date V isits Requested Visits Authorized [id number] Closed Specialty Service Requested 03/29/2022 09/28/2023 1 1 Encounter Details Date Type Department Care Team (Latest Contact Info) Description 05/27/2022 9:38 AM EST - 05/27/2022 11:59 PM EST Hospital [place] [address] Quentin Crawford, JAMEEL [address] [place] [address] Drug dependence during in first trimester Discharge Disposition: Home Social History Tobacco Use [...] Sig Dispensed Refills Start Date End Date buprenorphine-naloxone (SUBOXONE) 8-[address] under the tongue daily. 12 mg twice daily methylphenidate (RITALIN) 20 mg Tablet Take 20 mg by mouth 2 times daily. methylphenidate (RITALIN) 10 mg Tablet Take 10 mg by mouth daily. amitriptyline (ELAVIL) 50 mg Tablet Take 50 mg by mouth nightly. aspirin 81 mg Tablet, Delayed Release (E.C.) Take 81 mg by mouth daily. acetaminophen (TYLENOL) 325 mg Tablet Take 650 mg by mouth every 4 hours as needed for Pain. gabapentin (NEURONTIN) 300 mg Capsule Take 1 capsule twice a day as needed for pain 60 capsule 0 08/26/2014 Pediatric Awxebunbf-Oatm-bew (FLINTSTONES COMPLETE) Chew 07/25/2006 documented as of this encounter Plan of Treatment Not on file documented as of this encounter Procedures Procedure Name Priority Date/Time Associated Diagnosis Comments US OB DETAILED MORPHOLOGY Routine 05/27/2022 10:33 AM EST Drug dependence during in first trimester documented in this encounter Results * US OB Detailed Morphology (05/27/2022 10:33 AM EST) Anatomical Region Laterality Modality Pelvis, Abdomen Ultrasound 05/27/2022 9:58 AM EST Impressions 05/27/2022 11:47 AM EST 2nd Trimester - Detailed Morphology - Summary Single intrauterine with a gestational age of 19w 3d based on Early Ultrasound ??(02/27/22) Composite age based on the current ultrasound alone is 19w 2d. Current growth parameters are consistent with prior dating indicating normal growth. Amniotic fluid volume is subjectively normal. Detailed anatomic evaluation was performed and no structural abnormalities are noted. Thank you for letting us participate in the care of this patient. If you are a health care provider and have any questions regarding this report, please contact the number above. For patients who have questions, please contact the health home care coordinator that requested your imaging first. ?Paulina Zavaleta, Principal Electrical Engineer Electronically Signed Final Report ?? 05/27/2022 11:47 am Narrative 05/27/2022 11:47 AM EST OBSTETRICS REPORT ?(Signed Final 05/27/2022 11:47 am) PATIENT INFO: ID #: ? [id number] ?: ??[birth year] (32 yrs)(F) Name: ? JENNIFER FRASER ? Visit Date: 05/27/2022 09:58 am PERFORMED BY: Performed By: ? Rashid BILLS, ??Ann Attending: ?Meghann JACOBSON, Paulina Esparza Referred By: ?QUENTIN CRAWFORD Location: ? [facility] SERVICE(S) PROVIDED: [facility] - Detailed Morphology - [id number] ? [id number] INDICATIONS: 19 weeks gestation of ?Z3A.19 Suboxone use, multiple meds VITAL SIGNS: Weight (lb): 146.0 Height: ?5'5 ? BMI: ? 24.29 EVALUATION: Num Of Fetuses: ? 1 Heart Rate(bpm): ??147 Cardiac Activity: ? Observed, normal rhythm Presentation: ? Cephalic Placenta: ? Posterior P. Cord Insertion: ?Within Normal Limits Amniotic Fluid SUSIE FV: ?subjectively normal Comment: ?Small subchorionic hemorrhage seen --------- BIOMETRY: --------- BPD: ?44.6 ??mm ? G.Age: ?? 19w 3d OFD: ?55.7 ??mm HC: ?160.2 ??mm ? G.Age: ?? 18w 6d AC: ?146.6 ??mm ? G.Age: ?? 20w 0d FL: ? 29.2 ??mm ? G.Age: ?? 19w 0d HUM: ?28.1 ??mm ? G.Age: ?? 19w 0d CER: ?18.5 ??mm ? G.Age: ?? 18w 2d NFT: ?2.75 ??mm LV: ?6.2 ??mm CM: ?3.0 ??mm CI: ?80.1 ??% ? 70 - 86 FL/HC: ? 18.2 ??% ? 16.1 - 18.3 HC/AC: ? 1.09 ?1.09 - 1.39 FL/BPD: ?65.5 ??% FL/AC: ? 19.9 ??% ? 20 - 24 Est. FW: ? 293 ??gm ?0 lb 10 oz OB HISTORY: : ?9 ? Term: ?? 4 ? SAB: ?? 4 TOP: ?1 ?Living: ??4 GESTATIONAL AGE: LMP: ? 23w 5d ?Date: ??12/12/21 ? ALFREDA: ?? 09/18/22 U/S Today: ? 19w 2d ?ALFREDA: ?? 10/19/22 Best: ?19w 3d ?? Det. By: ??Early ?ALFREDA: ?? 10/18/22 ? Ultrasound ? (02/27/22) TARGETED ANATOMY: Central Nervous System Calvarium/Cranial V.: ??Within Normal Limits Intracranial Roxanna: ? Within Normal Limits Cavum: ? Within Normal Limits Parenchyma: ?Within Normal Limits Lateral Ventricles: ?Within Normal Limits Choroid Plexus: ?Within Normal Limits Cereb./Vermis: ? Within Normal Limits Cisterna Magna: ?Within Normal Limits Midline Falx: ?Within Normal Limits Spine Cervical: ?Visualized Thoracic: ?Visualized Lumbar: ?Visualized Sacral: ?Visualized Shape/Curvature: ? Visualized Head/Neck Face: ?Within Normal Limits Lips: ?Within Normal Limits Neck: ?Within Normal Limits Nuchal Fold: ? Within Normal Limits Nasal Bone: ?Present Profile: ? Visualized Orbits/Eyes: ? Visualized Mandible: ?Visualized Maxilla: ? Visualized Thorax Thoracic Contour: ?Within Normal Limits Lungs: ? Visualized 4 Chamber View: ?Within Normal Limits Cardiac Activity: ?Normal Rhythm Rt Outflow Tract: ?Visualized Lt Outflow Tract: ?Visualized Aortic Arch: ? Visualized Ductal Arch: ? Visualized SVC: ? Visualized Cardiac [place]: ?Visualized Diaphragm: ? Visualized 3 Vessel View: ? Visualized IVC: ? Visualized Abdomen Ventral Wall: ?Visualized Cord Insertion: ?Visualized Situs: ? Normal Stomach: ? Visualized Liver: ? Visualized Lt Kidney: ? Visualized Rt Kidney: ? Visualized Bladder: ? Visualized Bowel: ? Visualized Extremities Lt Humerus: ?Within Nomal Limits Rt Humerus: ?Within Normal Limits Lt Forearm: ?Within Normal Limits Rt Forearm: ?Within Normal Limits Lt Hand: ? Within Normal Limits Rt Hand: ? Within Normal Limits Lt Femur: ?Within Normal Limits Rt Femur: ?Within Normal Limits Lt Lower Leg: ?Within Normal Limits Rt Lower Leg: ?Within Normal Limits Lt Foot: ? Visualized Rt Foot: ? Visualized Other Umbilical Cord: ?3 vessel cord Genitalia: ? Male CERVIX UTERUS ADNEXA: Right Ovary Size(cm) ? 2.1 ??x ?? 0.9 ?x ??1.6 ? Vol(ml): 1.6 Visualized Left Ovary Size(cm) ? 2.2 ??x ?? 1.4 ?x ??0.9 ? Vol(ml): 1.5 Visualized Procedure Note Paulina Zavaleta MD - 05/27/2022 OBSTETRICS REPORT (Signed Final 05/27/2022 11:47 am) PATIENT INFO: ID #: [id number] : [birth year] (32 yrs)(F) Name: JENNIFER FRASER Visit Date: 05/27/2022 09:58 am PERFORMED BY: Performed By: Ann Mike RDMS Attending: Paulina Zavaleta MD Referred By: QUENTIN CRAWFORD Location: [facility] SERVICE(S) PROVIDED: [facility] - Detailed Morphology - [id number] INDICATIONS: 19 weeks gestation of Z3A.19 Suboxone use, multiple meds VITAL SIGNS: Weight (lb): 146.0 Height: 5'5 BMI: 24.29 EVALUATION: Num Of Fetuses: 1 Heart Rate(bpm): 147 Cardiac Activity: Observed, normal rhythm Presentation: Cephalic Placenta: Posterior P. Cord Insertion: Within Normal Limits Amniotic Fluid SUSIE FV: subjectively normal Comment: Small subchorionic hemorrhage seen --------- BIOMETRY: --------- BPD: 44.6 mm G.Age: 19w 3d OFD: 55.7 mm HC: 160.2 mm G.Age: 18w 6d AC: 146.6 mm G.Age: 20w 0d FL: 29.2 mm G.Age: 19w 0d HUM: 28.1 mm G.Age: 19w 0d CER: 18.5 mm G.Age: 18w 2d NFT: 2.75 mm LV: 6.2 mm CM: 3.0 mm CI: 80.1 % 70 - 86 FL/HC: 18.2 % 16.1 - 18.3 HC/AC: 1.09 1.09 - 1.39 FL/BPD: 65.5 % FL/AC: 19.9 % 20 - 24 Est. FW: 293 gm 0 lb 10 oz OB HISTORY: : 9 Term: 4 SAB: 4 TOP: 1 Livin GESTATIONAL AGE: LMP: 23w 5d Date: 12/12/21 ALFREDA: 09/18/22 U/S Today: 19w 2d ALFREDA: 10/19/22 Best: 19w 3d Det. By: Early ALFREDA: 10/18/22 Ultrasound (02/27/22) TARGETED ANATOMY: Central Nervous System Calvarium/Cranial V.: Within Normal Limits Intracranial Roxanna: Within Normal Limits Cavum: Within Normal Limits Parenchyma: Within Normal Limits Lateral Ventricles: Within Normal Limits Choroid Plexus: Within Normal Limits Cereb./Vermis: Within Normal Limits Cisterna Magna: Within Normal Limits Midline Falx: Within Normal Limits Spine Cervical: Visualized Thoracic: Visualized Lumbar: Visualized Sacral: Visualized Shape/Curvature: Visualized Head/Neck Face: Within Normal Limits Lips: Within Normal Limits Neck: Within Normal Limits Nuchal Fold: Within Normal Limits Nasal Bone: Present Profile: Visualized Orbits/Eyes: Visualized Mandible: Visualized Maxilla: Visualized Thorax Thoracic Contour: Within Normal Limits Lungs: Visualized 4 Chamber View: Within Normal Limits Cardiac Activity: Normal Rhythm Rt Outflow Tract: Visualized Lt Outflow Tract: Visualized Aortic Arch: Visualized Ductal Arch: Visualized SVC: Visualized Cardiac [place]: Visualized Diaphragm: Visualized 3 Vessel View: Visualized IVC: Visualized Abdomen Ventral Wall: Visualized Cord Insertion: Visualized Situs: Normal Stomach: Visualized Liver: Visualized Lt Kidney: Visualized Rt Kidney: Visualized Bladder: Visualized Bowel: Visualized Extremities Lt Humerus: Within Nomal Limits Rt Humerus: Within Normal Limits Lt Forearm: Within Normal Limits Rt Forearm: Within Normal Limits Lt Hand: Within Normal Limits Rt Hand: Within Normal Limits Lt Femur: Within Normal Limits Rt Femur: Within Normal Limits Lt Lower Leg: Within Normal Limits Rt Lower Leg: Within Normal Limits Lt Foot: Visualized Rt Foot: Visualized Other Umbilical Cord: 3 vessel cord Genitalia: Male CERVIX UTERUS ADNEXA: Right Ovary Size(cm) 2.1 x 0.9 x 1.6 Vol(ml): 1.6 Visualized Left Ovary Size(cm) 2.2 x 1.4 x 0.9 Vol(ml): 1.5 Visualized IMPRESSION 2nd Trimester - Detailed Morphology - Summary Single intrauterine with a gestational age of 19w 3d based on Early Ultrasound (02/27/22) Composite age based on the current ultrasound alone is 19w 2d. Current growth parameters are consistent with prior dating indicating normal growth. Amniotic fluid volume is subjectively normal. Detailed anatomic evaluation was performed and no structural abnormalities are noted. Thank you for letting us participate in the care of this patient. If you are a health care provider and have any questions regarding this report, please contact the number above. For patients who have questions, please contact the health home care coordinator that requested your imaging first. Paulina Zavaleta, Principal Electrical Engineer Electronically Signed Final Report 05/27/2022 11:47 am Quentin Crawford CNM IMG OB ORDERABLE S documented in this encounter Visit Diagnoses Diagnosis Drug dependence during in first trimester documented in this encounter Care Teams Gel Coat Sprayer Relationship Specialty Start Date End Date Yary Prater, PAN [place] [address] PCP - General Family Medicine 03/28/22 documented as of this encounter
--- OUTSIDE RECORDS SUMMARY | 2024-05-07 12:23 | XMS_ITS | Encounter Summary ---
Author Organization [facility] [place] [address] Care Team Providers Care Motor And Generator Assembler Name Role Phone Yary Prater APRN Primary Care Provider [phone] Encounter Details Date Type Department Care Team (Latest Contact Info) Description 11/13/2022 10:30 AM EDT Home Care Visit [address] [address] Chanel Dawson RN [facility] Social History Tobacco Use Types [...] Home Health - Chanel Dawson RN - 11/13/2022 10:30 AM EDT Client visit at client's home for [facility] Nurse Home Visiting Program. Covid screening negative documented in this encounter Plan of Treatment Not on file documented as of this encounter Visit Diagnoses Not on filedocumented in this encounter Care Teams Motor And Generator Assembler Relationship Specialty Start Date End Date Yary Prater APRN [facility] [place] [address] PCP - General Family Medicine 03/28/22 documented as of this encounter
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
--- OUTSIDE RECORDS SUMMARY | 2024-05-07 12:23 | XMS_ITS | Encounter Summary ---
Author Organization [facility] [place] [address] Care Team Providers Care Basic Combatant Swimmer Name Role Phone Kristopher Bearden MD Primary Care Provider [phone] Encounter Details Date Type Department Care Team ([facility] st Contact Info) Description 11/22/2014 Orders Only Vascular Surgery [place] [id number] Sweta Bell, RN Ischemia of hand Social History Tobacco Use Types Packs/Day Years [...] as of this encounter Visit Diagnoses Diagnosis Ischemia of hand Unspecified circulatory system disorder documented in this encounter Care Teams Basic Combatant Swimmer Relationship Specialty Start Date End Date Kristopher Bearden MD [address] [place] [address] PCP - General 02/27/10 01/16/15 documented as of this encounter
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
--- OUTSIDE RECORDS SUMMARY | 2024-05-07 12:23 | XMS_ITS | Encounter Summary ---
Author Organization [facility] [place] [address] Care Team Providers Care Automobile Washer Steam Name Role Phone Yary Prater APRN Primary Care Provider [phone] Encounter Details Date Type Department Care Team (Latest Contact Info) Description 01/01/2023 10:15 AM EDT Home Care Visit [address] [address] Chanel Dawson RN [facility] HOME VISIT Social History Tobacco Use Types [...] Home Health - Chanel Dawson RN - 01/01/2023 10:20 AM EDT Client visit at client's home for [facility] Nurse Home Visiting Program. Covid screening negative documented in this encounter Plan of Treatment Not on file documented as of this encounter Visit Diagnoses Not on filedocumented in this encounter Care Teams Automobile Washer Steam Relationship Specialty Start Date End Date Yary Prater APRN [facility] [place] [address] PCP - General Family Medicine 03/28/22 documented as of this encounter
--- OUTSIDE RECORDS SUMMARY | 2024-05-07 12:23 | XMS_ITS | Clinical Summary ---
Author Organization [facility] Address [facility] [place] [address] Care Team Providers Care Electrotyper Apprentice Name Role Phone Yary Prater APRN Primary Care Provider [phone] Allergies Active Allergy Reactions Criticality Noted Date Comments Latex Rash 01/18/2014 Latex, Natural Rubber 05/26/2022 Naproxen Hives 05/26/2022 Penicillins Hives 01/18/2014 Cilostazol Hives Medium 09/02/2014 Venom-Honey Bee Shortness Of Breath High 08/26/2014 Medications Medication Sig Dispensed Refills Start Date End Date Status Pediatric Zmyfakdcl-Olas-oxv (FLINTSTONES COMPLETE) Chew 07/25/2006 Active aspirin 81 mg Tablet, Delayed Release (E.C.) Take 81 mg by mouth daily. Active acetaminophen (TYLENOL) 325 mg Tablet Take 650 mg by mouth every 4 hours as needed for Pain. Active gabapentin (NEURONTIN) 300 mg Capsule Take 1 capsule twice a day as needed for pain 60 capsule 0 08/26/2014 Active Additional Information Patient taking differently: 1,200 mg 3 TIMES DAILY, (No instructions reported), Reported on 05/27/2022 amitriptyline (ELAVIL) 50 mg Tablet Take 50 mg by mouth nightly. Active buprenorphine-nalo xone (SUBOXONE) 8-[address] under the tongue daily. 12 mg twice daily Active methylphenidate (RITALIN) 20 mg Tablet Take 20 mg by mouth 2 times daily. Active methylphenidate (RITALIN) 10 mg Tablet Take 10 mg by mouth daily. Active Active Problems Problem Noted Date Diagnosed Date Nonhealing skin ulcer 08/02/2015 IV drug abuse 08/31/2014 Social History Tobacco Use Types Packs/Day Years Used Date Smoking Tobacco: Every Day Alcohol Use Standard Drinks/Week Comments No 0 (1 standard drink = 0.6 oz pur e alcohol) Sex and Gender Information Value Date Recorded Sex Assigned at Not on file Gender Identity Not on file Sexual Orientation Not on file Last Filed Vital Signs Vital Sign Reading Time Taken Comments Blood Pressure 123/80 01/17/2015 1:30 PM EDT Pulse 108 01/17/2015 1:30 PM EDT Temperature 36.9 ??C (98.4 ??F) 01/17/2015 1:30 PM ED T Respiratory Rate 16 01/17/2015 1:30 PM EDT Oxygen Saturation 99% 01/17/2015 1:30 PM EDT Inhaled Oxygen Concentration - - Weight 64.9 kg (143 lb) 08/31/2014 3:45 PM EDT Height 165.1 cm (5' 5) 08/31/2014 3:45 PM EDT Body Mass Index 23.8 08/31/2014 3:45 PM EDT Plan of Treatment Health Maintenance Due Date Last Done Comments HIV screen 2007 Hepatitis C Screening 2007 Lipid Screening 2007 Hepatitis B vaccine (0-59 yrs) (1) 2008 Pneumococcal Vaccine: At-Risk 5-49yrs (1 of 2 - PCV) 0 2008 Tetanus/Diphtheria/Pertussis Vaccines (1 - Tdap) 04/24 HPV test 2019 PAP Smear 2019 Covid-19 Vaccine (1 - 2023-25 season) 2023 Influenza (Flu) vaccine (1 o f 1 - Influenza standard series) 12/07/2023 Care Teams Electrotyper Apprentice Relationship Specialty Start Date End Date Yary Prater, DIRECTOR [address] [place] [address] PCP - General Family Medicine 03/28/22
--- OUTSIDE RECORDS SUMMARY | 2024-05-07 12:24 | XMS_ITS | Encounter Summary ---
Author Organization [facility] Address [address] [place] [address] Care Team Providers Care Postulant Name Role Phone Rula Perez GLASS BLOCK INSTALLER Primary Care Provider [phone] Encounter Details Date Type Department Care Team (Latest Contact Info) Description 01/21/2019 11:52 EDT - 01/21/2019 23:59 EDT Hospital Encounter [address] [address] Unknown, Provider, MD Discharge Disposition: Home or Self Care Social History Tobacco Use Types Packs/Day Years Used Date Smoking Tobacco: Never Assessed Comments Unknown Sex and Gender Information Value Date Recorded Sex Assigned at Not on file Legal Sex Female 18:36 EST Gender Identity Female 08/10/2021 8:55 EDT Sexual Orientation Not on file documented as of this encounter Discharge Disposition Disposition Code Departure Means Destination Home or Self Longterm documented in this encounter Plan of Treatment Not on file documented as of this encounter Visit Diagnoses Not on filedocumented in this encounter Care Teams Postulant Relationship Specialty Start Date End Date Rula Perez [place] [address] [place] [address] PCP - General 08/25/15 04/06/22 documented as of this encounter
--- OUTSIDE RECORDS SUMMARY | 2024-05-07 12:24 | XMS_ITS | Encounter Summary ---
Author Organization [facility] Address [address] [place] [address] Care Team Providers Care Senior Financial Reporting Analyst Name Role Phone Yary Prater [employer] BACK FEEDER Primary Care Provider [phone] Encounter Details Date Type Department Care Team (Late st Contact Info) Description 04/11/2022 Lab Requisition [facility] Pathology & Laboratory Medicine - [facility] [address] [place] [address] Aditi Gaviria, OIL CHANGE TECHNICIAN [address] [place] [address] Encounter for other general examination Social History Tobacco Use Types Packs/Day Years Used Date Smoking Tobacco: Never Assessed Interpersonal Safety Answer Date Record ed Physically Hurt Never 11/07/2019 Verbally Threaten Not on file 11/07/2019 Comments Unknown Sex and Gender Information Value Date Recorded Sex Assigned at Not on file Legal Sex Female 18:36 EST Gender Identity Female 08/10/2021 8:55 EDT Sexual Orientation Not on file documented as of this encounter Plan of Treatment Not on file documented as of this encounter Procedures Procedure Name Priority Date/Time Associated Diagnosis Comments PAP TEST Today 04/11/2022 9:04 EST Encounter for other general examination CHLAMYDIA/N. GONORRHOEAE AMPLIFIED NUCLEIC ACID, THINPREP Today 04/11/2022 9:04 EST HPV DNA DETECTION WITH GENOTYPING, PCR Today 04/11/2022 9:04 EST Encounter for other general examination documented in this encounter Results * HUMAN PAPILLOMAVIRUS (HPV) DETECTION-HIGH RISK TYPES (04/11/2022 9:04 EST) HPV other High Risk types, PCR Negative Negative 04/19/2022 16:33 [facility] Comment:No E6 or E7 mRNA is detected from HPV types 16,18,31,33,35,39,45,51,52,56,58,59,66, and 68 by cable puller mediated amplification. Papanicolaou smear specimen (specimen) CERVIX UTERI STRUCTURE / Unknown 04/11/2022 9:04 EST 04/19/2022 9:55 EST Aidti Gaviria APN MICROBIOLOGY - GENERAL OR DERABLES Final Result [facility] [address] [place] [id number] * PAP TEST (04/11/2022 9:04 EST) Specimens A. Cervix and/or Endocervix , ThinPrep Imaging System with Manual Evaluation 04/19/2022 16:33 [facility] Specimen Adequacy Satisfactory for Evaluation - transformation zone component absent 04/19/2022 16:33 [facility] General Categorization Epithelial Cell Abnormality 04/19/2022 16:33 [facility] Descriptive Diagnosis Squamous Cell Abnormality - Low grade squamous intraepithelial lesion (LSIL). Fungal organisms present morphologically consistent with Kimberley species. 04/19/2022 16:33 [facility] Educational Comments [facility] recommends following the ASCCP's management guidelines which may be found at www.asccp.org 04/19/2022 16:33 [facility] Attestation By the signature below, the attending physician certifies that they have personally conducted a gross and/or microscopic examination of the described specimens and rendered or confirmed the above diagnosis. 04/19/2022 16:33 [facility] at 1633 Clinical History See below 04/19/19 23 16:33 EST [facility] HPV The result for the Human Papillomavirus (HPV) Detection-High Risk Types is Negative. No E6 or E7 mRNA is detected from HPV types 16,18,31,33,35,39 ,45,51,52,56,58,5 9,66, and 68 by cable puller mediated amplification.Crystal ting was performed on specimen [id number] and was resulted on 04/19/2022 1633 EST by RES[facility]MA, LAB INSTRUMENT RESULTS IN 04/19/2022 16:33 EST [facility] Performing Lab [facility] 04/19/2022 16:33 EST [facility] Scanned Images 04/19/2022 16:33 EST [facility] Papanicolaou smear specimen (specimen) CERVIX UTERI STRUCTURE / Unknown 04/11/2022 9:04 EST 04/12/2022 13:31 EST Aditi Gaviria APN PATHOLOGY ORDERABLES Liz l Result Performing Organization Address City/[facility]/ZIP Co de Phone Number [facility] [address] [place] [address] * CHLAMYDIA/N. GONORRHOEAE AMPLIFIED RNA, THINPREP (04/11/2022 9:04 EST) Neisseria gonorrhoeae Result Negative Negative 04/12/2022 14:49 EST [facility] Chlamydia trachomatis Result Negative Negative 04/12/2022 14:49 EST [facility] Papanicolaou smear specimen (specimen) CERVIX UTERI STRUCTURE / Unknown 04/11/2022 9:04 EST 04/12/2022 10:10 EST Aditi Gaviria APN MICROBIOLOGY - GENERAL OR DERABLES Final Result Performing Organization Address City/[facility]/ZIP Co de Phone Number [facility] [address] [place] [address] documented in this encounter Visit Diagnoses Diagnosis Encounter for other general examination documented in this encounter Care Teams Senior Financial Reporting Analyst Relationship Specialty Start Date End Date Moi, Yary B, PLY[employer]OD LAYUP LINE BACK FEEDER [address] [place] [address] PCP - General Family Medicine - Primary Care 04/07/22 documented as of this encounter
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
--- OUTSIDE RECORDS SUMMARY | 2024-05-07 12:24 | XMS_ITS | Encounter Summary ---
Author Organization [facility] Address [address] [place] [address] Care Team Providers Care Smoking Tobacco Packer Hand Name Role Phone Rula Perez SHIRT IRONER Primary Care Provider [phone] Encounter Details Date Type Department Care Team (Late st Contact Info) Description 12/16/2016 Results Only [facility]- [facility] [phone] Parminder Maldonado MD [address] [place] [address] Social History Tobacco Use Types Packs/Day Years [...] Name Priority Date/Time Associated Diagnosis Comments PAP TEST- RESULT ONLY Routine 12/16/2016 0:00 EDT documented in this encounter Results * PAP TEST- RESULT ONLY (12/16/2016 0:00 EDT) Pathology Report: CYTOPATHOLOGY REPORT Reports generated via electronic interface contain original data; however they are lacking the format of the original report. Caution should be taken when reading/interpreti ng unformatted reports. Name: ? YOLANDA FRASER ? Accession #: ? [id number] : ? 1990 (Age: 26) ??F ?Collect Date: ? 12/16/2016 Location: ? [facility] ? Receive Date: ? 12/17/2016 Provider: ?PARMINDER MALDONADO MD Copy to: ?RULA PEREZ SHIRT IRONER ? Specimen/Source: ?Pap Test, Cervix, ThinPrep Imaging System with manual evaluation Last Menstrual Period: ? Menstrual/Pregnanc y Status: ? Post Previous Gynecologic Pathology: ? HSIL: 04/2016 ? SPECIMEN ADEQUACY ? Satisfactory for Evaluation - transformation zone component present GENERAL CATEGORIZATION ? Epithelial Cell Abnormality INTERPRETATION ? Squamous Cell Abnormality - High grade squamous intraepithelial lesion (HSIL). Shift in madeline present suggestive of bacterial vaginosis. EDUCATIONAL NOTES/RECOMMENDATI ONS ? [facility] recommends following ASCCP's 2012 Updated Consensus Guidelines for the Management of Abnormal Cervical Cancer Screening Tests and Cancer Precursors (JLGTD, 2013; 17(5):S1-S27). ??Consensus guidelines are available online at www.asccp.org. ? Document reviewed and electronically signed by: ? NEELAM DAVIS MD ? Report Date: ??12/25/2016 15:00 End of Report [facility] 12/16/2016 12/17/2016 us Parminder Maldonado MD PATHOLOGY ORDERABLES Final Resu lt [facility] [address] [place] [address] documented in this encounter Visit Diagnoses Not on filedocumented in this encounter Care Teams Smoking Tobacco Packer Hand Relationship Specialty Start Date End Date Rula Perez, GABBY Gerry [facility] [address] PCP - General 08/25/15 04/06/22 documented as of this encounter
--- OUTSIDE RECORDS SUMMARY | 2024-05-07 12:24 | XMS_ITS | Encounter Summary ---
Author Organization [facility] Address [address] [place] [address] Care Team Providers Care Cart Driver Name Role Phone Unavailable Primary Care Provider Unavailabl e Encounter Details Date Type Department Care Team (Late st Contact Info) Description 12/06/2009 Results Only [facility] - [facility] ([facility]) [address] [place], [place] [address] You Guerra CN[address] [place], [place] [address] Social History Tobacco Use Types Packs/Day Years [...] Procedure Name Priority Date/Time Associated Diagnosis Comments HPV DETECTION, HIGH RISK TYPES Routine 12/06/2009 8:49 EDT CYTOPATHOLOGY Routine 12/06/2009 0:00 EDT documented in this encounter Results * HUMAN PAPILLOMA VIRUS DNA TEST (12/06/2009 8:49 EDT) Specimen Description Cervix, ThinPrep vial [facility] Result Negative for HPV types 16, 18, 31, 33, 35, 39, 45, 51, ??with dysplasiaand some cervical cancers. [facility] Report Status Final 12/18/2009 [facility] 12/06/2009 8:49 EDT 12/14/2009 8:49 EDT us You Guerra CNM MICROBIOLOGY - GENERAL ORDERABLE S Final Result [facility] [address] [place] [address] * CYTOPATHOLOGY (12/06/2009 0:00 EDT) Pathology Report: CYTOPATHOLOGY REPORT ? Reports generated via electronic interface contain original data; ? however they are lacking the format of the original report. ? Caution should be taken when reading/interpreti ng unformatted reports. ? Name: ? YOLANDA OLMOS ? Accession #: ? [id number] ? : ? 1990 (Age: 19) ??F ?Collect Date: ? 12/06/2009 ? Location: ? [facility] ? Receive Date: ? 12/07/2009 ? Provider: ?ANEA LELONG CNM ? Copy to: ? Specimen/Source: ?Pap Test, Cervix/Endocervix, ThinPrep Imaging System ? with manual evaluation ? Last Menstrual Period: ? 11/27/2009 ? Previous Gynecologic Pathology: ? ASC-US: 8/06 ? Other: ? Additional clinical information: HPV neg 8/06 ? HPVA - HPV testing requested if ASC-US on the current ThinPrep Pap test. ? SPECIMEN ADEQUACY ? Satisfactory for Evaluation ? - transformation zone component present ? GENERAL CATEGORIZATION ? Epithelial Cell Abnormality ? INTERPRETATION ? Squamous Cell Abnormality - Atypical squamous cells, undetermined ? significance (ASC-US). ? EDUCATIONAL NOTES/RECOMMENDATI ONS ? [facility] recommends following the 2006 Consensus Guidelines for the Management of Women with Abnormal Cervical Cancer Screening Tests (JLGTD, ? 2007;11(4):201-222 ). ??Consensus guidelines are available online at ? www.ASCCP.org. ? Document reviewed and electronically signed by: ? Nik Mera MD ? Report Date: ??12/13/2009 14:06 ? End of Report ? [facility] 12/06/2009 12/07/2009 us You Guerra CNM PATHOLOGY ORDERABLES Final Resul t [facility] [address] [place] [address] documented in this encounter Visit Diagnoses Not on filedocumented in this encounter
--- OUTSIDE RECORDS SUMMARY | 2024-05-07 12:24 | XMS_ITS | Encounter Summary ---
Author Organization [facility] Address [facility] [place] [address] Care Team Providers Care Subscription Agent Name Role Phone Kristopher Bearden MD Primary Care Provider [phone] Encounter Details Date Type Department Care Team (Late st Contact Info) Description 01/18/2014 9:57 AM EDT - 01/18/2014 11:59 PM EDT Hospital [place] [id number] Social History Tobacco Use Types Packs/Day Years [...] Dispensed Refills Start Date End Date Pediatric Dsbtyvgpe-Xqcy-hxq ([facility] COMPLETE) Chew 07/25/2006 methadone (DOLOPHINE) 10 mg TabletIndications:opioi d dependence Take 100 mg by mouth daily. Indications: Opioid Dependence 05/27/2022 FERROUS FUMARATE (IRON ORAL) 07/25/2006 08/31/2014 documented as of this encounter Plan of Treatment Not on file documented as of this encounter Procedures Procedure Name Priority Date/Time Associated Diagnosis Comments US OB DETAILED MORPHOLOGY Routine 01/18/2014 11:23 AM EDT documented in this encounter Results * US OB Targeted Morphology (01/18/2014 11:23 AM EDT) Anatomical Region Laterality Modality Pelvis, Abdomen Ultrasound 01/18/2014 11:2 3 AM EDT Narrative 01/18/2014 12:28 PM EDT OBSTETRICS REPORT ?(Signed Final 01/18/2014 12:27 ? pm) Patient Info ID #: ? [id number] ?: ??[birth year] (23 yrs) Name: ? YOLANDA OLMOS ? Visit Date: 01/18/2014 10:46 am Performed By Performed By: ?Carole BURTONMS, ??Marion Attending: ? Ivana Gaspar MD ??Tereza Referred By: ? FLAQUITO PIÑA MD Service(s) Provided ??[facility] - Targeted Morphology - Genetics - ? [id number] ??[id number] Indications ??+ quad for t18, methadone use;alfreda 02.21.14 OB History Blood Type: ?? A- ? Height: ??5'5 ?? Weight: ?? 140 ? BMI: ??23.29 : ?8 ? Term: ?? 1 ? SAB: ?? 6 Living: ? 1 Evaluation Num Of Fetuses: ? 1 Heart ? 142 Rate(bpm): Cardiac Activity: ?? Observed, normal rhythm Presentation: ? Breech Placenta: ? Posterior Amniotic Fluid SUSIE FV: ?Appropriate for gestational age SUSIE Sum: ? 7.64 ?cm ? Larg Pckt: ?2.91 ??cm RUQ: ?? 2.91 ?cm ?LUQ: ?? 2.86 ?? cm RLQ: ?? 1.3 ? cm ?LLQ: ?? 0.57 ?? cm -------- Biometry -------- BPD: ?76.9 ??mm ?G. Age: ?? 30w 6d ? < 3 ??% OFD: ? 116.2 ??mm HC: ?311.9 ??mm ?G. Age: ?? 34w 6d ?15 ??% AC: ?307.2 ??mm ?G. Age: ?? 34w 5d ?44 ??% FL: ? 64.7 ??mm ?G. Age: ?? 33w 3d ? 8.2 ??% HUM: ?57.0 ??mm ?G. Age: ?? 33w 1d ?25 ??% NB: ? 8.12 ??mm LV: ?5.5 ??mm CI: ?66.2 ??% ? 70 - 86 FL/HC: ? 20.7 ??% ? 20.1 - 22.3 HC/AC: ? 1.02 ?0.93 - 1.11 FL/BPD: ?84.1 ??% ? 71 - 87 FL/AC: ? 21.1 ??% ? 20 - 24 Est. FW: ?2314 ?? gm ? 5 lb 2 oz ?40 ??% Gestational Age LMP: ? 38w 6d ?Date: ??04/21/13 ? ALFREDA: ?? 01/26/14 U/S Today: ? 33w 3d ?ALFREDA: ?? 03/05/14 Best: ?35w 1d ?? Det. By: ??Early ?ALFREDA: ?? 02/21/14 ? Ultrasound ? (07/28/13) Targeted Anatomy Central Nervous System Calvarium: ?Within Normal Limits Intracranial: ? Within Normal Limits Lat. Ventricles: ?Within Normal Limits Cerebellum: ? Within Normal Limits Choroid Plexus: ? Within Normal Limits Cisterna Magna: ? Not visualized due to Spine Cervical: ? Visualized Thoracic: ? Visualized Lumbar: ? Limited Views Sacral: ? Limited Views Head/Neck Face: ? Within Normal Limits Nuchal Fold: ?Not evaluated at this Thorax Four Chamber: ? Within Normal Limits Cardiac Motion: ? Normal Rhythm R Outflow Tract: ?Visualized L Outflow Tract: ?Visualized Cardiac Tipton: ? Visualized Diaphragm: ?Visualized Abdomen Ventral Wall: ? Not visualized due to Stomach: ?Visualized Lt Kidney: ?Visualized Rt Kidney: ?Visualized Bladder: ?Visualized Extremities Lt Humerus: ? Within Nomal Limits Rt Humerus: ? Within Normal Limits Lt Forearm: ? Within Normal Limits Rt Forearm: ? Within Normal Limits Lt Hand: ?Visualized Rt Hand: ?Visualized Lt Femur: ? Within Normal Limits Rt Femur: ? Within Normal Limits Lt Lower Leg: ? Not well seen due to Rt Lower Leg: ? Not well seen due to Lt Foot: ?Not well seen due to Rt Foot: ?Not well seen due to Other Umbilical Cord: ? 3 vessel cord Cord Insertion: ? Not visualized at this Comment: ? Nasal Bone: Visualized Doppler - Uterine Artery Right S/D Ratio: ? RI: ?PI: ?%Tile Left S/D Ratio: ?RI: ?PI: ?%Tile Cervix Uterus Adnexa Left Ovary Not visualized Right Ovary Not visualized Impression 3rd Trimester Summary Single intrauterine with a gestational age of 35w 1d based on early ultrasound. ??Composite age based on the current ultrasound alone is 33w 3d. Estimated weight corresponds to the 40th percentile for 35w 1d. Current growth parameters are consistent indicating normal growth. Amniotic fluid volume is Appropriate for gestational age, SUSIE = 7.64 cm, MVP = 2.91 cm Anatomical survey is limited due to the late gestational age; appears within normal limits.. ??Initially clenched bilateral hands, the hands were later seen to open during the exam. I ??viewed the images and agree with the above interpretation. ?Ivana Gaspar MD Electronically Signed Final Report ?? 01/18/2014 12:27 pm Procedure Note Ivana Gaspar MD - 01/18/2014 OBSTETRICS REPORT (Signed Final 01/18/2014 12:27 pm) Patient Info ID #: [id number] : [birth year] (23 yrs) Name: YOLANDA OLMOS Visit Date: 01/18/2014 10:46 am Performed By Performed By: Marion Lam RDMS Attending: Ivana Gaspar MD Referred By: FLAQUITO PIÑA MD Service(s) Provided [facility] - Targeted Morphology - Genetics - [id number] Indications + quad for t18, methadone use;alfreda 11..14 OB History Blood Type: A- Height: 5'5 Weight: 140 BMI: 23.29 : 8 Term: 1 SAB: 6 Livin Evaluation Num Of Fetuses: 1 Heart 142 Rate(bpm): Cardiac Activity: Observed, normal rhythm Presentation: Breech Placenta: Posterior Amniotic Fluid SUSIE FV: Appropriate for gestational age SUSIE Sum: 7.64 cm Larg Pckt: 2.91 cm RUQ: 2.91 cm LUQ: 2.86 cm RLQ: 1.3 cm LLQ: 0.57 cm -------- Biometry -------- BPD: 76.9 mm G. Age: 30w 6d < 3 % OFD: 116.2 mm HC: 311.9 mm G. Age: 34w 6d 15 % AC: 307.2 mm G. Age: 34w 5d 44 % FL: 64.7 mm G. Age: 33w 3d 8.2 % HUM: 57.0 mm G. Age: 33w 1d 25 % NB: 8.12 mm LV: 5.5 mm CI: 66.2 % 70 - 86 FL/HC: 20.7 % 20.1 - 22.3 HC/AC: 1.02 0.93 - 1.11 FL/BPD: 84.1 % 71 - 87 FL/AC: 21.1 % 20 - 24 Est. FW: 2314 gm 5 lb 2 oz 40 % Gestational Age LMP: 38w 6d Date: 04/21/13 ALFREDA: 01/26/14 U/S Today: 33w 3d ALFREDA: 03/05/14 Best: 35w 1d Det. By: Early ALFREDA: 02/21/14 Ultrasound (07/28/13) Targeted Anatomy Central Nervous System Calvarium: Within Normal Limits Intracranial: Within Normal Limits Lat. Ventricles: Within Normal Limits Cerebellum: Within Normal Limits Choroid Plexus: Within Normal Limits Cisterna Magna: Not visualized due to Spine Cervical: Visualized Thoracic: Visualized Lumbar: Limited Views Sacral: Limited Views Head/Neck Face: Within Normal Limits Nuchal Fold: Not evaluated at this Thorax Four Chamber: Within Normal Limits Cardiac Motion: Normal Rhythm R Outflow Tract: Visualized L Outflow Tract: Visualized Cardiac Tipton: Visualized Diaphragm: Visualized Abdomen Ventral Wall: Not visualized due to Stomach: Visualized Lt Kidney: Visualized Rt Kidney: Visualized Bladder: Visualized Extremities Lt Humerus: Within Nomal Limits Rt Humerus: Within Normal Limits Lt Forearm: Within Normal Limits Rt Forearm: Within Normal Limits Lt Hand: Visualized Rt Hand: Visualized Lt Femur: Within Normal Limits Rt Femur: Within Normal Limits Lt Lower Leg: Not well seen due to Rt Lower Leg: Not well seen due to Lt Foot: Not well seen due to Rt Foot: Not well seen due to Other Umbilical Cord: 3 vessel cord Cord Insertion: Not visualized at this Comment: Nasal Bone: Visualized Doppler - Uterine Artery Right S/D Ratio: RI: PI: %Tile Left S/D Ratio: RI: PI: %Tile Cervix Uterus Adnexa Left Ovary Not visualized Right Ovary Not visualized Impression 3rd Trimester Summary Single intrauterine with a gestational age of 35w 1d based on early ultrasound. Composite age based on the current ultrasound alone is 33w 3d. Estimated weight corresponds to the 40th percentile for 35w 1d. Current growth parameters are consistent indicating normal growth. Amniotic fluid volume is Appropriate for gestational age, SUSIE = 7.64 cm, MVP = 2.91 cm Anatomical survey is limited due to the late gestational age; appears within normal limits.. Initially clenched bilateral hands, the hands were later seen to open during the exam. I viewed the images and agree with the above interpretation. Ivana Gaspar MD Electronically Signed Final Report 01/18/2014 12:27 pm Ivana Gaspar MD IMG US OB ORDERAB LES documented in this encounter Visit Diagnoses Not on filedocumented in this encounter Care Teams Subscription Agent Relationship Specialty Start Date End Date Kristopher Bearden MD [address] [place] [address] PCP - General 02/27/10 01/16/15 documented as of this encounter
--- OUTSIDE RECORDS SUMMARY | 2024-05-07 12:24 | XMS_ITS | Encounter Summary ---
Author Organization [facility] Address [address] [place] [id number] Care Team Providers Care Service Center Manager Name Role Phone Kristopher Bearden MD Primary Care Provider Unavailabl e Encounter Details Date Type Department Care Team (Latest Contact Info) Description 07/07/2013 13:49 EDT - 07/07/2013 23:59 EDT Hospital Encounter [address] [address] Unknown, Provider, Discharge Disposition: Home or Self Care Social [...] Code Departure Means Destination Home or Self Residential documented in this encounter Plan of Treatment Not on file documented as of this encounter Visit Diagnoses Not on filedocumented in this encounter Care Teams Service Center Manager Relationship Specialty Start Date End Date Kristopher Bearden MD PCP - General 12/14/09 08/24/15 documented as of this encounter
--- OUTSIDE RECORDS SUMMARY | 2024-05-07 12:24 | XMS_ITS | Encounter Summary ---
Author Organization [facility] Address [address] [place] [address] Care Team Providers Care Dynamotor Repairer Name Role Phone Rula Perez PREMIX OPERATOR CONCENTRATE Primary Care Provider [phone] Encounter Details Date Type Department Care Team (Late st Contact Info) Description 01/21/2019 Results Only [facility] [phone] Kaila Lopez MD [address] [place] [id number] Social History Tobacco Use Types Packs/Day Years [...] Priority Date/Time Associated Diagnosis Comments SURGICAL PATHOLOGY Routine 01/21/2019 16 :56 EDT documented in this encounter Results * SURGICAL PATHOLOGY (01/21/2019 16:56 EDT) Pathology Report: SURGICAL PATHOLOGY REPORT Reports generated via electronic interface contain original data; however they are lacking the format of the original report. Caution should be taken when reading/interpreting unformatted reports. Name: ? YOLANDA FRASER ? Accession #: ? [id number] ? : ? 1990 (Age: 28) ??F ? Collect Date: ? 01/21/2019 ? Location: ? [facility] ? Receive Date: ? 01/21/2019 ? Provider: KAILA LOPEZ MD Copy to: RULA PEREZ PREMIX OPERATOR CONCENTRATE ? Final Pathologic Diagnosis: ENDOCERVIX, CURETTAGE: - Minute fragment of squamous intraepithelial lesion, not amenable to precise grading. See comment. Comment: There is a minute fragment of atypical squamous epithelium present characterized by hyperchromatic nuclei with irregular nuclear contours and increased nuclear to cytoplasmic ratios. Although the degree of atypia raises concern for a high grade squamous intraepithelial lesion, the small fragment disappears on deeper levels examined. A p16 immunohistochemical stain was attempted, however, the cells of interest are no longer present on the slide examined. Continued close clinical follow up is recommended. Combined Rail Operator slides of this case were reviewed at intradepartmental consultation conference. ?? Immunoperoxidase staining was performed on this case to further characterize the lesion. ANTIBODY(CLONE)(BLOCK) :RESULT P16 (E6H4TM, [place]) (block 1): non-contributory NOTE: ??One or more of the reagents used in immunoperoxidase testing in this case may not have been cleared or approved by the U.S. Food and Drug Administration (FDA). ??The FDA has determined that such clearance or approval is not necessary. ??These tests are used for clinical purposes. ??They should not be regarded as investigational or for research. ??These reagents' performance characteristics have been determined by the [facility] and/or by the referring laboratory. ??The positive and negative controls worked appropriately. ??If immunoperoxidase staining has been performed on alcohol fixed cytology specimens, which has not been fully validated, the assays should be interpreted with caution and correlated with clinical data. ??This laboratory is certified under the Clinical Laboratory Improvement Amendments of 1988 (CLIA-88) as qualified to perform high complexity clinical laboratory testing. ?? Document reviewed and electronically signed by: JUDAH JAQUEZ MD Report ??Date: 01/26/2019 15:06 By the signature above, the attending physician certifies that he/she has personally conducted a gross and/or microscopic examination of the described specimens and rendered or confirmed the above diagnosis. Specimen(s) Received: ECC Clinical History: Pap 12/18/18 LGSIL, (+) HR HPV; Pap 05/26 ASCUS; LMP: ?/has Nexplanon; fax results to: [phone] Gross Description: ? Received in formalin labelled with proper patient identification (initials B, N) and ECC is an aggregate of dusky red-brown mucus, 0.8 x 0.5 x 0.1 cm. Entirely submitted in 1. ROMARIO Piña (ASCP) 01/21/2019 5:18 PM End of Report [facility] 01/21/2019 16:5 6 EDT 01/21/2019 16:56 EDT us Kaila Lopez MD PATHOLOGY ORDERABLES Final Resul t [facility] [address] [place] [address] documented in this encounter Visit Diagnoses Not on filedocumented in this encounter Care Teams Dynamotor Repairer Relationship Specialty Start Date End Date Rula Perez NP [address] [place] [address] PCP - General 08/25/15 04/06/22 documented as of this encounter
--- OUTSIDE RECORDS SUMMARY | 2024-05-07 12:24 | XMS_ITS | Encounter Summary ---
Author Organization [facility] Address [address] [place] [address] Care Team Providers Care Biological Engineer Name Role Phone Rula Perez STEAM GENERATING POWERPLANT MECHANIC Primary Care Provider [phone] Encounter Details Date Type Department Care Team (Late st Contact Info) Description 05/06/2017 Results Only [facility] [phone] Parminder Maldonado MD [address] [place] [address] Social History Tobacco Use Types Packs/Day Years [...] Date/Time Associated Diagnosis Comments SURGICAL PATHOLOGY Routine 05/06/2017 9:43 EST documented in this encounter Results * SURGICAL PATHOLOGY (05/06/2017 9:43 EST) Pathology Report: SURGICAL PATHOLOGY REPORT Reports generated via electronic interface contain original data; however they are lacking the format of the original report. Caution should be taken when reading/interpreti ng unformatted reports. Name: ? YOLANDA FRASER ? Accession #: ? [id number] ? : ? 1990 (Age: 27) ??F ? Collect Date: ? 05/06/2017 ? Location: ? [facility] ? Receive Date: ? 05/07/2017 ? Provider: PARMINDER MALDONADO MD Copy to: RULA PEREZ STEAM GENERATING POWERPLANT MECHANIC ? Final Pathologic Diagnosis: CERVIX, LOOP ELECTROSURGICAL EXCISION PROCEDURE: - Ectocervix with mild reactive changes. - Negative for dysplasia. See comment. Comment: The referring cervical biopsy ([id number], C) has been reviewed in conjunction with the current specimen, and the high grade dysplasia confirmed. Dr. Kamara 05/09/2017 1:34 PM Document reviewed and electronically signed by: DAVIDSON MAHER MD Report ??Date: 05/09/2017 14:27 By the signature above, the attending physician certifies that he/she has personally conducted a gross and/or microscopic examination of the described specimens and rendered or confirmed the above diagnosis. Specimen(s) Received: Not listed Clinical History: RAMONA II of ectocervix Gross Description: ? Received in formalin labelled with proper patient identification (initials B, N) and ectocervix LEEP is an unoriented rectangular shaped piece of cervix with cauterized margins (1.3 x 0.7 cm, excised to a depth of 0.4 cm). One aspect of the specimen is surfaced by major-white smooth glistening ectocervical mucosa, with a blue ink dot. ??Separately received in the same container is a smaller piece of cervix (0.7 x 0.3 x 0.3 cm). The entire surface of the smaller piece of cervix is inked blue. ??The smaller piece of cervix is entirely submitted in 1 and the larger piece of cervix is serially sectioned from medial to lateral and entirely submitted as 2 and 3. INK GORDON Blue-margin abutting inked dot Green-margin opposite inked dot Red-medial margin [place]-lateral margin Black-all remaining surgical margins Dr. Kamara 05/07/2017 4:32 PM End of Report [facility] 05/06/2017 9:43 EST 05/07/2017 9:43 EST us Parminder Maldonado MD PATHOLOGY ORDERABLES Final Resu lt [facility] [address] [place] [address] documented in this encounter Visit Diagnoses Not on filedocumented in this encounter Care Teams Biological Engineer Relationship Specialty Start Date End Date Rula Perez [place] [place] [address] PCP - General 08/25/15 04/06/22 documented as of this encounter
--- OUTSIDE RECORDS SUMMARY | 2024-05-07 12:24 | XMS_ITS | Encounter Summary ---
Author Organization [facility] Address [facility] [place] [address] Care Team Providers Care Javascript Ui Developer Name Role Phone Kristopher Bearden MD Primary Care Provider [phone] Encounter Details Date Type Department Care Team (Late st Contact Info) Description 05/17/2014 Orders Only [place] [address] Krzysztof Worley MD [facility] [place] [address] Social History Tobacco Use Types Packs/Day Years [...] Procedure Name Priority Date/Time Associated Diagnosis Comments FILM LIBRARY STORAGE ONLY DX FOOT Routine 05/17/2014 3:52 PM EST documented in this encounter Results * Film Library- Storage only DX Foot (05/17/2014 3:52 PM EST) Anatomical Region Laterality Modality Other 05/17/2014 3:52 PM EST Narrative 11/15/2014 3:57 PM EDT This is a Non-reportable exam Procedure Note RESHMA, UNSIGNED REPORT - 11/15/2014 This is a Non-reportable exam Krzysztof Worley MD IM FILM LIBRARY ORD ERABLES documented in this encounter Visit Diagnoses Not on filedocumented in this encounter Care Teams Javascript Ui Developer Relationship Specialty Start Date End Date Kristopher Bearden MD [address] [place] [address] PCP - General 02/27/10 01/16/15 documented as of this encounter
--- OUTSIDE RECORDS SUMMARY | 2024-05-07 12:24 | XMS_ITS | Encounter Summary ---
Author Organization [facility] Address [address] [place] [address] Care Team Providers Care Manager Of Tires Sales Name Role Phone Kristopher Bearden MD Primary Care Provider Unavailabl e Encounter Details Date Type Department Care Team (Latest Contact Info) Description 05/04/2014 15:09 EST - 05/04/2014 23:59 EST Hospital Encounter [address] [address] Unknown, Provider, Discharge Disposition: Home or Self [...] Code Departure Means Destination Home or Self Snf documented in this encounter Plan of Treatment Not on file documented as of this encounter Visit Diagnoses Not on filedocumented in this encounter Care Teams Manager Of Tires Sales Relationship Specialty Start Date End Date Kristopher Bearden MD PCP - General 12/14/09 08/24/15 documented as of this encounter
--- OUTSIDE RECORDS SUMMARY | 2024-05-07 12:24 | XMS_ITS | Encounter Summary ---
Author Organization [facility] Address [address] [place] [address] Care Team Providers Care Manager Sales Name Role Phone Rula Perez OCCUPATIONAL REHABILITATION AIDE Primary Care Provider [phone] Encounter Details Date Type Department Care Team (Late st Contact Info) Description 02/19/2017 Results Only [facility] [phone] Parminder Maldonado MD [address] [place] [address] Social History Tobacco Use Types Packs/Day Years [...] Date/Time Associated Diagnosis Comments SURGICAL PATHOLOGY Routine 02/19/2017 18 :01 EST documented in this encounter Results * SURGICAL PATHOLOGY (02/19/2017 18:01 EST) Pathology Report: SURGICAL PATHOLOGY REPORT Reports generated via electronic interface contain original data; however they are lacking the format of the original report. Caution should be taken when reading/interpreti ng unformatted reports. Name: ? YOLANDA FRASER ? Accession #: ? [id number] ? : ? 1990 (Age: 26) ??F ? N #: ? [id number] ? Collect Date: ? 02/19/2017 ? Location: ? [facility] ? Receive Date: ? 02/19/2017 ? Provider: PARMINDER MALDONADO MD Copy to: RULA PEREZ OCCUPATIONAL REHABILITATION AIDE ? Final Pathologic Diagnosis: A. ?ENDOCERVIX, CURETTAGE: - ?Fragments of benign endocervix. - ? Polypoid fragments of proliferative endometrium, negative for hyperplasia or neoplasia. ? B. ?CERVIX, 11 O'CLOCK, BIOPSY: - ?Fragments of benign squamous mucosa. - ? Superficial strips of benign endocervical cells. ? C. ?CERVIX, 1 O'CLOCK, BIOPSY: - ?High grade squamous intraepithelial lesion (RAMONA II). See comment. 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 Document reviewed and electronically signed by: SAVANNA SOLO MD Report ??Date: 02/28/2017 21:51 By the signature above, the attending physician certifies that he/she has personally conducted a gross and/or microscopic examination of the described specimens and rendered or confirmed the above diagnosis. Specimen(s) Received: A. ??ECC B. ??11 o'clock ectocervical C. ??1 o'clock ectocervical Clinical History: HSIL Pap result for colpo; B. Area of mosaicism and AW change; C. Area of acetowhite change (AW change) Gross Description: A. ?Received in formalin labelled with proper patient identification (initials B, N) and #1 ECC is a 2.8 x 1.7 x 0.1 cm aggregate of red-brown clotted blood, mucoid material and possible tissue. The specimen is submitted in toto following filtration in A1. B. ?Received in formalin labelled with proper patient identification (initials B, N) and #2 11 o'clock ectocervical is a 0.4 x 0.2 x 0.1 cm major-white soft tissue. The specimen is submitted in toto in B1. C. ?Received in formalin labelled with proper patient identification (initials B, N) and 3 1 o'clock ectocerv. is a 0.5 x 0.3 x 0.2 cm major-white soft tissue. The specimen is submitted in toto in C1. ROMARIO Gomez ([facility]) 02/20/2017 8:01 AM End of Report [facility] 02/19/2017 18:0 1 EST 02/19/2017 18:01 EST us Parminder Maldonado MD PATHOLOGY ORDERABLES Final Resu lt [facility] [address] [place] [address] documented in this encounter Visit Diagnoses Not on filedocumented in this encounter Care Teams Manager Sales Relationship Specialty Start Date End Date Rula Perez [place] [place] [address] PCP - General 08/25/15 04/06/22 documented as of this encounter
--- OUTSIDE RECORDS SUMMARY | 2024-05-07 12:24 | XMS_ITS | Encounter Summary ---
Author Organization [facility] Address [address] [place] [address] Care Team Providers Care Nonfarm Animal Caretaker Name Role Phone Moi, Yary Valencia OFFICE RENTAL CLERK Primary Care Provider [phone] Encounter Details Date Type Department Care Team (Late st Contact Info) Description 10/28/2022 Lab Requisition [facility] Pathology & Laboratory Medicine - [address] [address] Outr Resulting Lab, Provider Social History Tobacco Use Types Packs/Day Years [...] Procedure Name Priority Date/Time Associated Diagnosis Comments CHLAMYDIA/N. GONORRHOEAE AMPLIFIED NUCLEIC ACID Routine 10/28/2022 13:30 EDT documented in this encounter Results * CHLAMYDIA/N. GONORRHOEAE AMPLIFIED RNA (10/28/2022 13:30 EDT) Neisseria gonorrhoeae Result Negative Negative 10/29/2022 14:21 EDT [facility] Chlamydia trachomatis Result Negative Negative 10/29/2022 14:21 EDT [facility] Urine URINE / Unknown 10/28/2022 1 3:30 EDT 10/29/2022 9:42 EDT Narrative [facility] - 10/29/2022 14:21 EDT A first catch urine specimen is acceptable for detection of Gonorrhea and Chlamydia, but might detect up to 10% fewer infections when compared with vaginal and endocervical swab samples. us Provider Outr Resulting Lab MICROBIOLOGY - GENER AL ORDERABLES Final Result [facility] [address] [place] [address] documented in this encounter Visit Diagnoses Not on filedocumented in this encounter Care Teams Nonfarm Animal Caretaker Relationship Specialty Start Date End Date Yary Prater NP [address] [place] [address] PCP - General Family Medicine - Primary Care 04/07/22 documented as of this encounter
--- OUTSIDE RECORDS SUMMARY | 2024-05-07 12:24 | XMS_ITS | Encounter Summary ---
Author Organization [facility] Address [address] [place] [address] Care Team Providers Care Nutrition Aide Name Role Phone Kristopher Bearden MD Primary Care Provider Ashwini e Encounter Details Date Type Department Care Team (Late st Contact Info) Description 07/20/2015 Results Only [facility] [phone] Chyna Rosado, [address] [place] [phone] Social History Tobacco Use Types Packs/Day Years [...] Diagnosis Comments PAP TEST- RESULT ONLY Routine 07/20/2015 0:00 EDT documented in this encounter Results * PAP TEST- RESULT ONLY (07/20/2015 0:00 EDT) Pathology Report: CYTOPATHOLOGY REPORT Reports generated via electronic interface contain original data; however they are lacking the format of the original report. Caution should be taken when reading/interpreti ng unformatted reports. Name: ? YOLANDA FRASER ? Accession #: ? [id number] ? : ? 1990 (Age: 25) ??F ?Collect Date: ? 07/20/2015 ? Location: ? [facility] ? Receive Date: ? 07/21/2015 ? Provider: CHYNA ROSADO CAPSULE MACHINE OPERATOR Copy to: MINDA FERNANDO FIELD SALES AGENT ? Final Report SPECIMEN ADEQUACY ? Satisfactory for Evaluation - transformation zone component present GENERAL CATEGORIZATION ? Epithelial Cell Abnormality INTERPRETATION ? Squamous Cell Abnormality - Atypical squamous cells, undetermined significance (ASC-US). Shift in madeline present suggestive of bacterial vaginosis. EDUCATIONAL NOTES/RECOMMENDATI ONS ? [facility] recommends following ASCCP's 2012 Updated Consensus Guidelines for the Management of Abnormal Cervical Cancer Screening Tests and Cancer Precursors (JLGTD, 2013; 17(5):S1-S27). ??Consensus guidelines are available online at www.asccp.org. Last Menstrual Period: 2014 Previous Gynecologic Pathology: HSIL: No f/u Other: Additional clinical information: Pap 1-2015 Specimen/Source: ??Pap Test, Cervix/Endocervix, ThinPrep Imaging System with manual evaluation Document reviewed and electronically signed by: ? THOM OLEARY MD ? Report ??Date: 08/01/2015 17:53 HPV with Pap Test ? Date Ordered: ? 08/01/2015 ? Status: ?? Signed Out ?Date Complete: ? 08/04/2015 ? By: ??System Interface ? Date Reported: ? 08/04/2015 ? 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 E6 OR E7 mRNA from one or more types of HPV types 16,18,31, 33,35,39,45,51,52, 56,58,59,66, and 68 is detected by college archivist mediated amplification. High and intermediate risk HPV types are associated with most squamous intraepithelial lesions and cervical cancers. Comments Document reviewed and electronically signed by: ? System Interface ? Report date: 08/04/2015 By the signature above, the attending physician certifies that he/she has personally conducted a gross and/or microscopic examination of the described specimens and rendered or confirmed the above diagnosis. End of Report [facility] 07/20/2015 07/21/2015 us Chyna Rosado CAPSULE MACHINE OPERATOR PATHOLOGY ORDERABLES Final R esult [facility] [address] [place] [address] documented in this encounter Visit Diagnoses Not on filedocumented in this encounter Care Teams Nutrition Aide Relationship Specialty Start Date End Date Kristopher Bearden MD PCP - General 12/14/09 08/24/15 documented as of this encounter
--- OUTSIDE RECORDS SUMMARY | 2024-05-07 12:24 | XMS_ITS | Encounter Summary ---
Author Organization [facility] Address [address] [place] [address] Care Team Providers Care Vice President Payment Name Role Phone Rula Perez GRAVE DIGGER Primary Care Provider [phone] Encounter Details Date Type Department Care Team (Latest Contact Info) Description 07/23/2017 8:07 EDT - 07/23/2017 23:59 EDT Hospital Encounter [address] [address] Unknown, Provider, MD Discharge Disposition: Home or [...] Code Departure Means Destination Home or Self Retirement documented in this encounter Plan of Treatment Not on file documented as of this encounter Visit Diagnoses Not on filedocumented in this encounter Care Teams Vice President Payment Relationship Specialty Start Date End Date Rula Perez NP [place] [place] [address] PCP - General 08/25/15 04/06/22 documented as of this encounter
--- OUTSIDE RECORDS SUMMARY | 2024-05-07 12:24 | XMS_ITS | Encounter Summary ---
Author Organization [facility] Address [address] [place] [address] Care Team Providers Care Drill Press Operator Numerical Control Name Role Phone Rula Perez FURNITURE UPHOLSTERER APPRENTICE Primary Care Provider [phone] Encounter Details Date Type Department Care Team (Latest Contact Info) Description 07/23/2017 18:45 EDT - 07/23/2017 18:46 EDT Hospital Encounter [facility] - [address] [address] Tari Martinez MD [address] [place] [address],[address] [id number] Discharge Disposition: Home or Self Care Social History Tobacco Use Types Packs/Day Years Used Date Smoking Tobacco: Never Assessed Comments Unknown Sex and Gender Information Value Date Recorded Sex Assigned at Not on file Legal Sex Female 18:36 EST Gender Identity Female 08/10/2021 8:55 EDT Sexual Orientation Not on file documented as of this encounter Discharge Diagnoses Diagnosis O02.0 Blighted ovum and nonhydatidiform mole-O02.0[ICD-10-CM] documented in this encounter Discharge Disposition Disposition Code Departure Means Destination Home or Self Care documented in this encounter Plan of Treatment Not on file documented as of this encounter Procedures Procedure Name Priority Date/Time Associated Diagnosis Comments PATHOLOGY - SCANNED 08/18/2017 14:18 EDT documented in this encounter Results * PATHOLOGY - SCANNED (08/18/2017 14:18 EDT) 08/18/2017 14:1 8 EDT us Scan 2 Optical Systems Engineer LAB INFO SERVICE AND SUPPOR T & PHONE RESULT Final Result documented in this encounter Visit Diagnoses Not on filedocumented in this encounter Care Teams Drill Press Operator Numerical Control Relationship Specialty Start Date End Date Rula Perez NP [address] [place] [address] PCP - General 08/25/15 04/06/22 documented as of this encounter
--- OUTSIDE RECORDS SUMMARY | 2024-05-07 12:24 | XMS_ITS | Encounter Summary ---
Author Organization [facility] Address [address] [place] [address] Care Team Providers Care Collar Turner Operator Name Role Phone Unavailable Primary Care Provider Unavailabl e Encounter Details Date Type Department Care Team (Late st Contact Info) Description 11/26/2007 Before PRISM Converted Visit (Maple) [facility] - Maple conversion [address] [place] [address] Chyna Rosado, [address] [place] [phone] Social History Tobacco Use Types Packs/Day Years [...] Procedure Name Priority Date/Time Associated Diagnosis Comments CYTOPATHOLOGY Routine 11/26/2007 0:00 EDT documented in this encounter Results * CYTOPATHOLOGY (11/26/2007 0:00 EDT) Pathology Report: CYTOPATHOLOGY REPORT ? Reports generated via electronic interface contain original data; ? however they are lacking the format of the original report. ? Caution should be taken when reading/interpreti ng unformatted reports. ? Name: ? YOLANDA OLMOS ? Accession #: ? [id number] ? : ? 1990 (Age: 17) ??F ?Collect Date: ? 11/26/2007 ? Location: ? [facility] ? Receive Date: ? 11/27/2007 ? Provider: ?CHYNA ZEHRA EDGER AUTOMATIC ? Copy to: ? Specimen/Source: ?ThinPrep Pap Test, Cervix/Endocervix, processed on [employer] ThinPrep Imaging System, with manual evaluation ? Last Menstrual Period: ? 8/7/08 ? Hormonal/Contracep tive Status: ? Intrauterine device: mirean ? Previous Gynecologic Pathology: ? ASC-US: 8/06 ? Other: ? Additional clinical information: HPV neg ? SPECIMEN ADEQUACY ? Satisfactory for Evaluation ? - transformation zone component present ? GENERAL CATEGORIZATION ? Negative for Intraepithelial Lesion or Malignancy ? INTERPRETATION ? Reactive cellular changes associated with inflammation present (includes ?? repair). ? Bacteria present morphologically consistent with Actinomyces species. ? Document reviewed and electronically signed by: ? Flavio B. Ambaye, MD ? Report Date: ??12/03/2007 16:09 ? End of Report ? [facility] 11/26/2007 11/27/2007 us Chyna Rosado EDGER AUTOMATIC PATHOLOGY ORDERABLES Final R esult [facility] [address] [place] [address] documented in this encounter Visit Diagnoses Not on filedocumented in this encounter
--- OUTSIDE RECORDS SUMMARY | 2024-05-07 12:24 | XMS_ITS | Encounter Summary ---
Author Organization [facility] Address [address] [place] [address] Care Team Providers Care Domestic Laundry Worker Name Role Phone Moi, Yary Valencia BUSINESS ANALYTICS MANAGER Primary Care Provider [phone] Encounter Details Date Type Department Care Team (Late st Contact Info) Description 07/25/2022 Lab Requisition [facility] Pathology & Laboratory Medicine - [address] [address] Outr Resulting Lab, Provider Social History Tobacco [...] Procedure Name Priority Date/Time Associated Diagnosis Comments HIV 1/2 ANTIGEN AND ANTIBODY, 4TH GENERATION Routine 07/24/2022 11:40 EDT documented in this encounter Results * HIV 1/2 ANTIGEN AND ANTIBODY, 4TH GENERATION (07/24/2022 11:40 EDT) HIV 1 and 2 Antibody/p24 Antigen, 4th Generation Negative Negative 07/26/2022 9:19 EDT [facility] Comment:If acute HIV-1 infec tion is suspected in a high risk patient, submit plasma specimen for HIV-1 RNA quantitation test. Blood VENOUS BLOOD / Unknown 07/24/2022 11:40 EDT 07/25/2022 19:07 EDT Narrative [facility] - 07/26/2022 9:19 EDT Fourth Generation assay performed on the [employer] XPT. us Provider Outr Resulting Lab IMMUNOLOGY AND SEROL OGY ORDERABLES Final Result [facility] [address] [place] [address] documented in this encounter Visit Diagnoses Not on filedocumented in this encounter Care Teams Domestic Laundry Worker Relationship Specialty Start Date End Date Yary Prater, [address]AB[address] [place] [address] PCP - General Family Medicine - Primary Care 04/07/22 documented as of this encounter
--- OUTSIDE RECORDS SUMMARY | 2024-05-07 12:24 | XMS_ITS | Encounter Summary ---
Author Organization [facility] Address [address] [place] [address] Care Team Providers Care Fine Grade Operator Name Role Phone Unavailable Primary Care Provider Unavailabl e Encounter Details Date Type Department Care Team (Late st Contact Info) Description 11/08/2005 Results Only [facility] - Maple conversion [address] [place] [address] [facility] [address] [place] [address] [place] [phone] Social History Tobacco Use Types Packs/Day Years [...] Comments HPV DETECTION, HIGH RISK TYPES Routine 11/08/2005 11:04 EDT CYTOPATHOLOGY Routine 11/08/2005 0:00 EDT documented in this encounter Results * HUMAN PAPILLOMA VIRUS DNA TEST (11/08/2005 11:04 EDT) Specimen Description Cervix, ThinPrep vial [facility] Result Negative for HPV types 16, 18, 31, 33, 35, 39, 45, 51, 52, 56, 58, 59, and 68. [facility] Report Status Final [id number] [facility] 11/08/2005 11:0 4 EDT 11/15/2005 11:04 EDT Chyna Rosado SCHOOL PHOTOGRAPHS DETAILER MICROBIOLOGY - GENERAL ORDER MIRTA Final Result [facility] [address] [place] [address] * CYTOPATHOLOGY (11/08/2005 0:00 EDT) Pathology Report: CYTOPATHOLOGY REPORT Reports generated via electronic interface contain original data; however they are lacking the format of the original report. Caution should be taken when reading/interpreti ng unformatted reports. Name: ? YOLANDA OLMOS ? Accession #: ? [id number] : ? 1990 (Age: 15) ??F ?Collect Date: ? 11/08/2005 Location: ? [facility] ? Receive Date: ? 11/11/2005 Provider: ?CHYNA ROSADO SCHOOL PHOTOGRAPHS DETAILER Copy to: ? Specimen/Source: ?ThinPrep Pap Test, Cervix/Endocervix, processed on [employer] ThinPrep Imaging System, with manual evaluation Last Menstrual Period: ? 11/07/05 Other: ? HPVA - HPV testing requested if ASC-US on the current ThinPrep Pap test. ? SPECIMEN ADEQUACY ? Satisfactory for Evaluation - transformation zone component present GENERAL CATEGORIZATION ? Epithelial Cell Abnormality INTERPRETATION ? Squamous Cell Abnormality - Atypical squamous cells, undetermined significance. EDUCATIONAL NOTES/RECOMMENDATI ONS ? [facility] recommends following the 2001 Consensus Guidelines for the Management of Women with Cervical Cytological Abnormalities (TANO,2002;287:212 0-9). Management algorithms have been distributed by [facility] and are available online at www.ASCCP.org. ? Document reviewed and electronically signed by: ? Nik Mera MD ? Report Date: ??11/14/2005 17:24 End of Report [facility] 11/08/2005 11/11/2005 us Chyna Rosado SCHOOL PHOTOGRAPHS DETAILER PATHOLOGY ORDERABLES Final R esult [facility] [address] [place] [address] documented in this encounter Visit Diagnoses Not on filedocumented in this encounter
--- OUTSIDE RECORDS SUMMARY | 2024-05-07 12:24 | XMS_ITS | Encounter Summary ---
Author Organization [facility] Address [facility] [place] [address] Care Team Providers Care Data Communications Software Consultant Name Role Phone Kristopher Bearden MD Primary Care Provider [phone] Encounter Details Date Type Department Care Team (Late st Contact Info) Description 08/14/2014 Orders [place] [address] Krzysztof Worley MD [facility] [place] [address] Social History Tobacco Use Types Packs/Day Years [...] Associated Diagnosis Comments FILM LIBRARY STORAGE ONLY ULTRASOUND STUDY Routine 08/14/2014 3:57 PM EDT documented in this encounter Results * Film Library- Storage only Ultrasound Study (08/14/2014 3:57 PM EDT) Anatomical Region Laterality Modality Other 08/14/2014 3:57 PM EDT Narrative 11/15/2014 4:02 PM EDT This is a Non-reportable exam Procedure Note RESHMA, UNSIGNED REPORT - 11/15/2014 This is a Non-reportable exam Krzysztof Worley MD IM FILM LIBRARY ORD ERABLES documented in this encounter Visit Diagnoses Not on filedocumented in this encounter Care Teams Data Communications Software Consultant Relationship Specialty Start Date End Date Kristopher Bearden MD [address] [place] [address] PCP - General 02/27/10 01/16/15 documented as of this encounter
--- OUTSIDE RECORDS SUMMARY | 2024-05-07 12:24 | XMS_ITS | Encounter Summary ---
Author Organization [facility] Address [facility] [place] [address] Care Team Providers Care Professor Of Public Administration Name Role Phone Kristopher Bearden MD Primary Care Provider [phone] Encounter Details Date Type Department Care Team (Late st Contact Info) Description 08/14/2014 Orders [place] [address] Neil Rodriguez MD [facility] [place] [address] Social History Tobacco Use Types Packs/Day Years [...] Diagnosis Comments FILM LIBRARY STORAGE ONLY DX UPPER EXTREMITY Routine 08/14/2014 4:30 PM EDT documented in this encounter Results * Film Library- Storage only DX Upper Extremity (08/14/2014 4:30 PM EDT) Anatomical Region Laterality Modality Other 08/14/2014 4:30 PM EDT Narrative 08/14/2014 4:31 PM EDT This is a Non-reportable exam Procedure Note RESHMA, UNSIGNED REPORT - 08/14/2014 This is a Non-reportable exam Neil Rodriguez MD [facility] FILM LIBRARY ORD ERABLES documented in this encounter Visit Diagnoses Not on filedocumented in this encounter Care Teams Professor Of Public Administration Relationship Specialty Start Date End Date Kristopher Bearden MD [address] [place] [address] PCP - General 02/27/10 01/16/15 documented as of this encounter
--- OUTSIDE RECORDS SUMMARY | 2024-05-07 12:24 | XMS_ITS | Referral Summary ---
Author Organization [facility] Address [address] [place] [address] Care Team Providers Care Inspector Fuel Hose Name Role Phone Moi, Yary Valencia EMBEDDED CASE MANAGER Primary Care Provider [phone] Social History Tobacco Use Types Packs/Day Years Used Date Smoking Tobacco: Never Assessed Interpersonal Safety Answer Date Record ed Physically Hurt Never 11/07/2019 Verbally Threaten Not on file 11/07/2019 Comments Unknown Sex and Gender Information Value Date Recorded Sex Assigned at Not on file Legal Sex Female 18:36 EST Gender Identity Female 08/10/2021 8:55 EDT Sexual Orientation Not on file Plan of Treatment Not on file Procedures Procedure Name Priority Date/Time Associated Diagnosis Comments HEPATITIS C AB W REFLEX TO HCV RNA BY PCR Today 07/24/2022 11:40 EDT from Last 3 Months or Most Recently Relevant to Health Maintenance Results * (ABNORMAL) HEPATITIS C AB W REFLEX TO HCV RNA BY PCR (07/24/2022 11:40 EDT) Hep C Antibody Reactive(A ) Negative 07/26/2022 10:34 EDT [facility] Comment: Supplemental testing for HCV RNA is ordered to rule out active HCV infection. Blood VENOUS BLOOD / Unknown 07/24/2022 11:40 EDT 07/25/2022 19:07 EDT us Provider Outr Resulting Lab CHEMISTRY & BLOOD GA S ORDERABLES Final Result Performing Organization Address [facility]/State/ZIP Co de Phone Number [facility] [address] [place] [address] from Last 3 Months or Most Recently Relevant to Health Maintenance Insurance MED[place] Care Teams Inspector Fuel Hose Relationship Specialty Start Date End Date Yary Prater NP [address] [place] [address] [place] [address] PCP - General Family Medicine - Primary Care 04/07/22
--- OUTSIDE RECORDS SUMMARY | 2024-05-07 12:24 | XMS_ITS | Encounter Summary ---
Author Organization [facility] Address [facility] [place] [address] Care Team Providers Care Accounts Payable Lead Name Role Phone Kristopher Bearden MD Primary Care Provider Encounter Details Date Type Department Care Team (Late st Contact Info) Description 01/18/2014 11:30 AM EDT Office Visit Obstetrics [place] [id number] Ivana Gaspar MD [facility] DR OBSTETRICS [place] [address] Abnormal maternal serum screening test (Primary Dx) Discharge Disposition: Home Social History Tobacco Use [...] Sign Reading Time Taken Comments Blood Pressure 124/68 01/18/2014 10:03 AM EDT Pulse - - Temperature - - Respiratory Rate - - Oxygen Saturation - - Inhaled Oxygen Concentration - - Weight 63.6 kg (140 lb 3.2 oz) 01/18/2014 10:03 AM EDT Height - - Body Mass Index - - documented in this encounter Progress Notes * Ivana Gaspar MD - 01/18/2014 1:21 PM EDT Diagnosis/Maternal Medicine Consult Note Jennifer Henderson is a 23 y.o. year old female who is at 35w1d gestation. She is seen in consultation at the request of Sweetie Mera CNM for evaluation of anatomy due to elevatedrisk of trisomy 18 (1:8). She was seen today for maternal- medicine consultation, ultrasound evaluation and genetic counseling with Isi Gerard MS. The patient had initially been scheduled kristina seen at 18 weeks EGA, but did not keep her appointment, nor subsequently scheduled appointments. Review of Systems Constitutional:feels well Movement: normal Contractions: none Leaking: None Bleeding: None There are no active problems to display for this patient. Past Medical History Diagnosis Date ??? Rh negative state in antepartum period ??? Asthma ??? Anxiety ??? Depression ??? Opiate dependence on methadone ??? ASCUS (atypical squamous cells of undetermined significance) on Pap smear + HPV History reviewed. No pertinent past surgical history. History reviewed. No pertinent family history. Social History Occupational History ??? Not on file. Social History Main Topics ??? Smoking status: Current Every Day Smoker ??? Smokeless tobacco: Not on file ??? Alcohol Use: No ??? Drug Use: Yes Special: Opioids (heroin, pills) Comment: in treatment program; taking methadone ??? Sexually Active: Yes -- Male partner(s) OB History Grav Para Term Abortions TAB SAB Ect Mult Living 7 1 1 5 5 1 # Outc Date GA Lbr Cristofer/2nd Wgt Sex Del Anes PTL Lv 1 CUR 2 TRM 08/11 40w0d 3.26kg(7lb3oz) F Yes 3 2008 6w0d 4 2011 8w0d Comments: D+C 5 2011 8w0d Comments: [facility] up 6 2012 8w0d Comments: [facility] up 7 2012 8w0d Comments: [facility] [place] Current Outpatient Prescriptions Medication Sig Dispense Refill ??? methadone (DOLOPHINE) 10 mg Tablet Take 88 mg by mouth daily. Indications: Opioid Dependence ??? Pediatric Gfmkfvbqg-Bdbr-lnw (FLINTSTONES COMPLETE) Chew ??? FERROUS FUMARATE (IRON ORAL) Allergies Allergen Reactions ??? Latex Rash ??? Penicillins Hives Ultrasound Date: 01/18/2014 Amniotic fluid volume normal Presentation breech Placenta posterior Growth appropriate for gestational age anatomy appears within normal limits, although limited by late gestational age Physical Exam BP 124/68 Wt 63.594 kg (140 lb 3.2 oz) General: alert, well appearing, in no apparent distress, oriented to person, place and time HEENT: normocephalic, atraumatic Abdomen: Soft, nontender Extremities: no edema Neurologic:alert, oriented, normal speech, no focal findings or movement disorder noted Psychiatric: Affect is Appropriate. Assessment and Recommendations: 23 y.o. year old female at 35w1d weeks gestation, referred for counseling regarding increased risk for trisomy 18. Normal appearing anatomy decreases the risk of trisomy 18 by roughly 80%. The patient was counseled as to her risk of aneuploidy and the possibility of definitive diagnosis by amniocentesis, as well as the option of NIPT. This is a directed analysis of isolated cell-free DNA from maternal blood which measures the relative proportion of chromosomes. It is intended to aid in the risk determination of trisomies 13, 18, and 21. The limitations of serum screening and ultrasound in predicting aneuploidy, and risk of rupture of membranes due to amniocentesis were also discussed. I reviewed the ultrasound findingswith the patient and her , and the usefulness of ultrasound as a genetic screening tool. I ex plained that amniocentesis only counts chromosomes and looks for large pieces that are missing or duplicated or rearranged. Amniocentesis will not diagnose cerebral palsy, autism, learning disabilities or single gene defects. The patient and her partner definitively declined any further testing, including amniocentesis and NIPT, stating that they would find out after the baby is born. I appreciate the opportunity to be involved in this patients care, and am available if further questions should arise. Ivana GASPAR MD 01/18/2014 Cc: Sweetie Mera [address] [place] [address] , with copy of ultrasound report documented in this encounter Plan of Treatment Not on file documented as of this encounter Visit Diagnoses Diagnosis Abnormal maternal serum screening test- Primary Abnormal findings on screening documented in this encounter Care Teams Accounts Payable Lead Relationship Specialty Start Date End Date Kristopher Bearden MD [address] [place] [address] PCP - General 02/27/10 01/16/15 documented as of this encounter
--- OUTSIDE RECORDS SUMMARY | 2024-05-07 12:24 | XMS_ITS | Encounter Summary ---
Author Organization [facility] Address [address] [place] [address] Care Team Providers Care Paper Tube Grader Name Role Phone Moi, Yary Valencia COTTAGE CHEESE MAKER Primary Care Provider Encounter Details Date Type Department Care Team (Late st Contact Info) Description 07/25/2022 Lab Requisition [facility] Pathology & Laboratory Medicine - [address] [address] Outr Resulting Lab, Provider Social History Tobacco [...] Procedure Name Priority Date/Time Associated Diagnosis Comments HCV RNA DETECT QUANT Today 07/24/2022 11:40 EDT HOLD SST Today 07/24/2022 11:40 EDT HOLD SST Today 07/24/2022 11:40 EDT HEPATITIS C AB W REFLEX TO HCV RNA BY PCR Today 07/24/2022 11:40 EDT HEPATITIS B SURFACE ANTIGEN Today 07/24/2022 11:40 EDT documented in this encounter Results * HCV RNA DETECT QUANT (07/24/2022 11:40 EDT) HCV RNA Qualitative Undetected Undetected 07/26/2022 13:13 EDT [facility] Blood VENOUS BLOOD / Unknown 07/24/2022 11:40 EDT 07/25/2022 19:07 EDT Narrative [facility] - 07/26/2022 13:13 EDT The quantification range of this assay is 15 IU/mL to 100,000,000 IU/mL. Testing was performed using the Alla HCV test ([employer] with the alla [employer] System. us Provider Outr Resulting Lab CHEMISTRY & BLOOD GA S ORDERABLES Final Result Performing Organization Address [facility]/ZIP Co de Phone Number [facility] [address] [place] [address] * HOLD SST (07/24/2022 11:40 EDT) Hold Hold 07/25/2022 20:16 EDT [facility] Blood VENOUS BLOOD / Unknown 07/24/2022 11:40 EDT 07/25/2022 19:14 EDT us Provider Outr Resulting Lab LAB INFO SERVICE AND SUPPORT & PHONE RESULT Final Result Performing Organization Address City/[facility]/ZIP Co de Phone Number [facility] [address] [place] [address] * HOLD SST (07/24/2022 11:40 EDT) Hold Hold 07/25/2022 20:16 EDT [facility] Blood VENOUS BLOOD / Unknown 07/24/2022 11:40 EDT 07/25/2022 19:08 EDT us Provider Outr Resulting Lab LAB INFO SERVICE AND SUPPORT & PHONE RESULT Final Result Performing Organization Address City/[facility]/ZIP Co de Phone Number [facility] [address] [place] [address] * HEPATITIS B SURFACE ANTIGEN (07/24/2022 11:40 EDT) Hep B Surface Ag Negative Negative 07/26/2022 10:08 EDT [facility] Blood VENOUS BLOOD / Unknown 07/24/2022 11:40 EDT 07/25/2022 19:07 EDT us Provider Outr Resulting Lab CHEMISTRY & BLOOD GA S ORDERABLES Final Result Performing Organization Address [facility] Co de Phone Number [facility] [address] [place] [address] * (ABNORMAL) HEPATITIS C AB W REFLEX TO HCV RNA BY PCR (07/24/2022 11:40 EDT) Hep C Antibody Reactive(A ) Negative 07/26/2022 10:34 EDT [facility] Comment: Supplemental testing for HCV RNA is ordered to rule out active HCV infection. Blood VENOUS BLOOD / Unknown 07/24/2022 11:40 EDT 07/25/2022 19:07 EDT us Provider Outr Resulting Lab CHEMISTRY & BLOOD GA S ORDERABLES Final Result Performing Organization Address [facility] Co de Phone Number [facility] [address] [place] [address] documented in this encounter Visit Diagnoses Not on filedocumented in this encounter Care Teams Paper Tube Grader Relationship Specialty Start Date End Date Yary Prater NP [address] [place] [address] PCP - General Family Medicine - Primary Care 04/07/22 documented as of this encounter
--- OUTSIDE RECORDS SUMMARY | 2024-05-07 12:24 | XMS_ITS | Encounter Summary ---
Author Organization [facility] Address [address] [place] [address] Care Team Providers Care Public Transit Trolley Driver Name Role Phone Kristopher Bearden MD Primary Care Provider Ashwini e Encounter Details Date Type Department Care Team (Late st Contact Info) Description 10/17/2004 Results Only [facility] - Maple conversion [address] [place] [address] Chyna Rosado, [facility] [address] [place] [address] [place] [id number] Social History Tobacco Use Types Packs/Day Years [...] Priority Date/Time Associated Diagnosis Comments CYTOPATHOLOGY Routine 10/17/2004 0:00 EDT documented in this encounter Results * CYTOPATHOLOGY (10/17/2004 0:00 EDT) Pathology Report: CYTOPATHOLOGY REPORT Reports generated via electronic interface contain original data; however they are lacking the format of the original report. Caution should be taken when reading/interpreti ng unformatted reports. Name: ? YOLANDA OLMOS ? Accession #: ? [id number] : ? 1990 (Age: 14) ??F ?Collect Date: ? 10/17/2004 Location: ? [facility] ? Receive Date: ? 10/18/2004 Provider: ?CHYNA ROSADO SHORT ORDER FRY COOK Copy to: ? Specimen/Source: ?ThinPrep Pap Test, Cervix/Endocervix, processed on [email or web address] ThinPrep Imaging System, with manual evaluation Last Menstrual Period: ? 10/14/04 Other: ? Additional clinical information: 1st pap HPVA - HPV testing requested if ASC-US on the current ThinPrep Pap test. ? SPECIMEN ADEQUACY ? Satisfactory for Evaluation - transformation zone component present GENERAL CATEGORIZATION ? Negative for Intraepithelial Lesion or Malignancy INTERPRETATION ? Reactive cellular changes associated with inflammation present (includes repair). Shift in madeline present suggestive of bacterial vaginosis. ? Document reviewed and electronically signed by: ? ZAIN MARIA MD ? Report Date: ??10/31/2004 12:21 End of Report GREG DAIGLE 10/17/2004 10/18/2004 us Chyna Rosado SHORT ORDER FRY COOK PATHOLOGY ORDERABLES Final R esult [facility] [address] [place] [address] documented in this encounter Visit Diagnoses Not on filedocumented in this encounter Care Teams Public Transit Trolley Driver Relationship Specialty Start Date End Date Kristopher Bearden MD PCP - General 12/14/09 08/24/15 documented as of this encounter
--- OUTSIDE RECORDS SUMMARY | 2024-05-07 12:24 | XMS_ITS | Encounter Summary ---
Author Organization [facility] Address [address] [place] [address] Care Team Providers Care Group Segment Consultant Name Role Phone Kristopher Bearden MD Primary Care Provider Unavailabl e Encounter Details Date Type Department Care Team (Late st Contact Info) Description 11/05/2011 Results Only [facility] - [facility] ([address] [address] Erika Lopez, REPACKER Social History Tobacco Use Types Packs/Day Years [...] Diagnosis Comments PAP TEST- RESULT ONLY Routine 11/05/2011 0:00 EDT documented in this encounter Results * PAP TEST- RESULT ONLY (11/05/2011 0:00 EDT) Pathology Report: CYTOPATHOLOGY REPORT Reports generated via electronic interface contain original data; however they are lacking the format of the original report. Caution should be taken when reading/interpreti ng unformatted reports. Name: ? OLMOSYOLANDA VERA ? Accession #: ? [id number] ? : ? 1990 (Age: 21) ??F ?Collect Date: ? 11/05/2011 ? Location: ? [facility] ? Receive Date: ? 11/06/2011 ? Provider: ERIKA LOPEZ NP Copy to: ? Final Report SPECIMEN ADEQUACY ? Satisfactory for Evaluation - transformation zone component present GENERAL CATEGORIZATION ? Epithelial Cell Abnormality INTERPRETATION ? Squamous Cell Abnormality - Atypical squamous cells, undetermined significance (ASC-US). EDUCATIONAL NOTES/RECOMMENDATI ONS ? [facility] recommends following the 2006 Consensus Guidelines for the Management of Women with Abnormal Cervical Cancer Screening Tests (JLGTD, 2007;11(4):201-222 ). ??Consensus guidelines are available online at www.ASCCP.org. Last Menstural Period: 10/03/11 Previous Gynecologic Pathology: ASC-US: with -HPV 12/2009 Specimen/Source: ??Pap Test, Cervix/Endocervix, ThinPrep Imaging System with manual evaluation Document reviewed and electronically signed by: ? AMAURI WASSERMAN MD [facility] ? Report ??Date: 11/14/2011 18:02 HPV with Pap Test ? Date Ordered: ? 11/14/2011 ? Status: ?? Signed Out ?Date Complete: ? 11/20/2011 ? By: ??System Interface ? Date Reported: ? 11/20/2011 ? 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 E6 OR E7 mRNA from one or more types of HPV types 16,18,31, 33,35,39,45,51,52, 56,58,59,66, and 68 is detected by orthophoto tech/draftsman mediated amplification. High and intermediate risk HPV types are associated with most squamous intraepithelial lesions and cervical cancers. Comments Document reviewed and electronically signed by: ? System Interface ? Report date: 11/20/2011 By the signature above, the attending physician certifies that he/she has personally conducted a gross and/or microscopic examination of the described specimens and rendered or confirmed the above diagnosis. End of Report GREG DAIGLE 11/05/2011 11/06/2011 us Erika Lopez REPACKER PATHOLOGY ORDERABLES Final Re sult [facility] [address] [place] [address] documented in this encounter Visit Diagnoses Not on filedocumented in this encounter Care Teams Group Segment Consultant Relationship Specialty Start Date End Date Kristopher Bearden MD PCP - General 12/14/09 08/24/15 documented as of this encounter
--- OUTSIDE RECORDS SUMMARY | 2024-05-07 12:24 | XMS_ITS | Clinical Summary ---
Author Organization [facility] Address [address] [place] [address] Care Team Providers Care Resource Teacher Name Role Phone Yary Prater CAR TRACER Primary Care Provider [phone] Social History Tobacco Use Types Packs/Day Years Used Date Smoking Tobacco: Never Assessed Interpersonal Safety Answer Date Record ed Physically Hurt Never 11/07/2019 Verbally Threaten Not on file 11/07/2019 Comments Unknown Sex and Gender Information Value Date Recorded Sex Assigned at Not on file Legal Sex Female 18:36 EST Gender Identity Female 08/10/2021 8:55 EDT Sexual Orientation Not on file Plan of Treatment Health Maintenance Due Date Last Done Comments Hepatitis B Vaccine (1 of 3 - 19+ 3-dose series) 2008 COVID-19 Vaccine (2023-2 5 season) 2023 Hepatitis C Screen Completed 07/24/2022, 0 07/24/2022, 08/10/2021, Additional history exists Procedures Procedure Name Priority Date/Time Associated Diagnosis Comments HEPATITIS C AB W REFLEX TO HCV RNA BY PCR Today 07/24/2022 11:40 EDT from Last 3 Months or Most Recently Relevant to Health Maintenance Results * (ABNORMAL) HEPATITIS C AB W REFLEX TO HCV RNA BY PCR (07/24/2022 11:40 EDT) Hep C Antibody Reactive(A ) Negative 07/26/2022 10:34 EDT [facility] Comment: Supplemental testing for HCV RNA is ordered to rule out active HCV infection. Blood VENOUS BLOOD / Unknown 07/24/2022 11:40 EDT 07/25/2022 19:07 EDT us Provider Outr Resulting Lab CHEMISTRY & BLOOD GA S ORDERABLES Final Result [facility] [address] [place] [address] from Last 3 Months or Most Recently Relevant to Health Maintenance Insurance MEDICAID ACO [place] [facility] [place] Address: [address] [address] [facility] [place] Address: [address] [address] Care Teams Resource Teacher Relationship Specialty Start Date End Date Yary Prater NP [facility] [place] [address] PCP - General Family Medicine - Primary Care 04/07/22
--- OUTSIDE RECORDS SUMMARY | 2024-05-07 12:24 | XMS_ITS | Encounter Summary ---
Author Organization [facility] Address [address] [place] [address] Care Team Providers Care Disk And Tape Machine Tender Name Role Phone Kristopher Bearden MD Primary Care Provider Unavailabl e Encounter Details Date Type Department Care Team (Latest Contact Info) Description 08/21/2015 7:16 EDT - 08/21/2015 23:59 EDT Hospital Encounter [address] [address] Unknown, Provider, Discharge Disposition: Home or Self [...] Code Departure Means Destination Home or Self Senior Care documented in this encounter Plan of Treatment Not on file documented as of this encounter Visit Diagnoses Not on filedocumented in this encounter Care Teams Disk And Tape Machine Tender Relationship Specialty Start Date End Date Kristopher Bearden MD PCP - General 12/14/09 08/24/15 documented as of this encounter
--- OUTSIDE RECORDS SUMMARY | 2024-05-07 12:24 | XMS_ITS | Encounter Summary ---
Author Organization [facility] Address [address] [place] [address] Care Team Providers Care Field Kiln Burner Name Role Phone Kristopher Bearden MD Primary Care Provider Unavailabl e Encounter Details Date Type Department Care Team (Late st Contact Info) Description 05/04/2014 Results Only [facility] - [facility] ([facility] [address] [place], [place] [address] You Che CNM [address] [place], [place] [address] Social History Tobacco Use Types Packs/Day Years [...] Diagnosis Comments PAP TEST- RESULT ONLY Routine 05/04/2014 0:00 EST documented in this encounter Results * PAP TEST- RESULT ONLY (05/04/2014 0:00 EST) Pathology Report: CYTOPATHOLOGY REPORT Reports generated via electronic interface contain original data; however they are lacking the format of the original report. Caution should be taken when reading/interpreti ng unformatted reports. Name: ? YOLANDA FRASER ? Accession #: ? [id number] ? : ? 1990 (Age: 24) ??F ?Collect Date: ? 05/04/2014 ? Location: ? [facility] ? Receive Date: ? 05/05/2014 ? Provider: YOU CHE CNM Copy to: ? Final Report SPECIMEN ADEQUACY ? Satisfactory for Evaluation - transformation zone component present GENERAL CATEGORIZATION ? Epithelial Cell Abnormality INTERPRETATION ? Squamous Cell Abnormality - High grade squamous intraepithelial lesion (HSIL). EDUCATIONAL NOTES/RECOMMENDATI ONS ? [facility] recommends following ASCCP's 2012 Updated Consensus Guidelines for the Management of Abnormal Cervical Cancer Screening Tests and Cancer Precursors (JLGTD, 2013; 17(5):S1-S27). ??Consensus guidelines are available online at www.asccp.org. Last Menstrual Period: 03/16/14 Previous Gynecologic Pathology: ASC-US: 07/07/13 HPV: + 07/07/13 Specimen/Source: ??Pap Test, Cervix/Endocervix, ThinPrep Imaging System with manual evaluation Document reviewed and electronically signed by: ? NEELAM DAVIS MD ? Report ??Date: 05/17/2014 15:02 HPV with Pap Test ? Date Ordered: ? 05/17/2014 ? Status: ?? Signed Out ?Date Complete: ? 05/18/2014 ? By: ??System Interface ? Date Reported: ? 05/18/2014 ? 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 E6 OR E7 mRNA from one or more types of HPV types 16,18,31, 33,35,39,45,51,52, 56,58,59,66, and 68 is detected by bead filler mediated amplification. High and intermediate risk HPV types are associated with most squamous intraepithelial lesions and cervical cancers. Comments Document reviewed and electronically signed by: ? System Interface ? Report date: 05/18/2014 By the signature above, the attending physician certifies that he/she has personally conducted a gross and/or microscopic examination of the described specimens and rendered or confirmed the above diagnosis. End of Report [facility] 05/04/2014 05/05/2014 us You Che [facility] PATHOLOGY ORDERABLES Final Resul t [facility] [address] [place] [address] documented in this encounter Visit Diagnoses Not on filedocumented in this encounter Care Teams Field Kiln Burner Relationship Specialty Start Date End Date Kristopher Bearden MD PCP - General 12/14/09 08/24/15 documented as of this encounter
--- OUTSIDE RECORDS SUMMARY | 2024-05-07 12:24 | XMS_ITS | Encounter Summary ---
Author Organization [facility] Address [address] [place] [address] Care Team Providers Care Audit Associate Name Role Phone Rula Perez GABBY Primary Care Provider [phone] Encounter Details Date Type Department Care Team (Late st Contact Info) Description 11/03/2018 Orders Only [facility] - [address] [address] Yenifer Yip MD [address] [place] [address], NICU, [place], Level [address] [place] [address] Screening examination for STD (sexually transmitted disease) (Primary Dx) Social History Tobacco Use Types [...] documented as of this encounter Results * HERPES SIMPLEX VIRUS (HSV) TYPE 1 & 2 AB, IGG (11/03/2018 17:08 EDT) HSV Type 1 Ab, IgG Positive 11/04/2018 11:20 EDT [facility] Comment: 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 Blood specimen (specimen) BLOOD SPECIMEN / Unknown 11/03/2018 17:08 EDT 11/03/2018 17:16 EDT Ziggy Grajeda ZAIDA NAMP IMMUNOLOGY AND S EROLOGY ORDERABLES Final Result Performing Organization Address [facility] Co de Phone Number [facility] [address] [place] [address] * HSV AB SCREEN, IGM (11/03/2018 17:08 EDT) HSV Ab Screen, IgM Negative Negative 2018 8:14 EDT [facility] Comment: (Note) . ADDITIONAL INFORMATION This test has been modified from the horizontal boring mill set up operator's instructions. Its performance characteristics were determined by [facility] in a manner consistent with CLIA requirements. This test has not been cleared or approved by the U.S. Food and Drug Administration. Performed by: [facility]: [facility] [address], [place] [address] BLOOD SPECIMEN / Unknown 11/03/2018 17:08 EDT 11/03/2018 17:16 EDT Ziggy BROWER IMMUNOLOGY AND S EROLOGY ORDERABLES Final Result Performing Organization Address [facility] Co de Phone Number [facility] [address] [place] [address] documented in this encounter Visit Diagnoses Diagnosis Screening examination for STD (sexually transmitted disease)- Primary Screening examination for venereal disease documented in this encounter Care Teams Audit Associate Relationship Specialty Start Date End Date Rula Perez [place] [address] PCP - General 08/25/15 04/06/22 documented as of this encounter
--- OUTSIDE RECORDS SUMMARY | 2024-05-07 12:24 | XMS_ITS | Encounter Summary ---
Author Organization [facility] Address [address] [place] [address] Care Team Providers Care Tree Fruit And Nut Crops Farmer Name Role Phone Rula Perez STAVE INSPECTOR Primary Care Provider [phone] Encounter Details Date Type Department Care Team (Late st Contact Info) Description 05/11/2018 Results Only [facility]- [facility] [phone] [place] [address] Social History Tobacco Use Types Packs/Day Years [...] Diagnosis Comments PAP TEST- RESULT ONLY Routine 05/11/2018 0:00 EST documented in this encounter Results * PAP TEST- RESULT ONLY (05/11/2018 0:00 EST) Pathology Report: CYTOPATHOLOGY REPORT Reports generated via electronic interface contain original data; however they are lacking the format of the original report. Caution should be taken when reading/interpreti ng unformatted reports. Name: ? YOLANDA FRASER ? Accession #: ? [id number] ? : ? 1990 (Age: 28) ??F ?Collect Date: ? 05/11/2018 ? Location: ? [facility] ? Receive Date: ? 05/12/2018 ? Provider: FANTA ESCALERA CNM Copy to: RULA ABDULLAHI STAVE INSPECTOR ? Final Report SPECIMEN ADEQUACY ? Satisfactory for Evaluation - transformation zone component present GENERAL CATEGORIZATION ? Epithelial Cell Abnormality INTERPRETATION ? 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 EDUCATIONAL NOTES/RECOMMENDATI ONS ? [facility] recommends following ASCCP's 2012 Updated Consensus Guidelines for the Management of Abnormal Cervical Cancer Screening Tests and Cancer Precursors (JLGTD, 2013; 17(5):S1-S27). ??Consensus guidelines are available online at www.asccp.org. Menstrual/Pregnanc y Status: ??: 11 Weeks Previous Gynecologic Pathology: HSIL: 04/18/16, 12/16/16 HPV: postive PAN: High grade Dysplasia 05/06/2017 RAMONA II: 02/19/2017 Specimen/Source: ??Pap Test, Endocervix, ThinPrep Imaging System with manual evaluation Document reviewed and electronically signed by: ? NEELAM DAVIS MD ? Report ??Date: 05/20/2018 11:39 HPV with Pap Test ? Date Ordered: ? 05/20/2018 ? Status: ?? Signed Out ?Date Complete: ? 05/21/2018 ? By: ??System Interface ? Date Reported: ? 05/21/2018 ? Interpretation RESULT: POSITIVE FOR HIGH OR INTERMEDIATE RISK HPV. E6 OR E7 mRNA from one or more types of HPV types 16,18,31, 33,35,39,45,51,52, 56,58,59,66, and 68 is detected by outer diameter technician mediated amplification. High and intermediate risk HPV types are associated with most squamous intraepithelial lesions and cervical cancers. Comments Document reviewed and electronically signed by: ? System Interface ? Report date: 05/21/2018 By the signature above, the attending physician certifies that he/she has personally conducted a gross and/or microscopic examination of the described specimens and rendered or confirmed the above diagnosis. End of Report [facility] 05/11/2018 05/12/2018 us Fanta Escalera [facility] PATHOLOGY ORDERABLES Final Re sult Performing Organization Address City/State/[facility] Co de Phone Number [facility] [address] [place] [address] documented in this encounter Visit Diagnoses Not on filedocumented in this encounter Care Teams Tree Fruit And Nut Crops Farmer Relationship Specialty Start Date End Date Rula Perez [place] [address] [place] [address] PCP - General 08/25/15 04/06/22 documented as of this encounter
--- OUTSIDE RECORDS SUMMARY | 2024-05-07 12:24 | XMS_ITS | Encounter Summary ---
Author Organization [facility] Address [address] [place] [address] Care Team Providers Care Scale Technician Name Role Phone Kristopher Bearden MD Primary Care Provider Unavailabl e Encounter Details Date Type Department Care Team (Late st Contact Info) Description 07/07/2013 Results Only [facility] [phone] Boubacar Cowart, [address] [phone] Social History Tobacco Use Types Packs/Day Years [...] Diagnosis Comments PAP TEST- RESULT ONLY Routine 07/07/2013 0:00 EDT documented in this encounter Results * PAP TEST- RESULT ONLY (07/07/2013 0:00 EDT) Pathology Report: CYTOPATHOLOGY REPORT Reports generated via electronic interface contain original data; however they are lacking the format of the original report. Caution should be taken when reading/interpreti ng unformatted reports. Name: ? YOLANDA FRASER ? Accession #: ? [id number] ? : ? 1990 (Age: 23) ??F ?Collect Date: ? 07/07/2013 ? Location: ? [facility] ? Receive Date: ? 07/09/2013 ? Provider: BOUBACAR COWART CNM Copy to: ? Final Report SPECIMEN ADEQUACY ? Satisfactory for Evaluation - transformation zone component absent GENERAL CATEGORIZATION ? Epithelial Cell Abnormality INTERPRETATION ? Squamous Cell Abnormality - Atypical squamous cells, undetermined significance (ASC-US). Fungal organisms present morphologically consistent with Kimberley species. EDUCATIONAL NOTES/RECOMMENDATI ONS ? [facility] recommends following ASCCP's 2012 Updated Consensus Guidelines for the Management of Abnormal Cervical Cancer Screening Tests and Cancer Precursors (JLGTD, 2013; 17(5):S1-S27). ??Consensus guidelines are available online at www.asccp.org. Last Menstrual Period: 04/21/13 Menstrual/Pregnanc y Status: ?? Previous Gynecologic Pathology: ASC-US: 11/05/11, 12/2009 HPV: + 11/05/11, - 12/2009 Specimen/Source: ??Pap Test, Cervix/Endocervix, ThinPrep Imaging System with manual evaluation Document reviewed and electronically signed by: ? AMAURI WASSERMAN MD [facility] ? Report ??Date: 07/16/2013 17:38 HPV with Pap Test ? Date Ordered: ? 07/16/2013 ? Status: ?? Signed Out ?Date Complete: ? 07/20/2013 ? By: ??System Interface ? Date Reported: ? 07/20/2013 ? 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 E6 OR E7 mRNA from one or more types of HPV types 16,18,31, 33,35,39,45,51,52, 56,58,59,66, and 68 is detected by tapper shank mediated amplification. High and intermediate risk HPV types are associated with most squamous intraepithelial lesions and cervical cancers. Comments Document reviewed and electronically signed by: ? System Interface ? Report date: 07/20/2013 By the signature above, the attending physician certifies that he/she has personally conducted a gross and/or microscopic examination of the described specimens and rendered or confirmed the above diagnosis. End of Report [facility] 07/07/2013 07/09/2013 us Boubacar Cowart CNM PATHOLOGY ORDERABLES F inal Result [facility] [address] [place] [address] documented in this encounter Visit Diagnoses Not on filedocumented in this encounter Care Teams Scale Technician Relationship Specialty Start Date End Date Kristopher Bearden MD PCP - General 12/14/09 08/24/15 documented as of this encounter
--- OUTSIDE RECORDS SUMMARY | 2024-05-07 12:24 | XMS_ITS | Encounter Summary ---
Author Organization [facility] Address [address] [place] [address] Care Team Providers Care Compounder Name Role Phone Rula Perez FARM EQUIPMENT OPERATOR Primary Care Provider [phone] Encounter Details Date Type Department Care Team (Late st Contact Info) Description 12/18/2018 Results Only [facility] [phone] Kaila Lopez MD [address] [place] [phone] Social History Tobacco Use Types Packs/Day Years [...] Diagnosis Comments PAP TEST- RESULT ONLY Routine 12/18/2018 0:00 EDT documented in this encounter Results * PAP TEST- RESULT ONLY (12/18/2018 0:00 EDT) Pathology Report: CYTOPATHOLOGY REPORT Reports generated via electronic interface contain original data; however they are lacking the format of the original report. Caution should be taken when reading/interpreti ng unformatted reports. Name: ? YOLANDA FRASER ? Accession #: ? [id number] ? : ? 1990 (Age: 28) ??F ?Collect Date: ? 12/18/2018 ? Location: ? [facility] ? Receive Date: ? 12/21/2018 ? Provider: KAILA LOPEZ MD Copy to: RULA PEREZ FARM EQUIPMENT OPERATOR ? Final Report SPECIMEN ADEQUACY ? Satisfactory for Evaluation - transformation zone component present GENERAL CATEGORIZATION ? Epithelial Cell Abnormality INTERPRETATION ? Squamous Cell Abnormality - Low grade squamous intraepithelial lesion (LSIL). EDUCATIONAL NOTES/RECOMMENDATI ONS ? [facility] recommends following ASCCP's 2012 Updated Consensus Guidelines for the Management of Abnormal Cervical Cancer Screening Tests and Cancer Precursors (JLGTD, 2013; 17(5):S1-S27). ??Consensus guidelines are available online at www.asccp.org. Previous Gynecologic Pathology: ASC-US: 05/26 Specimen/Source: ??Pap Test, Cervix/Endocervix, ThinPrep Imaging System with manual evaluation Document reviewed and electronically signed by: ? ZOEY BORRERO MD ? Report ??Date: 12/24/2018 14:44 HPV with Pap Test ? Date Ordered: ? 12/24/2018 ? Status: ?? Signed Out ?Date Complete: ? 12/25/2018 ? By: ??System Interface ? Date Reported: ? 12/25/2018 ? Interpretation RESULT: POSITIVE FOR HIGH OR INTERMEDIATE RISK HPV. E6 OR E7 mRNA from one or more types of HPV types 16,18,31, 33,35,39,45,51,52, 56,58,59,66, and 68 is detected by gill box fixer mediated amplification. High and intermediate risk HPV types are associated with most squamous intraepithelial lesions and cervical cancers. Comments Document reviewed and electronically signed by: ? System Interface ? Report date: 12/25/2018 By the signature above, the attending physician certifies that he/she has personally conducted a gross and/or microscopic examination of the described specimens and rendered or confirmed the above diagnosis. End of Report [facility] 12/18/2018 12/21/2018 us Kaila Lopez MD PATHOLOGY ORDERABLES Final Resul t [facility] [address] [place] [address] documented in this encounter Visit Diagnoses Not on filedocumented in this encounter Care Teams Compounder Relationship Specialty Start Date End Date Rula Perez [place] [address] [place] [address] PCP - General 08/25/15 04/06/22 documented as of this encounter
--- OUTSIDE RECORDS SUMMARY | 2024-05-07 12:24 | XMS_ITS | Encounter Summary ---
Author Organization [facility] Address [address] [place] [address] Care Team Providers Care Montessori Teacher Name Role Phone Rula Perez GABBY Primary Care Provider [phone] Encounter Details Date Type Department Care Team (Late st Contact Info) Description 08/10/2021 8:50 EDT Phlebotomy Only [facility] - Outpatient Phlebotomy Drawing [address] [place] [address] Lab, [facility]le[facility] Opioid type dependence, continuous (HCC-CMS) (Primary Dx); Screening for human immunodeficiency virus Social History Tobacco Use Types Packs/Day Years [...] Priority Date/Time Associated Diagnosis Comments HCV RNA QUANT WITH REFLEX TO GENOTYPE Today 08/10/2021 9:17 EDT Opioid type dependence, continuous (HCC-CMS) Screening for human immunodeficiency virus HEPATITIS B SCREEN Routine 08/10/2021 9: 17 EDT Opioid type dependence, continuous (HCC-CMS) Screening for human immunodeficiency virus HEPATITIS C AB W REFLEX TO HCV RNA BY PCR Add-On 08/10/2021 9:17 EDT Opioid type dependence, continuous (HCC-CMS) Screening for human immunodeficiency virus HEPATITIS B CORE ANTIBODY (TOTAL) Routine 08/10/2021 9:17 EDT Opioid type dependence, continuous (HCC-CMS) Screening for human immunodeficiency virus HEPATITIS B SURFACE ANTIBODY Routine 08/10/2021 9:17 EDT Opioid type dependence, continuous (HCC-CMS) Screening for human immunodeficiency virus HEPATITIS B SURFACE ANTIGEN Routine 08/10/2021 9:17 EDT Opioid type dependence, continuous (HCC-CMS) Screening for human immunodeficiency virus COMPLETE BLOOD COUNT AND DIFFERENTIAL Routine 08/10/2021 9:17 EDT Opioid type dependence, continuous (HCC-CMS) Screening for human immunodeficiency virus HIV 1/2 ANTIGEN AND ANTIBODY, 4TH GENERATION Routine 08/10/2021 9:17 EDT Opioid type dependence, continuous (HCC-CMS) Screening for human immunodeficiency virus COMPREHENSIVE METABOLIC PANEL (CMP) Routine 08/10/2021 9:17 EDT Opioid type dependence, continuous (HCC-CMS) Screening for human immunodeficiency virus documented in this encounter Results * HCV RNA QUANT WITH REFLEX TO GENOTYPE (08/10/2021 9:17 EDT) HCV RNA Qualitative Undetected Undetected 08/13/2021 12:34 EDT [facility] Blood VENOUS BLOOD / Unknown Venipuncture / Unknown 08/10/2021 9:17 EDT 08/10/2021 19:03 EDT Narrative [facility] - 08/13/2021 12:34 EDT Hepatitis C Virus Genotype Not Performed. ??Specimens for HCV Genotype assay MUST have a viral load of greater than or equal to 500 IU/mL. The quantification range of this assay is 15 IU/mL to 100,000,000 IU/mL. Testing was performed using the Alla HCV test ([employer] with the alla 6800 System. Mikal Landa MD CHEMISTRY & BLOOD GAS ANUP DÍAZ Final Result Performing Organization Address [facility] Co de Phone Number [facility] [address] [place] [address] * (ABNORMAL) HEPATITIS C AB W REFLEX TO HCV RNA BY PCR (08/10/2021 9:17 EDT) Hep C Antibody Reactive(A ) Negative 08/10/2021 19:03 EDT [facility] Blood VENOUS BLOOD / Unknown Venipuncture / Unknown 08/10/2021 9:17 EDT 08/10/2021 9:54 EDT Mikal Landa MD CHEMISTRY & BLOOD GAS ANUP DÍAZ Final Result Performing Organization Address [facility] Co de Phone Number [facility] [address] [place] [address] * HEPATITIS B CORE ANTIBODY (TOTAL) (08/10/2021 9:17 EDT) Pathologist [facility] Hepatitis B Core Ab, Total Negative Negative 08/13/2021 11:37 EDT [facility] Blood VENOUS BLOOD / Unknown Venipuncture / Unknown 08/10/2021 9:17 EDT 08/10/2021 9:54 EDT Mikal Landa MD CHEMISTRY & BLOOD GAS ANUP DÍAZ Final Result Performing Organization Address [facility] Co de Phone Number [facility] [address] [place] [address] * HEPATITIS B SURFACE ANTIGEN (08/10/2021 9:17 EDT) Pathologist [facility] Hep B Surface Ag Negative Negative 08/11/19 11:21 EDT [facility] Comment: Expected values: Negative The results of this assay can be falsely lowered due to the consumption of Biotin. Blood VENOUS BLOOD / Unknown Venipuncture / Unknown 08/10/2021 9:17 EDT 08/10/2021 9:54 EDT Mikal Landa MD CHEMISTRY & BLOOD GAS ANUP DÍAZ Final Result Performing Organization Address [facility] Co de Phone Number [facility] [address] [place] [address] * HEPATITIS B SURFACE ANTIBODY (08/10/2021 9:17 EDT) Pathologist [facility] Hep B Surface Ab, Quantitative 0.9 See Note mIU/mL 08/10/2021 11:21 EDT [facility] Comment: Clinical Interpretation of Immune Status: Patient is considered to be not immune to infection with HBV. The results of this assay can be falsely lowered due to the consumption of Biotin. Reference Range for Hep B Surface Ab, Quant: Positive: ?>= 12.00 mIU/mL Negative: ?< 5.00 mIU/mL Indeterminate: ??>= 5.00 mIU/mL and < 12.00 mIU/mL Blood VENOUS BLOOD / Unknown Venipuncture / Unknown 08/10/2021 9:17 EDT 08/10/2021 9:54 EDT Mikal Landa MD CHEMISTRY & BLOOD GAS ANUP DÍAZ Final Result Performing Organization Address [facility] de Phone Number [facility] [address] [place] [address] * (ABNORMAL) COMPREHENSIVE METABOLIC PANEL (CMP) (08/10/2021 9:17 EDT) [facility] Sodium 139 136 - 145 mmol/L 08/10/2021 10:28 EDT [facility] Potassium 4.6 3.5 - 5.0 mmol/L 08/10/2021 10:28 EDT [facility] Chloride 107 96 - 110 mmol/L 08/10/2021 10:28 EDT [facility] CO2 Total 23 22 - 32 mmol/L 08/10/2021 10:28 EDT [facility] Glucose 79 70 - 100 mg/dL 08/10/2021 10:28 EDT [facility] BUN 10 10 - 26 mg/dL 08/10/2021 10:28 [facility] Creatinine 0.59 0.52 - 1.04 mg/dL 08/10/2021 10:28 [facility] eGFR 123 >60 mL/min/1.7 3m2 08/10/2021 10:28 [facility] Total Protein 8.4(H) 6.3 - 8.2 g/dL 08/10/2021 10:28 [facility] Albumin 4.7 3.4 - 4.9 g/dL 08/10/2021 10:28 [facility] Alkaline Phosphatase 52 38 - 126 U/L 08/10/2021 10:28 [facility] AST 23 15 - 46 U/L 08/10/2021 10:28 [facility] ALT 13 <35 U/L 08/10/2021 10:28 [facility] Bilirubin, Total <0.2 <1.4 mg/dL 08/11/19 10:28 [facility] Calcium 9.0 8.5 - 10.5 mg/dL 08/10/2021 10:28 [facility] Albumin/Globulin Ratio 1.3 1.0 - 2.5 08/10/2021 10:28 [facility] Anion Gap 9 5 - 14 08/10/2021 10:28 [facility] Blood VENOUS BLOOD / Unknown Venipuncture / Unknown 08/10/2021 9:17 EDT 08/10/2021 9:54 EDT us Mikal Landa MD CHEMISTRY & BLOOD GAS ANUP DÍAZ Final Result [facility] [address] [place] [address] * HIV 1/2 ANTIGEN AND ANTIBODY, 4TH GENERATION (08/10/2021 9:17 EDT) Pathologist [facility] HIV 1 and 2 Antibody/p24 Antigen, 4th Generation Negative Negative 08/10/2021 11:05 [facility] Comment:If acute HIV-1 infec tion is suspected in a high risk patient, submit plasma specimen for HIV-1 RNA quantitation test. Blood VENOUS BLOOD / Unknown Venipuncture / Unknown 08/10/2021 9:17 EDT 08/10/2021 9:54 EDT us Mikal Landa MD IMMUNOLOGY AND SEROLOGY OR DERABLES Final Result Performing Organization Address City/State/[facility] Co de Phone Number [facility] [address] [place] [address] * (ABNORMAL) COMPLETE BLOOD COUNT AND DIFFERENTIAL (08/10/2021 9:17 EDT) WBC 5.93 4.00 - 12.40 K/cmm 08/10/2021 9:35 [facility] RBC 5.05(H) 3.86 - 5.04 M/cmm 08/10/2021 9:35 [facility] Hemoglobin 15.0 11.6 - 15.2 gm/dL 08/10/2021 9:35 [facility] HCT 44.7(H) 34.9 - 44.4 % 08/10/2021 9:35 [facility] MCV 89 81 - 98 fl 08/10/2021 9:35 [facility] MCH 29.7 26.7 - 33.3 pg 08/10/2021 9:35 [facility] MCHC 33.6 32.1 - 35.9 gm/dL 08/10/2021 9:35 [facility] RDW-CV 14.1 <14.7 % 08/10/2021 9:35 [facility] RDW-SD 45.4 <50.4 fl 08/10/2021 9:35 [facility] PLT 293 141 - 377 K/cmm 08/10/2021 9:35 [facility] MPV 9.3(L) 9.5 - 12.7 fl 08/10/2021 9:35 [facility] % Neutrophils 55.0 % 08/10/2021 9:35 [facility] % Lymphocytes 29.0 % 08/10/2021 9:35 [facility] % Monocytes 7.8 % 08/10/2021 9:35 [facility] % Eosinophils 7.4 % 08/10/2021 9:35 [facility] % Basophils 0.5 % 08/10/2021 9:35 [facility] % Immature Grans 0.3 % 08/11/19 9:35 [facility] Absolute Neutrophils 3.26 2.20 - 8.85 K/cmm 08/10/2021 9:35 [facility] Absolute Lymphocytes 1.72 1.09 - 3.30 K/cmm 08/10/2021 9:35 [facility] Absolute Monocytes 0.46 0.10 - 0.80 K/cmm 08/10/2021 9:35 [facility] Absolute Eosinophils 0.44 0.03 - 0.61 K/cmm 08/10/2021 9:35 [facility] ABS Basophils 0.03 0.01 - 0.11 K/cmm 08/10/2021 9:35 [facility] Absolute Immature Grans 0.02 0.00 - 0.06 K/cmm 08/10/2021 9:35 [facility] Type of Differential: Auto 08/10/2021 9:35 [facility] Blood VENOUS BLOOD / Unknown Venipuncture / Unknown 08/10/2021 9:17 EDT 08/10/2021 9:31 EDT us Mikal Landa MD PACKAGES & DNA PROBE ORDER MIRTA Final Result [facility] [address] [place] [address] documented in this encounter Visit Diagnoses Diagnosis Opioid type dependence, continuous (HCC-CMS)- Primary Opioid type dependence, continuous Screening for human immunodeficiency virus Special screening examination for other specified viral diseases documented in this encounter Care Teams Montessori Teacher Relationship Specialty Start Date End Date Rula Perez NP [address] [place] [address] PCP - General 08/25/15 04/06/22 documented as of this encounter
--- OUTSIDE RECORDS SUMMARY | 2024-05-07 12:24 | XMS_ITS | Encounter Summary ---
Author Organization [facility] Address [address] [place] [address] Care Team Providers Care Systems Tester Name Role Phone Rula Perez COLLECTION COORDINATOR Primary Care Provider [phone] Encounter Details Date Type Department Care Team (Latest Contact Info) Description 11/02/2018 9:06 EDT - 11/02/2018 23:59 EDT Hospital Encounter [address] [address] Unknown, Provider, MD Discharge Disposition: Home or [...] on filedocumented in this encounter Care Teams Systems Tester Relationship Specialty Start Date End Date Rula Perez [place] [place] [address] PCP - General 08/25/15 04/06/22 documented as of this encounter
--- OUTSIDE RECORDS SUMMARY | 2024-05-07 12:24 | XMS_ITS | Encounter Summary ---
Author Organization [facility] Address [address] [place] [address] Care Team Providers Care Skeins Yarn Examiner Name Role Phone Rula Perez PROTOZOOLOGY TEACHER Primary Care Provider [phone] Encounter Details Date Type Department Care Team (Latest Contact Info) Description 12/18/2018 17:50 EDT - 12/18/2018 23:59 EDT Hospital Encounter [address] [address] Unknown, Provider, MD Discharge Disposition: Home or [...] Code Departure Means Destination Home or Self Shelter documented in this encounter Plan of Treatment Not on file documented as of this encounter Visit Diagnoses Not on filedocumented in this encounter Care Teams Skeins Yarn Examiner Relationship Specialty Start Date End Date Rula Perez [place] [address] [place] [address] PCP - General 08/25/15 04/06/22 documented as of this encounter
--- OUTSIDE RECORDS SUMMARY | 2024-05-07 12:24 | XMS_ITS | Encounter Summary ---
Author Organization [facility] Address [address] [place] [address] Care Team Providers Care Deckhand Crab Boat Name Role Phone Rula Perez SPECIALTY SALES CONSULTANT Primary Care Provider [phone] Encounter Details Date Type Department Care Team (Late st Contact Info) Description 11/03/2018 Phlebotomy Only [address] [address] Fancy Stitcher, Outpatient Screening examination for STD (sexually transmitted disease) [...] Procedure Name Priority Date/Time Associated Diagnosis Comments HERPES SIMPLEX VIRUS (HSV) TYPE 1 & 2 AB, IGG STAT 11/03/2018 17:08 EDT Screening examination for STD (sexually transmitted disease) ZZHSV AB SCREEN, IGM STAT 11/03/2018 17:08 EDT Screening examination for STD (sexually transmitted disease) documented in this encounter Results * HSV AB SCREEN, IGM (11/03/2018 17:08 EDT) HSV Ab Screen, IgM Negative Negative 2018 8:14 EDT [facility] Comment: (Note) . ADDITIONAL INFORMATION This test has been modified from the what job titles mean's instructions. Its performance characteristics were determined by [facility] in a manner consistent with CLIA requirements. This test has not been cleared or approved by the U.S. Food and Drug Administration. Performed by: [facility]: [address], [place] [address] BLOOD SPECIMEN / Unknown 11/03/2018 17:08 EDT 11/03/2018 17:16 EDT Ziggy BROWER IMMUNOLOGY AND S EROLOGY ORDERABLES Final Result Performing Organization Address [facility] Co de Phone Number [facility] [address] [place] [address] * HERPES SIMPLEX VIRUS (HSV) TYPE 1 & 2 AB, IGG (11/03/2018 17:08 EDT) HSV Type 1 Ab, IgG Positive 11/04/2018 11:20 EDT [facility] Comment: 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 HSV Type 2 Ab, IgG Positive 11/04/2018 11:21 EDT [facility] Comment: Indicates the presence of detectable IgG antibody to HSV-2. Blood specimen (specimen) BLOOD SPECIMEN / Unknown 11/03/2018 17:08 EDT 11/03/2018 17:16 EDT Ziggy BROWER IMMUNOLOGY AND S EROLOGY ORDERABLES Final Result Performing Organization Address [facility] Co de Phone Number [facility] [address] [place] [address] documented in this encounter Visit Diagnoses Diagnosis Screening examination for STD (sexually transmitted disease)- Primary Screening examination for venereal disease documented in this encounter Care Teams Deckhand Crab Boat Relationship Specialty Start Date End Date Rula [place] [place] [address] PCP - General 08/25/15 04/06/22 documented as of this encounter
--- OUTSIDE RECORDS SUMMARY | 2024-05-07 12:24 | XMS_ITS | Encounter Summary ---
Author Organization [facility] Address [address] [place] [address] Care Team Providers Care Real Estate Economist Name Role Phone MoiYary leung Erik NUTRITION PROGRAM INSTRUCTOR Primary Care Provider [phone] Encounter Details Date Type Department Care Team (Late st Contact Info) Description 07/25/2022 Lab Requisition [facility] Pathology & Laboratory Medicine - [address] [address] Outr Resulting Lab, Provider Social History Tobacco [...] Procedure Name Priority Date/Time Associated Diagnosis Comments RUBELLA IGG ANTIBODY Routine 07/24/2022 11:40 EDT VARICELLA IGG ANTIBODY Routine 07/24/2022 11:40 EDT documented in this encounter Results * VARICELLA IGG ANTIBODY (07/24/2022 11:40 EDT) Varicella IgG Ab Positive See Note 07/26/2022 10:57 EDT [facility] Comment:Presence of detectab le Varicella Zoster virus IgG antibodies. Blood VENOUS BLOOD / Unknown 07/24/2022 11:40 EDT 07/25/2022 19:07 EDT us Provider Outr Resulting Lab IMMUNOLOGY AND SEROL OGY ORDERABLES Final Result Performing Organization Address [facility] Co de Phone Number [facility] [address] [place] [address] * RUBELLA IGG ANTIBODY (07/24/2022 11:40 EDT) Rubella IgG Ab Positive See Note 07/26/2022 11:07 EDT [facility] Comment:Positive for IgG ant ibodies to Rubella virus. Blood VENOUS BLOOD / Unknown 07/24/2022 11:40 EDT 07/25/2022 19:07 EDT us Provider Outr Resulting Lab CHEMISTRY & BLOOD GA S ORDERABLES Final Result Performing Organization Address [facility] Co de Phone Number [facility] [address] [place] [address] documented in this encounter Visit Diagnoses Not on filedocumented in this encounter Care Teams Real Estate Economist Relationship Specialty Start Date End Date Yary Prater, GABBY [address] [place] [address] PCP - General Family Medicine - Primary Care 04/07/22 documented as of this encounter
--- OUTSIDE RECORDS SUMMARY | 2024-05-07 12:24 | XMS_ITS | Encounter Summary ---
Author Organization [facility] Address [address] [place] [address] Care Team Providers Care Fire Alarm Installer Name Role Phone Rula Perez ESCROW OFFICER Primary Care Provider [phone] Encounter Details Date Type Department Care Team (Late st Contact Info) Description 07/23/2017 Results Only [facility] [phone] Flaquito Light MD [facility] [place] [address] Social History Tobacco Use Types Packs/Day Years [...] Date/Time Associated Diagnosis Comments SURGICAL PATHOLOGY Routine 07/23/2017 20 :36 EDT MISCELLANEOUS TEST, STORDEN Routine 07/23/2017 16:55 EDT documented in this encounter Results * SURGICAL PATHOLOGY (07/23/2017 20:36 EDT) Pathology Report: SURGICAL PATHOLOGY REPORT Reports generated via electronic interface contain original data; however they are lacking the format of the original report. Caution should be taken when reading/interpretin g unformatted reports. Name: ? BRIADOM RODRIGUEZBETH Maddox ? Accession #: ? [id number] ? : ? 1990 (Age: 27) ??F ?Collect Date: ? 07/23/2017 ? Location: ? [facility] ? Receive Date: ? 07/23/2017 ? Provider: FLAQUITO LIGHT MD Copy to: RULA PEREZ ESCROW OFFICER ? Addendum ? Date Ordered: ? 08/20/2017 ? Status: Signed Out ? Date Complete: ? 08/20/2017 ? By: CHELSIE ORNELAS MD ? Date Reported: ? 08/20/2017 ? Addendum Diagnosis POC Aneuploidy Detection (send out to [facility] I Do Now I Don't): - Normal signal pattern. Addendum Comment This addendum is to report the results of aneuploidy testing by FISH send to [facility]. ??The results detected normal signal patters for the chromosomes evaluated. ??This results are inconsistent with a partial hydatidiform mole. ??See complete report for additional details. Document reviewed and electronically signed by: ? CHELSIE ORNELAS MD ? Report date: 08/20/2017 By the signature above, the attending physician certifies that he/she has personally conducted a gross and/or microscopic examination of the described specimens and rendered or confirmed the above diagnosis. Final Report Final Pathologic Diagnosis: INTRAUTERINE CONTENTS, REMOVAL: - Hydropic chorionic villi. See comment. 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 Immunohistochemical stains to exclude a complete hydatiform mole were performed, which showed retained expression is villous stromal cells and trophoblasts, arguing against that diagnosis. ??These findings do not completely exclude a partial hydatidiform mole. ??Additional molecularly studies to exclude a partial mole can be performed upon request. ?? Immunoperoxidase stains were performed on this case to further characterize the lesion. ANTIBODY(CLONE)(BLO CK):RESULT P57 Protein (Kip2) (Kp10, [place]) (1): Retained expression NOTE: ??One or more of the reagents [...] reagents' performance characteristics have been determined by [facility]. ??The positive and negative controls worked appropriately. If immunoperoxidase staining has been performed on alcohol fixed cytology specimens, which has not been fully validated, the assays should be interpreted with caution and correlated with clinical data. ??This laboratory is certified under the Clinical Laboratory Improvement Amendments of 1988 (CLIA-88) as qualified to perform high complexity clinical laboratory testing. Dr. Chelsie Ornelas 07/28/2017 8:43 AM ? Gross Description: ? Received in formalin labelled with proper patient identification (initials B, N) and products of conception are multiple fragments of pink-major to red-brown soft tissue and blood clot (9.0 x 6.5 x 2.8 cm in aggregate). Chorionic villi are identified. No parts are present. Telecommunications Support sections are submitted in 1-3. ROMARIO Garcia (ASCP) 07/24/2017 9:21 AM ? Clinical History: Blighted ovum at 8 wks EGA ? Specimens Received: Products of conception Document reviewed and electronically signed by: ? CHELSIE ORNELAS MD ? Report ??Date: 07/29/2017 08:07 By the signature above, the attending physician certifies that he/she has personally conducted a gross and/or microscopic examination of the described specimens and rendered or confirmed the above diagnosis. SEND OUT TEST SUMMARY REPORT ? Date Ordered: ? 08/07/2017 ? Status: ?? Ordered End of Report [facility] 07/23/2017 20:3 6 EDT 07/23/2017 20:36 EDT us Flaquito Light MD PATHOLOGY ORDERABLES Final Res ult Performing Organization Address [facility] de Phone Number [facility] [address] [place] [address] * MISCELLANEOUS TEST, STORDEN (07/23/2017 16:55 EDT) Test Name Products of Conception POC Aneuploidy Detection, FISH, Paraffin Embedded Tissue 08/07/2017 16:58 EDT [facility] Result See Pathology Scanned Report in PRISM. 08/18/2017 16:43 EDT [facility] Ref Range See Pathology Scanned Report in PRISM. 08/18/2017 16:43 EDT [facility] Ref Lab Test performed by: 08/18/2017 16:43 EDT [facility] Comment: [facility] [place], [place] TOPOGRAPHY UNKNOWN / Unknown 07/23/2017 16:55 EDT 08/07/2017 16:55 EDT Flaquito Light MD CHEMISTRY & BLOOD GAS ORDERABL ES Final Result Performing Organization Address [facility] Co de Phone Number [facility] [address] [place] [address] documented in this encounter Visit Diagnoses Not on filedocumented in this encounter Care Teams Fire Alarm Installer Relationship Specialty Start Date End Date Rula Perez NP [facility] [place] [address] PCP - General 08/25/15 04/06/22 documented as of this encounter
--- OUTSIDE RECORDS SUMMARY | 2024-05-07 12:24 | XMS_ITS | Encounter Summary ---
Author Organization [facility] Address [address] [place] [address] Care Team Providers Care Technical Sales Consultant Name Role Phone Rula Perez NP Primary Care Provider [phone] Encounter Details Date Type Department Care Team (Late st Contact Info) Description 11/03/2018 16:51 EDT - 11/03/2018 23:59 EDT Hospital Encounter [address] [address] Ziggy Grajeda APRN [facility] [address] [facility], [address] [place] [address] Discharge Disposition: Home or Self Care Social History Tobacco Use Types Packs/Day Years Used Date Smoking Tobacco: Never Assessed Comments Unknown Sex and Gender Information Value Date Recorded Sex Assigned at Not on file Legal Sex Female 18:36 EST Gender Identity Female 08/10/2021 8:55 EDT Sexual Orientation Not on file documented as of this encounter Discharge Diagnoses Diagnosis Z11.3 Encounter for screening for infections with a predominantly sexual mode of transmission-Z11.3[ICD-10-CM] documented in this encounter Discharge Disposition Disposition Code Departure Means Destination Home or Self Alf documented in this encounter Plan of Treatment Not on file documented as of this encounter Visit Diagnoses Not on filedocumented in this encounter Care Teams Technical Sales Consultant Relationship Specialty Start Date End Date Rula Perez NP [address] [facility] [address] PCP - General 08/25/15 04/06/22 documented as of this encounter
--- OUTSIDE RECORDS SUMMARY | 2024-05-07 12:24 | XMS_ITS | Encounter Summary ---
Author Organization [facility] Address [address] [place] [address] Care Team Providers Care Script Coordinator Name Role Phone Rula Perez DIGITAL PRINTER Primary Care Provider Encounter Details Date Type Department Care Team (Latest Contact Info) Description 05/06/2017 9:03 EST - 05/06/2017 23:59 EST Hospital Encounter [address] [address] Unknown, Provider, MD Discharge Disposition: Home or [...] Code Departure Means Destination Home or Self Jail documented in this encounter Plan of Treatment Not on file documented as of this encounter Visit Diagnoses Not on filedocumented in this encounter Care Teams Script Coordinator Relationship Specialty Start Date End Date Rula Perez NP [address] [place] [address] PCP - General 08/25/15 04/06/22 documented as of this encounter
--- OUTSIDE RECORDS SUMMARY | 2024-05-07 12:24 | XMS_ITS | Encounter Summary ---
Author Organization [facility] Address [address] [place] [address] Care Team Providers Care Trading Manager Name Role Phone Moi, Yary Valencia CUSTODIAL AIDE Primary Care Provider Encounter Details Date Type Department Care Team (Late st Contact Info) Description 11/02/2022 Lab Requisition [facility] Pathology & Laboratory Medicine - [address] [address] Outr Resulting Lab, Provider Social History Tobacco [...] Name Priority Date/Time Associated Diagnosis Comments HEPATITIS B CORE ANTIBODY (TOTAL) Routine 11/01/2022 10:00 EDT HEPATITIS B SURFACE ANTIBODY Routine 11/01/2022 10:00 EDT documented in this encounter Results * HEPATITIS B SURFACE ANTIBODY (11/01/2022 10:00 EDT) Hep B Surface Ab, Quantitative <3.1 See Note mIU/mL 11/04/2022 15:38 EDT [facility] Comment: Reference Range for Hep B Surface Ab, Quant: Positive: >= 10.0 mIU/mL Negative: ??< 10.0 mIU/mL Patient is presumed to not be immune to infection with Hepatitis B Virus. Hep B Surface Ab, Qualitative Negative See Note 11/04/2022 15:38 EDT [facility] Comment: Reference Range for Hep B Surface Ab, Qual: Unvaccinated: ??Negative Vaccinated: ??Positive Blood VENOUS BLOOD / Unknown 11/01/2022 10:00 EDT 11/02/2022 21:33 EDT us Provider Outr Resulting Lab CHEMISTRY & BLOOD GA S ORDERABLES Final Result Performing Organization Address [facility] Co de Phone Number [facility] [address] [place] [address] * HEPATITIS B CORE ANTIBODY (TOTAL) (11/01/2022 10:00 EDT) Hepatitis B Core Ab, Total Negative Negative 11/04/2022 16:25 EDT [facility] Blood VENOUS BLOOD / Unknown 11/01/2022 10:00 EDT 11/02/2022 21:33 EDT us Provider Outr Resulting Lab CHEMISTRY & BLOOD GA S ORDERABLES Final Result Performing Organization Address [facility] Co de Phone Number [facility] [address] [place] [address] documented in this encounter Visit Diagnoses Not on filedocumented in this encounter Care Teams Trading Manager Relationship Specialty Start Date End Date Yary Prater NP [address] [place] [address] PCP - General Family Medicine - Primary Care 04/07/22 documented as of this encounter
--- OUTSIDE RECORDS SUMMARY | 2024-05-07 12:24 | XMS_ITS | Encounter Summary ---
Author Organization [facility] Address [address] [place] [address] Care Team Providers Care Trashman Name Role Phone Rula Perez ARTIFICIAL BREAST FABRICATOR Primary Care Provider [phone] Encounter Details Date Type Department Care Team (Late st Contact Info) Description 11/02/2018 Results Only [facility] [phone] Kaila Lopez MD [address] [place] [address] Social History Tobacco Use Types Packs/Day Years [...] Date/Time Associated Diagnosis Comments SURGICAL PATHOLOGY Routine 11/02/2018 18 :25 EDT documented in this encounter Results * SURGICAL PATHOLOGY (11/02/2018 18:25 EDT) Pathology Report: SURGICAL PATHOLOGY REPORT Reports generated via electronic interface contain original data; however they are lacking the format of the original report. Caution should be taken when reading/interpretin g unformatted reports. Name: ? YOLANDA FRASER ? Accession #: ? [id number] ? : ? 1990 (Age: 28) ??F ? Collect Date: ? 11/02/2018 ? Location: ? [facility] ? Receive Date: ? 11/03/2018 ? Provider: KAILA LOPEZ MD Copy to: RULA PERZE NP ? Final Pathologic Diagnosis: ROWLEY PLACENTA, 36 WEEKS, DELIVERY: - Placental weight 476 g (50-75th percentile for gestational age). - Acute chorioamnionitis with a inflammatory response in one of three umbilical vessels. - Decidual vasculopathy involving membranes and maternal surface. - Focal intervillous hematoma. - Villous maturation appropriate for gestational age. Document reviewed and electronically signed by: CHELSIE IRENE MD Report ??Date: 11/05/2018 13:26 By the signature above, the attending physician certifies that he/she has personally conducted a gross and/or microscopic examination of the described specimens and rendered or confirmed the above diagnosis. Specimen(s) Received: Placenta Clinical History: IUGR, PTL, 36 weeks Gross Description: ? Received in formalin labelled with proper patient identification (initials B, N) and placenta is a 476 g, 15.0 x 13.0 x 4.0 cm rowley placenta. The 28 cm in length minimally coiled trivessel umbilical cord is eccentrically inserted, 2.0 cm from the nearest disc margin. The cord ranges from 1.0-1.2 cm in diameter and is dull taylor throughout. ? The marginally inserted membranes are opacified thickened major-tyalor. The surface is pale montes de oca and shows normal arborizing vasculature. The cotyledons are well demarcated. Focal tears are present however following reconstruction the tissues appear complete. The basal plate is focally thickened. Sections show a spongy red-purple cut surface without gross lesions. Behavior Therapist sections are submitted as follows: BLOCK GORDON 1-2- ??umbilical cord and membranes 3-4- ??bisected full thickness disc section adjacent to cord insertion site 5-6- ??bisected full thickness central disc section ROMARIO Piña (ASCP) 11/04/2018 9:23 AM End of Report [facility] 11/02/2018 18:2 5 EDT 11/03/2018 18:25 EDT us Kaila Lopez MD PATHOLOGY ORDERABLES Final Resul t [facility] [address] [place] [address] documented in this encounter Visit Diagnoses Not on filedocumented in this encounter Care Teams Trashman Relationship Specialty Start Date End Date Rula Perez [place] [place] [address] PCP - General 08/25/15 04/06/22 documented as of this encounter
--- OUTSIDE RECORDS SUMMARY | 2024-05-07 12:24 | XMS_ITS | Encounter Summary ---
Author Organization [facility] Address [address] [place] [address] Care Team Providers Care Trust Accounts Supervisor Name Role Phone Kristopher Bearden MD Primary Care Provider Unavailabl e Encounter Details Date Type Department Care Team (Late st Contact Info) Description 11/21/2006 Results Only [facility] [address] [place] [address] [place] [address] Social History Tobacco Use Types Packs/Day Years [...] Priority Date/Time Associated Diagnosis Comments CYTOPATHOLOGY Routine 11/21/2006 0:00 EDT documented in this encounter Results * CYTOPATHOLOGY (11/21/2006 0:00 EDT) Pathology Report: CYTOPATHOLOGY REPORT Reports generated via electronic interface contain original data; however they are lacking the format of the original report. Caution should be taken when reading/interpreti ng unformatted reports. Name: ? YOLANDA OMLOS ? Accession #: ? [id number] : ? 1990 (Age: 16) ??F ?Collect Date: ? 11/21/2006 Location: ? [facility] ? Receive Date: ? 11/24/2006 Provider: ?EVA JORGENSENM Copy to: ? Specimen/Source: ?ThinPrep Pap Test, Cervix/Endocervix, processed on [employer] ThinPrep Imaging System, with manual evaluation Last Menstrual Period: ? 09/19/06 Hormonal/Contracep tive Status: ? Intrauterine device: Mirena Previous Gynecologic Pathology: ? ASC-US: 11/08/05 Other: ? Additional clinical information: HPV negative HPVA - HPV testing requested if ASC-US on the current ThinPrep Pap test. ? SPECIMEN ADEQUACY ? Satisfactory for Evaluation - transformation zone component present GENERAL CATEGORIZATION ? Negative for Intraepithelial Lesion or Malignancy ? Document reviewed and electronically signed by: ? CHAD Easley(ASCP) ? Report Date: ??11/27/2006 11:35 End of Report [facility] 11/21/2006 11/24/2006 us Eva Flynn CNM PATHOLOGY ORDERABLES Final Res ult [facility] [address] [place] [address] documented in this encounter Visit Diagnoses Not on filedocumented in this encounter Care Teams Trust Accounts Supervisor Relationship Specialty Start Date End Date Kristopher Bearden MD PCP - General 12/14/09 08/24/15 documented as of this encounter
--- OUTSIDE RECORDS SUMMARY | 2024-05-07 12:24 | XMS_ITS | Encounter Summary ---
Author Organization [facility] Address [address] [place] [address] Care Team Providers Care Food Mixer Repairer Name Role Phone Rula Perez SECURITY FIELD SUPERVISOR Primary Care Provider Encounter Details Date Type Department Care Team (Late st Contact Info) Description 04/18/2016 Results Only [facility] [phone] Bobbi Mckeon CNM Social History Tobacco Use Types Packs/Day Years [...] Diagnosis Comments PAP TEST- RESULT ONLY Routine 04/18/2016 0:00 EST documented in this encounter Results * PAP TEST- RESULT ONLY (04/18/2016 0:00 EST) Pathology Report: CYTOPATHOLOGY REPORT Reports generated via electronic interface contain original data; however they are lacking the format of the original report. Caution should be taken when reading/interpreti ng unformatted reports. Name: ? YOLANDA FRASER ? Accession #: ? [id number] ? : ? 1990 (Age: 25) ??F ?Collect Date: ? 04/18/2016 ? Location: ? [facility] ? Receive Date: ? 04/19/2016 ? Provider: BOBBI MCKEON CNM Copy to: RULA PEREZ SECURITY FIELD SUPERVISOR ? Final Report SPECIMEN ADEQUACY ? Satisfactory for Evaluation - transformation zone component present GENERAL CATEGORIZATION ? Epithelial Cell Abnormality INTERPRETATION ? Squamous Cell Abnormality - High grade squamous intraepithelial lesion (HSIL). EDUCATIONAL NOTES/RECOMMENDATI ONS ? [facility] recommends following ASCCP's 2012 Updated Consensus Guidelines for the Management of Abnormal Cervical Cancer Screening Tests and Cancer Precursors (JLGTD, 2013; 17(5):S1-S27). ??Consensus guidelines are available online at www.asccp.org. Comment: ? This case has been reviewed in consultation by Dr. Yolande Levin who concurs with the above diagnosis. ? Menstrual/Pregnanc y Status: ?? Previous Gynecologic Pathology: ASC-US Infection History: Pos for HPV Other: Additional clinical information: Endo cx currett,a) frangment benign sq.mucosa, benign cervical cells , part B benign ecto. and endo cx bx 11:00 ecto cx Specimen/Source: ??Pap Test, Cervix, ThinPrep Imaging System with manual evaluation Document reviewed and electronically signed by: ? ASHLEY YANES MD ? Report ??Date: 2016 15:51 HPV with Pap Test ? Date Ordered: ? 2016 ? Status: ?? Signed Out ?Date Complete: ? 04/26/2016 ? By: ??System Interface ? Date Reported: ? 04/26/2016 ? 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 E6 OR E7 mRNA from one or more types of HPV types 16,18,31, 33,35,39,45,51,52, 56,58,59,66, and 68 is detected by mergers and acquisitions manager mediated amplification. High and intermediate risk HPV types are associated with most squamous intraepithelial lesions and cervical cancers. Comments Document reviewed and electronically signed by: ? System Interface ? Report date: 04/26/2016 By the signature above, the attending physician certifies that he/she has personally conducted a gross and/or microscopic examination of the described specimens and rendered or confirmed the above diagnosis. End of Report [facility] 04/18/2016 04/19/2016 us Bobbi Mckeon [facility] PATHOLOGY ORDERABLES Final Resu lt [facility] [address] [place] [address] documented in this encounter Visit Diagnoses Not on filedocumented in this encounter Care Teams Food Mixer Repairer Relationship Specialty Start Date End Date Rula Perez NP [address] [place] [address] PCP - General 08/25/15 04/06/22 documented as of this encounter
--- OUTSIDE RECORDS SUMMARY | 2024-05-07 12:24 | XMS_ITS | Encounter Summary ---
Author Organization [facility] Address [address] [place] [address] Care Team Providers Care Solid Die Cutter Name Role Phone Kristopher Bearden MD Primary Care Provider Unavailabl e Encounter Details Date Type Department Care Team (Late st Contact Info) Description 08/21/2015 Results Only [facility]- [facility] [phone] Parminder Maldonado MD [address] [place] [address] Social History Tobacco Use Types Packs/Day Years [...] Date/Time Associated Diagnosis Comments SURGICAL PATHOLOGY Routine 08/21/2015 20 :37 EDT documented in this encounter Results * SURGICAL PATHOLOGY (08/21/2015 20:37 EDT) Pathology Report: SURGICAL PATHOLOGY REPORT Reports generated via electronic interface contain original data; however they are lacking the format of the original report. Caution should be taken when reading/interpret ing unformatted reports. Name: ? YOLANDA FRASER ? Accession #: ? [id number] ? : ? 1990 (Age: 25) ??F ? Collect Date: ? 08/21/2015 ? Location: ? [facility] ? Receive Date: ? 08/21/2015 ? Provider: PARMINDER MALDONADO MD Copy to: MINDA FERNANDO FOOD AND BEVERAGE ASSISTANT MANAGER ? Final Pathologic Diagnosis: A. ??ENDOCERVIX, CURETTAGE: - Fragments of benign squamous mucosa. - Superficial strips of benign endocervical cells. B. ??ECTOCERVIX, 11 O'CLOCK, BIOPSY: - Benign ecto- and endocervix. Document reviewed and electronically signed by: SAVANNA SOLO MD Report ??Date: 08/24/2015 15:25 By the signature above, the attending physician certifies that he/she has personally conducted a gross and/or microscopic examination of the described specimens and rendered or confirmed the above diagnosis. Specimen(s) Received: A. ??ECC B. ??Ectocervix 11 o'clock Clinical History: Pap 07/20/2015 ASC-US/(+) HPV; prev HSIL during , subsequent (+) HCV status change Gross Description: A. ?Received in formalin labelled with proper patient identification (initials B, N) and ECC is a 1.4 x 1.0 x 0.2 cm aggregate of clear, slightly opaque mucus. Entirely submitted in A1. B. ?Received in formalin labelled with proper patient identification (initials B, N) and ectocervix 11 o'clock pos is a 0.1 x 0.1 x less than 0.1 cm dull montes de oca tissue. Entirely submitted in B1. Calli Felix 08/22/2015 8:46 AM End of Report [facility] 08/21/2015 20:3 7 EDT 08/21/2015 20:37 EDT us Parminder Maldonado MD PATHOLOGY ORDERABLES Final Resu lt [facility] [address] [place] [address] documented in this encounter Visit Diagnoses Not on filedocumented in this encounter Care Teams Solid Die Cutter Relationship Specialty Start Date End Date Kristopher Bearden MD PCP - General 12/14/09 08/24/15 documented as of this encounter
[2024-05-07 12:25] LABS: Potassium 2.7 mmol/L (3.5-5.1)
[2024-05-07] MEDS: Lidocaine 5% Patch 1 PATCH TP (12:27)
[2024-05-07 12:30] LABS: D-Dimer 4061 ng/mlFEU (<500)
[2024-05-07 12:43] LABS: Bands % 4 %
[2024-05-07 12:44] LABS: Absolute Basophil Count 0.12 10^3/uL (0.0-0.2); Absolute Eosinophil Count 0.12 10^3/uL (0.0-0.7); Absolute Neutrophil Count 10.01 10^3/uL (1.2-6.7); Diff Comment Manual Differential; RBC Morphology Normal
[2024-05-07] MEDS: Potassium Bicarbonate/Cit AC 25 MEQ TABLET.EFF 50 MEQ PO (12:56)
[2024-05-07] MEDS: CEFEPIME 2 GM in Normal Saline 100 ML IVPB (12:59)
[2024-05-07] MEDS: POTASSIUM CHLORIDE 20 MEQ/100 ML BAG 50 MEQ IV_INF (13:00)
[2024-05-07] MEDS: Albuterol/Ipratropium 3 ML UPD VIAL UPD (13:00)
[2024-05-07 13:14] LABS: HCG Qual (Serum) Negative
[2024-05-07 13:29] LABS: Bilirubin Small (Negative); Blood Trace-lysed (Negative); Clarity Clear (Clear); Glucose Negative (Negative); Ketones Trace mg/dL (Negative); Leukocyte Esterase Negative (Negative); Nitrite Negative (Negative)
[2024-05-07 13:34] LABS: Bacteria Few HPF (Negative); C & S Indicated? No; Casts Negative LPF (Negative); Crystals Negative HPF (Negative); Epithelial Cells Many HPF (Negative); Mucus Negative (Negative); WBC 0-2 HPF (0-5)
[2024-05-07] MEDS: Normal Saline - Diluent 50 ML VIAL IJ (13:35)
[2024-05-07] MEDS: Omnipaque 350 MG/ML 100 ML BTL 70 ML IJ (13:36)
--- NOTE | 2024-05-07 13:45 | DI.CT_ITS ---
Exam(s) CT CHEST PE ABD PELVIS W EXAM: CT CHEST PE ABD PELVIS W CLINICAL HISTORY: R sided chest pain, viral sx. TECHNIQUE: Imaging Protocol: Axial CT angiography was performed with multi-slice acquisition and mu lti-planar and/or 3D reconstructions. Computer aided detection (CAD) was utilized. CONTRAST MATERIAL: Intravenous: Omnipaque 350contrast volume:70 mL COMPARISON: No exams were available for comparison FINDINGS: CHEST: Tracheobronchial tree: Patent where visualized. No evidence of bronchiectasis. Pulmonary parenchyma: There is a dense consolidation in the left lower lobe. There is also a large o pacity in the posterior aspect of the right upper lobe. The findings are most suspicious for pneumon ia. No architectural distortion. Pulmonary Arteries: No evidence of filling defect to suggest pulmonary emboli. Mediastinum and Joan: There are enlarged lymph nodes seen in the mediastinum and right hilum. These are likely reactive. The esophagus is unremarkable. Visualized thyroid gland: Unremarkable. Pleura: No effusion or pneumothorax. Heart: The heart is not dilated. No coronary artery calcifications are seen. No pericardial effusion. Aorta: Thoracic aorta non-dilated. No evidence of dissection. Bones: Within normal limits for the patient's age. Soft tissues: Unremarkable. ABDOMEN: Liver: There is diffuse decreased attenuation of the liver consistent with fatty infiltration. The l iver is enlarged. No measurable mass. Portal, Superior Mesenteric, and Splenic Veins: Unremarkable. Gallbladder and Biliary Tract: No radiodense calculus or dilation. Pancreas: Normal density, no abnormal calcifications or inflammatory process. Spleen: Normal. Adrenals: No masses seen. Kidneys: Normal size, contour and axis. No radiodense stones or obstructive uropathy. There is a roun d hypodensity in the inferior pole of the left kidney likely reflecting a small cyst. No follow-up i s recommended. Abdominal Aorta: Abdominal portion non-dilated. Bowel: No obstruction or bowel wall thickening. Appendix is unremarkable. Peritoneal Cavity: No ascites, collection or mesenteric inflammatory response. No free air. Lymph Nodes: Within normal limits. Bones: Within normal limits for the patient's age. 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 Soft Tissues: Small fat containing umbilical hernia. PELVIS: Bladder: Symmetric distention, no gross wall thickening. Reproductive Organs: Unremarkable as visualized. Lymph Nodes: Within normal limits. Bones: Within normal limits. IMPRESSION: 1. No evidence pulmonary embolism, thoracic aortic dissection or aneurysm. 2. Right upper lobe and right lower lobe consolidation suspicious for pneumonia. 3. Enlarged lymph nodes in the mediastinum and right hilum which are likely reactive. 4. Follow-up CT scan of the chest is recommended to document complete resolution of the infiltrates a nd to exclude other underlying pathology. 5. No acute abdominal or pelvic process. 6. Diffuse fatty infiltration of the liver and hepatomegaly. RADIATION DOSE DELIVERED: 280.49mGy.cm Total DLP DATA REPOSITORY: All CT scans at this facility are submitted to the National Radiology Data Registry (NRDR) Dose Index Registry (DIR) with the [employer] (ACR). RADIATION OPTIMIZATION: All CT scans at this facility use at least one of these dose optimization te chniques: automated exposure control; mA and/or kV adjustment per patient size (includes targeted exa ms where dose is matched to clinical indication); or iterative reconstruction.
[2024-05-07 13:59] LABS: Lab Add On Test DONE
[2024-05-07 14:15] LABS: Troponin I 6 ng/L (<or=51)
[2024-05-07] MEDS: Acetaminophen 500 MG TAB 1000 MG PO (14:18)
[2024-05-07 14:19] LABS: Lactate 2.3 mmol/L (<or=2.0)
[2024-05-07 14:32] LABS: Anion Gap 9.3 mmol/L (3-11); BUN 12 mg/dL (7-18); CO2 30.7 mmol/L (21.0-32.0); CREATININE 0.9 mg/dL (0.55-1.02); Calcium 8.1 mg/dL (8.5-10.1); Chloride 92 mmol/L (98-107); Glucose 100 mg/dL (74-106); Potassium 3.4 mmol/L (3.5-5.1); Sodium 132 mmol/L (136-145)
--- NOTE | 2024-05-07 14:39 | HPE_ITS ---
Date of service: 05/07/24 Time of Service: 14:44 Assessment and Plan Assessment and plan (1) Severe sepsis without septic shock: Status: Acute Assessment and plan: meets criteria for severe sepsis with elevated heart rate and respiratory rate with source of pneumonia. lactate 2.8 trending down to 2.3 after IV hydration. continue to hydrate and trend (2) Pneumonia: Status: Acute Assessment and plan: given cefepime and vancomycin in ED No personal history of MRSA but does have a history of IV drug abuse. (likely will not stay hospitalized long enough for therapeutic trough levels, will change to doxy) No Pseudomonas risk factors, no recent steroid use, antibiotic use, recent hospitalization, not immunocompromised. Consider narrowing to doxycycline to cover atypicals and ceftriaxone (3) Hypokalemia: Status: Acute Assessment and plan: replete and follow (4) History of drug abuse: Status: Acute Assessment and plan: continue suboxone (5) Tobacco use: Status: Acute Assessment and plan: offer nicotine replacement while hospitalized. discussed with Dr Nolasco (6) Gram-positive bacteremia: Status: Acute History of Present Illness Narrative: This is a 34-year-old female patient presented to the emergency department for evaluation of fever cough right-sided pleuritic pain with reported temps of up to 102. She also reports that she has had nausea vomiting and diarrhea. She has had no improvement in her symptoms and states she has not improving. Her workup in the emergency department was concerning for sepsis syndrome found to be tachycardic and tachypneic. Source most obvious was pneumonia. She did have a D-dimer that was elevated so had a CT scan of her chest that showed no pulmonary embolism. She was given cefepime and vancomycin in addition to 2 g of magnesium sulfate for prolonged QTc. She was also received fluid resuscitation per sepsis protocol. Heart rate did improve from the 130s to the 120s after hydration. Blood pressure has been stable with a systolic in the 120s to 130s. Hospitalist services was asked to admit for further management. Review of Systems All systems reviewed & are unremarkable except as noted in HPI and below PFSH All Active Problems (Updated 05/08/24 @ 07:52 by Neil Esteban) Gram-positive bacteremia (Acute) Hypokalemia (Acute) Pneumonia (Acute) Severe sepsis without septic shock (Acute) Implantable subdermal contraceptive surveillance (Acute) Tobacco use (Acute) History of drug abuse (Acute) On suboxone Bipolar 1 disorder (Acute) Abnormal Pap smear of cervix (Acute) 05/2008: Pap HGSIL with + HR HPV. 06/08/2018 colpo at 14 weeks findings LGSIL. No biopsies. Plan repeat Pap LSIL pap 04/2022-Needs colposcopy HCV antibody positive (Acute 08/21/15) Hep C RNA nondetectable Attention deficit hyperactivity disorder (Acute 07/07/13) Marijuana smoker (Acute) Difficult intravenous access (Chronic) Asthma (Chronic) Medical History (Updated 05/08/24 @ 07:52 by Neil Esteban) Neuropathy Insomnia Lichenification Chronic lower back pain Migraine Depression with anxiety (04/18/16) Asthma Hypoglycemia Cigarette smoker one half pack a day or less 04/10/2017 patient reports that she has stopped tobacco use with positive test Personal history of allergy to penicillin Edentulism, complete Surgical History Dilation and curettage (07/23/17) D&C for blighted ovum at 8w EGA. 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 Camarena. Patient had necrosed fingertips after injecting Wellbutrin. Family History Mother History of spontaneous 1 Mental disorder depression and anxiety Grandfather Diabetes Grandmother Diabetes Grandmother Diabetes Father Alcohol abuse alcohol and addict-opiates Sister No problems noted. Brother Alcohol abuse alcohol abuse and abuse opiates Mental disorder depression and anxiety Brother No problems noted. Other Myocardial infarction Social History (Updated 02/04/23 @ 20:38 by Tari Drake MD) Smoking/Tobacco Use Status: Current every day Tobacco Type: cigarettes Smoking packs per day: 0.5 Smoking cigarettes per day: 10.0 Years smoked: 26 Smoking pack-years: 13.00 Tobacco: How many years used: 26 Smoking risk assessment performed?: Yes Alcohol Intake: never Drug use: Current Sobriety Substance use type: former substance user and marijuana Adopted: No Foster care: No Household members: family and other Details: Daniel Rodriguez D-Ivy, [facility] Housing: other Details: Lives with children. FOB sleeps in his car. Number of Children: 5 Communication Needs: None current occupation: Employed thru [employer]. Sexually active: Yes Other: 2021. 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 Date GA/Weeks # Preg Succ Route Wgt Sex Labor Lgth Anesth esia Location Prov [facility] 08/16/07 40 No vaginal 3260.195 g Female [facility] - MD 02/08/14 37 No vaginal 2267.962 g Female [facility] - MD 11/09/16 37 No vaginal 3260.195 g Male [facility] - 07/09/17 6 11/02/18 36 No vaginal 1871.069 g Female 2hrs 51min [facility] Almaraz low apgars 09/30/22 37 No Yes vaginal 2778.253 g Male 7hrs 14min [facility] MD [place] Delivery Date: 08/16/07 Last Updated by: Adriana Escalera Pt's mother is guardian Delivery Date: 02/08/14 Last Updated by: Adriana Escalera Breech. Adopted out Delivery Date: 11/09/16 Last Updated by: Taisha Mcduffie MD Cara Gibbons. Patient has custody but only with her glove parts inspector Delivery Date: 07/09/17 Last Updated by: Tari Drake M.D. SAB at 6 weeks. Blighted ovum. Patient had D&C Delivery Date: 11/02/18 Last Updated by: Taisha Mcduffie MD Breech presentation, Precipitous labor. Laura - With mom glove parts inspector Delivery Date: 09/30/22 Last Updated by: Ivette Collier LPN Emrouse Junior David; heavy meconium Meds Allergies and Home Medications Allergies Allergy/AdvReac Type Severity Reaction Status Date / Time Penicillins Allergy Severe Anaphylaxsi Verified 05/07/24 11:01 s venom-honey bee (bee venom Allergy Severe Anaphylaxsi Verified 05/07/24 11:01 (honey bee)) s naproxen (From Naprosyn) Allergy Intermediate Hives Verified 05/07/24 11:01 latex Allergy Unknown HIVES, RED Verified 05/07/24 11:01 BUMPS Home Medications ?Medication ?Instructions ?Recorded ?Confirmed ?Type amitriptyline 150 mg tablet 75 mg PO QHS 12/28/19 05/07/24 History betamethasone dipropionate 0.05 % 1 applic topical BID 11/26/21 05/07/24 History topical cream buprenorphine 12 mg-naloxone 3 mg 2 film buccal Q24H 04/11/22 05/07/24 History sublingual film fluticasone propionate 110 110 mcg inhalation BID #12 grams 04/11/22 05/07/24 Rx mcg/actuation HFA aerosol inhaler (Flovent HFA) gabapentin 600 mg tablet 1,200 mg PO TID 04/11/22 05/07/24 History methylphenidate HCl 10 mg tablet 20 mg PO DAILY 04/11/22 05/07/24 History etonogestrel 68 mg subdermal 1 implant subdermal ONCE 10/28/22 05/07/24 History implant (Nexplanon) aripiprazole 10 mg tablet (Abilify) 30 mg PO DAILY 01/21/23 05/07/24 History albuterol sulfate 90 mcg/actuation 2 puff inhalation Q4H PRN PRN #0 05/07/24 Rx aerosol inhaler (Ventolin HFA) grams cefpodoxime 200 mg tablet 200 mg PO BID #14 tabs 05/07/24 Rx doxycycline hyclate 100 mg capsule 100 mg PO BID #14 caps 05/07/24 Rx Exam Narrative Exam Narrative: Chronically and acutely ill-appearing female appearing older than stated age head is atraumatic eyes injected nonicteric EOMs intact oral mucosas moist neck full range of motion no meningeal signs cardiovascular regular rate and rhythm respirations even and nonlabored diminished throughout no coarse breath sounds appreciated abdomen benign extremities with edema and discoloration chronic consistent with with chronic poor circulation. Neurologic she is awake alert oriented no focal deficits Results Labs 05/07/24 11:50 05/07/24 14:02 Labs: Laboratory Results - last 24 hr 05/07/24 05/07/24 05/07/24 11:50 12:50 13:19 WBC 11.64 H RBC 4.51 Hgb 14.2 Hct 39.6 MCV 88 MCH 31.5 MCHC 35.9 RDW 11.9 Plt Count 244 MPV 10.8 Immature Gran % See Differential Neutrophils % 82.0 Band Neutrophils % 4 Lymphocytes % 6.0 Monocytes % 6.0 Eosinophils % 1.0 Basophils % 1.0 Nucleated RBC % 0.0 Absolute Neutrophils 10.01 H Absolute Lymphocytes 0.70 L Absolute Monocytes 0.70 Absolute Eosinophils 0.12 Absolute Basophils 0.12 RBC Morphology Normal D-Dimer 4061 H VBG pH 7.46 H VBG pCO2 40 L VBG pO2 36 VBG HCO3 29 H VBG Total CO2 25 VBG O2 Saturation 71 VBG Base Excess 5 H VBG Lactate 2.8 H* Sodium 131 L Potassium 2.7 L* Chloride 90 L Carbon Dioxide 31.2 Anion Gap 9.8 BUN 12 Creatinine 1.0 Est GFR (CKD-EPI 2020) 75.34 Glucose 121 H Calcium 8.8 Total Bilirubin 1.21 H AST 66 H ALT 38 Alkaline Phosphatase 53 Troponin I 6 Total Protein 7.2 Albumin 2.3 L Lipase 11 Serum HCG, Qual Negative Urine Color [place] Urine Clarity Clear Urine pH 6.0 Ur Specific [place] 1.020 Urine Protein >=300 H Urine Ketones Trace H Urine Blood Trace-lysed H Urine Nitrite Negative Urine Bilirubin Small H Urine Urobilinogen 2.0 H Ur Leukocyte Esterase Negative Urine RBC 3-5 H Urine WBC 0-2 Ur Epithelial Cells Many Urine Crystals Negative Urine Bacteria Few Urine Casts Negative Urine Mucus Negative Ur Culture Indicated? No Urine Glucose Negative Add-On Test Request 05/07/24 05/07/24 13:40 14:02 WBC RBC Hgb Hct MCV MCH MCHC RDW Plt Count MPV Immature Gran % Neutrophils % Band Neutrophils % Lymphocytes % Monocytes % Eosinophils % Basophils % Nucleated RBC % Absolute Neutrophils Absolute Lymphocytes Absolute Monocytes Absolute Eosinophils Absolute Basophils RBC Morphology D-Dimer VBG pH VBG pCO2 VBG pO2 VBG HCO3 VBG Total CO2 VBG O2 Saturation VBG Base Excess VBG Lactate 2.3 H* Sodium 132 L Potassium 3.4 L Chloride 92 L Carbon Dioxide 30.7 Anion Gap 9.3 BUN 12 Creatinine 0.9 Est GFR (CKD-EPI 2020) 85.50 Glucose 100 Calcium 8.1 L Total Bilirubin AST ALT Alkaline Phosphatase Troponin I Cancelled Total Protein Albumin Lipase Serum HCG, Qual Urine Color Urine Clarity Urine pH Ur Specific [place] Urine Protein Urine Ketones Urine Blood Urine Nitrite Urine Bilirubin Urine Urobilinogen Ur Leukocyte Esterase Urine RBC Urine WBC Ur Epithelial Cells Urine Crystals Urine Bacteria Urine Casts Urine Mucus Ur Culture Indicated? Urine Glucose Add-On Test Request DONE Last Vital Signs Temp 37.3 C 05/07/24 14:37 Pulse 124 H 05/07/24 14:20 Resp 22 05/07/24 14:20 BP 106/73 05/07/24 13:14 Pulse Ox 97 05/07/24 14:20 Time Spent Time spent with Patient: 55-74 minutes Time was spent: preparing to see the patient(eg.review tests), obtaining and/or reviewing separately otained hiistory, ordering medications,tests, procedures, indepentently interpreting results and counseling the patient
[2024-05-07 14:46] LABS: Troponin I 5 ng/L (<or=51)
[2024-05-07 14:56] LABS: Lab Add On Test DONE
[2024-05-07 14:56] LABS: Troponin I 5 ng/L (<or=51)
[2024-05-07 15:06] LABS: Magnesium 2.2 mg/dL (1.8-2.4)
--- OUTSIDE RECORDS SUMMARY | 2024-05-07 15:42 | XMS_ITS | Encounter Summary ---
Author Organization [facility] Address [address] [place] [address] Care Team Providers Care Solution Professional Name Role Phone Moi, Yary Valencia GERONTOLOGY AIDE Primary Care Provider [phone] Encounter Details Date Type Department Care Team (Late st Contact Info) Description 07/25/2022 Lab Requisition [facility] Pathology & Laboratory Medicine - [address] [address] Outr Resulting Lab, Provider Social History Tobacco [...] RNA Qualitative Undetected Undetected 07/26/2022 13:13 EDT [facility] Blood VENOUS BLOOD / Unknown 07/24/2022 11:40 EDT 07/25/2022 19:07 EDT Narrative [facility] - 07/26/2022 13:13 EDT The quantification range of this assay is 15 IU/mL to 100,000,000 IU/mL. Testing was performed using the Alla HCV test ([employer] with the alla ID Quantique0 System. us Provider Outr Resulting Lab CHEMISTRY & BLOOD GA S ORDERABLES Final Result Performing Organization Address [facility]/ZIP Co de Phone Number [facility] [address] [place] [address] * HOLD SST (07/24/2022 11:40 EDT) Hold Hold 07/25/2022 20:16 EDT [facility] Blood VENOUS BLOOD / Unknown 07/24/2022 11:40 EDT 07/25/2022 19:14 EDT us Provider Outr Resulting Lab LAB INFO SERVICE AND SUPPORT & PHONE RESULT Final Result Performing Organization Address City/[facility]/ZIP Co de Phone Number [facility] [address] [place] [address] * HOLD SST (07/24/2022 11:40 EDT) Hold Hold 07/25/2022 20:16 EDT [facility] Blood VENOUS BLOOD / Unknown 07/24/2022 11:40 EDT 07/25/2022 19:08 EDT us Provider Outr Resulting Lab LAB INFO SERVICE AND SUPPORT & PHONE RESULT Final Result Performing Organization Address City/[facility]/ZIP Co de Phone Number [facility] [address] [place] [address] * HEPATITIS B SURFACE ANTIGEN (07/24/2022 11:40 EDT) Hep B Surface Ag Negative Negative 07/26/2022 10:08 EDT [facility] Blood VENOUS BLOOD / Unknown 07/24/2022 11:40 EDT 07/25/2022 19:07 EDT us Provider Outr Resulting Lab CHEMISTRY & BLOOD GA S ORDERABLES Final Result Performing Organization Address [facility]/[place] Co de Phone Number [facility] [address] [place] [address] * (ABNORMAL) HEPATITIS C AB W REFLEX TO HCV RNA BY PCR (07/24/2022 11:40 EDT) Hep C Antibody Reactive(A ) Negative 07/26/2022 10:34 EDT [facility] Comment: Supplemental testing for HCV RNA is ordered to rule out active HCV infection. Blood VENOUS BLOOD / Unknown 07/24/2022 11:40 EDT 07/25/2022 19:07 EDT us Provider Outr Resulting Lab CHEMISTRY & BLOOD GA S ORDERABLES Final Result Performing Organization Address [facility]/[place] Co de Phone Number [facility] [address] [place] [address] documented in this encounter Visit Diagnoses Not on filedocumented in this encounter Care Teams Solution Professional Relationship Specialty Start Date End Date Yary Prater NP [address] [place] [address] PCP - General Family Medicine - Primary Care 04/07/22 documented as of this encounter
--- OUTSIDE RECORDS SUMMARY | 2024-05-07 15:42 | XMS_ITS | Encounter Summary ---
Author Organization [facility] [place] [address] Care Team Providers Care Art Handler Name Role Phone Yary Prater APRN Primary Care Provider [phone] Encounter Details Date Type Department Care Team (Latest Contact Info) Description 11/20/2022 10:15 AM EDT Home Care Visit [address] [address] Chanel Dawson, RN [facility] HOME VISIT Social History Tobacco Use [...] Client visit at client's home for [facility] Nurse Home Visiting Program. Covid screening negative documented in this encounter Plan of Treatment Not on file documented as of this encounter Visit Diagnoses Not on filedocumented in this encounter Care Teams Art Handler Relationship Specialty Start Date End Date Yary Prater [place] [address] PCP - General Family Medicine 03/28/22 documented as of this encounter
--- OUTSIDE RECORDS SUMMARY | 2024-05-07 15:42 | XMS_ITS | Encounter Summary ---
Author Organization [facility] Address [address] [place] [address] Care Team Providers Care Reconciliation Accountant Name Role Phone Moi, Yary Valencia WILDLIFE CONSERVATION PROFESSOR Primary Care Provider [phone] Encounter Details Date Type Department Care Team (Late st Contact Info) Description 11/02/2022 Lab Requisition [place] Pathology & Laboratory Medicine - [address] [address] Outr Resulting Lab, Provider Social History Tobacco [...] <3.1 See Note mIU/mL 11/04/2022 15:38 EDT [facility] Comment: Reference Range for Hep B Surface Ab, Quant: Positive: >= 10.0 mIU/mL Negative: ??< 10.0 mIU/mL Patient is presumed to not be immune to infection with Hepatitis B Virus. Hep B Surface Ab, Qualitative Negative See Note 11/04/2022 15:38 EDT [facility] Comment: Reference Range for Hep B Surface Ab, Qual: Unvaccinated: ??Negative Vaccinated: ??Positive Blood VENOUS BLOOD / Unknown 11/01/2022 10:00 EDT 11/02/2022 21:33 EDT us Provider Outr Resulting Lab CHEMISTRY & BLOOD GA S ORDERABLES Final Result Performing Organization Address [facility] Co de Phone Number [facility] [address] [place] [address] * HEPATITIS B CORE ANTIBODY (TOTAL) (11/01/2022 10:00 EDT) Hepatitis B Core Ab, Total Negative Negative 11/04/2022 16:25 EDT [facility] Blood VENOUS BLOOD / Unknown 11/01/2022 10:00 EDT 11/02/2022 21:33 EDT us Provider Outr Resulting Lab CHEMISTRY & BLOOD GA S ORDERABLES Final Result Performing Organization Address [facility] Co de Phone Number [facility] [address] [place] [address] documented in this encounter Visit Diagnoses Not on filedocumented in this encounter Care Teams Reconciliation Accountant Relationship Specialty Start Date End Date Yary Prater NP [address] [place] [address] PCP - General Family Medicine - Primary Care 04/07/22 documented as of this encounter
--- OUTSIDE RECORDS SUMMARY | 2024-05-07 15:42 | XMS_ITS | Encounter Summary ---
Author Organization [facility] Address [facility] [place] [address] Care Team Providers Care Board Setter Name Role Phone Kristopher Orozco MD Primary Care Provider [phone] Reason for Referral * Consultation (Routine) - Closed Specialty Diagnoses / Procedures Referred By Contac t Referred To Contact Wound Care Diagnoses Nonhealing skin ulcer, with fat layer exposed José Moulton MD [facility] [place] [place] [address] [facility] [place] [address] Referral ID Status Reason Start Date Expiration Date V isits Requested Visits Authorized [id number] Closed Consult, Test & Treat 08/02/2015 08/01/2016 1 1 Reason for Visit * Reason Onset Date Comments Medication Refill 08/02/2015 Encounter Details Date Type Department Care Team (Late st Contact Info) Description 08/02/2015 Ref[place] [phone] José Moulton MD [facility] [place] [place] [address] Nonhealing skin ulcer, with fat [...] exposed documented in this encounter Care Teams Board Setter Relationship Specialty Start Date End Date Kristopher Orozco MD PCP - General General Internal Medicine 01/17/15 documented as of this encounter
--- OUTSIDE RECORDS SUMMARY | 2024-05-07 15:42 | XMS_ITS | Encounter Summary ---
Author Organization [facility] Address [facility] [place] [address] [place] [address] Care Team Providers Care Cold Molding Press Operator Name Role Phone Kristopher Bearden MD Primary Care Provider [phone] Encounter Details Date Type Department Care Team (Late st Contact Info) Description 08/14/2014 Orders [place] [address] Krzysztof Worley MD [facility] [place] [address] Social History Tobacco Use Types Packs/Day Years [...] on filedocumented in this encounter Care Teams Cold Molding Press Operator Relationship Specialty Start Date End Date Kristopher Bearden MD [address] [place] [address] PCP - General 02/27/10 01/16/15 documented as of this encounter
--- OUTSIDE RECORDS SUMMARY | 2024-05-07 15:42 | XMS_ITS | Encounter Summary ---
Author Organization [facility] [place] [address] Care Team Providers Care Dolly Operator Name Role Phone Yary Prater APRN Primary Care Provider [phone] Encounter Details Date Type Department Care Team (Latest Contact Info) Description 12/04/2022 10:15 AM EDT Home Care Visit [address] [address] Chanel Dawson RN [facility] HOME VISIT Social History Tobacco Use Types [...] Client visit at client's home for [facility] Nurse Home Visiting Program. Covid screening negative documented in this encounter Plan of Treatment Not on file documented as of this encounter Visit Diagnoses Not on filedocumented in this encounter Care Teams Dolly Operator Relationship Specialty Start Date End Date Yary Prater APRN [facility] [place] [address] PCP - General Family Medicine 03/28/22 documented as of this encounter
--- OUTSIDE RECORDS SUMMARY | 2024-05-07 15:42 | XMS_ITS | Encounter Summary ---
Author Organization [facility] [place] [address] Care Team Providers Care Specialty Cook Name Role Phone Kristopher Bearden MD Primary Care Provider [phone] Reason for Visit * Reason Comments Hand Pain Encounter Details Date Type Department Care Team (Late st Contact Info) Description 08/26/2014 10:56 AM EDT - 08/26/2014 5:12 PM EDT [place] [address] Flavia Patel MD Intravenous drug abuse; Ischemia [...] for pain 60 capsule 0 08/26/2014 Pediatric Vbhuverep-Kfdf-nsd (FLINTSTONES COMPLETE) Chew 07/25/2006 traZODone (DESYREL) 100 [...] - 08/26/2014 5:11 PM EDT Pt and managed care provider verbalized understanding of d/c instructions and feel comfortable going back to [facility]. * Pia Green RN - [...] was discharged and has been staying at [facility], but the pain and cyanosis continue. Pain [...] placed on antibiotics by that visit to [facility], for concern for possible infection in her [...] but currently digits appear neurovascularlyintact and may turning sander tender to be viable long-term. There is no [...] the follow-up plan. Plan: - d/c to [facility] - Follow up with primary care physician - Tramadol and gabapentin for pain - Return precautions Floyd De Leon MD Resident 08/26/14 6116 Associated attestation - Flavia Patel MD - [...] arm. Pt here with staff member from [facility]. documented in this encounter Plan of Treatment [...] BRIA Maddox ? (Age): 1990(24) Med Rec#: ?[id number] ? Sex: ?F ? Site Loc: ?[facility] ? Ht / Wt: ??165(cm)/64(kg) Pt. Loc: ? ED ? BSA: ?1.71 Study Date: ?08/26/2014 ? Pt. Type: Inpatient Tape: ? Referring: Flavia Patel Coffin Maker: Rodri Bhakta Diagnosis:CPT Code(s): ??Echo Full (84255), ??Spectral Doppler (44293), Color Doppler (02130), Indication(s): ??Vegetations, R/O Rhythm: Sinus HR ?BP [...] ? Mid-Inferior ?Normal ? Mid-Inferoseptal ?Normal ? Wilder-Septal ? Normal ? Wilder-Anterior ? Normal ? Wilder-Lateral ?Normal ? Wilder-Inferior ? Normal ? Wilder-Tip ?Normal ? Chambers ?Value ?Units (Range) ? [...] 08/26/2014 16:27:52 Images reviewed and interpretation verified [facility] Cardiac Ultrasound Laboratory Procedure Note Rolo Cody MD - 08/26/2014 Procedure: Transthoracic Echocardiogram Patient: BRIA Maddox DOB(Age): 1990(24) Med Rec#: [id number] Sex: F Site Loc: [facility] Ht / Wt: 165(cm)/64(kg) Pt. Loc: ED BSA: 1.71 Study Date: 08/26/2014 Pt. Type: Inpatient Tape: Referring: Flavia Patel Coffin Maker: Rodri Bhakta Diagnosis:CPT Code(s): Echo Full (15649), Spectral Doppler (96824), Color Doppler (47034), Indication(s): Vegetations, R/O Rhythm: Sinus HR BP [...] Normal Mid-Posterolateral Normal Mid-Inferior Normal Mid-Inferoseptal Normal Wilder-Septal Normal Wilder-Anterior Normal Wilder-Lateral Normal Wilder-Inferior Normal Wilder-Tip Normal Chambers Value Units (Range) LV EF [...] 08/26/2014 16:27:52 Images reviewed and interpretation verified [facility] Cardiac Ultrasound Laboratory Flavia Patel MD ECHO ORDERABLES * Blue Tube HOLD (08/26/2014 1:00 PM EDT) [facility] Blue Hold Sample in lab. CERNER DEANENNIUM Blood specimen (specimen) Venous Draw / Unknown 08/26/2014 1:00 PM EDT 08/26/2014 1:16 PM EDT Flavia Patel MD HEMATOLOGY ORDERABLE S MARYSOL YIIUM * Differential, Automated (08/26/2014 1:00 PM EDT) Pathologist [facility] Neutrophil % 51.9 % CERNER MILLENNIUM Neutrophil [...] FRASER ?Ordered By: FLAVIA PATEL ? MR#: [id number] ?LOC: ??ED ? /Sex: ??1990 (24 years), [...] MICROBIOLOGY - BLOOD ORDERABLES Performing Organization Address [facility] Co de Phone Number MARYSOL GLORIA * Sedimentation rate (08/26/2014 1:00 PM EDT) Sedimentation Rate Automated 10 0 - 20 mm/hr MARYSOL GLORIA Blood specimen (specimen) 08/26/2014 1:00 PM EDT 08/26/2014 1:16 PM EDT Narrative Resulting Agency Comment Spec In Lab Flavia Patel MD HEMATOLOGY ORDERABLE S Performing Organization Address [facility] de Phone Number MARYSOL GLORIA * High Sensitivity CRP (08/26/2014 1:00 PM EDT) C-Reactive Protein High Sensitivity 3.1 mg/L [facility] Comment: Interpretations: 1) For accurate cardiac risk [...] Patel MD CHEMISTRY ORDERABLES Performing Organization Address [facility] Co de Phone Number MARYSOL GLORIA * BUN (08/26/2014 1:00 PM EDT) Blood Urea Nitrogen 10 8 - 18 mg/dL CERNER MILLENNIUM Blood specimen (specimen) 08/26/2014 1:00 PM EDT 08/26/2014 1:16 PM EDT Narrative Resulting Agency Comment Spec In Lab Flavia Patel MD CHEMISTRY ORDERABLES Performing Organization Address City/[facility]/ZIP Co de Phone Number CERNER MILLENNIUM * [...] Patel MD CHEMISTRY ORDERABLES Performing Organization Address City/[facility] Co de Phone Number CERNER MILLENNIUM * Glucose, random (08/26/2014 1:00 PM EDT) Glucose 86 65 - 199 mg/dL CERNER MILLENNIUM Comment:Diabetes: >=200 mg/d L plus symptoms Blood specimen (specimen) 08/26/2014 1:00 PM EDT 08/26/2014 1:16 PM EDT Narrative Resulting Agency Comment Spec In Lab Flavia Patel MD CHEMISTRY ORDERABLES [facility] MILL[facility] * Creatinine (08/26/2014 1:00 PM EDT) Creatinine 0.83 0.70 - 1.20 mg/dL MARYSOL DEANFRANNIE Comment: Please note that the pediatric reference intervals supplied above were not validated at [facility]. Results from pediatric patients should be interpreted in conjunction to the patient's age, height and muscle mass. Est Glomerular Filtration Rate >60 >=60 [facility] Comment: This estimated GFR (eGFR) value was [...] the following links into your internet browser. [email or web address] Blood specimen (specimen) 08/26/2014 1:00 PM EDT 08/26/2014 1:16 PM EDT Narrative Resulting Agency Comment Spec In Lab Flavia Patel MD CHEMISTRY ORDERABLES [facility] documented in this encounter Visit Diagnoses Diagnosis [...] RN) documented in this encounter Care Teams Specialty Cook Relationship Specialty Start Date End Date Kristopher Bearden MD [address] [place] [address] PCP - General 02/27/10 01/16/15 documented as of this encounter
--- OUTSIDE RECORDS SUMMARY | 2024-05-07 15:42 | XMS_ITS | Encounter Summary ---
Author Organization [facility] [place] [address] Care Team Providers Care Sheep Sticker Name Role Phone Yary Prater APRN Primary Care Provider [phone] Encounter Details Date Type Department Care Team (Late st Contact Info) Description 10/23/2022 Home Care Visit [facility] [address] [address] Chanel Dawson RN TELEPHONE ENCOUNTER [...] on filedocumented in this encounter Care Teams Sheep Sticker Relationship Specialty Start Date End Date Yary Pr[place] [address] PCP - General Family Medicine 03/28/22 documented as of this encounter
--- OUTSIDE RECORDS SUMMARY | 2024-05-07 15:42 | XMS_ITS | Encounter Summary ---
Author Organization [facility] Address [facility] [place] [address] Care Team Providers Care Supervisor Coal Handling Name Role Phone Kristopher Bearden MD Primary Care Provider [phone] Encounter Details Date Type Department Care Team (Late st Contact Info) Description 05/17/2014 Orders [place] [address] Krzysztof Worley MD [facility] [place] [address] Social History Tobacco Use Types Packs/Day Years [...] on filedocumented in this encounter Care Teams Supervisor Coal Handling Relationship Specialty Start Date End Date Kristopher Bearden MD [address] [place] [address] PCP - General 02/27/10 01/16/15 documented as of this encounter
--- OUTSIDE RECORDS SUMMARY | 2024-05-07 15:42 | XMS_ITS | Encounter Summary ---
Author Organization [facility] Address [facility] [place] [address] Care Team Providers Care Artificial Flowers Starcher Name Role Phone Kristopher Bearden MD Primary Care Provider [phone] Encounter Details Date Type Department Care Team (Late st Contact Info) Description 01/18/2014 9:57 AM EDT - 01/18/2014 11:59 PM EDT Hospital [place] [address] Social History Tobacco Use Types Packs/Day Years [...] Dispensed Refills Start Date End Date Pediatric Nqgbphhvv-Ezgk-cdy (FLINTSTONES COMPLETE) Chew 07/25/2006 methadone (DOLOPHINE) 10 [...] ? pm) Patient Info ID #: ? [id number] ?: ??[birth year] (23 yrs) Name: ? YOLANDA OLMOS ? Visit Date: 01/18/2014 10:46 am Performed By Performed By: ?Carole BURTONMS, ??Marion Attending: ? Ivana Gaspar MD ??Tereza Referred By: ? FLAQUITO PIÑA MD Service(s) Provided ??[facility] - Targeted Morphology - Genetics - ? [phone] ??[id number] Indications ??+ quad for t18, methadone use;alfreda [...] Tract: ?Visualized L Outflow Tract: ?Visualized Cardiac [place]: ? Visualized Diaphragm: ?Visualized Abdomen Ventral Wall: [...] 01/18/2014 12:27 pm) Patient Info ID #: [id number] : [birth year] (23 yrs) Name: YOLANDA OLMOS Visit Date: 01/18/2014 10:46 am Performed By Performed By: Marion Lam RDMS Attending: Ivana Gaspar MD Referred By: FLAQUITO PIÑA MD Service(s) Provided [facility] - Targeted Morphology - Genetics - [id number] Indications + quad for t18, methadone use;alfreda [...] Tract: Visualized L Outflow Tract: Visualized Cardiac [place]: Visualized Diaphragm: Visualized Abdomen Ventral Wall: Not [...] on filedocumented in this encounter Care Teams Artificial Flowers Starcher Relationship Specialty Start Date End Date Kristopher Bearden MD [address] [place] [address] PCP - General 02/27/10 01/16/15 documented as of this encounter
--- OUTSIDE RECORDS SUMMARY | 2024-05-07 15:42 | XMS_ITS | Encounter Summary ---
Author Organization [facility] [place] [address] Care Team Providers Care Dry Curer Name Role Phone Yary rPater APRN Primary Care Provider [phone] Encounter Details Date Type Department Care Team (Latest Contact Info) Description 11/13/2022 10:30 AM EDT Home Care Visit [address] [address] Chanel Dawson RN [facility] HOME VISIT Social History Tobacco Use Types [...] Client visit at client's home for [facility] Nurse Home Visiting Program. Covid screening negative documented in this encounter Plan of Treatment Not on file documented as of this encounter Visit Diagnoses Not on filedocumented in this encounter Care Teams Dry Curer Relationship Specialty Start Date End Date Yary Prater APRN [facility] [place] [address] PCP - General Family Medicine 03/28/22 documented as of this encounter
--- OUTSIDE RECORDS SUMMARY | 2024-05-07 15:42 | XMS_ITS | Encounter Summary ---
[place] [address] Care Team Providers Care Associate Store Manager Name Role Phone Yary Prater APRN Primary Care Provider [phone] Reason for Referral * Consultation (Routine) - [...] History of drug abuse Aditi Gaviria CNM [address] [place] [address] [address] [place] [address] [facility] [address] [address] [place] [address] Referral ID Status Reason Start Date Expiration Date V isits Requested Visits Authorized [id number] Closed Consult, Test & Treat PCP Updated and/or Approved 03/28/2022 03/28/2023 6 6 Encounter Details Date Type Department Care Team (Late st Contact Info) Description 03/28/2022 Transcribe Orders eDH Incoming Referrals [phone] Aditi Gaviria CNM [address] [place] [address] [address] [place] [place], [place] [id number] Antepartum drug dependence; Encounter for supervision of [...] remission documented in this encounter Care Teams Associate Store Manager Relationship Specialty Start Date End Date Yary Prater APR[place] [address] PCP - General Family Medicine 03/28/22 documented as of this encounter
--- OUTSIDE RECORDS SUMMARY | 2024-05-07 15:42 | XMS_ITS | Encounter Summary ---
Author Organization [facility] Address [facility] [place] [address] Care Team Providers Care Airplane Patroller Name Role Phone Yary Prater APRN Primary Care Provider [phone] Reason for Referral * [facility] Maternal Child Health (Routine) - Closed Specialty Diagnoses / Procedures Referred By Contgavin t Referred To Contact Home Health Services Diagnoses Encounter for routine follow-up [address] [place] [address] [facility]ly [facility] [address] [place] [phone] Referral ID Status Reason Start Date Expiration Date V isits Requested Visits Authorized [id number] Closed Consult, Test & Treat 10/24/2022 10/24/[phone] Encounter Details Date Type Department Care Team (Late st Contact Info) Description 10/24/2022 Transcribe Orders eDH Incoming Referrals [phone] [place] [address] Encounter for routine follow-up Social History Tobacco [...] Diagnoses Orde r Schedule Amb Referral to [facility] Maternal Child Health Outpatient Referral Routine Encounter for routine follow-up Ordered: 10/24/2022 documented as of this encounter Visit Diagnoses Diagnosis Encounter for routine follow-up Routine follow-up documented in this encounter Care Teams Airplane Patroller Relationship Specialty Start Date End Date Yary Prater, STRAIGHT LINE [place]GER [place] [place] [address] PCP - General Family Medicine 03/28/22 documented as of this encounter
--- OUTSIDE RECORDS SUMMARY | 2024-05-07 15:42 | XMS_ITS | Encounter Summary ---
Author Organization [facility] [place] [address] Care Team Providers Care Driver Examiner Name Role Phone Yary Prater APRN Primary Care Provider [phone] Encounter Details Date Type Department Care Team (Late st Contact Info) Description 10/28/2022 Home Care Visit [facility] Strong [address] [address] Chanel Dawson RN TELEPHONE ENCOUNTER [...] on filedocumented in this encounter Care Teams Driver Examiner Relationship Specialty Start Date End Date Yary Pr[place] [address] PCP - General Family Medicine 03/28/22 documented as of this encounter
--- OUTSIDE RECORDS SUMMARY | 2024-05-07 15:42 | XMS_ITS | Encounter Summary ---
Author Organization [facility] [place] [address] Care Team Providers Care Lead Press Operator Name Role Phone Yary Prater APRN Primary Care Provider [phone] Encounter Details Date Type Department Care Team (Latest Contact Info) Description 01/01/2023 10:15 AM EDT Home Care Visit [address] [address] Chanel Dawson RN [facility] HOME VISIT Social History Tobacco Use Types [...] Client visit at client's home for [facility] Nurse Home Visiting Program. Covid screening negative documented in this encounter Plan of Treatment Not on file documented as of this encounter Visit Diagnoses Not on filedocumented in this encounter Care Teams Lead Press Operator Relationship Specialty Start Date End Date Yary Prater APRN [facility] [address] PCP - General Family Medicine 03/28/22 documented as of this encounter
--- OUTSIDE RECORDS SUMMARY | 2024-05-07 15:42 | XMS_ITS | Encounter Summary ---
Author Organization [facility] Address [facility] [place] [address] Care Team Providers Care Meter Tester Name Role Phone Kristopher Bearden MD Primary Care Provider [phone] Encounter Details Date Type Department Care Team (Late st Contact Info) Description 01/18/2014 11:30 AM EDT Office Visit Obstetrics [place] [phone] Ivana Gaspar MD [facility] DR OBSTETRICS [place] [address] Abnormal maternal serum screening test (Primary Dx) [...] mouth daily. Indications: Opioid Dependence ??? Pediatric Yboanpcqv-Leou-nuw (FLINTSTONES COMPLETE) Chew ??? FERROUS FUMARATE (IRON [...] Ivana GASPAR MD 01/18/2014 Cc: Sweetie Mera [address] [place] [address] , with copy of ultrasound report documented in this encounter Plan of Treatment Not on file documented as of this encounter Visit Diagnoses Diagnosis Abnormal maternal serum screening test- Primary Abnormal findings on screening documented in this encounter Care Teams Meter Tester Relationship Specialty Start Date End Date Kristopher Bearden MD [address] [place] [address] PCP - General 02/27/10 01/16/15 documented as of this encounter
--- OUTSIDE RECORDS SUMMARY | 2024-05-07 15:42 | XMS_ITS | Encounter Summary ---
Author Organization [facility] [place] [address] Care Team Providers Care Indian Trader Name Role Phone Yary Prater APRN Primary Care Provider [phone] Encounter Details Date Type Department Care Team (Late st Contact Info) Description 10/29/2022 Home Care Visit [facility] Strong [address] [address] Chanel Dawson RN TELEPHONE ENCOUNTER [...] on filedocumented in this encounter Care Teams Indian Trader Relationship Specialty Start Date End Date Yary Prater [place] [address] PCP - General Family Medicine 03/28/22 documented as of this encounter
--- OUTSIDE RECORDS SUMMARY | 2024-05-07 15:42 | XMS_ITS | Encounter Summary ---
Author Organization [facility] [place] [address] Care Team Providers Care Automatic Pinsetter Mechanic Name Role Phone Yary Prater APRN Primary Care Provider [phone] Encounter Details Date Type Department Care Team (Latest Contact Info) Description 11/27/2022 10:15 AM EDT Home Care Visit [address] [address] Chanel Dawson RN [facility] HOME VISIT Social History Tobacco Use [...] Client visit at client's home for [facility] Nurse Home Visiting Program. Covid screening negative documented in this encounter Plan of Treatment Not on file documented as of this encounter Visit Diagnoses Not on filedocumented in this encounter Care Teams Automatic Pinsetter Mechanic Relationship Specialty Start Date End Date Yary Prater APRN Gerry [facility] [address] PCP - General Family Medicine 03/28/22 documented as of this encounter
--- OUTSIDE RECORDS SUMMARY | 2024-05-07 15:42 | XMS_ITS | Encounter Summary ---
Author Organization [facility] [place] [address] Care Team Providers Care Regional Director Name Role Phone Kristopher Bearden MD Primary Care Provider [phone] Encounter Details Date Type Department Care Team (Latest Contact Info) Description 08/31/2014 2:00 PM EDT Ancillary Appointment [place] [phone] Marco Urbina, RVT Microembolization Social History Tobacco [...] Text Report Department: Vascular Surgery Lab Patient: [id number] (YOLANDA FRASER) CPT Code: 19014 ICD-9: 444.22 Referring Physician: FLAVIA CARY Indication: [...] Cary MD VASCULAR ORDERABLES Performing Organization Address City/State/[facility] Co de Phone Number VASCUBASE documented in this encounter Visit Diagnoses Diagnosis 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
--- OUTSIDE RECORDS SUMMARY | 2024-05-07 15:42 | XMS_ITS | Encounter Summary ---
Author Organization [facility] Address [facility] [place] [address] Care Team Providers Care Track Liner Operator Name Role Phone Yary Prater APRN Primary Care Provider [phone] Encounter Details Date Type Department Care Team (Latest Contact Info) Description 01/08/2023 1:00 PM EDT Home Care Visit [address] [address] Chanel Dawson RN [facility] DISCHARGE Social History Tobacco Use Types Packs/Day [...] 01/08/2023 12:00 AM EDT Please discharge from [facility] services. [facility] Discharge visit has been completed. documented in this encounter Plan of Treatment Not on file documented as of this encounter Visit Diagnoses Not on filedocumented in this encounter Care Teams Track Liner Operator Relationship Specialty Start Date End Date Yary Prater [place] [address] PCP - General Family Medicine 03/28/22 documented as of this encounter
--- OUTSIDE RECORDS SUMMARY | 2024-05-07 15:42 | XMS_ITS | Encounter Summary ---
Author Organization [facility] [address] Care Team Providers Care Boring Machine Set Up Operator Name Role Phone Kristopher Bearden MD Primary Care Provider [phone] Reason for Visit * Reason Comments Hand Pain ischemic fingers rig ht hand Encounter Details Date Type Department Care Team (Late st Contact Info) Description 08/14/2014 7:57 PM EDT - 08/15/2014 12:44 AM EDT [place] [address] Ady Mosley Jr., MD Yanofsky, Norman N, [...] also take a baby aspirin (81 mg)daily. [facility] Arm Pain: After Your Visit Your Care [...] your doctor if you can take an eiru-vwp-nhsyqtj medicine. ?? Rest and protect your arm. [...] more? Visit our health information library at [email or web address] You can also view health information on Dragon T[employer], your personal patient account. Log in or sign up today. Enter B641 in the search box to learn more about Arm Pain: After Your Visit. ?? [id number] [employer]. Care instructions adapted under license by [facility]. This care instruction is for use with your licensed healthcare professional. If you have questions about a medical condition or this instruction, always ask your healthcare professional. [employer] disclaims any warranty or liability for your use of this information. Content Version: 10.4.582356; Current as of: February 18, 2014 documented in this encounter Medications at Time of Discharge Medication Sig Dispensed Refills Start Date End Date Pediatric Kcerouqva-Iekw-ths (FLINTSTONES COMPLETE) Chew 07/25/2006 methadone (DOLOPHINE) 10 [...] to bedside to maybe establish IV. * iKmmy Murphy RN - 08/14/2014 9:36 PM EDT [...] they turn blue. She was seen at [facility] and is sent here for the vascular [...] aspirin. I discussed the patient with the [facility] Poison Information center. They had no specific recommended interventions. documented in this encounter Miscellaneous Notes * Ancillary Services Notes - Yoav Lira RN - 08/14/2014 9:13 PM EDT Called IV team for help with IV insertion. * Consult Note - Faizan Pemberton MD - 08/14/2014 8:28 PM EDT [facility] Department of Vascular Surgery Inpatient Admission Note [...] mouth daily. Indications: Opioid Dependence ??? Pediatric Sicpgvzij-Bidg-ace (FLINTSTONES COMPLETE) Chew ??? FERROUS FUMARATE (IRON [...] results found for this basename: phart, po2art, caa8qar CTA RUE: FINDINGS: There is a normal [...] her awake at night. Pt seen at [facility] 2x for same, today sent here. Pt [...] MD HEMATOLOGY ORDERABL ES Performing Organization Address [facility] Phone Number [facility] * High Sensitivity CRP (08/14/2014 10:20 PM EDT) C-Reactive Protein High Sensitivity 11.0 mg/L [facility] Comment: Interpretations: 1) For accurate cardiac [...] MD CHEMISTRY ORDERABLE S Performing Organization Address [facility] de Phone Number [facility] * Sedimentation rate (08/14/2014 10:20 PM EDT) Sedimentation Rate Automated 14 0 - 20 mm/hr [facility] Blood specimen (specimen) 08/14/2014 10:20 PM EDT 08/14/2014 10:32 PM EDT Narrative Resulting Agency Comment Spec In Lab Fabian Rice MD HEMATOLOGY ORDERABL ES Performing Organization Address [facility] de Phone Number [facility] * (ABNORMAL) Creatinine (08/14/2014 10:20 PM EDT) Creatinine 0.62(L) 0.70 - 1.20 mg/dL [facility] Comment: Please note that the pediatric reference intervals supplied above were not validated at [facility]. Results from pediatric patients should be interpreted in conjunction to the patient's age, height and muscle mass. Est Glomerular Filtration Rate >60 >=60 [facility] Comment: This estimated GFR (eGFR) value [...] the following links into your internet browser. http://[employer] ob[employer] zadach/DHnkdep http://[employer] zadach/[facility] Blood specimen (specimen) 08/14/2014 10:20 PM EDT 08/14/2014 10:32 PM EDT Narrative Resulting Agency Comment Spec In Lab Fabian Rice MD CHEMISTRY ORDERABLE S Performing Organization Address [facility] de Phone Number [facility] * (ABNORMAL) BUN (08/14/2014 10:20 PM EDT) Blood Urea Nitrogen 6(L) 8 - 18 mg/dL [facility] Blood specimen (specimen) 08/14/2014 10:20 PM EDT 08/14/2014 10:32 PM EDT Narrative Resulting Agency Comment Spec In Lab Fabian Rice MD CHEMISTRY ORDERABLE S Performing Organization Address [facility] de Phone Number [facility] * Electrolytes panel (08/14/2014 10:20 PM EDT) [...] FRASER ?Ordered By: FABIAN RICE ? MR#: [id number] ?LOC: ??ED ? /Sex: ??1990 (24 years), [...] MD MICROBIOLOGY - BLOO D ORDERABLES [facility] documented in this encounter Visit Diagnoses [...] RN) documented in this encounter Care Teams Boring Machine Set Up Operator Relationship Specialty Start Date End Date Kristopher Bearden MD [address] [place] [address] PCP - General 02/27/10 01/16/15 documented as of this encounter
--- OUTSIDE RECORDS SUMMARY | 2024-05-07 15:42 | XMS_ITS | Encounter Summary ---
Author Organization [facility] Address [facility] [place] [address] Care Team Providers Care Foster Care Social Worker Name Role Phone Moi, Yary Valencia APRN Primary Care Provider [phone] Reason for Visit * [facility] Maternal Child Health (Routine) - Closed Specialty Diagnoses / Procedures Referred By Deyvi rocha Referred To Contact Home Health Services Diagnoses Encounter for routine follow-up [address] [place] [address] [address] Referral ID Status Reason Start Date Expiration Date V isits Requested Visits Authorized [id number] Closed Consult, Test & Treat 10/24/2022 10/24/[phone] Encounter Details Date Type Department Care Team (Latest Contact Info) Description 10/28/2022 10:00 AM EDT Home Care Visit [address] [phone] Chanel Dawson RN NOT HOME NOT FOUND [...] Diagnoses Orde r Schedule Amb [facility] Maternal Child Health Outpatient Referral Routine Encounter for routine follow-up Ordered: 10/24/2022 documented as of this encounter Visit Diagnoses Not on filedocumented in this encounter Care Teams Foster Care Social Worker Relationship Specialty Start Date End Date Yary Prater, FRENCH T[place] [address] PCP - General Family Medicine 03/28/22 documented as of this encounter
--- OUTSIDE RECORDS SUMMARY | 2024-05-07 15:42 | XMS_ITS | Clinical Summary ---
Author Organization [facility] Address [address] [place] [address] Care Team Providers Care Dispatcher Chief Coal Slurry Name Role Phone Yary Prater PEDIATRIC SOCIAL WORKER Primary Care Provider [phone] Social History Tobacco Use Types Packs/Day Years [...] Antibody Reactive(A ) Negative 07/26/2022 10:34 EDT [facility] Comment: Supplemental testing for HCV RNA is ordered to rule out active HCV infection. Blood VENOUS BLOOD / Unknown 07/24/2022 11:40 EDT 07/25/2022 19:07 EDT us Provider Outr Resulting Lab CHEMISTRY & BLOOD GA S ORDERABLES Final Result [facility] [address] [place] [address] from Last 3 Months or Most Recently Relevant to Health Maintenance Insurance [place] [facility] [place] Address: [address] [address] [facility] [place] Address: [address] [address] Care Teams Dispatcher Chief Coal Slurry Relationship Specialty Start Date End Date Yary Prater NP [facility] [place] [address] PCP - General Family Medicine - Primary Care 04/07/22
--- OUTSIDE RECORDS SUMMARY | 2024-05-07 15:42 | XMS_ITS | Encounter Summary ---
Author Organization [facility] Address [address] [place] [address] Care Team Providers Care Fourdrinier Machine Tender Name Role Phone Moi, Yary Valencia CARBIDE POWDER PROCESSOR Primary Care Provider [phone] Encounter Details Date Type Department Care Team (Late st Contact Info) Description 10/28/2022 Lab Requisition [facility] Pathology & Laboratory Medicine - [address] [address] Outr Resulting Lab, Provider Social History Tobacco [...] gonorrhoeae Result Negative Negative 10/29/2022 14:21 EDT [facility] Chlamydia trachomatis Result Negative Negative 10/29/2022 14:21 EDT [facility] Urine URINE / Unknown 10/28/2022 1 3:30 EDT 10/29/2022 9:42 EDT Narrative [facility] - 10/29/2022 14:21 EDT A first catch urine specimen is acceptable for detection of Gonorrhea and Chlamydia, but might detect up to 10% fewer infections when compared with vaginal and endocervical swab samples. us Provider Outr Resulting Lab MICROBIOLOGY - GENER AL ORDERABLES Final Result [facility] [address] [place] [address] documented in this encounter Visit Diagnoses Not on filedocumented in this encounter Care Teams Fourdrinier Machine Tender Relationship Specialty Start Date End Date Yary Prater NP [address] [place] [address] PCP - General Family Medicine - Primary Care 04/07/22 documented as of this encounter
--- OUTSIDE RECORDS SUMMARY | 2024-05-07 15:42 | XMS_ITS | Encounter Summary ---
Author Organization [facility] [place] [address] Care Team Providers Care Logistics Vice President Name Role Phone Yary Prater APRN Primary [...] on filedocumented in this encounter Care Teams Logistics Vice President Relationship Specialty Start Date End Date Yary Prater [place] [address] PCP - General Family Medicine 03/28/22 documented as of this encounter
--- OUTSIDE RECORDS SUMMARY | 2024-05-07 15:42 | XMS_ITS | Encounter Summary ---
Author Organization [facility] Address [facility] [place] [address] Care Team Providers Care Mineralogy Teacher Name Role Phone Yary Prater APRN Primary Care Provider [phone] Reason for Visit * Consultation (Routine) - [...] History of drug abuse Aditi Gaviria CNM [address] [place] [address] [place] [address] [facility] Tenter Frame Operator [address] [place] [address] Referral ID Status Reason Start Date Expiration Date V isits Requested Visits Authorized [id number] Closed Consult, Test & Treat PCP Updated and/or Approved 03/28/2022 03/28/2023 6 6 Encounter Details Date Type Department Care Team (Latest Contact Info) Description 05/27/2022 11:00 AM EST Office Visit Obstetrics [place] [address] Paulina Zavaleta MD [facility] OBSTETRICS [place] [address] Medication exposure during first trimester of ; [...] of this encounter Progress Notes * Paulina aZvaleta MD - 05/27/2022 11:00 AM EST Maternal [...] platform is no longer active. Please use Mashape. Current Outpatient Medications Medication Sig Dispense Refill [...] times daily.) 60 capsule 0 ??? Pediatric Mvsagiyeb-Vfgf-kvd (FLINTSTONES COMPLETE) Chew ??? 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
--- OUTSIDE RECORDS SUMMARY | 2024-05-07 15:42 | XMS_ITS | Encounter Summary ---
Author Organization [facility] Address [facility] [place] [address] Care Team Providers Care Veterinary Milk Specialist Name Role Phone Kristopher Bearden MD Primary Care Provider [phone] Encounter Details Date Type Department Care Team (Late st Contact Info) Description 09/10/2014 12:18 PM EDT - 09/10/2014 1:51 PM EDT Emergency Emergency Department [facility] [place] [address] EMERGENCY DEPT, [facility] [address] Discharge Disposition: Left Without Being Seen Before [...] for pain 60 capsule 0 08/26/2014 Pediatric Rxdwbzsbq-Gpmj-ohu (FLINTSTONES COMPLETE) Chew 07/25/2006 cilostazol (PLETAL) 100 [...] on filedocumented in this encounter Care Teams Veterinary Milk Specialist Relationship Specialty Start Date End Date Kristopher Bearden MD [address] [place] [address] PCP - General 02/27/10 01/16/15 documented as of this encounter
--- OUTSIDE RECORDS SUMMARY | 2024-05-07 15:42 | XMS_ITS | Encounter Summary ---
Author Organization [facility] Address [facility] [place] [address] Care Team Providers Care Buckle Attaching Machine Operator Name Role Phone Kristopher Bearden MD Primary Care Provider [phone] Encounter Details Date Type Department Care Team (Late st Contact Info) Description 09/02/2014 Telephone Vascular Surgery at [facility] [place] [phone] Sweta Bell RN Social History Tobacco Use [...] 11:39 AM EDT Nurse Taisha called from [facility](pt's residence) to report that she has developed [...] on filedocumented in this encounter Care Teams Buckle Attaching Machine Operator Relationship Specialty Start Date End Date Kristopher Bearden MD [address] [place] [address] PCP - General 02/27/10 01/16/15 documented as of this encounter
--- OUTSIDE RECORDS SUMMARY | 2024-05-07 15:42 | XMS_ITS | Encounter Summary ---
Author Organization [facility] Address [facility] [place] [address] Care Team Providers Care Deputy County Counsel Name Role Phone Kristopher Orozco MD Primary Care Provider [phone] Encounter Details Date Type Department Care Team (Latest Contact Info) Description 11/09/2016 8:52 AM EDT - 11/09/2016 11:59 PM EDT Hospital [place] [phone] Discharge Disposition: Home Social History Tobacco Use [...] for pain 60 capsule 0 08/26/2014 Pediatric Uathnvghk-Vwmh-uly (FLINTSTONES COMPLETE) Chew 07/25/2006 cilostazol (PLETAL) 100 [...] Report (11/09/2016 12:00 PM EDT) Final Diagnosis [id number] ? Location: OPW The signing pathologist has [...] 1.1 cm; three vessels; eccentric insertion. Surface: Industry-red with prominent vasculature. Maternal Surface: Grossly intact with focal loosely attached blood clots. Parenchyma: Spongy, pink-red with an area with multiple pink-brown lesions resembling infarcts, with a peripheral distribution involving 10-15 percent of the overall parenchyma. Sections/Processi ng: (1) membrane roll; (2) proximal and distal cord; (3-5) full thickness parenchyma; (6-7) possible infarcts. (R7) ??pps 11/18/2016 2:[address] [facility] TISSUE SPECIMEN FROM PLACENTA / Unknown 11/09/2016 12:00 PM EDT 11/09/2016 12:00 PM EDT Albert Monge MD PATHOLOGY/CYTOLOGY O RDERABLES Performing Organization Address City/State/[facility] Co de Phone Number [facility] [place] [address] documented in this encounter Visit Diagnoses Not on filedocumented in this encounter Care Teams Deputy County Counsel Relationship Specialty Start Date End Date Kristopher Orozco MD PCP - General General Internal Medicine 01/17/15 documented as of this encounter
--- OUTSIDE RECORDS SUMMARY | 2024-05-07 15:42 | XMS_ITS | Encounter Summary ---
Author Organization [facility] [place] [address] Care Team Providers Care Talent Acquisition Associate Name Role Phone Kristopher Bearden MD Primary Care Provider [phone] Reason for Visit * Reason Comments Other ischemic feet and bl ue fingers Encounter Details Date Type Department Care Team (Late st Contact Info) Description 08/31/2014 3:00 PM EDT Office [place] [phone] Clotilde Ca MD IV drug abuse Discharge [...] unspecified documented in this encounter Care Teams Talent Acquisition Associate Relationship Specialty Start Date End Date Kristopher Bearden MD [address] [place] [address] PCP - General 02/27/10 01/16/15 documented as of this encounter
--- OUTSIDE RECORDS SUMMARY | 2024-05-07 15:42 | XMS_ITS | Encounter Summary ---
[place] [address] Care Team Providers Care Selenium Plant Operator Name Role Phone Yary Prater APRN Primary Care Provider [phone] Reason for Referral * Diagnostic Test (Routine) - Closed Specialty Diagnoses / Procedures Referred By Contac t Referred To Contact Radiology Diagnoses Drug dependence during in first trimester Procedures US OB Detailed Morphology Quentin Crawford CNM [address] [place] [address] [address] [place] [address] [facility] [place] [address] Referral ID Status Reason Start Date Expiration Date V isits Requested Visits Authorized [id number] Closed Specialty Service Requested 03/29/2022 09/28/2023 1 1 Reason for Visit * Diagnostic Test (Routine) - Closed Specialty Diagnoses / Procedures Referred By Contac t Referred To Contact Radiology Diagnoses Drug dependence during in first trimester Procedures US OB Detailed Morphology Quentin Crawford CNM [address] [place] [address] [address] [place] [address] [facility] [place] [address] Referral ID Status Reason Start Date Expiration Date V isits Requested Visits Authorized [id number] Closed Specialty Service Requested 03/29/2022 09/28/2023 1 1 Encounter Details Date Type Department Care Team (Latest Contact Info) Description 05/27/2022 9:38 AM EST - 05/27/2022 11:59 PM EST Hospital [place] [address] Quentin Crawford, JAMEEL [address] [place] [address] Drug dependence during in first trimester Discharge [...] for pain 60 capsule 0 08/26/2014 Pediatric Jfytzfjpo-Pxsd-klz (FLINTSTONES COMPLETE) Chew 07/25/2006 documented as of [...] who have questions, please contact the health adult care manager that requested your imaging first. ?Paulina Zavaleta, Color Laboratory Technician Electronically Signed Final Report ?? 05/27/2022 11:47 am Narrative 05/27/2022 11:47 AM EST OBSTETRICS REPORT ?(Signed Final 05/27/2022 11:47 am) PATIENT INFO: ID #: ? [id number] ?: ??[birth year] (32 yrs)(F) Name: ? JENNIFER FRASER ? Visit Date: 05/27/2022 09:58 am PERFORMED BY: Performed By: ? Rashid BILLS, ??Ann Attending: ?Meghann JACOBSON, Paulina Esparza Referred By: ?QUENTIN CRAWFORD Location: ? [place] SERVICE(S) PROVIDED: [facility] - Detailed Morphology - [id number] ? [id number] INDICATIONS: 19 weeks gestation of ?Z3A.19 Suboxone [...] Arch: ? Visualized SVC: ? Visualized Cardiac [place]: ?Visualized Diaphragm: ? Visualized 3 Vessel View: [...] 05/27/2022 11:47 am) PATIENT INFO: ID #: [id number] : [birth year] (32 yrs)(F) Name: JENNIFER FRASER Visit Date: 05/27/2022 09:58 am PERFORMED BY: Performed By: Ann Mike RDMS Attending: Paulina Zavaleta MD Referred By: QUENTIN CRAWFORD Location: [place] SERVICE(S) PROVIDED: [facility] - Detailed Morphology - [id number] INDICATIONS: 19 weeks gestation of Z3A.19 Suboxone [...] Visualized Ductal Arch: Visualized SVC: Visualized Cardiac [place]: Visualized Diaphragm: Visualized 3 Vessel View: Visualized [...] who have questions, please contact the health adult care manager that requested your imaging first. Paulina Zavaleta, Color Laboratory Technician Electronically Signed Final Report 05/27/2022 11:47 am Quentin Crawford CNM IMG OB ORDERABLE S documented in this encounter Visit Diagnoses Diagnosis Drug dependence during in first trimester documented in this encounter Care Teams Selenium Plant Operator Relationship Specialty Start Date End Date Yary Prater, FRAME [place] [address] PCP - General Family Medicine 03/28/22 documented as of this encounter
--- OUTSIDE RECORDS SUMMARY | 2024-05-07 15:42 | XMS_ITS | Encounter Summary ---
Author Organization [facility] Address [facility] [place] [address] Care Team Providers Care Pacu Nurse Name Role Phone Kristopher Bearden MD Primary Care Provider [phone] Encounter Details Date Type Department Care Team (Late st Contact Info) Description 08/14/2014 Orders [place] [address] Neil Rodriguez MD [facility] [place] [address] Social History Tobacco Use Types Packs/Day Years [...] is a Non-reportable exam Neil Rodriguez MD [facility] FILM LIBRARY ORD ERABLES documented in this encounter Visit Diagnoses Not on filedocumented in this encounter Care Teams Pacu Nurse Relationship Specialty Start Date End Date Kristopher Bearden MD [address] [place] [address] PCP - General 02/27/10 01/16/15 documented as of this encounter
--- OUTSIDE RECORDS SUMMARY | 2024-05-07 15:42 | XMS_ITS | Encounter Summary ---
Author Organization [facility] [place] [address] Care Team Providers Care Raw Cheese Worker Name Role Phone Yary Prater APRN Primary Care Provider [phone] Encounter Details Date Type Department Care Team (Latest Contact Info) Description 12/20/2022 11:00 AM EDT Home Care Visit [address] [address] Chanel Dawson RN [facility] HOME VISIT Social History Tobacco Use [...] Client visit at client's home for [facility] Nurse Home Visiting Program. Covid screening negative documented in this encounter Plan of Treatment Not on file documented as of this encounter Visit Diagnoses Not on filedocumented in this encounter Care Teams Raw Cheese Worker Relationship Specialty Start Date End Date Yary Prater APRN [facility] [place] [address] PCP - General Family Medicine 03/28/22 documented as of this encounter
--- OUTSIDE RECORDS SUMMARY | 2024-05-07 15:42 | XMS_ITS | Encounter Summary ---
Author Organization [facility] [place] [address] Care Team Providers Care Coding Manager Name Role Phone Kristopher Bearden MD Primary Care Provider [phone] Reason for Visit * Reason Comments Positive Screen For Trisomy 18 Encounter Details Date Type Department Care Team (Late st Contact Info) Description 01/18/2014 10:15 AM EDT Office Visit Obstetrics [place] [address] Isi Gerard MS Abnormal quad screen (Primary [...] documented in this encounter Progress Notes * sIi Gerard MS - 01/18/2014 3:06 PM EDT [...] screening documented in this encounter Care Teams Coding Manager Relationship Specialty Start Date End Date Kristopher Bearden MD [address] [place] [address] PCP - General 02/27/10 01/16/15 documented as of this encounter
--- OUTSIDE RECORDS SUMMARY | 2024-05-07 15:42 | XMS_ITS | Encounter Summary ---
Author Organization [facility] Address [facility] [place] [address] Care Team Providers Care Cushion Filler Name Role Phone Moi, Yary Valencia APRN Primary Care Provider [phone] Reason for Visit * [facility] Maternal Child Health (Routine) - Closed Specialty Diagnoses / Procedures Referred By Deyvi rocha Referred To Contact Home Health Services Diagnoses Encounter for routine follow-up [address] [place] [address] [address] Referral ID Status Reason Start Date Expiration Date V isits Requested Visits Authorized [id number] Closed Consult, Test & Treat 10/24/2022 10/24/[phone] Encounter Details Date Type Department Care Team (Latest Contact Info) Description 11/06/2022 10:15 AM EDT Home Care Visit [facility] [address] [address] Chanel Dawson RN [facility] START OF CARE Social History Tobacco [...] on filedocumented in this encounter Care Teams Cushion Filler Relationship Specialty Start Date End Date Yary Prater, RIP [place] [place] [address] PCP - General Family Medicine 03/28/22 documented as of this encounter
--- OUTSIDE RECORDS SUMMARY | 2024-05-07 15:42 | XMS_ITS | Clinical Summary ---
Author Organization [facility] Address [facility] [place] [address] Care Team Providers Care Automotive Software Engineer Name Role Phone Yary Prater APRN Primary Care Provider [phone] Allergies Active Allergy Reactions Criticality Noted Date Comments Latex Rash 01/18/2014 Latex, Natural Rubber 05/26/2022 Naproxen Hives 05/26/2022 Penicillins Hives 01/18/2014 Cilostazol Hives Medium 09/02/2014 Venom-Honey Bee Shortness Of Breath High 08/26/2014 Medications Medication Sig Dispensed Refills Start Date End Date Status Pediatric Eeqmsvkws-Ukhb-jzb (FLINTSTONES COMPLETE) Chew 07/25/2006 Active aspirin 81 [...] - Influenza standard series) 12/07/2023 Care Teams Automotive Software Engineer Relationship Specialty Start Date End Date Yary Prater, SUMMER LAW CLERK [address] [place] [address] PCP - General Family Medicine 03/28/22
--- OUTSIDE RECORDS SUMMARY | 2024-05-07 15:42 | XMS_ITS | Encounter Summary ---
Author Organization [facility] Address [facility] [place] [address] Care Team Providers Care Gas Jockey Name Role Phone Kristopher Bearden MD Primary Care Provider [phone] Encounter Details Date Type Department Care Team (Late st Contact Info) Description 08/30/2014 Notes [place] [address] Frankie Lisa MD [facility] [place] [address] Social History Tobacco Use Types Packs/Day Years [...] and the best contact for transportation is [phone]. Depending on her arterial status, vascular may or may not be the best service to treat her foot ulcers. We will determine that when we see her. Frankie Lisa M.D. Section of Vascular Surgery documented in this encounter Plan of Treatment Not on file documented as of this encounter Visit Diagnoses Not on filedocumented in this encounter Care Teams Gas Jockey Relationship Specialty Start Date End Date Kristopher Bearden MD [address] [place] [address] PCP - General 02/27/10 01/16/15 documented as of this encounter
--- OUTSIDE RECORDS SUMMARY | 2024-05-07 15:42 | XMS_ITS | Encounter Summary ---
Author Organization [facility] [place] [address] Care Team Providers Care Pbx Inspector Name Role Phone Kristopher Bearden MD Primary Care Provider Encounter Details Date Type Department Care Team (Late st Contact Info) Description 08/30/2014 Orders Only [place] [address] Lizzie Ferrera, RN Microembolization Social History Tobacco [...] Text Report Department: Vascular Surgery Lab Patient: [id number] (BRIA YOLANDA) CPT Code: 06236 ICD-9: 444.22 Referring Physician: FLAVIA CARY Indication: [...] artery documented in this encounter Care Teams Pbx Inspector Relationship Specialty Start Date End Date Kristopher Bearden MD [address] [place] [address] PCP - General 02/27/10 01/16/15 documented as of this encounter
--- OUTSIDE RECORDS SUMMARY | 2024-05-07 15:42 | XMS_ITS | Encounter Summary ---
Author Organization [facility] [place] [address] Care Team Providers Care Accounting Administrator Name Role Phone Kristopher Bearden MD Primary Care Provider [phone] Encounter Details Date Type Department Care Team ([facility] st Contact Info) Description 11/22/2014 Orders Only Vascular Surgery at [facility] [place] [address] Sweta Bell, RN Ischemia of hand Social [...] disorder documented in this encounter Care Teams Accounting Administrator Relationship Specialty Start Date End Date Kristopher Bearden MD [address] [place] [address] PCP - General 02/27/10 01/16/15 documented as of this encounter
--- OUTSIDE RECORDS SUMMARY | 2024-05-07 15:42 | XMS_ITS | Encounter Summary ---
Author Organization [facility] [place] [address] Care Team Providers Care Brand Marketing Coordinator Name Role Phone Yary Prater APRN Primary Care Provider [phone] Encounter Details Date Type Department Care Team (Latest Contact Info) Description 12/25/2022 10:15 AM EDT Home Care Visit [address] [address] Chanel Dawson RN [facility] HOME VISIT Social History Tobacco [...] Client visit at client's home for [facility] Nurse Home Visiting Program. Covid screening negative documented in this encounter Plan of Treatment Not on file documented as of this encounter Visit Diagnoses Not on filedocumented in this encounter Care Teams Brand Marketing Coordinator Relationship Specialty Start Date End Date Yary Prater APRN [facility] [place] [address] PCP - General Family Medicine 03/28/22 documented as of this encounter
--- OUTSIDE RECORDS SUMMARY | 2024-05-07 15:42 | XMS_ITS | Referral Summary ---
Author Organization [facility] Address [address] [place] [address] Care Team Providers Care Assembly Riveter Name Role Phone Moi, Yary Valencia PERFORMING [address] RO[address] MANAGER Primary Care Provider [phone] Social History Tobacco Use Types Packs/Day Years [...] Antibody Reactive(A ) Negative 07/26/2022 10:34 EDT [facility] Comment: Supplemental testing for HCV RNA is ordered to rule out active HCV infection. Blood VENOUS BLOOD / Unknown 07/24/2022 11:40 EDT 07/25/2022 19:07 EDT us Provider Outr Resulting Lab CHEMISTRY & BLOOD GA S ORDERABLES Final Result Performing Organization Address [facility]/State/ZIP Co de Phone Number [facility] [address] [place] [address] from Last 3 Months or Most Recently Relevant to Health Maintenance Insurance [place] Care Teams Assembly Riveter Relationship Specialty Start Date End Date Yary Prater NP [address] [place] [address] [place] [address] PCP - General Family Medicine - Primary Care 04/07/22
--- OUTSIDE RECORDS SUMMARY | 2024-05-07 15:42 | XMS_ITS | Encounter Summary ---
Author Organization [facility] [place] [address] Care Team Providers Care Resin Painter Name Role Phone Kristopher Orozco MD Primary Care Provider [phone] Reason for Visit * Reason Comments Hand Pain Encounter Details Date Type Department Care Team (Late st Contact Info) Description 01/17/2015 1:10 PM EDT - 01/17/2015 4:26 PM EDT [place] [phone] Patient left without being seen Discharge Disposition: [...] for pain 60 capsule 0 08/26/2014 Pediatric Jmazrlswg-Jcma-brx (FLINTSTONES COMPLETE) Chew 07/25/2006 cilostazol (PLETAL) 100 [...] decision documented in this encounter Care Teams Resin Painter Relationship Specialty Start Date End Date Kristopher Orozco MD PCP - General General Internal Medicine 01/17/15 documented as of this encounter
--- OUTSIDE RECORDS SUMMARY | 2024-05-07 15:43 | XMS_ITS | Encounter Summary ---
Author Organization [facility] Address [address] [place] [address] Care Team Providers Care Repairer Screen Crusher Name Role Phone Yary Prater LOGISTICS OPERATIONS MANAGER Primary Care Provider [phone] Encounter Details Date Type Department Care Team (Late st Contact Info) Description 04/11/[address] [facility] Pathology & Laboratory Medicine - [facility] [address] [place] [address] Aditi Gaviria, AIR INTELLIGENCE SPECIALIST [address] [place] [address] Encounter for other general examination [...] Risk types, PCR Negative Negative 04/19/2022 16:[address] [facility] Comment:No E6 or E7 mRNA is detected from HPV types 16,18,31,33,35,39,45,51,52,56,58,59,66, and 68 by custom miller mediated amplification. Papanicolaou smear specimen (specimen) CERVIX UTERI STRUCTURE / Unknown 04/11/2022 9:04 EST 04/19/2022 9:55 EST Aditi Gaviria APN MICROBIOLOGY - GENERAL OR DERABLES Final Result [facility] [address] [place] [address] * PAP TEST (04/11/2022 9:04 EST) Specimens A. Cervix and/or Endocervix , ThinPrep Imaging System with Manual Evaluation 04/19/2022 16:[address] [facility] Specimen Adequacy Satisfactory for Evaluation - transformation zone component absent 04/19/2022 16:[address] [facility] General Categorization Epithelial Cell Abnormality 04/19/2022 16:[address] 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 Fungal organisms present morphologically consistent with Kimberley species. 04/19/2022 16:[address] [facility] Educational Comments [facility] recommends following the ASCCP's management guidelines which may be found at www.asccp.org 04/19/2022 16:[address] [facility] Attestation By the signature below, the attending physician certifies that they have personally conducted a gross and/or microscopic examination of the described specimens and rendered or confirmed the above diagnosis. 04/19/2022 16:[address] [facility] at 1633 Clinical History See below 04/19/19 23 16:33 EST [facility] HPV The result for the Human Papillomavirus (HPV) Detection-High Risk Types is Negative. No E6 or E7 mRNA is detected from HPV types 16,18,31,33,35,39 ,45,51,52,56,58,5 9,66, and 68 by custom miller mediated amplification.Crystal ting was performed on specimen [id number] and was resulted on 04/19/2022 1633 EST by [facility], LAB INSTRUMENT RESULTS IN 04/19/2022 16:33 EST [facility] Performing Lab [facility] 04/19/2022 16:33 EST [facility] Scanned Images 04/19/2022 16:33 EST [facility] Papanicolaou smear specimen (specimen) CERVIX UTERI STRUCTURE / Unknown 04/11/2022 9:04 EST 04/12/2022 13:31 EST Aditi Gaviria APN PATHOLOGY ORDERABLES Liz l Result Performing Organization Address City/[facility]/ZIP Co de Phone Number [facility] [address] [place] [address] * CHLAMYDIA/N. GONORRHOEAE AMPLIFIED RNA, THINPREP (04/11/2022 9:04 EST) Neisseria gonorrhoeae Result Negative Negative 04/12/2022 14:49 EST [facility] Chlamydia trachomatis Result Negative Negative 04/12/2022 14:49 EST [facility] Papanicolaou smear specimen (specimen) CERVIX UTERI STRUCTURE / Unknown 04/11/2022 9:04 EST 04/12/2022 10:10 EST Aditi Gaviria APN MICROBIOLOGY - GENERAL OR DERABLES Final Result Performing Organization Address City/[facility]/ZIP Co de Phone Number [facility] [address] [place] [address] documented in this encounter Visit Diagnoses Diagnosis Encounter for other general examination documented in this encounter Care Teams Repairer Screen Crusher Relationship Specialty Start Date End Date Moi, Yary B, LOGISTICS OPERATIONS MANAGER [address] [place] [address] PCP - General Family Medicine - Primary Care 04/07/22 documented as of this encounter
--- OUTSIDE RECORDS SUMMARY | 2024-05-07 15:43 | XMS_ITS | Encounter Summary ---
Author Organization [facility] Address [address] [place] [address] Care Team Providers Care Edge Trimmer Mechanic Name Role Phone Unavailable Primary Care Provider Unavailabl e Encounter Details Date Type Department Care Team (Late st Contact Info) Description 11/08/2005 Results Only [facility] - Maple conversion [address] [place] [address] [facility] [address] [place] [address] [place] [id number] Social History Tobacco Use Types Packs/Day Years [...] 68. [facility] Report Status Final [id number] [facility] 11/08/2005 11:0 4 EDT 11/15/2005 11:04 EDT Chyna Rosado JIGSAWYER MICROBIOLOGY - GENERAL ORDER MIRTA Final Result [facility] [address] [place] [address] * CYTOPATHOLOGY (11/08/2005 0:00 EDT) Pathology Report: CYTOPATHOLOGY REPORT Reports generated via electronic interface contain original data; however they are lacking the format of the original report. Caution should be taken when reading/interpreti ng unformatted reports. Name: ? YOLANDA OLMOS ? Accession #: ? [id number] : ? 1990 (Age: 15) ??F ?Collect Date: ? 11/08/2005 Location: ? [facility] ? Receive Date: ? 11/11/2005 Provider: ?CHYNA ROSADO JIGSAWYER Copy to: ? Specimen/Source: ?ThinPrep Pap Test, Cervix/Endocervix, processed on [employer] ThinPrep Imaging System, with manual evaluation Last Menstrual Period: ? 11/07/05 Other: ? HPVA - HPV testing requested if ASC-US on the current ThinPrep Pap test. ? SPECIMEN ADEQUACY ? Satisfactory for Evaluation - transformation zone component present GENERAL CATEGORIZATION ? Epithelial Cell Abnormality INTERPRETATION ? Squamous Cell Abnormality - Atypical squamous cells, undetermined significance. EDUCATIONAL NOTES/RECOMMENDATI ONS ? [facility] recommends following the 2001 Consensus Guidelines for the Management of Women with Cervical Cytological Abnormalities (TANO,2002;287:212 0-9). Management algorithms have been distributed by [facility] and are available online at www.ASCCP.org. ? Document reviewed and electronically signed by: ? Nik Mera MD ? Report Date: ??11/14/2005 17:24 End of Report [facility] 11/08/2005 11/11/2005 us Chyna Rosado JIGSAWYER PATHOLOGY ORDERABLES Final R esult [facility] [address] [place] [address] documented in this encounter Visit Diagnoses Not on filedocumented in this encounter
--- OUTSIDE RECORDS SUMMARY | 2024-05-07 15:43 | XMS_ITS | Encounter Summary ---
Author Organization [facility] Address [address] [place] [address] Care Team Providers Care Salsa Dance Instructor Name Role Phone Rula Perez USED BUILDING MATERIALS YARD WORKER Primary Care Provider [phone] Encounter Details Date Type Department Care Team (Late st Contact Info) Description 01/21/2019 Results Only [facility] [phone] Kaila Lopez MD [address] [place] [address] Social History Tobacco Use Types Packs/Day Years [...] ? YOLANDA FRASER ? Accession #: ? [id number] ? : ? 1990 (Age: 28) ??F ? Collect Date: ? 01/21/2019 ? Location: ? [facility] ? Receive Date: ? 01/21/2019 ? Provider: KAILA LOPEZ MD Copy to: RULA PEREZ USED BUILDING MATERIALS YARD WORKER ? Final Pathologic Diagnosis: ENDOCERVIX, CURETTAGE: - [...] Continued close clinical follow up is recommended. Geographic Information Systems Analyst slides of this case were reviewed at intradepartmental consultation conference. ?? Immunoperoxidase staining was performed on this case to further characterize the lesion. ANTIBODY(CLONE)(BLOCK) :RESULT P16 (E6H4TM, [place]) (block 1): non-contributory NOTE: ??One or more [...] ASCUS; LMP: ?/has Nexplanon; fax results to: [phone] Gross Description: ? Received in formalin labelled with proper patient identification (initials B, N) and ECC is an aggregate of dusky red-brown mucus, 0.8 x 0.5 x 0.1 cm. Entirely submitted in 1. ROMARIO Piña (ASCP) 01/21/2019 5:18 PM End of Report [facility] 01/21/2019 16:5 6 EDT 01/21/2019 16:56 EDT us Kaila Lopez MD PATHOLOGY ORDERABLES Final Resul t [facility] [address] [place] [address] documented in this encounter Visit Diagnoses Not on filedocumented in this encounter Care Teams Salsa Dance Instructor Relationship Specialty Start Date End Date Rula Perez NP [address] [place] [address] PCP - General 08/25/15 04/06/22 documented as of this encounter
--- OUTSIDE RECORDS SUMMARY | 2024-05-07 15:43 | XMS_ITS | Encounter Summary ---
Author Organization [facility] Address [address] [place] [address] Care Team Providers Care Field Support Representative Name Role Phone Rula Perez HEAVY DUTY PRESS OPERATOR Primary Care Provider Encounter Details Date Type Department Care Team (Late st Contact Info) Description 02/19/2017 Results Only [facility] [phone] Parminder Maldonado MD [address] [place] [address] Social History Tobacco Use Types Packs/Day Years [...] ? YOLANDA FRASER ? Accession #: ? [id number] ? : ? 1990 (Age: 26) ??F ? N #: ? [id number] ? Collect Date: ? 02/19/2017 ? Location: ? [facility] ? Receive Date: ? 02/19/2017 ? Provider: PARMINDER MALDONADO MD Copy to: RULA PEREZ HEAVY DUTY PRESS OPERATOR ? Final Pathologic Diagnosis: A. ?ENDOCERVIX, CURETTAGE: [...] II). See comment. Comment: The previous Pap ([id number]) was reviewed and the diagnosis of HSIL [...] submitted in toto in C1. ROMARIO Gomez ([facility]) 02/20/2017 8:01 AM End of Report [facility] 02/19/2017 18:0 1 EST 02/19/2017 18:01 EST us Parminder Maldonado MD PATHOLOGY ORDERABLES Final Resu lt [facility] [address] [place] [address] documented in this encounter Visit Diagnoses Not on filedocumented in this encounter Care Teams Field Support Representative Relationship Specialty Start Date End Date Rula Perez [place] [place] [address] PCP - General 08/25/15 04/06/22 documented as of this encounter
--- OUTSIDE RECORDS SUMMARY | 2024-05-07 15:43 | XMS_ITS | Encounter Summary ---
Author Organization [facility] Address [address] [place] [address] Care Team Providers Care Hand Endband Cutter Name Role Phone Rula Perez SANDSTONE INSPECTOR REPAIRER Primary Care Provider [phone] Encounter Details Date Type Department Care Team (Late st Contact Info) Description 05/06/2017 Results Only [facility] [[email or web address] [phone] Parminder Maldonado MD [address] [place] [address] Social History Tobacco Use Types Packs/Day Years [...] ? YOLANDA FRASER ? Accession #: ? [id number] ? : ? 1990 (Age: 27) ??F ? Collect Date: ? 05/06/2017 ? Location: ? [facility] ? Receive Date: ? 05/07/2017 ? Provider: PARMINDER MALDONADO MD Copy to: RULA PEREZ SANDSTONE INSPECTOR REPAIRER ? Final Pathologic Diagnosis: CERVIX, LOOP ELECTROSURGICAL EXCISION PROCEDURE: - Ectocervix with mild reactive changes. - Negative for dysplasia. See comment. Comment: The referring cervical biopsy ([id number], C) has been reviewed in conjunction with [...] dot Green-margin opposite inked dot Red-medial margin [place]-lateral margin Black-all remaining surgical margins Dr. Kamara 05/07/2017 4:32 PM End of Report [facility] 05/06/2017 9:43 EST 05/07/2017 9:43 EST us Parminder Maldonado MD PATHOLOGY ORDERABLES Final Resu lt [facility] [address] [place] [address] documented in this encounter Visit Diagnoses Not on filedocumented in this encounter Care Teams Hand Endband Cutter Relationship Specialty Start Date End Date Rula Perez [place] [place] [address] PCP - General 08/25/15 04/06/22 documented as of this encounter
--- OUTSIDE RECORDS SUMMARY | 2024-05-07 15:43 | XMS_ITS | Encounter Summary ---
Author Organization [facility] Address [address] [place] [address] Care Team Providers Care Contract Analyst Name Role Phone Rula Perez COSTUME SEAMSTRESS Primary Care Provider [phone] Encounter Details Date Type Department Care Team (Late st Contact Info) Description 11/03/2018 Phlebotomy Only [address] [address] Cytology Laboratory Manager, Outpatient Screening examination for STD (sexually transmitted [...] Screen, IgM Negative Negative 2018 8:14 EDT [facility] Comment: (Note) . ADDITIONAL INFORMATION This test has been modified from the director river restoration's instructions. Its performance characteristics were determined by [facility] in a manner consistent with CLIA requirements. This test has not been cleared or approved by the U.S. Food and Drug Administration. Performed by: [facility] Labs: [facility] [address], [place] [address] BLOOD SPECIMEN / Unknown 11/03/2018 17:08 EDT 11/03/2018 17:16 EDT Ziggy BROWER IMMUNOLOGY AND S EROLOGY ORDERABLES Final Result Performing Organization Address [facility] Co de Phone Number [facility] [address] [place] [address] * HERPES SIMPLEX VIRUS (HSV) TYPE 1 & 2 AB, IGG (11/03/2018 17:08 EDT) HSV Type 1 Ab, IgG Positive 11/04/2018 11:20 EDT [facility] Comment: 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 HSV Type 2 Ab, IgG Positive 11/04/2018 11:21 EDT [facility] Comment: Indicates the presence of detectable IgG antibody to HSV-2. Blood specimen (specimen) BLOOD SPECIMEN / Unknown 11/03/2018 17:08 EDT 11/03/2018 17:16 EDT Ziggy BROWER IMMUNOLOGY AND S EROLOGY ORDERABLES Final Result Performing Organization Address [facility] Co de Phone Number [facility] [address] [place] [address] documented in this encounter Visit Diagnoses Diagnosis Screening examination for STD (sexually transmitted disease)- Primary Screening examination for venereal disease documented in this encounter Care Teams Contract Analyst Relationship Specialty Start Date End Date Rula Perez [place] [address] PCP - General 08/25/15 04/06/22 documented as of this encounter
--- OUTSIDE RECORDS SUMMARY | 2024-05-07 15:43 | XMS_ITS | Encounter Summary ---
Author Organization [facility] Address [address] [place] [address] Care Team Providers Care Supervising Law Enforcement Analyst Name Role Phone Rula Perez GABBY Primary Care Provider [phone] Encounter Details Date Type Department Care Team (Late st Contact Info) Description 11/03/2018 Orders Only [facility] - [address] [address] Yenifer Yip MD [address] [place] [address], NICU, [place], Level 7 [place] [address] Screening examination for STD (sexually [...] 1 Ab, IgG Positive 11/04/2018 11:20 EDT [facility] Comment: 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 HSV Type 2 Ab, IgG Positive 11/04/2018 11:21 EDT [facility] Comment: Indicates the presence of detectable IgG antibody to HSV-2. Blood specimen (specimen) BLOOD SPECIMEN / Unknown 11/03/2018 17:08 EDT 11/03/2018 17:16 EDT Ziggy Grajeda ZAIDA NAMP IMMUNOLOGY AND S EROLOGY ORDERABLES Final Result Performing Organization Address [facility] Co de Phone Number [facility] [address] [place] [address] * HSV AB SCREEN, IGM (11/03/2018 17:08 EDT) HSV Ab Screen, IgM Negative Negative 2018 8:14 EDT [facility] Comment: (Note) . ADDITIONAL INFORMATION This test has been modified from the brand lead's instructions. Its performance characteristics were determined by [facility] in a manner consistent with CLIA requirements. This test has not been cleared or approved by the U.S. Food and Drug Administration. Performed by: [facility] Labs: [facility] [address], [place] [address] BLOOD SPECIMEN / Unknown 11/03/2018 17:08 EDT 11/03/2018 17:16 EDT Ziggy BROWER IMMUNOLOGY AND S EROLOGY ORDERABLES Final Result Performing Organization Address [facility] Co de Phone Number [facility] [address] [place] [address] documented in this encounter Visit Diagnoses Diagnosis Screening examination for STD (sexually transmitted disease)- Primary Screening examination for venereal disease documented in this encounter Care Teams Supervising Law Enforcement Analyst Relationship Specialty Start Date End Date Rula [place] [place] [address] PCP - General 08/25/15 04/06/22 documented as of this encounter
--- OUTSIDE RECORDS SUMMARY | 2024-05-07 15:43 | XMS_ITS | Encounter Summary ---
Author Organization [facility] Address [address] [place] [address] Care Team Providers Care Auto Clutch Specialist Name Role Phone Rula Perez CHIEF GUARD Primary Care Provider [phone] Encounter Details Date Type Department Care Team (Latest Contact Info) Description 01/21/2019 11:52 EDT - 01/21/2019 23:59 EDT Hospital Encounter [address] [address] Unknown, Provider, MD Discharge Disposition: Home or [...] Code Departure Means Destination Home or Self Custodial documented in this encounter Plan of Treatment Not on file documented as of this encounter Visit Diagnoses Not on filedocumented in this encounter Care Teams Auto Clutch Specialist Relationship Specialty Start Date End Date Rula Perez [place] [place] [address] PCP - General 08/25/15 04/06/22 documented as of this encounter
--- OUTSIDE RECORDS SUMMARY | 2024-05-07 15:43 | XMS_ITS | Encounter Summary ---
Author Organization [facility] Address [address] [place] [address] Care Team Providers Care Tire Balancer Name Role Phone MoiYary leung Erik DUPLICATING MACHINE SERVICER Primary Care Provider [phone] Encounter Details Date Type Department Care Team (Late st Contact Info) Description 07/25/2022 Lab Requisition [facility] Pathology & Laboratory Medicine - [address] [address] Outr Resulting Lab, Provider Social History Tobacco [...] Ab Positive See Note 07/26/2022 10:57 EDT [facility] Comment:Presence of detectab le Varicella Zoster virus IgG antibodies. Blood VENOUS BLOOD / Unknown 07/24/2022 11:40 EDT 07/25/2022 19:07 EDT us Provider Outr Resulting Lab IMMUNOLOGY AND SEROL OGY ORDERABLES Final Result Performing Organization Address [facility] Co de Phone Number [facility] [address] [place] [address] * RUBELLA IGG ANTIBODY (07/24/2022 11:40 EDT) Rubella IgG Ab Positive See Note 07/26/2022 11:07 EDT [facility] Comment:Positive for IgG ant ibodies to Rubella virus. Blood VENOUS BLOOD / Unknown 07/24/2022 11:40 EDT 07/25/2022 19:07 EDT us Provider Outr Resulting Lab CHEMISTRY & BLOOD GA S ORDERABLES Final Result Performing Organization Address [facility] Co de Phone Number [facility] [address] [place] [address] documented in this encounter Visit Diagnoses Not on filedocumented in this encounter Care Teams Tire Balancer Relationship Specialty Start Date End Date Yary Prater, GABBY [address] [place] [address] PCP - General Family Medicine - Primary Care 04/07/22 documented as of this encounter
--- OUTSIDE RECORDS SUMMARY | 2024-05-07 15:43 | XMS_ITS | Encounter Summary ---
Author Organization [facility] Address [address] [place] [address] Care Team Providers Care Dredge Pipe Installer Name Role Phone Rula Perez CAR HOSTLER Primary Care Provider [phone] Encounter Details Date Type Department Care Team (Latest Contact Info) Description 05/06/2017 9:03 EST - 05/06/2017 23:59 EST Hospital Encounter [address] [address] Unknown, Provider, MD Discharge Disposition: Home or [...] Code Departure Means Destination Home or Self Prison documented in this encounter Plan of Treatment Not on file documented as of this encounter Visit Diagnoses Not on filedocumented in this encounter Care Teams Dredge Pipe Installer Relationship Specialty Start Date End Date Rula Perez NP [address] [place] [address] PCP - General 08/25/15 04/06/22 documented as of this encounter
--- OUTSIDE RECORDS SUMMARY | 2024-05-07 15:43 | XMS_ITS | Encounter Summary ---
Author Organization [facility] Address [address] [place] [address] Care Team Providers Care Internet Network Specialist Name Role Phone Rula Perez C2 TACTICAL ANALYSIS TECHNICIAN Primary Care Provider [phone] Encounter Details Date Type Department Care Team (Latest Contact Info) Description 12/18/2018 17:50 EDT - 12/18/2018 23:59 EDT Hospital Encounter [address] [address] Unknown, Provider, MD Discharge Disposition: Home or [...] Code Departure Means Destination Home or Self [facility] documented in this encounter Plan of Treatment Not on file documented as of this encounter Visit Diagnoses Not on filedocumented in this encounter Care Teams Internet Network Specialist Relationship Specialty Start Date End Date Rula Perez [place] [place] [address] PCP - General 08/25/15 04/06/22 documented as of this encounter
--- OUTSIDE RECORDS SUMMARY | 2024-05-07 15:43 | XMS_ITS | Encounter Summary ---
Author Organization [facility] Address [address] [place] [address] Care Team Providers Care Concrete Mixing Truck Driver Name Role Phone Kristopher Bearden MD Primary Care Provider Ashwini e Encounter Details Date Type Department Care Team (Late st Contact Info) Description 10/17/2004 Results Only [facility] - Maple conversion [address] [place] [address] Chyna Rosado, [facility] [address] [place] [address] [place] [phone] Social History Tobacco Use Types Packs/Day Years [...] ? YOLANDA OLMOS ? Accession #: ? [id number] : ? 1990 (Age: 14) ??F ?Collect Date: ? 10/17/2004 Location: ? [facility] ? Receive Date: ? 10/18/2004 Provider: ?CHYNA ROSADO FEED BLENDER Copy to: ? Specimen/Source: ?ThinPrep Pap Test, Cervix/Endocervix, processed on [employer] ThinPrep Imaging System, with manual evaluation Last [...] [facility] 10/17/2004 10/18/2004 us Chyna Rosado FEED BLENDER PATHOLOGY ORDERABLES Final R esult [facility] [address] [place] [address] documented in this encounter Visit Diagnoses Not on filedocumented in this encounter Care Teams Concrete Mixing Truck Driver Relationship Specialty Start Date End Date Kristopher Bearden MD PCP - General 12/14/09 08/24/15 documented as of this encounter
--- OUTSIDE RECORDS SUMMARY | 2024-05-07 15:43 | XMS_ITS | Encounter Summary ---
Author Organization [facility] Address [address] [place] [address] Care Team Providers Care Gas Meter Mechanic Name Role Phone Kristopher Bearden MD Primary Care Provider Unavailabl e Encounter Details Date Type Department Care Team (Late st Contact Info) Description 11/05/2011 Results Only [facility] - [facility] ([address] [address] Erika Lopez, HOUSING SPECIALIST Social History Tobacco Use Types Packs/Day Years [...] ? OLMOSYOLANDA VERA ? Accession #: ? [id number] ? : ? 1990 (Age: 21) ??F ?Collect Date: ? 11/05/2011 ? Location: ? [facility] ? Receive Date: ? 11/06/2011 ? Provider: ERIKA LOPEZ NP Copy to: ? Final Report SPECIMEN ADEQUACY ? Satisfactory for Evaluation - transformation zone component present GENERAL CATEGORIZATION ? Epithelial Cell Abnormality INTERPRETATION ? Squamous Cell Abnormality - Atypical squamous cells, undetermined significance (ASC-US). EDUCATIONAL NOTES/RECOMMENDATI ONS ? [facility] recommends following the 2006 Consensus Guidelines for the Management of Women with Abnormal Cervical Cancer Screening Tests (JLGTD, 2007;11(4):201-222 ). ??Consensus guidelines are available online at www.ASCCP.org. Last Menstural Period: 10/03/11 Previous Gynecologic Pathology: ASC-US: with -HPV 12/2009 Specimen/Source: ??Pap Test, Cervix/Endocervix, ThinPrep Imaging System with manual evaluation Document reviewed and electronically signed by: ? AMAURI WASSERMAN MD [facility] ? Report ??Date: 11/14/2011 18:02 HPV with Pap Test ? Date Ordered: ? 11/14/2011 ? Status: ?? Signed Out ?Date Complete: ? 11/20/2011 ? By: ??System Interface ? Date Reported: ? 11/20/2011 ? 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 E6 OR E7 mRNA from one or more types of HPV types 16,18,31, 33,35,39,45,51,52, 56,58,59,66, and 68 is detected by transcription coordinator mediated amplification. High and intermediate risk HPV [...] [facility]REG [facility] 11/05/2011 11/06/2011 us Erika Lopez HOUSING SPECIALIST PATHOLOGY ORDERABLES Final Re sult [facility] [address] [place] [address] documented in this encounter Visit Diagnoses Not on filedocumented in this encounter Care Teams Gas Meter Mechanic Relationship Specialty Start Date End Date Kristopher Bearden MD PCP - General 12/14/09 08/24/15 documented as of this encounter
--- OUTSIDE RECORDS SUMMARY | 2024-05-07 15:43 | XMS_ITS | Encounter Summary ---
Author Organization [facility] Address [address] [place] [address] Care Team Providers Care Test Tech Name Role Phone Rula Perez COMMERCIAL HVAC TECHNICIAN Primary Care Provider [phone] Encounter Details Date Type Department Care Team (Late st Contact Info) Description 04/18/2016 Results Only [facility] [phone] Bobbi Mckeon CNM Social History Tobacco Use [...] ? YOLANDA FRASER ? Accession #: ? [id number] ? : ? 1990 (Age: 25) ??F ?Collect Date: ? 04/18/2016 ? Location: ? [facility] ? Receive Date: ? 04/19/2016 ? Provider: BOBBI MCKEON CNM Copy to: RULA PEREZ COMMERCIAL HVAC TECHNICIAN ? Final Report SPECIMEN ADEQUACY ? Satisfactory for Evaluation - transformation zone component present GENERAL CATEGORIZATION ? Epithelial Cell Abnormality INTERPRETATION ? Squamous Cell Abnormality - High grade squamous intraepithelial lesion (HSIL). EDUCATIONAL NOTES/RECOMMENDATI ONS ? [facility] recommends following ASCCP's 2012 Updated Consensus [...] 33,35,39,45,51,52, 56,58,59,66, and 68 is detected by wildlife enforcement major mediated amplification. High and intermediate risk HPV [...] confirmed the above diagnosis. End of Report [facility] 04/18/2016 04/19/2016 us Bobbi Mckeon [facility] PATHOLOGY ORDERABLES Final Resu lt [facility] [address] [place] [address] documented in this encounter Visit Diagnoses Not on filedocumented in this encounter Care Teams Test Tech Relationship Specialty Start Date End Date Rula Perez NP [address] [place] [address] PCP - General 08/25/15 04/06/22 documented as of this encounter
--- OUTSIDE RECORDS SUMMARY | 2024-05-07 15:43 | XMS_ITS | Encounter Summary ---
Author Organization [facility] Address [address] [place] [address] Care Team Providers Care Boom Boss Name Role Phone Kristopher Bearden MD Primary Care Provider Unavailabl e Encounter Details Date Type Department Care Team (Late st Contact Info) Description 11/21/2006 Results Only [facility] [place] - Maple conversion [address] [place] [address] [place] [address] Social History Tobacco Use Types Packs/Day Years [...] ? YOLANDA OLMOS ? Accession #: ? [id number] : ? 1990 (Age: 16) ??F ?Collect Date: ? 11/21/2006 Location: ? [facility] ? Receive Date: ? 11/24/2006 Provider: ?EVA JORGENSENM Copy to: ? Specimen/Source: ?ThinPrep Pap Test, Cervix/Endocervix, processed on Fanium ThinPrep Imaging System, with manual evaluation Last [...] ORDERABLES Final Res ult [facility] [address] [place] [address] documented in this encounter Visit Diagnoses Not on filedocumented in this encounter Care Teams Boom Boss Relationship Specialty Start Date End Date Kristopher Bearden MD PCP - General 12/14/09 08/24/15 documented as of this encounter
--- OUTSIDE RECORDS SUMMARY | 2024-05-07 15:43 | XMS_ITS | Encounter Summary ---
Author Organization [facility] Address [address] [place] [address] Care Team Providers Care Land Development Manager Name Role Phone Kristopher Bearden MD Primary Care Provider Unavailabl e Encounter Details Date Type Department Care Team (Latest Contact Info) Description 05/04/2014 15:09 EST - 05/04/2014 23:59 EST Hospital Encounter [address] [address] Unknown, Provider, Discharge Disposition: Home or Self [...] on filedocumented in this encounter Care Teams Land Development Manager Relationship Specialty Start Date End Date Kristopher Bearden MD PCP - General 12/14/09 08/24/15 documented as of this encounter
--- OUTSIDE RECORDS SUMMARY | 2024-05-07 15:43 | XMS_ITS | Encounter Summary ---
Author Organization [facility] Address [address] [place] [address] Care Team Providers Care Assembler Dc Field Yoke Name Role Phone Kristopher Bearden MD Primary Care Provider Unavailabl e Encounter Details Date Type Department Care Team (Late st Contact Info) Description 05/04/2014 Results Only [facility] Laboratory Services - [facility] ([facility]) [address] [place], [place] [address] You Che CNM [address] [place], [place] [address] Social History Tobacco Use Types Packs/Day Years [...] ? YOLANDA FRASER ? Accession #: ? [id number] ? : ? 1990 (Age: 24) ??F ?Collect Date: ? 05/04/2014 ? Location: ? [facility] ? Receive Date: ? 05/05/2014 ? Provider: YOU CHE CNM Copy to: ? Final Report SPECIMEN ADEQUACY ? Satisfactory for Evaluation - transformation zone component present GENERAL CATEGORIZATION ? Epithelial Cell Abnormality INTERPRETATION ? Squamous Cell Abnormality - High grade squamous intraepithelial lesion (HSIL). EDUCATIONAL NOTES/RECOMMENDATI ONS ? [facility] recommends following ASCCP's 2012 Updated Consensus Guidelines [...] 33,35,39,45,51,52, 56,58,59,66, and 68 is detected by bandage wrapping machine operator mediated amplification. High and intermediate risk HPV [...] above diagnosis. End of Report [facility] 05/04/2014 05/05/2014 us You Che [facility] PATHOLOGY ORDERABLES Final Resul t [facility] [address] [place] [address] documented in this encounter Visit Diagnoses Not on filedocumented in this encounter Care Teams Assembler Dc Field Yoke Relationship Specialty Start Date End Date Kristopher Bearden MD PCP - General 12/14/09 08/24/15 documented as of this encounter
--- OUTSIDE RECORDS SUMMARY | 2024-05-07 15:43 | XMS_ITS | Encounter Summary ---
Author Organization [facility] Address [address] [place] [address] Care Team Providers Care Cloth Tester Name Role Phone Rula Perez CHIEF EXECUTIVE OR MANAGING DIRECTOR Primary Care Provider Encounter Details Date Type Department Care Team (Latest Contact Info) Description 07/23/2017 8:07 EDT - 07/23/2017 23:59 EDT Hospital Encounter [address] [address] Unknown, Provider, MD Discharge Disposition: Home or [...] on filedocumented in this encounter Care Teams Cloth Tester Relationship Specialty Start Date End Date Rula Perez [place] [place] [address] PCP - General 08/25/15 04/06/22 documented as of this encounter
--- OUTSIDE RECORDS SUMMARY | 2024-05-07 15:43 | XMS_ITS | Encounter Summary ---
Author Organization [facility] Address [address] [place] [address] Care Team Providers Care Farmworker Livestock Name Role Phone Rula Perez FUR DRY CLEANER Primary Care Provider [phone] Encounter Details Date Type Department Care Team (Late st Contact Info) Description 07/23/2017 Results Only [facility] [phone] Flaquito Light MD [facility] [place] [address] Social History Tobacco Use Types Packs/Day Years [...] Routine 07/23/2017 20 :36 EDT MISCELLANEOUS TEST, ELGIN Routine 07/23/2017 16:55 EDT documented in this encounter Results * SURGICAL PATHOLOGY (07/23/2017 20:36 EDT) Pathology Report: SURGICAL PATHOLOGY REPORT Reports generated via electronic interface contain original data; however they are lacking the format of the original report. Caution should be taken when reading/interpretin g unformatted reports. Name: ? BRIADOM RODRIGUEZBETH Maddox ? Accession #: ? [id number] ? : ? 1990 (Age: 27) ??F ?Collect Date: ? 07/23/2017 ? Location: ? [facility] ? Receive Date: ? 07/23/2017 ? Provider: FLAQUITO LIGHT MD Copy to: RULA PEREZ FUR DRY CLEANER ? Addendum ? Date Ordered: ? 08/20/2017 ? Status: Signed Out ? Date Complete: ? 08/20/2017 ? By: CHELSIE ORNELAS MD ? Date Reported: ? 08/20/2017 ? Addendum Diagnosis POC Aneuploidy Detection (send out to [facility]): - Normal signal pattern. Addendum Comment This addendum is to report the results of aneuploidy testing by FISH send to [facility]. ??The results detected normal signal patters for [...] lesion. ANTIBODY(CLONE)(BLO CK):RESULT P57 Protein (Kip2) (Kp10, [place]) (1): Retained expression NOTE: ??One or more [...] performance characteristics have been determined by [facility]. ??The positive and negative controls worked appropriately. [...] villi are identified. No parts are present. Sample Maker Original sections are submitted in 1-3. ROMARIO Garcia [...] ? Status: ?? Ordered End of Report [facility] 07/23/2017 20:3 6 EDT 07/23/2017 20:36 EDT us Flaquito Light MD PATHOLOGY ORDERABLES Final Res ult Performing Organization Address [facility] de Phone Number [facility] [address] [place] [address] * MISCELLANEOUS TEST, ELGIN (07/23/2017 16:55 EDT) Test Name Products of Conception POC Aneuploidy Detection, FISH, Paraffin Embedded Tissue 08/07/2017 16:58 EDT [facility] Result See Pathology Scanned Report in PRISM. 08/18/2017 16:43 EDT [facility] Ref Range See Pathology Scanned Report in PRISM. 08/18/2017 16:43 EDT [facility] Ref Lab Test performed by: 08/18/2017 16:43 EDT [facility] Comment: [facility] [place], [place] TOPOGRAPHY UNKNOWN / Unknown 07/23/2017 16:55 EDT 08/07/2017 16:55 EDT Flaquito Light MD CHEMISTRY & BLOOD GAS ORDERABL ES Final Result Performing Organization Address [facility] Co de Phone Number [facility] [address] [place] [address] documented in this encounter Visit Diagnoses Not on filedocumented in this encounter Care Teams Farmworker Livestock Relationship Specialty Start Date End Date Rula Perez NP [facility] [address] PCP - General 08/25/15 04/06/22 documented as of this encounter
--- OUTSIDE RECORDS SUMMARY | 2024-05-07 15:43 | XMS_ITS | Encounter Summary ---
Author Organization [facility] Address [address] [place] [address] Care Team Providers Care Customer Service Supervisor Name Role Phone Moi, Yary Valencia CHILD CARE GROUP LEADER Primary Care Provider Encounter Details Date Type Department Care Team (Late st Contact Info) Description 07/25/2022 Lab Requisition [facility] Pathology & Laboratory Medicine - [address] [address] Outr Resulting Lab, Provider Social History Tobacco [...] 4th Generation Negative Negative 07/26/2022 9:19 EDT [facility] Comment:If acute HIV-1 infec tion is suspected in a high risk patient, submit plasma specimen for HIV-1 RNA quantitation test. Blood VENOUS BLOOD / Unknown 07/24/2022 11:40 EDT 07/25/2022 19:07 EDT Narrative [facility] - 07/26/2022 9:19 EDT Fourth Generation assay performed on the Siemens Monkey Biznessaur XPT. us Provider Outr Resulting Lab IMMUNOLOGY AND SEROL OGY ORDERABLES Final Result [facility] [address] [place] [address] documented in this encounter Visit Diagnoses Not on filedocumented in this encounter Care Teams Customer Service Supervisor Relationship Specialty Start Date End Date Yary Prater, GABBY [address] [place] [address] PCP - General Family Medicine - Primary Care 04/07/22 documented as of this encounter
--- OUTSIDE RECORDS SUMMARY | 2024-05-07 15:43 | XMS_ITS | Encounter Summary ---
Author Organization [facility] Address [address] [place] [address] Care Team Providers Care Technical Fellow Name Role Phone Rula Perez GABBY Primary Care Provider [phone] Encounter Details Date Type Department Care Team (Late st Contact Info) Description 08/10/2021 8:50 EDT Phlebotomy Only [facility] - Outpatient Phlebotomy Drawing [address] [place] [address] Lab, [facility] Opioid type dependence, continuous (HCC-CMS) [...] RNA Qualitative Undetected Undetected 08/13/2021 12:34 EDT [facility] Blood VENOUS BLOOD / Unknown Venipuncture / Unknown 08/10/2021 9:17 EDT 08/10/2021 19:03 EDT Narrative [facility] - 08/13/2021 12:34 EDT Hepatitis C Virus Genotype Not Performed. ??Specimens for HCV Genotype assay MUST have a viral load of greater than or equal to 500 IU/mL. The quantification range of this assay is 15 IU/mL to 100,000,000 IU/mL. Testing was performed using the Alla HCV test ([employer] with the alla 6800 System. Mikal Landa MD CHEMISTRY & BLOOD GAS ANUP DÍAZ Final Result Performing Organization Address [facility] Co de Phone Number [facility] [address] [place] [address] * (ABNORMAL) HEPATITIS C AB W REFLEX TO HCV RNA BY PCR (08/10/2021 9:17 EDT) Hep C Antibody Reactive(A ) Negative 08/10/2021 19:03 EDT [facility] Blood VENOUS BLOOD / Unknown Venipuncture / Unknown 08/10/2021 9:17 EDT 08/10/2021 9:54 EDT Mikal Landa MD CHEMISTRY & BLOOD GAS ANUP DÍAZ Final Result Performing Organization Address [facility] Co de Phone Number [facility] [address] [place] [address] * HEPATITIS B CORE ANTIBODY (TOTAL) (08/10/2021 9:17 EDT) Pathologist [facility] [place] [facility] Hepatitis B Core Ab, Total Negative Negative 08/13/2021 11:37 EDT [facility] Blood VENOUS BLOOD / Unknown Venipuncture / Unknown 08/10/2021 9:17 EDT 08/10/2021 9:54 EDT Mikal Landa MD CHEMISTRY & BLOOD GAS ANUP ÍDAZ Final Result Performing Organization Address [facility] Co de Phone Number [facility] [address] [place] [address] * HEPATITIS B SURFACE ANTIGEN (08/10/2021 9:17 EDT) Pathologist [facility] [place] [facility] Hep B Surface Ag Negative Negative 08/11/19 11:21 EDT [facility] Comment: Expected values: Negative The results of this assay can be falsely lowered due to the consumption of Biotin. Blood VENOUS BLOOD / Unknown Venipuncture / Unknown 08/10/2021 9:17 EDT 08/10/2021 9:54 EDT Mikal Landa MD CHEMISTRY & BLOOD GAS ANUP DÍAZ Final Result Performing Organization Address [facility] Co de Phone Number [facility] [address] [place] [address] * HEPATITIS B SURFACE ANTIBODY (08/10/2021 9:17 EDT) Pathologist [facility] [place] [facility] Hep B Surface Ab, Quantitative 0.9 See Note mIU/mL 08/10/2021 11:21 EDT [facility] Comment: Clinical Interpretation of Immune Status: [...] ANUP DÍAZ Final Result Performing Organization Address [facility] de Phone Number [facility] [address] [place] [address] * (ABNORMAL) COMPREHENSIVE METABOLIC PANEL (CMP) (08/10/2021 9:17 EDT) [facility] Sodium 139 136 - 145 mmol/L 08/10/2021 10:28 EDT [facility] Potassium 4.6 3.5 - 5.0 mmol/L 08/10/2021 10:28 EDT [facility] Chloride 107 96 - 110 mmol/L 08/10/2021 10:28 EDT [facility] CO2 Total 23 22 - 32 mmol/L 08/10/2021 10:28 EDT [facility] Glucose 79 70 - 100 mg/dL 08/10/2021 10:28 EDT [facility] BUN 10 10 - 26 mg/dL 08/10/2021 10:28 [facility] Creatinine 0.59 0.52 - 1.04 mg/dL 08/10/2021 10:28 [facility] eGFR 123 >60 mL/min/1.7 3m2 08/10/2021 10:28 [facility] Total Protein 8.4(H) 6.3 - 8.2 g/dL 08/10/2021 10:28 [facility] Albumin 4.7 3.4 - 4.9 g/dL 08/10/2021 10:28 [facility] Alkaline Phosphatase 52 38 - 126 U/L 08/10/2021 10:28 [facility] AST 23 15 - 46 U/L 08/10/2021 10:28 [facility] ALT 13 <35 U/L 08/10/2021 10:28 [facility] Bilirubin, Total <0.2 <1.4 mg/dL 08/11/19 10:28 [facility] Calcium 9.0 8.5 - 10.5 mg/dL 08/10/2021 10:28 [facility] Albumin/Globulin Ratio 1.3 1.0 - 2.5 08/10/2021 10:28 [facility] Anion Gap 9 5 - 14 08/10/2021 10:28 [facility] Blood VENOUS BLOOD / Unknown Venipuncture / Unknown 08/10/2021 9:17 EDT 08/10/2021 9:54 EDT us Mikal Landa MD CHEMISTRY & BLOOD GAS ANUP DÍAZ Final Result [facility] [address] [place] [address] * HIV 1/2 ANTIGEN AND ANTIBODY, 4TH GENERATION (08/10/2021 9:17 EDT) Pathologist [facility] [place] [facility] HIV 1 and 2 Antibody/p24 Antigen, 4th Generation Negative Negative 08/10/2021 11:05 [facility] Comment:If acute HIV-1 infec tion is suspected in a high risk patient, submit plasma specimen for HIV-1 RNA quantitation test. Blood VENOUS BLOOD / Unknown Venipuncture / Unknown 08/10/2021 9:17 EDT 08/10/2021 9:54 EDT us Mikal Landa MD IMMUNOLOGY AND SEROLOGY OR DERABLES Final Result Performing Organization Address City/State/[facility] Co de Phone Number [facility] [address] [place] [address] * (ABNORMAL) COMPLETE BLOOD COUNT AND DIFFERENTIAL (08/10/2021 9:17 EDT) WBC 5.93 4.00 - 12.40 K/cmm 08/10/2021 9:35 [facility] RBC 5.05(H) 3.86 - 5.04 M/cmm 08/10/2021 9:35 [facility] Hemoglobin 15.0 11.6 - 15.2 gm/dL 08/10/2021 9:35 [facility] HCT 44.7(H) 34.9 - 44.4 % 08/10/2021 9:35 [facility] MCV 89 81 - 98 fl 08/10/2021 9:35 [facility] MCH 29.7 26.7 - 33.3 pg 08/10/2021 9:35 [facility] MCHC 33.6 32.1 - 35.9 gm/dL 08/10/2021 9:35 [facility] RDW-CV 14.1 <14.7 % 08/10/2021 9:35 [facility] RDW-SD 45.4 <50.4 fl 08/10/2021 9:35 [facility] PLT 293 141 - 377 K/cmm 08/10/2021 9:35 [facility] MPV 9.3(L) 9.5 - 12.7 fl 08/10/2021 9:35 [facility] % Neutrophils 55.0 % 08/10/2021 9:35 [facility] % Lymphocytes 29.0 % 08/10/2021 9:35 [facility] % Monocytes 7.8 % 08/10/2021 9:35 [facility] % Eosinophils 7.4 % 08/10/2021 9:35 [facility] % Basophils 0.5 % 08/10/2021 9:35 [facility] % Immature Grans 0.3 % 08/11/19 9:35 [facility] Absolute Neutrophils 3.26 2.20 - 8.85 K/cmm 08/10/2021 9:35 [facility] Absolute Lymphocytes 1.72 1.09 - 3.30 K/cmm 08/10/2021 9:35 [facility] Absolute Monocytes 0.46 0.10 - 0.80 K/cmm 08/10/2021 9:35 [facility] Absolute Eosinophils 0.44 0.03 - 0.61 K/cmm 08/10/2021 9:35 [facility] ABS Basophils 0.03 0.01 - 0.11 K/cmm 08/10/2021 9:35 [facility] Absolute Immature Grans 0.02 0.00 - 0.06 K/cmm 08/10/2021 9:35 [facility] Type of Differential: Auto 08/10/2021 9:35 [facility] Blood VENOUS BLOOD / Unknown Venipuncture / Unknown 08/10/2021 9:17 EDT 08/10/2021 9:31 EDT us Mikal Landa MD PACKAGES & DNA PROBE ORDER MIRTA Final Result [facility] [address] [place] [address] documented in this encounter Visit Diagnoses Diagnosis Opioid type dependence, continuous (HCC-CMS)- Primary Opioid type dependence, continuous Screening for human immunodeficiency virus Special screening examination for other specified viral diseases documented in this encounter Care Teams Technical Fellow Relationship Specialty Start Date End Date Rula Perez NP [address] [address] PCP - General 08/25/15 04/06/22 documented as of this encounter
--- OUTSIDE RECORDS SUMMARY | 2024-05-07 15:43 | XMS_ITS | Encounter Summary ---
Author Organization [facility] Address [address] [place] [address] Care Team Providers Care Community Health Agent Name Role Phone Unavailable Primary Care Provider Unavailabl e Encounter Details Date Type Department Care Team (Late st Contact Info) Description 12/06/2009 Results Only [facility] Laboratory [facility] - [facility] ([facility]) [address] [place], [place] [address] You Guerra [address] [place], [place] [address] Social History Tobacco Use Types Packs/Day Years [...] S Final Result [facility] [address] [place] [address] * CYTOPATHOLOGY (12/06/2009 0:00 EDT) Pathology Report: CYTOPATHOLOGY REPORT ? Reports generated via electronic interface contain original data; ? however they are lacking the format of the original report. ? Caution should be taken when reading/interpreti ng unformatted reports. ? Name: ? YOLANDA OLMOS ? Accession #: ? [id number] ? : ? 1990 (Age: 19) ??F [...] Final Resul t [facility] [address] [place] [address] documented in this encounter Visit Diagnoses Not on filedocumented in this encounter
--- OUTSIDE RECORDS SUMMARY | 2024-05-07 15:43 | XMS_ITS | Encounter Summary ---
Author Organization [facility] Address [address] [place] [address] Care Team Providers Care Hourly Shift Manager Name Role Phone Unavailable Primary Care Provider Unavailabl e Encounter Details Date Type Department Care Team (Late st Contact Info) Description 11/26/2007 Before PRISM Converted Visit (Maple) [facility] - Maple conversion [address] [place] [address] Chyna Rosado, [address] [place] [id number] Social History Tobacco Use Types Packs/Day Years [...] reading/interpreti ng unformatted reports. ? Name: ? YOLNADA OLMOS ? Accession #: ? [id number] ? : ? 1990 (Age: 17) ??F ?Collect Date: ? 11/26/2007 ? Location: ? [facility] ? Receive Date: ? 11/27/2007 ? Provider: ?CHYNA ZEHRA INBOUND TELEMARKETER ? Copy to: ? Specimen/Source: ?ThinPrep Pap [...] [facility] 11/26/2007 11/27/2007 us Chyna Rosado INBOUND TELEMARKETER PATHOLOGY ORDERABLES Final R esult [facility] [address] [place] [address] documented in this encounter Visit Diagnoses Not on filedocumented in this encounter
--- OUTSIDE RECORDS SUMMARY | 2024-05-07 15:43 | XMS_ITS | Encounter Summary ---
Author Organization [facility] Address [address] [place] [address] Care Team Providers Care Pantomimist Name Role Phone Rula Perez DRAWSTRING KNOTTER Primary Care Provider [phone] Encounter Details Date Type Department Care Team (Latest Contact Info) Description 11/02/2018 9:06 EDT - 11/02/2018 23:59 EDT Hospital Encounter [address] [address] Unknown, Provider, MD Discharge Disposition: Home or [...] Code Departure Means Destination Home or Self Fdc documented in this encounter Plan of Treatment Not on file documented as of this encounter Visit Diagnoses Not on filedocumented in this encounter Care Teams Pantomimist Relationship Specialty Start Date End Date Rula Perez [place] [place] [address] PCP - General 08/25/15 04/06/22 documented as of this encounter
--- OUTSIDE RECORDS SUMMARY | 2024-05-07 15:43 | XMS_ITS | Encounter Summary ---
Author Organization [facility] Address [address] [place] [address] Care Team Providers Care Polisher Implant Name Role Phone Kristopher Bearden MD Primary Care Provider Unavailabl e Encounter Details Date Type Department Care Team (Late st Contact Info) Description 08/21/2015 Results Only [facility] [phone] Parminder Maldonado MD [address] [place] [address] Social History Tobacco Use Types Packs/Day Years [...] ? YOLANDA FRASER ? Accession #: ? [id number] ? : ? 1990 (Age: 25) ??F ? Collect Date: ? 08/21/2015 ? Location: ? [facility] ? Receive Date: ? 08/21/2015 ? Provider: PARMINDER MALDONADO MD Copy to: MINDA FERNANDO SEAT COVERS TRIMMER ? Final Pathologic Diagnosis: A. ??ENDOCERVIX, CURETTAGE: [...] Felix 08/22/2015 8:46 AM End of Report [facility] 08/21/2015 20:3 7 EDT 08/21/2015 20:37 EDT us Parminder Maldonado MD PATHOLOGY ORDERABLES Final Resu lt [facility] [address] [place] [address] documented in this encounter Visit Diagnoses Not on filedocumented in this encounter Care Teams Polisher Implant Relationship Specialty Start Date End Date Kristopher Bearden MD PCP - General 12/14/09 08/24/15 documented as of this encounter
--- OUTSIDE RECORDS SUMMARY | 2024-05-07 15:43 | XMS_ITS | Encounter Summary ---
Author Organization [facility] Address [address] [place] [address] Care Team Providers Care Shore Man Name Role Phone Kristopher Bearden MD Primary Care Provider Unavailabl e Encounter Details Date Type Department Care Team (Latest Contact Info) Description 07/07/2013 13:49 EDT - 07/07/2013 23:59 EDT Hospital Encounter [address] [address] Unknown, Provider, Discharge Disposition: Home or Self [...] Code Departure Means Destination Home or Self Assisted documented in this encounter Plan of Treatment Not on file documented as of this encounter Visit Diagnoses Not on filedocumented in this encounter Care Teams Shore Man Relationship Specialty Start Date End Date Kristopher Bearden MD PCP - General 12/14/09 08/24/15 documented as of this encounter
--- OUTSIDE RECORDS SUMMARY | 2024-05-07 15:43 | XMS_ITS | Encounter Summary ---
Author Organization [facility] Address [address] [place] [address] Care Team Providers Care Telecommunications Field Technician Name Role Phone Kristopher Bearden MD Primary Care Provider Ashwini e Encounter Details Date Type Department Care Team (Late st Contact Info) Description 07/20/2015 Results Only [facility]- [facility] [phone] Chyna Rosado, [address] [place] [phone] Social History Tobacco Use Types Packs/Day Years [...] ? YOLANDA FRASER ? Accession #: ? [id number] ? : ? 1990 (Age: 25) ??F ?Collect Date: ? 07/20/2015 ? Location: ? [facility] ? Receive Date: ? 07/21/2015 ? Provider: CHYNA ROSADO TOOL ROOM LATHE OPERATOR Copy to: MINDA FERNANDO SENIOR AGRICULTURAL ASSISTANT ? Final Report SPECIMEN ADEQUACY ? Satisfactory for Evaluation - transformation zone component present GENERAL CATEGORIZATION ? Epithelial Cell Abnormality INTERPRETATION ? Squamous Cell Abnormality - Atypical squamous cells, undetermined significance (ASC-US). Shift in madeline present suggestive of bacterial vaginosis. EDUCATIONAL NOTES/RECOMMENDATI ONS ? [facility] recommends following ASCCP's 2012 Updated Consensus Guidelines [...] 33,35,39,45,51,52, 56,58,59,66, and 68 is detected by security compliance engineer mediated amplification. High and intermediate risk HPV [...] confirmed the above diagnosis. End of Report [facility] 07/20/2015 07/21/2015 us Chyna Rosado TOOL ROOM LATHE OPERATOR PATHOLOGY ORDERABLES Final R esult [facility] [address] [place] [address] documented in this encounter Visit Diagnoses Not on filedocumented in this encounter Care Teams Telecommunications Field Technician Relationship Specialty Start Date End Date Kristopher Bearden MD PCP - General 12/14/09 08/24/15 documented as of this encounter
--- OUTSIDE RECORDS SUMMARY | 2024-05-07 15:43 | XMS_ITS | Encounter Summary ---
Author Organization [facility] Address [address] [place] [address] Care Team Providers Care Residential Installer Name Role Phone Rula Perez NP Primary Care Provider [phone] Encounter Details Date Type Department Care Team (Late st Contact Info) Description 11/03/2018 16:51 EDT - 11/03/2018 23:59 EDT Hospital Encounter [address] [address] Ziggy Grajeda APRN [facility] [address] [facility], [facility], [address] [place] [address] Discharge Disposition: Home or Self [...] on filedocumented in this encounter Care Teams Residential Installer Relationship Specialty Start Date End Date Rula Perez NP [address] [place] [address] PCP - General 08/25/15 04/06/22 documented as of this encounter
--- OUTSIDE RECORDS SUMMARY | 2024-05-07 15:43 | XMS_ITS | Encounter Summary ---
Author Organization [facility] Address [address] [place] [address] Care Team Providers Care Mold Preparer Name Role Phone Kristopher Bearden MD Primary Care Provider Unavailabl e Encounter Details Date Type Department Care Team (Late st Contact Info) Description 07/07/2013 Results Only [facility]- [facility] [phone] Boubacar Cowart, [address] [address] Social History Tobacco Use Types Packs/Day Years [...] ? YOLANDA FRASER ? Accession #: ? [id number] ? : ? 1990 (Age: 23) ??F [...] with Kimberley species. EDUCATIONAL NOTES/RECOMMENDATI ONS ? [facility] recommends following ASCCP's 2012 Updated Consensus [...] electronically signed by: ? AMAURI WASSERMAN MD [facility] ? Report ??Date: 07/16/2013 17:38 HPV with Pap Test ? Date Ordered: ? 07/16/2013 ? Status: ?? Signed Out ?Date Complete: ? 07/20/2013 ? By: ??System Interface ? Date Reported: ? 07/20/2013 ? 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 E6 OR E7 mRNA from one or more types of HPV types 16,18,31, 33,35,39,45,51,52, 56,58,59,66, and 68 is detected by chief school finance officer mediated amplification. High and intermediate risk HPV [...] F inal Result [facility] [address] [place] [address] documented in this encounter Visit Diagnoses Not on filedocumented in this encounter Care Teams Mold Preparer Relationship Specialty Start Date End Date Kristopher Bearden MD PCP - General 12/14/09 08/24/15 documented as of this encounter
--- OUTSIDE RECORDS SUMMARY | 2024-05-07 15:43 | XMS_ITS | Encounter Summary ---
Author Organization [facility] Address [address] [place] [address] Care Team Providers Care Construction Operations Manager Name Role Phone Rula Perez PROTOZOOLOGIST Primary Care Provider [phone] Encounter Details Date Type Department Care Team (Late st Contact Info) Description 11/02/2018 Results Only [facility] [phone] Kaila Lopez MD [address] [place] [id number] Social History Tobacco Use Types Packs/Day Years [...] ? YOLANDA FRASER ? Accession #: ? [id number] ? : ? 1990 (Age: 28) ??F ? Collect Date: ? 11/02/2018 ? Location: ? [facility] ? Receive Date: ? 11/03/2018 ? Provider: KAILA LOPEZ MD Copy to: RULA PEREZ NP ? Final Pathologic Diagnosis: ROWLEY PLACENTA, [...] The marginally inserted membranes are opacified thickened major-taylor. The surface is pale montes de oca and shows normal arborizing vasculature. The cotyledons are well demarcated. Focal tears are present however following reconstruction the tissues appear complete. The basal plate is focally thickened. Sections show a spongy red-purple cut surface without gross lesions. Hose Tender sections are submitted as follows: BLOCK GORDON 1-2- ??umbilical cord and membranes 3-4- ??bisected full thickness disc section adjacent to cord insertion site 5-6- ??bisected full thickness central disc section ROMARIO Piña (ASCP) 11/04/2018 9:23 AM End of Report [facility] 11/02/2018 18:2 5 EDT 11/03/2018 18:25 EDT us Kaila Lopez MD PATHOLOGY ORDERABLES Final Resul t [facility] [address] [place] [address] documented in this encounter Visit Diagnoses Not on filedocumented in this encounter Care Teams Construction Operations Manager Relationship Specialty Start Date End Date Rula Perez [place] [place] [address] PCP - General 08/25/15 04/06/22 documented as of this encounter
--- OUTSIDE RECORDS SUMMARY | 2024-05-07 15:43 | XMS_ITS | Encounter Summary ---
Author Organization [facility] Address [address] [place] [address] Care Team Providers Care Social Psychologist Name Role Phone Rula Perez CLOTH BALE HEADER Primary Care Provider [phone] Encounter Details Date Type Department Care Team (Late st Contact Info) Description 12/18/2018 Results Only [facility] [phone] Kaila Lopez MD [address] [place] [address] Social History Tobacco Use Types Packs/Day Years [...] ? YOLANDA FRASER ? Accession #: ? [id number] ? : ? 1990 (Age: 28) ??F ?Collect Date: ? 12/18/2018 ? Location: ? [facility] ? Receive Date: ? 12/21/2018 ? Provider: KAILA LOPEZ MD Copy to: RULA PEREZ CLOTH BALE HEADER ? Final Report SPECIMEN ADEQUACY ? Satisfactory for Evaluation - transformation zone component present GENERAL CATEGORIZATION ? Epithelial Cell Abnormality INTERPRETATION ? Squamous Cell Abnormality - Low grade squamous intraepithelial lesion (LSIL). EDUCATIONAL NOTES/RECOMMENDATI ONS ? [facility] recommends following ASCCP's 2012 Updated [...] 33,35,39,45,51,52, 56,58,59,66, and 68 is detected by process worker mediated amplification. High and intermediate risk HPV [...] confirmed the above diagnosis. End of Report [facility] 12/18/2018 12/21/2018 us Kaila Lopez MD PATHOLOGY ORDERABLES Final Resul t [facility] [address] [place] [address] documented in this encounter Visit Diagnoses Not on filedocumented in this encounter Care Teams Social Psychologist Relationship Specialty Start Date End Date Rula Perez [place] [address] PCP - General 08/25/15 04/06/22 documented as of this encounter
--- OUTSIDE RECORDS SUMMARY | 2024-05-07 15:43 | XMS_ITS | Encounter Summary ---
Author Organization [facility] Address [address] [place] [address] Care Team Providers Care Paper Hanger Name Role Phone Kristopher Bearden MD Primary Care Provider Unavailabl e Encounter Details Date Type Department Care Team (Latest Contact Info) Description 08/21/2015 7:16 EDT - 08/21/2015 23:59 EDT Hospital Encounter [address] [address] Unknown, Provider, Discharge Disposition: Home or Self [...] Code Departure Means Destination Home or Self [facility] documented in this encounter Plan of Treatment Not on file documented as of this encounter Visit Diagnoses Not on filedocumented in this encounter Care Teams Paper Hanger Relationship Specialty Start Date End Date Kristopher Bearden MD PCP - General 12/14/09 08/24/15 documented as of this encounter
--- OUTSIDE RECORDS SUMMARY | 2024-05-07 15:43 | XMS_ITS | Encounter Summary ---
Author Organization [facility] Address [address] [place] [address] Care Team Providers Care Linux System Administrator Name Role Phone Rula Perez BEEF KILLER Primary Care Provider [phone] Encounter Details Date Type Department Care Team (Latest Contact Info) Description 07/23/2017 18:45 EDT - 07/23/2017 18:46 EDT Hospital Encounter [facility] - [address] [address] Tari Martinez MD [address] [place] [address],[address] [id number] Discharge Disposition: Home or Self Care Social [...] 08/18/2017 14:1 8 EDT us Scan 2 Engineering Faculty Member LAB INFO SERVICE AND SUPPOR T & PHONE RESULT Final Result documented in this encounter Visit Diagnoses Not on filedocumented in this encounter Care Teams Linux System Administrator Relationship Specialty Start Date End Date Rula Perez NP [address] [place] [address] PCP - General 08/25/15 04/06/22 documented as of this encounter
--- OUTSIDE RECORDS SUMMARY | 2024-05-07 15:43 | XMS_ITS | Encounter Summary ---
Author Organization [facility] Address [address] [place] [address] Care Team Providers Care Patient Accounts Specialist Name Role Phone Rula Perez PSYCHOLOGY DEPARTMENT CHAIR Primary Care Provider [phone] Encounter Details Date Type Department Care Team (Late st Contact Info) Description 05/11/2018 Results Only [facility]- [facility] [phone] [address] [place] [address] Social History Tobacco Use Types Packs/Day Years [...] ? YOLANDA FRASER ? Accession #: ? [id number] ? : ? 1990 (Age: 28) ??F ?Collect Date: ? 05/11/2018 ? Location: ? [facility] ? Receive Date: ? 05/12/2018 ? Provider: FANTA ESCALERA CNM Copy to: RULA ABDULLAHI PSYCHOLOGY DEPARTMENT CHAIR ? Final Report SPECIMEN ADEQUACY ? Satisfactory for Evaluation - transformation zone component present GENERAL CATEGORIZATION ? Epithelial Cell Abnormality INTERPRETATION ? 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 EDUCATIONAL NOTES/RECOMMENDATI ONS ? [facility] recommends following ASCCP's 2012 Updated [...] 33,35,39,45,51,52, 56,58,59,66, and 68 is detected by golf ball trimmer mediated amplification. High and intermediate risk HPV [...] confirmed the above diagnosis. End of Report [facility] 05/11/2018 05/12/2018 us Fanta Escalera [facility] PATHOLOGY ORDERABLES Final Re sult Performing Organization Address City/State/[facility] Co de Phone Number [facility] [address] [place] [address] documented in this encounter Visit Diagnoses Not on filedocumented in this encounter Care Teams Patient Accounts Specialist Relationship Specialty Start Date End Date Rula Perez NP [address] [place] [address] PCP - General 08/25/15 04/06/22 documented as of this encounter
--- OUTSIDE RECORDS SUMMARY | 2024-05-07 15:43 | XMS_ITS | Encounter Summary ---
Author Organization [facility] Address [address] [place] [address] Care Team Providers Care Veterinary Receptionist Name Role Phone Rula Perez JOINT CREASER Primary Care Provider [phone] Encounter Details Date Type Department Care Team (Late st Contact Info) Description 12/16/2016 Results Only [facility] [phone] Parminder Maldonado MD [address] [place] [address] Social History Tobacco Use Types Packs/Day Years [...] ? YOLANDA FRASER ? Accession #: ? [id number] : ? 1990 (Age: 26) ??F ?Collect Date: ? 12/16/2016 Location: ? [facility] ? Receive Date: ? 12/17/2016 Provider: ?PARMINDER MALDONADO MD Copy to: ?RULA PEREZ JOINT CREASER ? Specimen/Source: ?Pap Test, Cervix, ThinPrep Imaging [...] of bacterial vaginosis. EDUCATIONAL NOTES/RECOMMENDATI ONS ? [facility] recommends following ASCCP's 2012 Updated Consensus Guidelines for the Management of Abnormal Cervical Cancer Screening Tests and Cancer Precursors (JLGTD, 2013; 17(5):S1-S27). ??Consensus guidelines are available online at www.asccp.org. ? Document reviewed and electronically signed by: ? NEELAM DAVIS MD ? Report Date: ??12/25/2016 15:00 End of Report [facility] 12/16/2016 12/17/2016 us Parminder Maldonado MD PATHOLOGY ORDERABLES Final Resu lt [facility] [address] [place] [address] documented in this encounter Visit Diagnoses Not on filedocumented in this encounter Care Teams Veterinary Receptionist Relationship Specialty Start Date End Date Rula Perez, GABBY [facility] [address] PCP - General 08/25/15 04/06/22 documented as of this encounter
--- NOTE | 2024-05-07 16:04 | DSE_ITS ---
Date of service: 05/07/24 Time of Service: 16:04 DS: Diagnosis Discharge Diagnosis (1) Severe sepsis without septic shock: Status: Acute (2) Pneumonia: Status: Acute (3) Hypokalemia: Status: Acute (4) History of drug abuse: Status: Acute (5) Tobacco use: Status: Acute Discharge Plan Disposition Patient Disposition: Home Condition: Improving Discharge Details Reason For Visit: pneumonia Admit Date/Time: 05/07/24 14:39 Admit Provider: Frankie Nolasco Attending Provider: Frankie Nolasco Primary Care Provider: DION VO Hospital Course Hospital Course: This is a 34-year-old female patient presented to the emergency department with respiratory illness found to have pneumonia. Hospitalist services was contacted to admit the patient for inpatient treatment of pneumonia. She had no oxygen requirements. She reported feeling markedly improved after receiving IV hydration in the emergency department. She had been started on cefepime and vancomycin. Hemodynamically initially tachycardic with a heart rate in the 130s that did improved 1 teens 120s after IV hydration. She arrived to the medical surgical unit and was given another liter of normal saline as she was voicing desire to be discharged. I did go over benefits of staying hospitalized on IV antibiotics versus outpatient therapy on oral antibiotics with the risk of fa ilure and need to return to the hospital for inpatient treatment. She did score 1 on curb 65 and continued to have no oxygen requirements. She does demonstrate capacity and I feel it is reasonable to trial an outpatient course. She was advised to return to the emergency department for new or worsening symptoms including increased shortness of breath fever unable to take oral intake or medication. She was also advised to complete her course of antibiotics even if she felt better and to follow-up with her primary care provider for recheck. She will be given a 1 week course of doxycycline and cefpodoxime. She was also given an albuterol MDI with spacer and instruction for use. She was evaluated by respiratory therapy prior to discharge and was also given and instructed on the Acapella. She is being discharged to home advised close outpatient follow- up with no new services. Discharge discussed with Dr Nolasco. Addendum (Neil Esteban MD): lab called early AM 05/08 during my maintenance technician 2nd shift after patient was discharged with positive blood cultures 2/2 aerobic and anerobic growing GPC in chains. Presumed strep bacteremia. I called her and checked in. She states she is taking the oral antibiotics and has continued to feel better with fever coming down to max 100.0 and breathing easier. Even so, I recommended she return for IV antibiotics. 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 She understands the risk of this sort of infection. She confirms that if she feels worse she will come to the ED. She does seem to be continuing to improve of cefpodoxime and doxycycline after the point when the IV antibiotics cefepime and vanco would be out of her system. She was willing to come in for repeat labs and cultures, but not until Friday when the kids are at school. She should also have echocardiography to assess for endocarditis given history of IVDU even if not recent. These were ordered. She should be seen in the primary care office prior to the end of the antibiotic course and after the labs are done to consider extending the week course of antibiotics. Home Meds and New Rx's Prescriptions: New doxycycline hyclate 100 mg Capsule 100 mg PO BID Qty: 14 0RF cefpodoxime 200 mg Tablet 200 mg PO BID Qty: 14 0RF albuterol sulfate [Ventolin HFA] 90 mcg/actuation Hfa Aerosol Inhaler 2 puff inhalation Q4H PRN PRNQty: 0 0RF Continued buprenorphine-naloxone 12-3 mg film 2 film buccal Q24H Patient Comments: 04/11/22- pt reports taking one 12 mg film in am and one 12 mg film in afternoon/ evening Rx Instructions: place 1 strip/tab under (each) side of tongue gabapentin 600 mg tablet 1,200 mg PO TID fluticasone propionate [Flovent HFA] 110 mcg/actuation HFA aerosol inhaler 110 mcg Inhalation BID Qty: 12 1RF Nexplanon 68 mg implant 1 implant subdermal ONCE Rx Instructions: as a single dose methylphenidate HCl 10 mg tablet 20 mg PO DAILY Patient Comments: 04/11/22- pt reports taking 20 mg in the am and two 10 mg tabs in the afternoon for a total daily dose of 40 mg. aripiprazole [Abilify] 10 mg tablet 30 mg PO DAILY betamethasone dipropionate 0.05 % cream 1 applic topical BID amitriptyline 150 mg tablet 75 mg PO QHS Discharge Instructions Instructions: Community-acquired pneumonia in adults Additional Instructions: Take antibiotics as prescribed even if you feel better Push fluids to stay well-hydrated drinking at least 6 to 8 glasses or more daily use acapella as instructed to help with raising sputum use albuterol inhaler 2 puffs with spacer every 4 hours if needed for wheezing, shortness of breath or cough that won't stop. return to the emergency department for new or worsening symptoms. use acetaminophen 650 mg every 4 hours if needed of fever or body aches. Stand Alone Forms: Nursing Discharge Form Referrals: DION VO [facility] [Primary Care Provider] - Activity:: Activity as Tolerated Equipment/Supplies:: No Equipment Needed Diet:: As Tolerated Discharge Orders Discharge Orders: Discharge Order (Routine); Ordered 05/07/24 Ordered By: Jennifer Valerio Other Ambulatory Orders: Blood Culture ( Age => 9 Yrs) (Routine) Timeframe: 20240510 Facility: [facility] - Location: Laboratory Outpatient - [facility] Ordered By: Neil Esteban Complete Blood Count w/Diff (Routine) Timeframe: 20240510 Facility: [facility] - Location: Laboratory Outpatient - [facility] Ordered By: Neil Esteban Comprehensive Metabolic Panel (Routine) Timeframe: 20240510 Facility: [facility] - Location: Laboratory Outpatient - [facility] Ordered By: Neil Esteban US echocardiogram (Routine) Timeframe: 5 Days Facility: [facility] - Location: DIAGNOSTIC IMAGING Ordered By: Neil Esteban Discharge Data Discharge Date/Time-TO BE ENTERED AT DEPARTURE: 05/07/24 17:19 DS: Summary Time Spent with Patient providing and/or coordinating discharge services: Greater than 30 minutes Status at Discharge Functional status at discharge: independent ambulation Overall status at discharge: patient is progressing back to baseline Mental Status: mental status grossly normal Speech and Movement: speech and movement normal Mood: anxious mood Affect: anxious affect Quality:SDOH Health Related Social Needs: No Data to Display Exam Psych Mental Status: mental status grossly normal Speech and Movement: speech and movement normal Mood: anxious mood Affect: anxious affect DS: Data Vitals/I&O Vitals and I&O: Vital Signs Temperature 37.3 C 05/07/24 14:37 Temperature Source Oral 05/07/24 14:21 Pulse 121 H 05/07/24 15:20 Pulse 118 H 05/07/24 15:30 Respiratory Rate 05/07/24 15:30 Blood Pressure 106/73 05/07/24 13:14 Blood Pressure Mean 80 05/07/24 13:14 Blood Pressure Position Sitting 05/07/24 10:54 Pulse Oximetry 92 05/07/24 15:20 Oxygen Delivery Method Room Air 05/07/24 10:54 Oxygen Flow Rate 0 05/07/24 10:54 Pain Level 10 05/07/24 10:54 Comment poor pleth 05/07/24 10:54 Intake & Output 05/06/24 05/07/24 05/07/24 23:59 11:59 23:59 Intake Total 2250 / 2250 Balance 2250 / 2250 Weight 62.3 kg Intake: IV 2249 Data Completed and Pending Labs on day of discharge: Labs from last 24 hours 05/07/24 05/07/24 05/07/24 14:55 14:34 14:02 WBC RBC Hgb Hct MCV MCH MCHC RDW Plt Count MPV Immature Gran % Neutrophils % Band Neutrophils % Lymphocytes % Monocytes % Eosinophils % Basophils % Nucleated RBC % Absolute Neutrophils Absolute Lymphocytes Absolute Monocytes Absolute Eosinophils Absolute Basophils RBC Morphology D-Dimer VBG pH VBG pCO2 VBG pO2 VBG HCO3 VBG Total CO2 VBG O2 Saturation VBG Base Excess VBG Lactate 2.3 H* Sodium 132 L Potassium 3.4 L Chloride 92 L Carbon Dioxide 30.7 Anion Gap 9.3 BUN 12 Creatinine 0.9 Est GFR (CKD-EPI 2020) 85.50 Glucose 100 Calcium 8.1 L Magnesium 2.2 Total Bilirubin AST ALT Alkaline Phosphatase Troponin I 5 5 Total Protein Albumin Lipase Serum HCG, Qual Urine Color Urine Clarity Urine pH Ur Specific Elizabeth Urine Protein Urine Ketones Urine Blood Urine Nitrite Urine Bilirubin Urine Urobilinogen Ur Leukocyte Esterase Urine RBC Urine WBC Ur Epithelial Cells Urine Crystals Urine Bacteria Urine Casts Urine Mucus Ur Culture Indicated? Urine Glucose Add-On Test Request DONE 05/07/24 05/07/24 05/07/24 13:40 13:19 12:50 WBC RBC Hgb Hct MCV MCH MCHC RDW Plt Count MPV Immature Gran % Neutrophils % Band Neutrophils % Lymphocytes % Monocytes % Eosinophils % Basophils % Nucleated RBC % Absolute Neutrophils Absolute Lymphocytes Absolute Monocytes Absolute Eosinophils Absolute Basophils RBC Morphology D-Dimer VBG pH VBG pCO2 VBG pO2 VBG HCO3 VBG Total CO2 VBG O2 Saturation VBG Base Excess VBG Lactate Sodium Potassium Chloride Carbon Dioxide Anion Gap BUN Creatinine Est GFR (CKD-EPI 2020) Glucose Calcium Magnesium Total Bilirubin AST ALT Alkaline Phosphatase Troponin I Cancelled Total Protein Albumin Lipase Serum HCG, Qual Negative Urine Color [place] Urine Clarity Clear Urine pH 6.0 Ur Specific Elizabeth 1.020 Urine Protein >=300 H Urine Ketones Trace H Urine Blood Trace-lysed H Urine Nitrite Negative Urine Bilirubin Small H Urine Urobilinogen 2.0 H Ur Leukocyte Esterase Negative Urine RBC 3-5 H Urine WBC 0-2 Ur Epithelial Cells Many Urine Crystals Negative Urine Bacteria Few Urine Casts Negative Urine Mucus Negative Ur Culture Indicated? No Urine Glucose Negative Add-On Test Request DONE 05/07/24 11:50 WBC 11.64 H RBC 4.51 Hgb 14.2 Hct 39.6 MCV 88 MCH 31.5 MCHC 35.9 RDW 11.9 Plt Count 244 MPV 10.8 Immature Gran % See Differential Neutrophils % 82.0 Band Neutrophils % 4 Lymphocytes % 6.0 Monocytes % 6.0 Eosinophils % 1.0 Basophils % 1.0 Nucleated RBC % 0.0 Absolute Neutrophils 10.01 H Absolute Lymphocytes 0.70 L Absolute Monocytes 0.70 Absolute Eosinophils 0.12 Absolute Basophils 0.12 RBC Morphology Normal D-Dimer 4061 H VBG pH 7.46 H VBG pCO2 40 L VBG pO2 36 VBG HCO3 29 H VBG Total CO2 25 VBG O2 Saturation 71 VBG Base Excess 5 H VBG Lactate 2.8 H* Sodium 131 L Potassium 2.7 L* Chloride 90 L Carbon Dioxide 31.2 Anion Gap 9.8 BUN 12 Creatinine 1.0 Est GFR (CKD-EPI 2020) 75.34 Glucose 121 H Calcium 8.8 Magnesium Total Bilirubin 1.21 H AST 66 H ALT 38 Alkaline Phosphatase 53 Troponin I 6 Total Protein 7.2 Albumin 2.3 L Lipase 11 Serum HCG, Qual Urine Color Urine Clarity Urine pH Ur Specific Elizabeth Urine Protein Urine Ketones Urine Blood Urine Nitrite Urine Bilirubin Urine Urobilinogen Ur Leukocyte Esterase Urine RBC Urine WBC Ur Epithelial Cells Urine Crystals Urine Bacteria Urine Casts Urine Mucus Ur Culture Indicated? Urine Glucose Add-On Test Request 05/07/24 12:37 Blood Blood Culture - Pending 05/07/24 12:50 Blood Blood Culture - Pending 05/07/24 11:50 Blood Blood Culture - Pending Preliminary micro results at discharge 05/07/24 12:37 Blood Culture - Pending Blood 05/07/24 12:50 Blood Culture - Pending Blood 05/07/24 11:50 Blood Culture - Pending Blood [facility] All Active Problems (Updated 05/08/24 @ 07:52 by Neil Esteban) Gram-positive bacteremia (Acute) Hypokalemia (Acute) Pneumonia (Acute) Severe sepsis without septic shock (Acute) Implantable subdermal contraceptive surveillance (Acute) Tobacco use (Acute) History of drug abuse (Acute) On suboxone Bipolar 1 disorder (Acute) Abnormal Pap smear of cervix (Acute) 05/2008: Pap HGSIL with + HR HPV. 06/08/2018 colpo at 14 weeks findings LGSIL. No biopsies. Plan repeat Pap LSIL pap 04/2022-Needs colposcopy HCV antibody positive (Acute 08/21/15) Hep C RNA nondetectable Attention deficit hyperactivity disorder (Acute 07/07/13) Marijuana smoker (Acute) Difficult intravenous access (Chronic) Asthma (Chronic) Medical History (Updated 05/08/24 @ 07:52 by Neil Esteban) Neuropathy Insomnia Lichenification Chronic lower back pain Migraine Depression with anxiety (04/18/16) Asthma Hypoglycemia Cigarette smoker one half pack a day or less 04/10/2017 patient reports that she has stopped tobacco use with positive test Personal history of allergy to penicillin Edentulism, complete Surgical History Dilation and curettage (07/23/17) D&C for blighted ovum at 8w EGA. 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 Camarena. Patient had necrosed fingertips after injecting Wellbutrin. Family History Mother History of spontaneous 1 Mental disorder depression and anxiety Grandfather Diabetes Grandmother Diabetes Grandmother Diabetes Father Alcohol abuse alcohol and addict-opiates Sister No problems noted. Brother Alcohol abuse alcohol abuse and abuse opiates Mental disorder depression and anxiety Brother No problems noted. Other Myocardial infarction Social History (Updated 02/04/23 @ 20:38 by Tari Drake MD) Smoking/Tobacco Use Status: Current every day Tobacco Type: cigarettes Smoking packs per day: 0.5 Smoking cigarettes per day: 10.0 Years smoked: 26 Smoking pack-years: 13.00 Tobacco: How many years used: 26 Smoking risk assessment performed?: Yes Alcohol Intake: never Drug use: Current Sobriety Substance use type: former substance user and marijuana Adopted: No Foster care: No Household members: family and other Details: Ewa Rodriguez-Cara, D-Laura, S Emrouse Housing: other Details: Lives with children. CASPER sleeps in his car. Number of Children: 5 Communication Needs: None current occupation: Employed thru [employer]. Sexually active: Yes Other: 2021. 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 Date GA/Weeks # Preg Succ Route Wgt Sex Labor Lgth Anesth esia Location [facility] 08/16/07 40 No vaginal 3260.195 g Female [facility] - [facility] 02/08/14 37 No vaginal 2267.962 g Female [facility] - [facility] 11/09/16 37 No vaginal 3260.195 g Male [facility] - 07/09/17 6 11/02/18 36 No vaginal 1871.069 g Female 2hrs 51min regional [facility] low apgars 09/30/22 37 No Yes vaginal 2778.253 g Male 7hrs 14min regional MD [place] Delivery Date: 08/16/07 Last Updated by: Adriana Escalera Pt's mother is guardian Delivery Date: 02/08/14 Last Updated by: Adriana Escalera Breech. Adopted out Delivery Date: 11/09/16 Last Updated by: Taisha Mcduffie MD Cara Gibbons. Patient has custody but only with her editor department Delivery Date: 07/09/17 Last Updated by: Tari Drake M.D. SAB at 6 weeks. Blighted ovum. Patient had D&C Delivery Date: 11/02/18 Last Updated by: Taisha Mcduffie MD Breech presentation, Precipitous labor. Laura - With mom editor department Delivery Date: 09/30/22 Last Updated by: Ivette Collier LPN Emr[place] Junior Hernandez; heavy meconium Time Spent with Patient Time Spent with Patient: 45-69 minutes Time was spent: preparing to see the patient(eg.review tests), obtaining and/or reviewing separately otained hiistory, ordering medications,tests, procedures, indepentently interpreting results and counseling the patient
--- NOTE | 2024-05-07 16:21 | W.PC.ACHO ---
Registration Status: Primary Language: Preferred Language: ED Information & Data Chief Complaint Nk/Back Pain 05/07/24 12:39 Chief Complaint Nk/Back Pain 05/07/24 11:52 Triage Note back pain x few days. pain 05/07/24 10:54 with coughing. took nyquil that caused her to be delerious. vomiting but trying to drink water. pain RUQ. not sleeping well. sick for 3 days last month as well. kids are sick. urine is dark. poor appetite. Medical / Surgical History (Last Updated 10/28/22 @ 13:13 by Taisha Mcduffie MD) Neuropathy Insomnia Lichenification Chronic lower back pain Migraine Depression with anxiety (04/18/16) Asthma Hypoglycemia Cigarette smoker one half pack a day or less Personal history of allergy to penicillin Edentulism, complete (Last Reviewed 12/28/19 @ 23:08 by ROMARIO Espinoza) Dilation and curettage (07/23/17) Amputation Most Recent Vital Signs Temperature 37.3 C 05/07/24 14:37 Temperature Source Oral 05/07/24 14:21 Pulse 121 H 05/07/24 15:20 Pulse 118 H 05/07/24 15:30 Respiratory Rate 20 05/07/24 15:30 Blood Pressure 106/73 05/07/24 13:14 Blood Pressure Mean 80 05/07/24 13:14 Blood Pressure Position Sitting 05/07/24 10:54 Pulse Oximetry 92 05/07/24 15:20 Oxygen Delivery Method Room Air 05/07/24 10:54 Oxygen Flow Rate 0 05/07/24 10:54 Pain Level 10 05/07/24 10:54 Comment poor pleth 05/07/24 10:54 Allergies Penicillins Allergy (Severe, Verified 05/07/24 11:01) Anaphylaxsis venom-honey bee (bee venom (honey bee)) Allergy (Severe, Verified 05/07/24 11:01) Anaphylaxsis naproxen (From Naprosyn) Allergy (Intermediate, Verified 05/07/24 11:01) Hives latex Allergy (Unknown, Verified 05/07/24 11:01) HIVES, RED BUMPS Precautions Isolation Standard precaution 05/07/24 12:39 Active Medications Generic Name Dose Route Start Last Admin Trade Name Freq PRN Reason Stop Dose Admin Sodium Chloride 50 ml 05/07/24 13:45 05/07/24 13:35 Normal Saline - Diluent 50 Ml Vial IJ 50 ml .FOR DI USE LEESA Administration IV IV Catheter Type [Left Upper Saline Lock arm] IV Catheter Gauge [Right Upper 18 arm] IV Catheter Gauge [Left Upper 18 arm] Diet Orders Category Date Time Status Regular/Normal [DIET] Nutrition 05/07/24 Dinner Active Diagnostics 05/07/24 05/07/24 05/07/24 Range/Units 14:55 14:34 14:02 WBC (4.4-10.8) 10^3/uL RBC (3.93-5.22) 10^6/uL Hgb (11.2-15.7) g/dL Hct (36.0-46.0) % MCV (80-95) fL MCH (27.0-33.0) pg MCHC (32.0-36.0) % RDW (11.7-14.6) % Plt Count (130-400) 10^3/uL MPV (8.0-11.0) fL Immature Gran % Neutrophils % % Band Neutrophils % % Lymphocytes % % Monocytes % % Eosinophils % % Basophils % % Nucleated RBC % (0.0-0.3) % Absolute Neutrophils (1.2-6.7) 10^3/uL Absolute Lymphocytes (1.2-3.4) 10^3/uL Absolute Monocytes (0.1-0.8) 10^3/uL Absolute Eosinophils (0.0-0.7) 10^3/uL Absolute Basophils (0.0-0.2) 10^3/uL RBC Morphology D-Dimer (<500) ng/mlFEU VBG pH (7.31-7.41) VBG pCO2 (41-51) mmHg VBG pO2 mmHg VBG HCO3 (23-28) mmol/L VBG Total CO2 (24-29) mmol/L VBG O2 Saturation % VBG Base Excess (-2-3) mmol/L VBG Lactate 2.3 H* (<or=2.0) mmol/L Sodium 132 L (136-145) mmol/L Potassium 3.4 L (3.5-5.1) mmol/L Chloride 92 L (98-107) mmol/L Carbon Dioxide 30.7 (21.0-32.0) mmol/L Anion Gap 9.3 (3-11) mmol/L BUN 12 (7-18) mg/dL Creatinine 0.9 (0.55-1.02) mg/dL Est GFR (CKD-EPI 2020) 85.50 (mL/min/1.73m2) Glucose 100 (74-106) mg/dL Calcium 8.1 L (8.5-10.1) mg/dL Magnesium 2.2 (1.8-2.4) mg/dL Total Bilirubin (0.2-1.0) mg/dL AST (15-37) U/L ALT (14-59) U/L Alkaline Phosphatase (46-116) U/L Troponin I 5 5 (<or=51) ng/L Total Protein (6.4-8.2) g/dL Albumin (3.4-5.0) g/dL Lipase (<78) U/L Serum HCG, Qual Urine Color (Yellow) Urine Clarity (Clear) Urine pH (5-8) Ur Specific [place] (1.005-1.025) Urine Protein (Neg-Trace) mg/dL Urine Ketones (Negative) mg/dL Urine Blood (Negative) Urine Nitrite (Negative) Urine Bilirubin (Negative) Urine Urobilinogen (Up to 0.2) mg/dL Ur Leukocyte Esterase (Negative) Urine RBC (0-2) HPF Urine WBC (0-5) HPF Ur Epithelial Cells (Negative) HPF Urine Crystals (Negative) HPF Urine Bacteria (Negative) HPF Urine Casts (Negative) LPF Urine Mucus (Negative) Ur Culture Indicated? Urine Glucose (Negative) mg/dL Add-On Test Request DONE 05/07/24 05/07/24 05/07/24 Range/Units 13:40 13:19 12:50 WBC (4.4-10.8) 10^3/uL RBC (3.93-5.22) 10^6/uL Hgb (11.2-15.7) g/dL Hct (36.0-46.0) % MCV (80-95) fL MCH (27.0-33.0) pg MCHC (32.0-36.0) % RDW (11.7-14.6) % Plt Count (130-400) 10^3/uL MPV (8.0-11.0) fL Immature Gran % Neutrophils % % Band Neutrophils % % Lymphocytes % % Monocytes % % Eosinophils % % Basophils % % Nucleated RBC % (0.0-0.3) % Absolute Neutrophils (1.2-6.7) 10^3/uL Absolute Lymphocytes (1.2-3.4) 10^3/uL Absolute Monocytes (0.1-0.8) 10^3/uL Absolute Eosinophils (0.0-0.7) 10^3/uL Absolute Basophils (0.0-0.2) 10^3/uL RBC Morphology D-Dimer (<500) ng/mlFEU VBG pH (7.31-7.41) VBG pCO2 (41-51) mmHg VBG pO2 mmHg VBG HCO3 (23-28) mmol/L VBG Total CO2 (24-29) mmol/L VBG O2 Saturation % VBG Base Excess (-2-3) mmol/L VBG Lactate (<or=2.0) mmol/L Sodium (136-145) mmol/L Potassium (3.5-5.1) mmol/L Chloride (98-107) mmol/L Carbon Dioxide (21.0-32.0) mmol/L Anion Gap (3-11) mmol/L BUN (7-18) mg/dL Creatinine (0.55-1.02) mg/dL Est GFR (CKD-EPI 2020) (mL/min/1.73m2) Glucose (74-106) mg/dL Calcium (8.5-10.1) mg/dL Magnesium (1.8-2.4) mg/dL Total Bilirubin (0.2-1.0) mg/dL AST (15-37) U/L ALT (14-59) U/L Alkaline Phosphatase (46-116) U/L Troponin I Cancelled (<or=51) ng/L Total Protein (6.4-8.2) g/dL Albumin (3.4-5.0) g/dL Lipase (<78) U/L Serum HCG, Qual Negative Urine Color [place] (Yellow) Urine Clarity Clear (Clear) Urine pH 6.0 (5-8) Ur Specific [place] 1.020 (1.005-1.025) Urine Protein >=300 H (Neg-Trace) mg/dL Urine Ketones Trace H (Negative) mg/dL Urine Blood Trace-lysed H (Negative) Urine Nitrite Negative (Negative) Urine Bilirubin Small H (Negative) Urine Urobilinogen 2.0 H (Up to 0.2) mg/dL Ur Leukocyte Esterase Negative (Negative) Urine RBC 3-5 H (0-2) HPF Urine WBC 0-2 (0-5) HPF Ur Epithelial Cells Many (Negative) HPF Urine Crystals Negative (Negative) HPF Urine Bacteria Few (Negative) HPF Urine Casts Negative (Negative) LPF Urine Mucus Negative (Negative) Ur Culture Indicated? No Urine Glucose Negative (Negative) mg/dL Add-On Test Request DONE 05/07/24 Range/Units 11:50 WBC 11.64 H (4.4-10.8) 10^3/uL RBC 4.51 (3.93-5.22) 10^6/uL Hgb 14.2 (11.2-15.7) g/dL Hct 39.6 (36.0-46.0) % MCV 88 (80-95) fL MCH 31.5 (27.0-33.0) pg MCHC 35.9 (32.0-36.0) % RDW 11.9 (11.7-14.6) % Plt Count 244 (130-400) 10^3/uL MPV 10.8 (8.0-11.0) fL Immature Gran % See Differential Neutrophils % 82.0 % Band Neutrophils % 4 % Lymphocytes % 6.0 % Monocytes % 6.0 % Eosinophils % 1.0 % Basophils % 1.0 % Nucleated RBC % 0.0 (0.0-0.3) % Absolute Neutrophils 10.01 H (1.2-6.7) 10^3/uL Absolute Lymphocytes 0.70 L (1.2-3.4) 10^3/uL Absolute Monocytes 0.70 (0.1-0.8) 10^3/uL Absolute Eosinophils 0.12 (0.0-0.7) 10^3/uL Absolute Basophils 0.12 (0.0-0.2) 10^3/uL RBC Morphology Normal D-Dimer 4061 H (<500) ng/mlFEU VBG pH 7.46 H (7.31-7.41) VBG pCO2 40 L (41-51) mmHg VBG pO2 36 mmHg VBG HCO3 29 H (23-28) mmol/L VBG Total CO2 25 (24-29) mmol/L VBG O2 Saturation 71 % VBG Base Excess 5 H (-2-3) mmol/L VBG Lactate 2.8 H* (<or=2.0) mmol/L Sodium 131 L (136-145) mmol/L Potassium 2.7 L* (3.5-5.1) mmol/L Chloride 90 L (98-107) mmol/L Carbon Dioxide 31.2 (21.0-32.0) mmol/L Anion Gap 9.8 (3-11) mmol/L BUN 12 (7-18) mg/dL Creatinine 1.0 (0.55-1.02) mg/dL Est GFR (CKD-EPI 2020) 75.34 (mL/min/1.73m2) Glucose 121 H (74-106) mg/dL Calcium 8.8 (8.5-10.1) mg/dL Magnesium (1.8-2.4) mg/dL Total Bilirubin 1.21 H (0.2-1.0) mg/dL AST 66 H (15-37) U/L ALT 38 (14-59) U/L Alkaline Phosphatase 53 (46-116) U/L Troponin I 6 (<or=51) ng/L Total Protein 7.2 (6.4-8.2) g/dL Albumin 2.3 L (3.4-5.0) g/dL Lipase 11 (<78) U/L Serum HCG, Qual Urine Color (Yellow) Urine Clarity (Clear) Urine pH (5-8) Ur Specific [place] (1.005-1.025) Urine Protein (Neg-Trace) mg/dL Urine Ketones (Negative) mg/dL Urine Blood (Negative) Urine Nitrite (Negative) Urine Bilirubin (Negative) Urine Urobilinogen (Up to 0.2) mg/dL Ur Leukocyte Esterase (Negative) Urine RBC (0-2) HPF Urine WBC (0-5) HPF Ur Epithelial Cells (Negative) HPF Urine Crystals (Negative) HPF Urine Bacteria (Negative) HPF Urine Casts (Negative) LPF Urine Mucus (Negative) Ur Culture Indicated? Urine Glucose (Negative) mg/dL Add-On Test Request 05/07/24 12:37 Blood Culture - Pending Blood 05/07/24 12:50 Blood Culture - Pending Blood 05/07/24 11:50 Blood Culture - Pending Blood Intake and Output - 24 Hour Total 05/07/24 10:52 thru 05/07/24 15:39 Intake Total 2250 Balance 2250 Weight 62.3 kg Intake: IV 2250 Falls Risk Assessment History of Falls No History 05/07/24 12:24 Contributing Factors Impairments,Medications 05/07/24 12:24 Tubes/Lines With any additional score 05/07/24 12:24 Gait Evaluation W/no contributing factors 05/07/24 12:24 Cognition No cognitive impairment 05/07/24 12:24 Fall Total Score 36 05/07/24 12:24 Level of Risk Moderate Risk 05/07/24 12:24 Problems (Last Updated 10/28/22 @ 13:13 by Taisha Mcduffie MD) Hypokalemia (Acute) Pneumonia (Acute) Severe sepsis without septic shock (Acute) Tobacco use (Acute) History of drug abuse (Acute) v v v v v v v v v Sending and/or Receiving Nurses: Please use comment section below to note any information pertinent to the patient hand-off not included above. Information / Comments: Neuro: anxious, Cardiac: tachycardia, Resp: crackles BL bases, GI: Soft non-tender, BM 05/07 diarrhea, Skin: Fernando, right hand missing fingers, IV Access: 18g US guided Right and left AC, Mobility: SBA, 2 L NaCl. Blood CX x 3. Imaging revealed R-PNA. Multiple drugs administered in ED. Hx of drug use. No O2 requirements. On telemetry in ED. Report received from: Chyna RN [id number]
--- NOTE | 2024-05-07 16:32 | RESPIRATORY ---
RT Initial Evalutation/Assessment Start: 05/07/24 16:24 Freq: .q shift and prn Status: Active Protocol: Document 05/07/24 16:24 (Rec: 05/07/24 16:32 [id number]) RT Assessment Smoking History Smoking/Tobacco Use Status Current every day Tobacco: How many years used 26 Tobacco Type cigarettes Cigarettes per Day 10 Years smoked 26 Smoking packs per day 0.5 OXYGEN HISTORY: Supplemental O2 At Rest 0 With Exertion 0 CPAP Can use home machine N/A BIPAP Can you home machine N/A Trilogy/AVAPS Can use home machine N/A DME/Compliance DME N/A Compliance N/A Current Respiratory Symptoms Current Respiratory Symptoms Sputum production Activity Activity Level Pt is able to perform all ADLs with no issues. Respiratory Breath Sounds Breath Sounds Any abnormal sounds, decreased breath sounds Response No change Pulse Rate <100 Respiratory Rate <18 Shortness of Breath None Respiratory Therapy Score Total 1 Assessment and Plan RT Treatment Protocol Bronchial Hygiene Therapy Protocol Note Pt states she is not short of breath at the moment. Pt states that she normally gets short of breath when she is chasing her kids around, even when she is not sick, and this is due to her smoking history . Pt states she started smoking cigarettes when she was 8 years old. Pt scored minimal score of 1 on this assessment. RT has assessed lung sounds and found diminished throughout with faint end-expiratory wheeze in posterior lower left lung field. RT will also instruct patient on use of acapella device for secretion clearance and albuterol inhaler with spacer for any episodes of SOB .
[2024-05-07] MEDS: guaiFENesin 600 MG TABCR PO (16:40)
[2024-05-07] MEDS: Normal Saline 1,000 ML 1000 ML IV (16:40)
[2024-05-07] MEDS: Potassium Chloride 20 MEQ TABCR 40 MEQ PO (16:40)
[2024-05-07] MEDS: Cefpodoxime 200 MG TAB PO (16:40)
[2024-05-07] MEDS: Albuterol HFA 8 GM 60 PUFF INH IH (16:42)
--- NOTE | 2024-05-10 09:58 | NUR.NOTE ---
Access chart to reconcile the chest xray order. There was an outstanding chest xray order with no images attached. Reviewed the provider note and CT was done. Chest xray order cancelled due to no images and CT done. Nursing Note:
== END 2024-05-07 17:19 | disposition home or self-care (01) ==
LOC: ER 15:23 → MS 15:40
PROVIDERS: Nurse Practitioner Acute Care; Admitting Provider Hospitalist; Emergency Provider Nurse Practitioner Family; PCP Nurse Practitioner Family; Visit Provider Hospitalist
DX: A41.9 Sepsis, unspecified organism (principal); R65.20 Severe sepsis without septic shock; E87.6 Hypokalemia; F17.210 Nicotine dependence, cigarettes, uncomplicated; F11.20 Opioid dependence, uncomplicated; F31.9 Bipolar disorder, unspecified; J45.909 Unspecified asthma, uncomplicated; F12.90 Cannabis use, unspecified, uncomplicated; G62.9 Polyneuropathy, unspecified; G43.909 Migraine, unspecified, not intractable, without status migrainosus; F90.9 Attention-deficit hyperactivity disorder, unspecified type
CPT/HCPCS: 00123; 36410; 36415; 71275; 74177; 80048; 80053; 82805; 83690; 87040; 87077; 93005; 94640; 96361; 96365; 96366; 96367; 96368; 96375; 99285; 81003; 81015; 83605; 83735; 84484; 84703; 85025; 85379; 87186; 93010; 94664; 94667; 94760; 99223; J0692; J1885; J2405; J3370; J3475; J3480; J3490; J7620

== ENCOUNTER 2024-07-02 16:23 | Outpatient (CLI) | payer MEDICAID, SELFPAY ==
[2024-07-02 14:49] LABS: *AMPHETAMINES SCREEN URINE Negative (Negative); *BARBITURATES SCREEN URINE Negative (Negative); *BENZODIAZEPINES SCREEN URINE Negative (Negative); Cannabinoids THC Negative (Negative); Cocaine Screen,Urine Negative (Negative); METHADONE URINE SCREEN Negative (Negative); OPIATES URINE SCREEN Negative (Negative); Tricyclic Antidepressants Positive (Negative)
[2024-07-04 09:41] LABS: HIV-1/2 Ag & Ab Screen Negative (Negative)
== END 2024-07-02 16:24 | disposition home or self-care (01) ==
LOC: LBO 16:24
PROVIDERS: PCP Nurse Practitioner Family; Visit Provider Registered Nurse
DX: F90.2 Attention-deficit hyperactivity disorder, combined type (principal); F14.91 Cocaine use, unspecified, in remission; F31.72 Bipolar disorder, in full remission, most recent episode hypomanic; Z51.81 Encounter for therapeutic drug level monitoring
CPT/HCPCS: 36415; 80053; 80307; 80360; 86704; 86709; 86803; 87340; 87389; 85025